=== PATIENT | male | born 1965 | race Caucasian/White ===

== ENCOUNTER → 2020-05-07 13:11 | Outpatient (BNVA) | payer MEDICAID, SELFPAY | PROVIDERS: PCP Internal Medicine; Referring Provider Internal Medicine; Visit Provider Nurse Practitioner Family | DX: I42.1 Obstructive hypertrophic cardiomyopathy (principal); I44.7 Left bundle-branch block, unspecified | CPT/HCPCS: 99214 ==

== ENCOUNTER → 2021-04-28 08:23 | Outpatient (REF) | payer OTHER, SELFPAY ==
--- NOTE | 2021-04-28 08:28 | CA_ITS ---
Transthoracic Echocardiogram Patient (Last, First, Middle): Bang Jarvis, Gender: Male Date of : 1965 Age: 56 Procedure Date: 04/28/2021 Procedure Type: Transthoracic Echocardiogram Location: OP Height: 187.96 cm Weight: 99.79 kg BSA: 2.26 m2 Heart Rate: bpm BP: 124 / 68 mmHg Diesel Engine Erector: RUDI Referring MD: Amelie Randle MUSIC EDUCATOR-Dawson Symptoms: I42.1 - Obstructive hypertrophic cardiomyopathy Study Quality: Fair ECG Rhythm: Sinus Conclusions: - The left ventricular systolic function is normal. The visually estimated ejection fraction is between 65-70%. - There is severe septal asymmetric hypertrophy. Septal thickness as much as 2.4cm. Peak LVOT gradient about 11mmHg at rest; with valsalva, 15mmHg. - The basal inferior, apical septum, and basal inferoseptal segments are akinetic. - No obvious valvular pathology seen on this study. Findings Left Ventricle Normal left ventricular cavity size. There is moderately increased left ventricular wall thickness. The left ventricular systolic function is normal. The visually estimated ejection fraction is between 65-70%. E/E prime ratio is >15, consistent with elevated filling pressures. Evidence suggests grade I (mild) diastolic dysfunction. There is severe septal asymmetric hypertrophy. Septal thickness as much as 2.4cm. Peak LVOT gradient about 11mmHg at rest; with valsalva, 15mmHg. Wall Motion Rest Echo Findings The basal inferior, apical septum, and basal inferoseptal segments are akinetic. Right Ventricle Normal right ventricular cavity size and systolic function. Atria Both atria are normal in size. Aortic Valve There is a normal trileaflet aortic valve. There is no aortic valve stenosis. There is no aortic valve regurgitation. Mitral Valve There is mild anterior and posterior mitral leaflet thickening. There is mild mitral annular calcification. There is trace mitral valve regurgitation. There is no mitral valve stenosis. Pulmonic Valve The pulmonic valve was not well visualized. Tricuspid Valve Normal tricuspid valve structure. There is trace tricuspid valve regurgitation. The pulmonary artery systolic pressure is normal. Great Vessels There is mild dilatation of the ascending aorta measuring 3.70 cm. Venous The inferior vena cava is normal in size and collapses greater than 50% with inspiration. Pericardium/Pleural There is a trivial pericardial effusion. Recommendations, Care & Conclusions No obvious valvular pathology seen on this study. Measurements 2D Linear Measurements IVSd: 1.99 0.6-0.9/0.6-1.0 cm LVIDd: 4.30 3.9-5.3/4.2-5.9 cm LVIDd Index: 1.90 2.4-3.2/2.2-3.1 cm/m2 LVIDs: 2.75 2.0-3.6 cm LVPWd: 1.42 0.7-1.1 cm Ao Root: 3.50 2.1-3.5 cm LA Diam: 4.00 2.7-3.8/3.0-4.0 cm LAIDs Index: 1.77 1.5-2.3 cm/m2 LV Mass: 393.96 67-162/88-224 g LV Mass Index: 174.32 43-95/49-115 g/m2 LVOT Diam: 2.00 3.0+(-)1.3 cm Mitral Valve MV Pk E: 0.99 MV PK A: 1.33 MV Decel Time: 299.00 E/A: 0.70 E'Lateral: 8.05 E'Medial: 3.37 E/E' Med: 29.20 E/E' Lat: 12.20 PHT: 88.00 MVA PHT: 2.50 Decel Collin: 3.29 Aortic Valve AoV Pk Vernon: 2.15 AoV Mn Vernon: 1.62 AoV VTI: 0.40 AoV Pk Grad: 18.00 Aov Mn Grad: 12.00 ROBERT Cont.VTI: 2.57 LVOT LVOT Pk Vernon: 1.61 LVOT Mn Vernon: 1.15 LVOT VTI: 0.32 LVOT Pk Grad: 10.00 LVOT Mn Grad: 6.00 LVOT Diam: 2.00 LVOT Area: 3.14 Diastolic Function MV Pk E: 0.99 MV Pk A: 1.33 E/A: 0.70 E'Medial: 3.37 E/E' Med: 29.20 E' Laterial: 8.05 E/E' Lat: 12.20 Right Ventricle TAPSE (mm): 21.00 TVS' Vernon: 14.00 Tricuspid Valve TR Pk Vernon: 1.90 TR Pk Grad: 14.00 Great Vessels Aorta Ao Root-2D: 3.50 2.0-3.7 cm Ao Asc: 3.70 2.1-3.4 cm Updated in Other Vendor System with Status of Final Albert Quiroga MD electronically signed on 04/29/2021 10:57:15 AM with status of Final
== END ==
LOC: HO.CARD 08:23
PROVIDERS: Visit Provider Nurse Practitioner Family
DX: I42.1 Obstructive hypertrophic cardiomyopathy (principal); I44.7 Left bundle-branch block, unspecified
CPT/HCPCS: 93306

== ENCOUNTER → 2021-05-26 12:49 | Outpatient (BNVA) | payer OTHER, SELFPAY | PROVIDERS: PCP Internal Medicine; Referring Provider Internal Medicine; Visit Provider Nurse Practitioner Family | DX: I42.1 Obstructive hypertrophic cardiomyopathy (principal); I44.7 Left bundle-branch block, unspecified | CPT/HCPCS: 93005; 99212 ==

== ENCOUNTER → 2021-08-06 13:08 | Outpatient (BNVA) | payer OTHER, SELFPAY | PROVIDERS: PCP Internal Medicine; Visit Provider Urology | DX: N52.9 Male erectile dysfunction, unspecified (principal) | CPT/HCPCS: 99202 ==

== ENCOUNTER → 2021-08-20 15:31 | Outpatient (BNVA) | payer OTHER, SELFPAY | PROVIDERS: PCP Internal Medicine; Visit Provider Surgery | DX: L72.0 Epidermal cyst (principal) | CPT/HCPCS: 99202 ==

== ENCOUNTER 2021-09-23 07:49 | Outpatient (REF) | payer OTHER, SELFPAY ==
[2021-09-23 07:55] VITALS: BMI 28.5
[2021-09-23 07:56] VITALS: BP 109/70; PULSE 83; RESP 16; TEMP 36.3; O2SAT 96
[2021-09-23 08:37] VITALS: BP 124/66; PULSE 85; RESP 16; O2SAT 96
--- NOTE | 2021-09-23 08:43 | P.OP_ITS ---
Operative Note Operative Note Date of Service: 09/23/21 Narrative: Preop diagnosis: epidermal inclusion cyst x2 on the back Postop diagnosis: The same Procedure: Excision of epidermal inclusion cyst x2 from the back surgeon: Ambrocio Garibay MD The patient is a 56-year-old male with to epidermal inclusion cysts on the back. There was a 2.5 cm in diameter cyst on the upper back and a 3. cm cyst on the lower back. In view of increasing size and significant discomfort, he wanted to proceed with excision. Understood the technique of excision under local anesthesia. He was aware of the risks, benefits, and alternatives He was brought to the minor procedure room. He was placed in prone position. The areas of both cysts were prepped and draped in the usual sterile fashion. A surgical time-out had been done. I infiltrated both areas with lidocaine 1% I then made an incision on the skin overlying the cyst on the lower back using blade 15. This was carried down through the full-thickness of the skin subcutaneous fat until I visualized the cyst capsule. I sharply dissected the cyst capsule off of the rest of the subcutaneous layer using blade 15 as well as with Metzenbaum scissors. I continued with this dissection anteriorly anterior the entire cyst was completely with the capsule. This was sent as a specimen. I irrigated the area of excision and closed the incision with full- thickness nylon 3-0 interrupted sutures . I then proceeded to make the incision on the skin on the cyst on the upper back using blade 15. And this was carried down through the full-thickness of skin and subcutaneous fat until I visualized the cyst capsule. I sharply dissected the cyst capsule off of the rest of the subcutaneous layer all the way posteriorly with Metzenbaum scissors as well as with a blade 15. This was delivered and sent as specimen. I irrigated the area of excision and closed the incision with full-thickness nylon 3-0 interrupted sutures. Dressings were applied. The procedure was then completed . The patient tolerated the procedure well. There were no complications noted. Estimated blood loss was about 5 cc . The patient was on wound care instructions and will be seen in the office for removal sutures.
== END 2021-09-23 07:50 | disposition home or self-care (01) ==
LOC: HO.MS 07:49
PROVIDERS: Visit Provider Surgery
PROC: (CPT 11403; principal; 2021-09-23 08:00)
DX: L72.0 Epidermal cyst (principal)
CPT/HCPCS: 11403 ×2; 88304

== ENCOUNTER → 2021-10-05 10:00 | Outpatient (BNVA) | payer OTHER, SELFPAY | PROVIDERS: PCP Internal Medicine; Referring Provider Internal Medicine; Visit Provider Surgery | DX: L72.0 Epidermal cyst (principal) | CPT/HCPCS: 99212 ==

== ENCOUNTER 2021-11-05 08:51 | Outpatient (AMB) | payer OTHER, SELFPAY ==
--- NOTE | 2021-11-05 09:13 | A.OFFVIS_ITS ---
Intake Intake Visit Reasons: 3 mth follow up weak stream Intake Note: Patient is present for weak stream follow up Network Associate Required: No Accompanied by: Self / Same As Patient Allergies prednisone [PREDNISONE] Allergy (Intermediate, Verified 06/01/23 11:22) BLEEDING HPI HPI Comments History of Present Illness Details Bang is a very pleasant male. He is a patient of Dr. Moulton. He is seen for the following urologic conditions. - erectile dysfunction - lower urinary tract symptoms Increased dose to 10 mg daily Erectile dysfunction Progressive Minimal erections in the mornings Has had prior cardiac procedure for HOCM Will try tadalafil 10 mg daily Follow-up in 3 months [facility] Medical History (Updated 08/23/23 @ 12:25 by Benjamín Malcolm MD) Aortic stenosis (~06/2022) Pacemaker (~04/2023) Hyperlipidemia Hypertrophic obstructive cardiomyopathy (HOCM) (~2018) LBBB (left bundle branch block) (~2018) Surgical History History of pacemaker (~04/2023) History of heart surgery (~12/2018) History of colonoscopy History of esophagogastroduodenoscopy (EGD) History of thumb surgery History of excision of epidermal inclusion cyst (~09/2021) Family History Father No problems noted. Mother No problems noted. Brother No problems noted. Sister No problems noted. Daughter Thyroid condition Son No problems noted. Social History Household Members: Spouse Housing: Apartment Do you presently have visiting nurse or other home services: No Alcohol intake: current Alcohol intake frequency: does not drink Comment: Indpendent Patient Tobacco Use Status: Current someday Tobacco user Tobacco use type: Cigarette Cigarettes Per Day: 5 service: No Review of Systems Const All systems reviewed & are unremarkable except as noted in HPI and below Reports no additional complaints Resp Reports no additional complaints GI Reports no additional complaints Reports as per HPI Musc Reports no additional complaints Physical Exam Telemedicine evaluation Appropriate responses Regular breathing rate and rhythm HEENT Head: Yes normal to inspection Ears: hearing grossly normal bilaterally Eyes General: appearance normal, both eyes and all related structures Neck Neck: Yes normal visual inspection Chest Chest palpation & inspection: normal inspection of the chest Resp Effort & Inspection: normal respiratory effort and able to speak in complete sentences Assessment & Plan Assessment & Plan Medications: Changed From tadalafil $17 [facility] [address] [id number] 5 mg PO DAILY 90 days 90 tabs 0RF sexual activity N52.9 - Male erectile dysfunction, unspecified To tadalafil [facility] [address] [id number] 10 mg PO DAILY 90 tabs 0RF sexual activity 90 days N52.9 - Male erectile dysfunction, unspecified Telehealth Telehealth Location of provider rendering services: practice address Location of patient: address on file Patient Identification confirmed using: Name, : Yes Telehealth method: voice only Patient verbally consented to treatment: Yes Patient verbally consented to billing insurance company: Yes Patient informed of any privacy concerns related to visit: Yes Coding Level of Care Code Tele Est Pt Level 3 (84808)
== END 2021-11-05 11:20 | disposition home or self-care (01) ==
LOC: HO.HUSH 08:51
PROVIDERS: PCP Internal Medicine; Visit Provider Urology
DX: N52.9 Male erectile dysfunction, unspecified (principal)
CPT/HCPCS: 99499

== ENCOUNTER → 2021-11-05 08:51 | Outpatient (BNVA) | payer OTHER, SELFPAY | PROVIDERS: PCP Internal Medicine; Visit Provider Urology | DX: Z13.89 Encounter for screening for other disorder (principal) ==

== ENCOUNTER → 2022-02-10 09:17 | Outpatient (BNVA) | payer OTHER, SELFPAY | PROVIDERS: PCP Internal Medicine; Visit Provider Urology | DX: N52.9 Male erectile dysfunction, unspecified (principal) | CPT/HCPCS: Q3014 ==

== ENCOUNTER 2022-02-28 23:51 | Emergency (ER) | payer OTHER, SELFPAY ==
--- NOTE | 2022-02-28 | ECG_ITS ---
Test Reason : CHEST PAIN Blood Pressure : / mmHG Vent. Rate : 070 BPM Atrial Rate : 070 BPM P-R Int : 150 ms QRS Dur : 158 ms QT Int : 444 ms P-R-T Axes : 055 062 220 degrees QTc Int : 479 ms Normal sinus rhythm Possible Left atrial enlargement Left bundle branch block Abnormal ECG When compared with ECG of 16-FEB-2019 20:21, No significant change was found Referred By: Generic ED Physician Electronically Signed By:ISAAC COLON MD
--- NOTE | ~2022-02-28 | XR_ITS ---
EXAMINATION: XR CHEST CLINICAL INFORMATION: Chest pain COMPARISON: 01/14/2019 TECHNIQUE: Frontal view of the chest was obtained. FINDINGS: Normal symmetric lung volumes. No parenchymal consolidation. No pleural effusion. No pneumothorax. Cardiomediastinal silhouette and pulmonary vascularity are within normal limits. No acute osseous abnormalities. Median sternotomy. XR/XR chest 1V IMPRESSION: Clear lungs.
[2022-02-28 23:58] VITALS: BP 137/80; PULSE 76; RESP 18; TEMP 36.5; O2SAT 97; BMI 28.1
[2022-03-01 00:26] LABS: Basophils Percent Auto 0.2 % (0-2); Eosinophils Absolute Auto 0.4 X10*3/uL (0.0-0.4); Eosinophils Percent Auto 3.3 % (0-4); Hematocrit 45.8 % (42.0-52.0); Hemoglobin 14.7 g/dl (14.0-18.0); Imm Gran Abs Auto 0.03 X10*3/uL (0.00-0.03); Imm Gran Pct Auto 0.3 % (0.0-0.4); Lymphocytes Absolute Auto 2.2 X10*3/uL (1.2-4.9); Lymphocytes Percent Auto 21.1 % (20-40); MANUAL DIFF FLAG NO; Mean Corpuscular HGB Conc 32.1 g/dl (31.0-36.0); Mean Corpuscular Hemoglobin 26.2 pg (27.0-33.0); Mean Corpuscular Volume 81.6 fL (80.0-98.0); Mean Platelet Volume 10.6 fL (9.4-12.4); Monocytes Absolute Auto 0.8 X10*3/uL (0.1-1.2); Monocytes Percent Auto 7.5 % (2-11); Neutrophils Absolute Auto 7.2 x10*3/uL (2.0-8.3); Neutrophils Percent Auto 67.6 % (45-73); Platelet Count 243 X10*3/uL (160-400); Red Blood Count 5.61 X10*6/uL (4.60-5.80); Red Cell Distribution Width 15.1 % (11.0-16.0); White Blood Count 10.6 X10*3/uL (4.8-10.8)
[2022-03-01 00:46] LABS: Troponin-I High Sensitivity 10.6 ng/L (<3.5-35.0)
--- NOTE | 2022-03-01 00:49 | ED.CHESTPAIN ---
HPI - Chest Pain General Chief Complaint: Chest Pain Stated Complaint: chest pain Time Seen by Provider: 03/01/22 00:22 Source: patient Mode of arrival: ambulatory Limitations: no limitations History of Present Illness HPI narrative: Patient is 57 years old with history of HOCM status post septal myectomy in 2019 with postsurgical LBBB comes here for chest pain for last 2 days patient denies any shortness of breath no dizziness no presyncope/syncope, falls no PND or orthopnea or edema patient describes chest pain as sharp pain off and on without any palpitation or diaphoresis Related Data Home Medications Medication Instructions Recorded Confirmed acetaminophen 500 mg tablet 500 mg PO Q6H PRN 05/07/20 08/20/21 (Tylenol Extra Strength) simvastatin 40 mg tablet 40 mg PO BEDTIME 11/05/21 famotidine 20 mg tablet 20 mg PO DAILY 02/10/22 metformin 500 mg tablet 1 tab PO BID 03/01/22 03/01/22 Previous Rx's Medication Instructions Recorded aspirin 81 mg tablet,delayed 81 mg PO DAILY 90 days #90 tabs 02/11/21 release sildenafil 100 mg tablet 100 mg PO ONCE PRN sexual activity 02/10/22 30 days #30 tabs tadalafil 10 mg tablet 10 mg PO DAILY sexual activity 90 02/10/22 days #90 tabs Allergies Allergy/AdvReac Type Severity Reaction Status Date / Time prednisone [PREDNISONE] Allergy Intermediate BLEEDING Verified 02/10/22 09:19 Review of Systems Review of Systems: Yes all other systems are reviewed and are negative PMFSH Past Medical History Medical History Epidermal inclusion cyst Hyperlipidemia Hypertrophic obstructive cardiomyopathy (HOCM) LBBB (left bundle branch block) Surgical History H/O heart surgery H/O thumb surgery History of excision of epidermal inclusion cyst (~09/23/21) HOCM (hypertrophic obstructive cardiomyopathy) Hx of colonoscopy Family History Family History Father No problems noted. Mother No problems noted. Brother No problems noted. Sister No problems noted. Daughter Thyroid condition Son No problems noted. Social History Social History Alcohol intake: current Patient Tobacco Use Status: Current someday Tobacco user Tobacco use type: Cigarette Physical Exam Vital Signs: Vital Signs: Last Vital Signs Temp 97.7 F 02/28/22 23:58 Pulse 66 03/01/22 01:01 Resp 18 03/01/22 01:01 BP 126/74 03/01/22 01:01 Pulse Ox 97 03/01/22 01:01 O2 Del Method 03/01/22 01:01 BMI result Body Mass Index 28.1 Appearance: Alert. Oriented X3. No acute distress. Eyes: PERRLA, No Nystagmus ENT: Pharynx normal. Oral Mucosa moist Neck: Normal inspection. Neck supple. CVS: Normal heart rate and rhythm. Pulses normal. Respiratory: No respiratory distress. Equal air entry bilateral, no wheezing/rales/rhonchi Abdomen: Soft and nontender. Bowel sounds are present, no mass palpable, no CVA tenderness Skin: Skin warm and dry. Normal skin color. Normal skin turgor. Extremities: No lower extremity edema. No calf tenderness Neuro: Oriented X 3. No motor deficit. No sensory deficit.No cerebellar signs , cranial nerves II-XII intact MDM - Chest Pain MDM Narrative Medical decision making narrative: 00:06 Patient atypical chest pain for last 2 days EKG without any ischemic changes patient does have a HOCM. Will repeat troponin patient does take aspirin a day which she has taken it yesterday at this time patient does not have any chest pain patient has previous cardiac catheterization in 2019 was negative Lab Data Attestation: I reviewed the patient's lab results. Result diagrams: 03/01/22 00:20 03/01/22 00:20 Labs: Lab Results 03/01/22 03/01/22 03/01/22 Range/Units 00:20 00:20 00:20 WBC 10.6 (4.8-10.8) X10*3/uL RBC 5.61 (4.60-5.80) X10*6/uL Hgb 14.7 (14.0-18.0) g/dl Hct 45.8 (42.0-52.0) % MCV 81.6 (80.0-98.0) fL MCH 26.2 L (27.0-33.0) pg MCHC 32.1 (31.0-36.0) g/dl RDW 15.1 (11.0-16.0) % Plt Count 243 (160-400) X10*3/uL MPV 10.6 (9.4-12.4) fL Immature Gran % (Auto) 0.3 (0.0-0.4) % Neut % (Auto) 67.6 (45-73) % Lymph % (Auto) 21.1 (20-40) % [place] % (Auto) 7.5 (2-11) % Eos % (Auto) 3.3 (0-4) % Baso % (Auto) 0.2 (0-2) % Lymph # (Auto) 2.2 (1.2-4.9) X10*3/uL [place] # (Auto) 0.8 (0.1-1.2) X10*3/uL Eos # (Auto) 0.4 (0.0-0.4) X10*3/uL Baso # (Auto) 0.0 (0.0-0.2) X10*3/uL Abs Immat Gran (auto) 0.03 (0.00-0.03) X10*3/uL Absolute Neuts (auto) 7.2 (2.0-8.3) x10*3/uL Absolute Nucleated RBC 0.000 (0.0-0.012) X10*3/uL Nucleated RBC % (auto) 0.0 (0.0-0.2) /100WBC Sodium 140 (135-145) mmol/L Potassium 4.3 (3.3-5.1) mmol/L Chloride 107 (96-108) mmol/L Carbon Dioxide 21 L (22-29) mmol/L Anion Gap 16 (12-20) BUN 20 H (9-16) mg/dL Creatinine 0.87 (0.5-1.4) mg/dL Estim Creat Clear Calc 120.8 Estimated GFR > 60 Random Glucose 130 H (60-115) mg/dL Calcium 8.7 (8.4-10.2) mg/dL Troponin I High Sens 10.6 (<3.5-35.0) ng/L ECG Data ECG #1: Attestation: I personally reviewed and interpreted this ECG as follows: Interpretation: No sinus rhythm heart rate 70 beats per minute left bundle-branch block left atrial enlargement no acute ischemic changes no change from the previous EKG Discharge Plan Discharge Clinical Impression: Chest pain Patient Disposition: Still a Patient Prescriptions: No Action aspirin 81 mg tablet,delayed release (DR/EC) 81 mg PO DAILY 90 Days Qty: 90 3RF metformin 500 mg tablet 1 tab PO BID acetaminophen [Tylenol Extra Strength] 500 mg tablet 500 mg PO Q6H PRN (Reason: Pain) simvastatin 40 mg tablet 40 mg PO BEDTIME famotidine 20 mg tablet 20 mg PO DAILY sildenafil 100 mg tablet 100 mg PO ONCE PRN (Reason: sexual activity) 30 Days Qty: 30 1RF Rx Instructions: administer 60 minutes before intended activity tadalafil 10 mg tablet 10 mg PO DAILY 90 Days Qty: 90 0RF Rx Instructions: [place] [facility] [id number]
[2022-03-01 01:01] VITALS: BP 126/74; PULSE 66; RESP 18; O2SAT 97
[2022-03-01 01:08] LABS: Anion Gap 16 (12-20); Blood Urea Nitrogen 20 mg/dL (9-16); Calcium 8.7 mg/dL (8.4-10.2); Carbon Dioxide 21 mmol/L (22-29); Chloride 107 mmol/L (96-108); Creatinine Clr Calc Pharmacy 120.8; Estimated Glomerular Filt Rate > 60; Glucose Random 130 mg/dL (60-115); Potassium 4.3 mmol/L (3.3-5.1); Sodium 140 mmol/L (135-145)
[2022-03-01 02:00] VITALS: BP 119/70; PULSE 65; RESP 13; O2SAT 97
[2022-03-01 03:01] LABS: Troponin-I High Sensitivity 11.8 ng/L (<3.5-35.0)
== END 2022-03-01 04:00 | disposition home or self-care (01) ==
PROVIDERS: Emergency Provider Internal Medicine; PCP Internal Medicine Cardiovascular Disease
DX: R07.89 Other chest pain (principal); F17.200 Nicotine dependence, unspecified, uncomplicated; Z71.6 Tobacco abuse counseling; Z79.899 Other long term (current) drug therapy
CPT/HCPCS: 36415; 71045; 80048; 84484; 85025; 93005; 99283; 99284

== ENCOUNTER → 2022-05-27 14:44 | Outpatient (BNVA) | payer OTHER, SELFPAY | PROVIDERS: Visit Provider Urology | DX: N52.9 Male erectile dysfunction, unspecified (principal); Z79.899 Other long term (current) drug therapy | CPT/HCPCS: Q3014 ==

== ENCOUNTER → 2022-06-11 07:10 | Outpatient (REF) | payer OTHER, SELFPAY ==
--- NOTE | 2022-06-11 07:12 | CA_ITS ---
Transthoracic Echocardiogram Patient (Last, First, Middle): Bang Jarvis, Gender: Male Date of : 1965 Age: 57 Procedure Date: 06/11/2022 Procedure Type: Transthoracic Echocardiogram Location: OP Height: 187.96 cm Weight: 68.04 kg BSA: 1.92 m2 Heart Rate: bpm BP: 130 / 75 mmHg Log Preparer: TO Referring MD: Amelie Randle DOPE HOUSE OPERATOR HELPER-Dawson Symptoms: I42.1 - Obstructive hypertrophic cardiomyopathy Study Quality: Fair/Contrast Conclusions: - Normal left ventricular cavity size. There is severely increased left ventricular wall thickness. The left ventricular systolic function is hyperdynamic. The visually estimated ejection fraction is >70%. - No MARSHALL. LVOT gradient at rest and with Valsalva 14 mm Hg. - Mildly increased right ventricular cavity size. There is borderline right ventricular systolic function. - There is mild aortic valve stenosis. The peak aortic velocity is 2.07 m/s. - Flow acceleration across the MV with mean gradient of 4 mm Hg @ HR 63/min. Findings Procedure Information Contrast agent, definity, is being given per protocol without apparent complications. Left Ventricle Normal left ventricular cavity size. There is severely increased left ventricular wall thickness. The left ventricular systolic function is hyperdynamic. The visually estimated ejection fraction is >70%. There is no evidence of regional wall motion abnormalities. Diastolic function is indeterminate on the basis of available data. Right Ventricle Mildly increased right ventricular cavity size. There is borderline right ventricular systolic function. Atria The left atrium is severely dilated. The right atrium is normal in size. Aortic Valve There is a normal trileaflet aortic valve. There is mild calcification of the aortic valve. There is mild aortic valve stenosis. The peak aortic velocity is 2.07 m/s. There is no aortic valve regurgitation. Mitral Valve There is severe mitral annular calcification. There is trace mitral valve regurgitation. Flow acceleration across the MV with mean gradient of 4 mm Hg @ HR 63/min. Pulmonic Valve The pulmonic valve is likely normal. Tricuspid Valve Normal tricuspid valve structure. There is no tricuspid valve regurgitation. Normal right atrial pressure. Mild pulmonary hypertension is present. Great Vessels There is mild dilatation of the ascending aorta. The visualized portions of the pulmonary artery and branches are normal. Venous The inferior vena cava is normal in size and collapses greater than 50% with inspiration. Pericardium/Pleural Prominent epicardial adipose tissue noted. There is no evidence of pericardial effusion. Prior Study Comparison Changes noted compared to prior study dated: 04/28/2021. Mild present. Measurements 2D Linear Measurements IVSd: 1.71 0.6-0.9/0.6-1.0 cm LVIDd: 5.37 3.9-5.3/4.2-5.9 cm LVIDd Index: 2.80 2.4-3.2/2.2-3.1 cm/m2 LVIDs: 3.47 2.0-3.6 cm LVPWd: 1.09 0.7-1.1 cm LA Diam: 4.10 2.7-3.8/3.0-4.0 cm LAIDs Index: 2.14 1.5-2.3 cm/m2 LV Mass: 406.10 67-162/88-224 g LV Mass Index: 211.51 43-95/49-115 g/m2 LVOT Diam: 2.00 3.0+(-)1.3 cm 2D Systolic Function EF 4C: 69.30 >55% EF 2C: 68.30 >55% EF BiP: 69.20 >55% Mitral Valve MV VTI: 0.39 MV Pk Vernon: 1.29 MV Mn Vernon: 0.94 MV Pk Grad: 7.00 MV Mn Grad: 4.00 MV Pk E: 1.18 MV PK A: 1.10 MV Decel Time: 296.00 E/A: 1.10 E'Lateral: 6.53 E'Medial: 4.24 E/E' Med: 27.80 E/E' Lat: 18.10 PHT: 87.00 MVA PHT: 2.53 MVA Continuity: 3.00 Decel Roane: 3.98 Aortic Valve AoV Pk Vernon: 2.07 AoV Mn Vernon: 1.40 AoV VTI: 0.41 AoV Pk Grad: 17.00 Aov Mn Grad: 9.00 ROBERT Cont.VTI: 2.85 LVOT LVOT Pk Vernon: 1.88 LVOT Mn Vernon: 1.22 LVOT VTI: 0.38 LVOT Pk Grad: 14.00 LVOT Mn Grad: 7.00 LVOT Diam: 2.00 LVOT Area: 3.14 Diastolic Function MV Pk E: 1.18 MV Pk A: 1.10 E/A: 1.10 E'Medial: 4.24 E/E' Med: 27.80 E' Laterial: 6.53 E/E' Lat: 18.10 Right Ventricle TAPSE (mm): 23.50 TVS' Vernon: 9.68 Tricuspid Valve TR Pk Vernon: 3.03 TR Pk Grad: 37.00 RA Press: 3.00 RVSP: 40.00 Great Vessels Aorta Sinus of Valsalva: 3.61 2.0-3.5 cm Ao Asc: 3.40 2.1-3.4 cm Updated in Other Vendor System with Status of Final Sumit Mak MD electronically signed on 06/13/2022 4:54:09 PM with status of Final
== END ==
LOC: HO.CARD 07:10
PROVIDERS: Visit Provider Nurse Practitioner Family
DX: I42.1 Obstructive hypertrophic cardiomyopathy (principal)
CPT/HCPCS: 93306; Q9957

== ENCOUNTER → 2022-08-03 12:31 | Outpatient (BNVA) | payer OTHER, SELFPAY | PROVIDERS: Visit Provider Internal Medicine Cardiovascular Disease | DX: I42.1 Obstructive hypertrophic cardiomyopathy (principal); I44.7 Left bundle-branch block, unspecified; I35.0 Nonrheumatic aortic (valve) stenosis | CPT/HCPCS: 99212 ==

== ENCOUNTER 2022-11-07 08:27 | Emergency (ER) | payer OTHER, SELFPAY ==
[2022-11-07 08:39] VITALS: BP 130/94; PULSE 70; RESP 18; TEMP 36.2; O2SAT 97; BMI 27.6
--- NOTE | 2022-11-07 08:51 | ED.DENTAL ---
HPI - Dental/Oral General Chief complaint: Dental/Oral Stated complaint: Dental pain Time Seen by Provider: 11/07/22 08:42 Source: patient Mode of arrival: ambulatory Limitations: no limitations History of Present Illness HPI Narrative: 57-year-old male came in for evaluation of dental pain. Patient broke a tooth 2 weeks ago and has an appointment with a dentist in 2 weeks came in for increased pain around the tooth and swelling on the right side of the face. Patient declined any fever chills, prior open heart surgery for hypertrophic obstructive cardiomyopathy. Related Data Home Medications Medication Instructions Recorded Confirmed acetaminophen 500 mg tablet 500 mg PO Q6H PRN Pain 05/07/20 08/03/22 (Tylenol Extra Strength) famotidine 20 mg tablet 20 mg PO DAILY 02/10/22 08/03/22 cholecalciferol (vitamin D3) 25 25 mcg PO DAILY 08/03/22 08/03/22 mcg (1,000 unit) tablet cyanocobalamin (vitamin B-12) 1,000 mcg PO DAILY 08/03/22 08/03/22 1,000 mcg tablet (Vitamin B-12) metformin 500 mg tablet 500 mg PO BID PRN 08/03/22 08/03/22 rosuvastatin 20 mg tablet 20 mg PO BEDTIME 08/03/22 08/03/22 Previous Rx's Medication Instructions Recorded aspirin 81 mg tablet,delayed 81 mg PO DAILY 90 days #90 tabs 02/11/21 release sildenafil 100 mg tablet 100 mg PO ONCE PRN sexual activity 02/10/22 30 days #30 tabs tadalafil 10 mg tablet 10 mg PO DAILY sexual activity 90 05/27/22 days #90 tabs amoxicillin 500 mg tablet 500 mg PO Q12H #14 tabs 11/07/22 oxycodone 5 mg tablet 5 mg PO Q8H PRN pain #10 tabs 11/07/22 Allergies Allergy/AdvReac Type Severity Reaction Status Date / Time prednisone [PREDNISONE] Allergy Intermediate BLEEDING Verified 02/10/22 09:19 Review of Systems Review of Systems: All other systems are reviewed and are negative Constitutional: Reports as per HPI and Reports no additional constitutional complaints Eyes: Reports as per HPI and Reports no additional eye complaints Reports system reviewed and no additional complaints, except as documented Cardiovascular: Reports as per HPI and Reports no additional cardiovascular complaints Respiratory: Reports as per HPI and Reports no additional respiratory complaints Gastrointestinal: Reports as per HPI and Reports no additional gastrointestinal complaints Genitourinary: Reports no additional female genitourinary complaints Musculoskeletal: Reports no additional musculoskeletal complaints Skin/Breast: Reports system reviewed and no additional complaints, except as docu Psychiatric: Reports no additional psychiatric complaints Endocrine: Reports no additional endocrine complaints Hematologic/Lymphatic: Reports no additional hematologic/lymphatic complaints Allergic/Immunologic: Reports no additional allergic/immunologic complaints Reports system reviewed and no additional complaints, except as documented and Reports Abnormal speech present [facility] Past Medical History Medical History Epidermal inclusion cyst Hyperlipidemia Hypertrophic obstructive cardiomyopathy (HOCM) LBBB (left bundle branch block) Surgical History H/O heart surgery H/O thumb surgery History of excision of epidermal inclusion cyst (~09/23/21) HOCM (hypertrophic obstructive cardiomyopathy) Hx of colonoscopy Family History Family History Father No problems noted. Mother No problems noted. Brother No problems noted. Sister No problems noted. Daughter Thyroid condition Son No problems noted. Social History Social History Alcohol intake: current Patient Tobacco Use Status: Current someday Tobacco user Tobacco use type: Cigarette Advance Directives: No Advance Directives Information Provided: Yes Physical Exam Vital Signs: Vital Signs: Last Vital Signs Temp 97.2 F 11/07/22 08:39 Pulse 70 11/07/22 08:39 Resp 18 11/07/22 08:39 BP 130/94 H 11/07/22 08:39 Pulse Ox 97 11/07/22 08:39 O2 Del Method Room Air 11/07/22 08:39 BMI result Body Mass Index 27.6 Vital signs have been reviewed as appeared to be correct. Blood pressure normal. Heart rate normal. Respiration rate normal. Temperature normal. Oxygen saturation normal. Appearance: Alert. Oriented X3. No acute distress. Head: Normal external exam. Normocephalic. Atraumatic. No Wright signs noted. No raccoon eyes noted Right facial swelling, broken right lower 2nd molar tooth with tenderness over the tooth and around the gum, no gum swelling or fluctuation. Eyes: PERRLA. EOMI. Conjunctiva and sclera normal. Eyelids normal. ENT: TM's Normal. Pharynx normal. Uvula midline. Moist mucous membranes. No trismus noted. No drooling noted. No muffled voice noted. Neck: Normal inspection. Neck supple. FROM. No adenopathy. Thyroid Normal. No meningeal signs. No neck mass noted. CVS: Normal heart rate and rhythm. Heart sound normal. No murmurs noted. Pulses normal throughout. Respiratory: No respiratory distress. Painless inspiration. Breath sounds normal. No wheezes/rales/rhonchi noted. Chest nontender. No accessory muscle usage noted or decreased air movement noted. Abdomen: Soft and nontender. Bowel sounds normal in all 4 quadrants. No distention noted. No organomegaly noted. No visible injury noted. Back: No CVA tenderness. Full range of motion noted. Skin: Skin warm and dry. Normal skin color. Normal skin turgor. No rashes/lesions/lacerations noted. Extremities: No lower extremity edema. Extremities exhibit normal range of motion. Extremities nontender. Neuro: Oriented X 3. Cranial nerve exam: II-XII are grossly intact No motor deficit. No sensory deficit. Reflexes normal. Course Course Course Narrative: Right lower 2nd molar tooth infection with gingivitis without abscess. Medical Decision Making Differential Diagnosis Differential Diagnoses: The differential diagnosis associated with the presentation includes (Infected tooth, gingival abscess, gingivitis, facial cellulitis.) Discharge Plan Discharge Clinical Impression: Toothache Patient Disposition: Home, Self-Care Instructions: Toothache (ED) Additional Instructions: See your dentist as scheduled next week and take the antibiotic. Prescriptions: New oxycodone 5 mg tablet 5 mg PO Q8H PRN (Reason: pain) Qty: 10 0RF Rx Instructions: Partial Fill upon patient request. amoxicillin 500 mg tablet 500 mg PO Q12H Qty: 14 0RF No Action aspirin 81 mg tablet,delayed release (DR/EC) 81 mg PO DAILY 90 Days Qty: 90 3RF metformin 500 mg tablet 500 mg PO BID PRN acetaminophen [Tylenol Extra Strength] 500 mg tablet 500 mg PO Q6H PRN (Reason: Pain) famotidine 20 mg tablet 20 mg PO DAILY sildenafil 100 mg tablet 100 mg PO ONCE PRN (Reason: sexual activity) 30 Days Qty: 30 1RF Rx Instructions: administer 60 minutes before intended activity tadalafil 10 mg tablet 10 mg PO DAILY 90 Days Qty: 90 1RF Rx Instructions: [place] [facility]33 [id number] cholecalciferol (vitamin D3) 25 mcg (1,000 unit) tablet 25 mcg PO DAILY rosuvastatin 20 mg tablet 20 mg PO BEDTIME cyanocobalamin (vitamin B-12) [Vitamin B-12] 1,000 mcg tablet 1,000 mcg PO DAILY Referrals: [facility] [Primary Care Provider] -
[2022-11-07] MEDS: Amoxicillin 500 MG CAPSULE PO (09:08)
[2022-11-07] MEDS: Acetaminophen 325 MG TABLET 650 MG PO (09:15)
== END 2022-11-07 09:23 | disposition home or self-care (01) ==
PROVIDERS: Emergency Provider Emergency Medicine
DX: K08.89 Other specified disorders of teeth and supporting structures (principal); F17.210 Nicotine dependence, cigarettes, uncomplicated; Z71.6 Tobacco abuse counseling; Z79.899 Other long term (current) drug therapy
CPT/HCPCS: 99283; 99284

== ENCOUNTER 2022-11-29 07:09 | Outpatient (REF) | payer OTHER, SELFPAY ==
[2022-11-29 08:08] LABS: Cholesterol 224 mg/dL; HDL Cholesterol 36 mg/dL; Triglycerides 528 mg/dL
[2022-11-29 08:22] LABS: Prostate Specific Antigen 0.27 ng/mL (<0.05-4.0)
== END 2022-11-29 07:10 | disposition home or self-care (01) ==
LOC: HO.LAB 07:09
PROVIDERS: Absent Provider Internal Medicine Cardiovascular Disease; Visit Provider Urology
DX: Z12.5 Encounter for screening for malignant neoplasm of prostate (principal); N52.9 Male erectile dysfunction, unspecified; I25.10 Atherosclerotic heart disease of native coronary artery without angina pectoris; I35.0 Nonrheumatic aortic (valve) stenosis
CPT/HCPCS: 36415; 80061; 84153

== ENCOUNTER → 2022-11-30 14:31 | Outpatient (BNVA) | payer OTHER, SELFPAY | PROVIDERS: Visit Provider Urology | DX: N52.9 Male erectile dysfunction, unspecified (principal) | CPT/HCPCS: 99212 ==

== ENCOUNTER 2023-03-20 00:37 | Emergency (ER) | payer OTHER, SELFPAY ==
[2023-03-20 00:40] VITALS: BP 128/77; PULSE 71; RESP 16; TEMP 36.6; O2SAT 97; BMI 28.7
[2023-03-20] MEDS: Ibuprofen 400 MG TABLET PO (00:47)
--- NOTE | 2023-03-20 02:52 | ED.DENTAL ---
HPI - Dental/Oral General Chief complaint: Skin/Abscess/Foreign Body Stated complaint: Abscess in mouth Time Seen by Provider: 03/20/23 02:02 Source: patient Mode of arrival: ambulatory Limitations: no limitations History of Present Illness HPI Narrative: Patient with multiple dental caries had multiple root canals and crowns last month been followed by dentist comes here for pain in the right lower premolar area for last 2 days with slight swelling no fever no chills Related Data Home Medications Medication Instructions Recorded Confirmed acetaminophen 500 mg tablet 500 mg PO Q6H PRN Pain 05/07/20 11/30/22 (Tylenol Extra Strength) famotidine 20 mg tablet 20 mg PO DAILY 02/10/22 11/30/22 cholecalciferol (vitamin D3) 25 25 mcg PO DAILY 08/03/22 11/30/22 mcg (1,000 unit) tablet cyanocobalamin (vitamin B-12) 1,000 mcg PO DAILY 08/03/22 11/30/22 1,000 mcg tablet (Vitamin B-12) metformin 500 mg tablet 500 mg PO BID PRN 08/03/22 11/30/22 rosuvastatin 20 mg tablet 20 mg PO BEDTIME 08/03/22 11/30/22 cetirizine 10 mg tablet 10 mg PO DAILY 11/30/22 11/30/22 fluticasone propionate 50 spray intranasal 11/30/22 11/30/22 mcg/actuation nasal spray,suspension Previous Rx's Medication Instructions Recorded aspirin 81 mg tablet,delayed 81 mg PO DAILY 90 days #90 tabs 02/11/21 release sildenafil 100 mg tablet 100 mg PO ONCE PRN sexual activity 02/10/22 30 days #30 tabs oxycodone 5 mg tablet 5 mg PO Q8H PRN pain #10 tabs 11/07/22 icosapent ethyl 1 gram capsule 2 g PO BID 30 days #120 caps 11/30/22 (Vascepa) tadalafil 10 mg tablet 10 mg PO DAILY sexual activity 90 11/30/22 days #90 tabs amoxicillin 875 mg-potassium 1 tab PO BID #20 tabs 03/20/23 clavulanate 125 mg tablet oxycodone 5 mg tablet 5 mg PO Q6H PRN pain #20 tabs 03/20/23 Allergies Allergy/AdvReac Type Severity Reaction Status Date / Time prednisone [PREDNISONE] Allergy Intermediate BLEEDING Verified 11/30/22 15:19 Review of Systems Review of Systems: Yes all other systems are reviewed and are negative [facility] Past Medical History Medical History Epidermal inclusion cyst Hyperlipidemia Hypertrophic obstructive cardiomyopathy (HOCM) LBBB (left bundle branch block) Surgical History H/O heart surgery H/O thumb surgery History of excision of epidermal inclusion cyst (~09/23/21) HOCM (hypertrophic obstructive cardiomyopathy) Hx of colonoscopy Family History Family History Father No problems noted. Mother No problems noted. Brother No problems noted. Sister No problems noted. Daughter Thyroid condition Son No problems noted. Social History Social History Alcohol intake: current Alcohol intake frequency: a few times a week Patient Tobacco Use Status: Current someday Tobacco user Tobacco use type: Cigarette Advance Directives: No Advance Directives Information Provided: Yes Physical Exam Vital Signs: Vital Signs: Last Vital Signs Temp 97.9 F 03/20/23 00:40 Pulse 71 03/20/23 00:40 Resp 16 03/20/23 00:40 BP 128/77 03/20/23 00:40 Pulse Ox 97 03/20/23 00:40 O2 Del Method Room Air 03/20/23 00:40 BMI result Body Mass Index 28.7 HEENT: Teeth image: 1. [place] on tooth 29 with slight gum swelling Medications Administered Discontinued Medications Generic Name Dose Route Start Last Admin Trade Name Freq PRN Reason Stop Dose Admin Ibuprofen 400 mg 03/20/23 00:43 03/20/23 00:47 Ibuprofen 400 Mg Tablet PO 03/20/23 00:44 400 mg ONCE ONE Administration Medical Decision Making Medical Decision Making [facility] Narrative: Likely patient has dental pulpitis tooth number 29 will discharge patient home on Augmentin and oxycodone advised to follow-up with dentist Discharge Plan Discharge Clinical Impression: Dental abscess Patient Disposition: Home, Self-Care Instructions: Dental Abscess (ED) Additional Instructions: Take antibiotics and pain medication as prescribed and follow with dentist Prescriptions: New amoxicillin-pot clavulanate 875-125 mg tablet 1 tab PO BID Qty: 20 0RF oxycodone 5 mg tablet 5 mg PO Q6H PRN (Reason: pain) Qty: 20 0RF Rx Instructions: Partial Fill upon patient request. No Action aspirin 81 mg tablet,delayed release (DR/EC) 81 mg PO DAILY 90 Days Qty: 90 3RF icosapent ethyl [Vascepa] 1 gram capsule 2 g PO BID 30 Days Qty: 120 5RF metformin 500 mg tablet 500 mg PO BID PRN oxycodone 5 mg tablet 5 mg PO Q8H PRN (Reason: pain) Qty: 10 0RF Rx Instructions: Partial Fill upon patient request. acetaminophen [Tylenol Extra Strength] 500 mg tablet 500 mg PO Q6H PRN (Reason: Pain) famotidine 20 mg tablet 20 mg PO DAILY sildenafil 100 mg tablet 100 mg PO ONCE PRN (Reason: sexual activity) 30 Days Qty: 30 1RF Rx Instructions: administer 60 minutes before intended activity cetirizine 10 mg tablet 10 mg PO DAILY fluticasone propionate 50 mcg/actuation spray,suspension intranasal tadalafil 10 mg tablet 10 mg PO DAILY 90 Days Qty: 90 1RF Rx Instructions: [place] [employer] [facility] DR33 [id number] cholecalciferol (vitamin D3) 25 mcg (1,000 unit) tablet 25 mcg PO DAILY rosuvastatin 20 mg tablet 20 mg PO BEDTIME cyanocobalamin (vitamin B-12) [Vitamin B-12] 1,000 mcg tablet 1,000 mcg PO DAILY
[2023-03-20] MEDS: Amoxicillin/Potassium Clav 875 MG TABLET PO (03:14)
[2023-03-20] MEDS: oxyCODONE HCl Immed Release 5 MG TABLET 10 MG PO (03:14)
--- NOTE | 2023-03-20 03:18 | PC.NURSE ---
Medicated for pain per MAR.
== END 2023-03-20 03:19 | disposition home or self-care (01) ==
PROVIDERS: Emergency Provider Internal Medicine
DX: K04.7 Periapical abscess without sinus (principal); F17.210 Nicotine dependence, cigarettes, uncomplicated; Z71.6 Tobacco abuse counseling; Z79.899 Other long term (current) drug therapy
CPT/HCPCS: 99283

== ENCOUNTER 2023-04-22 17:15 | Inpatient (IN) | payer OTHER, SELFPAY ==
--- NOTE | ~2023-04-22 | XR_ITS ---
EXAMINATION: XR CHEST CLINICAL INFORMATION: Pacemaker placement COMPARISON: Chest x-ray March 01, 2022 TECHNIQUE: Frontal view of the chest was obtained. FINDINGS: Cardiac silhouette is normal in size. Interval placement of dual lead pacemaker. Sternotomy wires again noted. The lungs are adequately aerated. There is no lobar consolidation. No pleural effusion or pneumothorax. XR/XR chest 1V IMPRESSION: Interval placement of dual lead pacemaker. No pneumothorax.
--- NOTE | ~2023-04-22 | FL_ITS ---
EXAMINATION: FL guidance in OR INDICATION: Reason for Exam pacemaker, dual COMPARISON: Radiographs of the chest 03/01/2022 TECHNIQUE: Multiple fluoroscopic OR images were provided. FLUOROSCOPY TIME: 2.5 minutes DOSE AREA PRODUCT: 15.6 Gy-cm2 FINDINGS: Intraoperative fluoroscopy was obtained. No radiologist was in attendance. Please refer to operative report for complete evaluation. Median sternotomy wires and mediastinal surgical clips. Partially imaged lead cardiac pacemaker. FL/FL guidance in OR IMPRESSION: Intraoperative fluoroscopy was obtained. No radiologist was in attendance. Please refer to operative report for complete evaluation.
--- NOTE | 2023-04-22 17:16 | ECG_ITS ---
Test Reason : chest pain Blood Pressure : / mmHG Vent. Rate : 045 BPM Atrial Rate : 087 BPM P-R Int : 000 ms QRS Dur : 154 ms QT Int : 502 ms P-R-T Axes : 054 048 168 degrees QTc Int : 434 ms Sinus rhythm with complete heart block and Wide QRS rhythm Left bundle branch block Abnormal ECG When compared with ECG of 01-MAR-2022 00:11, Wide QRS rhythm has replaced Sinus rhythm Vent. rate has decreased BY 25 BPM AV Block is now Present Referred By: Generic ED Physician Electronically Signed By:FRANCISCO GUNDERSON
[2023-04-22 17:50] VITALS: BP 159/75; PULSE 45; RESP 18; TEMP 36.7; O2SAT 99; BMI 30.8
--- NOTE | 2023-04-22 17:54 | ED_ITS ---
HPI - General Adult General Chief complaint: General Medical Stated complaint: Chest pain, dizzy Time Seen by Provider: 04/22/23 18:05 Source: patient Mode of arrival: ambulatory Limitations: no limitations History of Present Illness HPI narrative: History of chest pain and shortness of breath for hours today. No history of CAD, HOCM with septal surgery. No prior history of chest pain. Onset (ago): hour(s) Location: chest Severity: mild Related Data Home Medications Medication Instructions Recorded Confirmed acetaminophen 500 mg tablet 500 mg PO Q6H PRN Pain 05/07/20 11/30/22 (Tylenol Extra Strength) famotidine 20 mg tablet 20 mg PO DAILY 02/10/22 11/30/22 cholecalciferol (vitamin D3) 25 25 mcg PO DAILY 08/03/22 11/30/22 mcg (1,000 unit) tablet cyanocobalamin (vitamin B-12) 1,000 mcg PO DAILY 08/03/22 11/30/22 1,000 mcg tablet (Vitamin B-12) metformin 500 mg tablet 500 mg PO BID PRN 08/03/22 11/30/22 rosuvastatin 20 mg tablet 20 mg PO BEDTIME 08/03/22 11/30/22 cetirizine 10 mg tablet 10 mg PO DAILY 11/30/22 11/30/22 fluticasone propionate 50 spray intranasal 11/30/22 11/30/22 mcg/actuation nasal spray,suspension Previous Rx's Medication Instructions Recorded aspirin 81 mg tablet,delayed 81 mg PO DAILY 90 days #90 tabs 02/11/21 release sildenafil 100 mg tablet 100 mg PO ONCE PRN sexual activity 02/10/22 30 days #30 tabs oxycodone 5 mg tablet 5 mg PO Q8H PRN pain #10 tabs 11/07/22 icosapent ethyl 1 gram capsule 2 g (2 x 1 gram) PO BID 30 days 11/30/22 (Vascepa) #120 caps tadalafil 10 mg tablet 10 mg PO DAILY sexual activity 90 11/30/22 days #90 tabs amoxicillin 875 mg-potassium 1 tab PO BID #20 tabs 03/20/23 clavulanate 125 mg tablet oxycodone 5 mg tablet 5 mg PO Q6H PRN pain #20 tabs 03/20/23 Allergies Allergy/AdvReac Type Severity Reaction Status Date / Time prednisone [PREDNISONE] Allergy Intermediate BLEEDING Verified 11/30/22 15:19 Review of Systems 2 Review of Systems: Yes all other systems are reviewed and are negative Neurologic: Denies Sensory deficit (Neuro) [facility] Past Medical History Medical History Epidermal inclusion cyst Hyperlipidemia Hypertrophic obstructive cardiomyopathy (HOCM) LBBB (left bundle branch block) Surgical History History of excision of epidermal inclusion cyst (~09/23/21) HOCM (hypertrophic obstructive cardiomyopathy) H/O heart surgery Hx of colonoscopy H/O thumb surgery Family History Family History Father No problems noted. Mother No problems noted. Brother No problems noted. Sister No problems noted. Daughter Thyroid condition Son No problems noted. Social History Social History Alcohol intake: current Alcohol intake frequency: a few times a week Patient Tobacco Use Status: Current someday Tobacco user Tobacco use type: Cigarette Advance Directives: No Advance Directives Information Provided: No Physical Exam ED Vital Signs: Vital Signs - 24 hr 04/22/23 17:50 04/22/23 18:10 04/22/23 18:40 Temperature 98.1 F Pulse Rate 45 L 45 L 44 L Respiratory Rate 18 14 18 Blood Pressure 159/75 H 126/67 127/64 Pulse Oximetry 99 95 96 Oxygen Delivery Method Room Air Room Air Room Air BMI result Body Mass Index 30.8 Const General: healthy appearing Nutritional Appearance: average body habitus Orientation/consciousness: oriented to person and patient oriented x3 Limitations: no limitations HENMT Head: Yes normal to inspection Ears: external ears normal General nose exam: Normal external nose present Mouth: Normal oral and palatal mucosa present and oropharynx normal Throat: Yes posterior oropharynx normal Eyes General: appearance normal, both eyes and all related structures Neck Neck: Yes normal visual inspection Chest Chest palpation & inspection: normal inspection of the chest Resp Auscultation: clear to auscultation bilaterally Cardio Jugular venous distension: no JVD Rate: regular rate and bradycardic Rhythm: regular rhythm Heart sounds: S1 normal heart sound present and S2 normal heart sound present GI Inspection: Yes normal to inspection Palpation (GI): Soft to palpation, nontender and No hepatosplenomegaly present Auscultation: normal bowel sounds General: Yes no CVA tenderness Back/Spine/Pelvis Back: no CVA tenderness Skin General skin exam: no rashes or lesions noted Neuro General: oriented to person and patient oriented x3 Cranial nerves: Yes CN's II-XII intact bilaterally Motor exam (neuro): 5/5 motor strength present throughout Sensory Exam: No Sensory deficit (Neuro) Extrem General: Yes normal to inspection Psych Appearance: grossly normal Course Course Course Narrative: This is an RME: Additional HPI, ROS, PE not included below will be deferred to primary provider. 58 y o male PMH HOCM, hyperlipidemia, aortic stenosis presenting for evaluation of chest pain since 345pm. Was getting out of his car at work and started with central substernal chest pain and pressure, nonradiating and associated shortness of breath and dizziness. Plan EKG labs Reevaluation(s) Reevaluation #1: no evidence of MD, patient in complete HB will admit to telemetry Reevaluation #2: I spent 40 minutes of critical care, with interventions, assessments, speaking to patient, consultants, and family. Time: 19:32 Medical Decision Making Differential Diagnosis Differential Diagnoses: The differential diagnosis associated with the presentation includes (cardiac ischemia, MD, complete heart block were all considered) Admission/Observation Consideration of admission/observation: Escalation of care including admission/observation considered (upon arrival patient was considered for admission) Consult Healthcare Provider Management of the patient was discussed with: Hospitalist and Clinical Biostatistics Director (Cardiology Dr. Mak) Lab Data MDM Lab Attestation statement: I reviewed the patient's lab results. (slightly elevated WBC, troponin negative) 04/22/23 17:50 04/22/23 17:50 Labs: Lab Results 04/22/23 Range/Units 17:50 WBC 16.0 H (4.8-10.8) X10*3/uL RBC 5.57 (4.60-5.80) X10*6/uL Hgb 14.9 (14.0-18.0) g/dl Hct 46.1 (42.0-52.0) % MCV 82.8 (80.0-98.0) fL MCH 26.8 L (27.0-33.0) pg MCHC 32.3 (31.0-36.0) g/dl RDW 14.4 (11.0-16.0) % Plt Count 250 (160-400) X10*3/uL MPV 11.6 (9.4-12.4) fL Immature Gran % (Auto) 0.9 H (0.0-0.4) % Neut % (Auto) 75.8 H (45-73) % Lymph % (Auto) 14.1 L (20-40) % [place] % (Auto) 7.0 (2-11) % Eos % (Auto) 1.9 (0-4) % Baso % (Auto) 0.3 (0-2) % Lymph # (Auto) 2.3 (1.2-4.9) X10*3/uL [place] # (Auto) 1.1 (0.1-1.2) X10*3/uL Eos # (Auto) 0.3 (0.0-0.4) X10*3/uL Baso # (Auto) 0.1 (0.0-0.2) X10*3/uL Abs Immat Gran (auto) 0.15 H (0.00-0.03) X10*3/uL Absolute Neuts (auto) 12.1 H (2.0-8.3) x10*3/uL Absolute Nucleated RBC 0.000 (0.0-0.012) X10*3/uL Nucleated RBC % (auto) 0.0 (0.0-0.2) /100WBC Sodium 134 L (135-145) mmol/L Potassium 4.3 (3.3-5.1) mmol/L Chloride 105 (96-108) mmol/L Carbon Dioxide 17 L (22-29) mmol/L Anion Gap 16 (12-20) BUN 20 H (9-16) mg/dL Creatinine 0.85 (0.5-1.4) mg/dL Estim Creat Clear Calc 127.4 Estimated GFR > 60 Random Glucose 156 H (60-115) mg/dL Calcium 9.4 D (8.4-10.2) mg/dL Total Bilirubin 0.3 (0.0-1.0) mg/dL AST 25 (5-37) U/L ALT 29 (0-40) U/L Alkaline Phosphatase 89 (39-117) U/L Troponin I High Sens 17.3 (<3.5-35.0) ng/L Total Protein 7.0 (6.5-8.0) g/dL Albumin 3.9 (3.5-5.0) g/dL Independent Interpretation I performed an independent interpretation of an: EKG (Complete heart block, rate 45, LBBB, no st or twave changes) External Record Review External record reviewed: Outpatient record (cardiology reviewed) Chronic Conditions Patient?s care impacted by: Other (HOCM) Discharge Plan Discharge Clinical Impression: Complete heart block Patient Disposition: Admitted As Inpatient Prescriptions: No Action aspirin 81 mg tablet,delayed release (DR/EC) 81 mg PO DAILY 90 Days Qty: 90 3RF icosapent ethyl [Vascepa] 1 gram capsule 2 g PO BID 30 Days Qty: 120 5RF metformin 500 mg tablet 500 mg PO BID PRN oxycodone 5 mg tablet 5 mg PO Q8H PRN (Reason: pain) Qty: 10 0RF Rx Instructions: Partial Fill upon patient request. amoxicillin-pot clavulanate 875-125 mg tablet 1 tab PO BID Qty: 20 0RF oxycodone 5 mg tablet 5 mg PO Q6H PRN (Reason: pain) Qty: 20 0RF Rx Instructions: Partial Fill upon patient request. acetaminophen [Tylenol Extra Strength] 500 mg tablet 500 mg PO Q6H PRN (Reason: Pain) famotidine 20 mg tablet 20 mg PO DAILY sildenafil 100 mg tablet 100 mg PO ONCE PRN (Reason: sexual activity) 30 Days Qty: 30 1RF Rx Instructions: administer 60 minutes before intended activity cetirizine 10 mg tablet 10 mg PO DAILY fluticasone propionate 50 mcg/actuation spray,suspension intranasal tadalafil 10 mg tablet 10 mg PO DAILY 90 Days Qty: 90 1RF Rx Instructions: [place] [facility] [id number] cholecalciferol (vitamin D3) 25 mcg (1,000 unit) tablet 25 mcg PO DAILY rosuvastatin 20 mg tablet 20 mg PO BEDTIME cyanocobalamin (vitamin B-12) [Vitamin B-12] 1,000 mcg tablet 1,000 mcg PO DAILY
[2023-04-22 17:55] LABS: MANUAL DIFF FLAG NO
[2023-04-22 18:10] VITALS: BP 126/67; PULSE 45; RESP 14; O2SAT 95
[2023-04-22 18:20] LABS: Alanine Aminotransferase 29 U/L (0-40); Albumin Level 3.9 g/dL (3.5-5.0); Alkaline Phosphatase 89 U/L (39-117); Anion Gap 16 (12-20); Aspartate Amino Transferase 25 U/L (5-37); Bilirubin Total 0.3 mg/dL (0.0-1.0); Blood Urea Nitrogen 20 mg/dL (9-16); Calcium 9.4 mg/dL (8.4-10.2); Carbon Dioxide 17 mmol/L (22-29); Chloride 105 mmol/L (96-108); Creatinine Clr Calc Pharmacy 127.4; Estimated Glomerular Filt Rate > 60; Glucose Random 156 mg/dL (60-115); Potassium 4.3 mmol/L (3.3-5.1); Sodium 134 mmol/L (135-145)
[2023-04-22 18:27] LABS: Troponin-I High Sensitivity 17.3 ng/L (<3.5-35.0)
[2023-04-22 18:30] LABS: Basophils Absolute Auto 0.1 X10*3/uL (0.0-0.2); Basophils Percent Auto 0.3 % (0-2); Eosinophils Absolute Auto 0.3 X10*3/uL (0.0-0.4); Eosinophils Percent Auto 1.9 % (0-4); Hematocrit 46.1 % (42.0-52.0); Hemoglobin 14.9 g/dl (14.0-18.0); Imm Gran Abs Auto 0.15 X10*3/uL (0.00-0.03); Imm Gran Pct Auto 0.9 % (0.0-0.4); Lymphocytes Absolute Auto 2.3 X10*3/uL (1.2-4.9); Lymphocytes Percent Auto 14.1 % (20-40); Mean Corpuscular HGB Conc 32.3 g/dl (31.0-36.0); Mean Corpuscular Hemoglobin 26.8 pg (27.0-33.0); Mean Corpuscular Volume 82.8 fL (80.0-98.0); Mean Platelet Volume 11.6 fL (9.4-12.4); Monocytes Absolute Auto 1.1 X10*3/uL (0.1-1.2); Neutrophils Absolute Auto 12.1 x10*3/uL (2.0-8.3); Neutrophils Percent Auto 75.8 % (45-73); Platelet Count 250 X10*3/uL (160-400); Red Blood Count 5.57 X10*6/uL (4.60-5.80); Red Cell Distribution Width 14.4 % (11.0-16.0)
[2023-04-22 18:40] VITALS: BP 127/64; PULSE 44; RESP 18; O2SAT 96
--- NOTE | 2023-04-22 18:41 | PC.NURSE ---
PT AMBULATED TO RESTROOM WITH MINIMAL ASSSISTANCE THOUGH C/O DIZZINESS, SOB. PT PLACED ON PACER PADS FOR CARDIAC MONITORING, CODE CART AT BEDSIDE. BILAT PIVS PLACED.
--- NOTE | 2023-04-22 18:44 | PC.NURSE ---
axox3. heart block on monitor. skin pwd. states he's had dizziness and mild chest pain since aprox 3p. also states he's had cardio following him and discussing need for pacemaker in the past. aware of plan for ed to speak with cardio. is on pacer pads for monitoring.
--- NOTE | 2023-04-22 19:29 | PM.IMHP ---
History of Present Illness Date of Service: 04/22/23 Chief Complaint: Chest pain This is a 58-year-old male with pertinent history of HOCM status post septal myectomy in 2019, left bundle-branch block, mild aortic stenosis, mixed hyperlipidemia who presents to the emergency department for evaluation of dizziness and chest pressure. Patient states he had chest pressure on the day of presentation which did not worsen with ambulation, did not relieve with rest, constant, midsternal and nonradiating. Patient's dizziness was worse with ambulation. He denies fever, chills, palpitations, shortness of breath, abdominal pain, changes in urinary or bowel habits. In the emergency department, EKG with complete heart block and Cardiology was consulted. Review of Systems Constitutional: Constitutional: Reports no additional constitutional complaints ENT: Reports dizziness Cardiovascular: Cardiovascular: Reports chest pain Respiratory: Respiratory: Reports no additional respiratory complaints Gastrointestinal: Gastrointestinal: Reports no additional gastrointestinal complaints Genitourinary: Genitourinary: Reports no additional male genitourinary complaints Neurologic: Reports dizziness [facility] Medical History Epidermal inclusion cyst Hyperlipidemia Hypertrophic obstructive cardiomyopathy (HOCM) LBBB (left bundle branch block) Family History Father No problems noted. Mother No problems noted. Brother No problems noted. Sister No problems noted. Daughter Thyroid condition Son No problems noted. Surgical History History of excision of epidermal inclusion cyst (~09/23/21) HOCM (hypertrophic obstructive cardiomyopathy) H/O heart surgery Hx of colonoscopy H/O thumb surgery Social History Alcohol intake: current Alcohol intake frequency: a few times a week Patient Tobacco Use Status: Current someday Tobacco user Tobacco use type: Cigarette Advance Directives: No Advance Directives Information Provided: No Meds Allergies Allergy/AdvReac Type Severity Reaction Status Date / Time prednisone [PREDNISONE] Allergy Intermediate BLEEDING Verified 11/30/22 15:19 Home Medications Medication Instructions Recorded Confirmed Last Taken Type acetaminophen 500 mg tablet 500 mg PO Q6H PRN Pain 05/07/20 11/30/22 Unknown History (Tylenol Extra Strength) famotidine 20 mg tablet 20 mg PO DAILY 02/10/22 11/30/22 Unknown History cholecalciferol (vitamin D3) 25 25 mcg PO DAILY 08/03/22 11/30/22 Unknown History mcg (1,000 unit) tablet cyanocobalamin (vitamin B-12) 1,000 mcg PO DAILY 08/03/22 11/30/22 Unknown History 1,000 mcg tablet (Vitamin B-12) metformin 500 mg tablet 500 mg PO BID PRN 08/03/22 11/30/22 Unknown History rosuvastatin 20 mg tablet 20 mg PO BEDTIME 08/03/22 11/30/22 Unknown History cetirizine 10 mg tablet 10 mg PO DAILY 11/30/22 11/30/22 Unknown History fluticasone propionate 50 spray intranasal 11/30/22 11/30/22 Unknown History mcg/actuation nasal spray,suspension Physical Exam Vital Signs and Narrative: Vital Signs: Last Vital Signs Temp 98.1 F 04/22/23 17:50 Pulse 44 L 04/22/23 18:40 Resp 18 04/22/23 18:40 BP 127/64 04/22/23 18:40 Pulse Ox 96 04/22/23 18:40 O2 Del Method Room Air 04/22/23 18:40 BMI result Body Mass Index 30.8 Middle-aged male lying in bed in no distress Neck supple, no JVD Irregular, S1-S2 heard Regular breath sounds bilaterally, no wheezing or crackles appreciated Abdomen soft nontender, no guarding, no rigidity Patient is awake, alert and oriented to self, place, time and person ; no focal motor deficit Psych: Normal mood No pedal edema Results Labs 04/22/23 17:50 04/22/23 17:50 Labs: Laboratory Results - last 24 hr 04/22/23 17:50 MCV 82.8 MCH 26.8 L MCHC 32.3 RDW 14.4 Plt Count 250 MPV 11.6 Immature Gran % (Auto) 0.9 H Neut % (Auto) 75.8 H Lymph % (Auto) 14.1 L [place] % (Auto) 7.0 Eos % (Auto) 1.9 Baso % (Auto) 0.3 Lymph # (Auto) 2.3 [place] # (Auto) 1.1 Eos # (Auto) 0.3 Baso # (Auto) 0.1 Abs Immat Gran (auto) 0.15 H Absolute Neuts (auto) 12.1 H Absolute Nucleated RBC 0.000 Nucleated RBC % (auto) 0.0 Anion Gap 16 Estim Creat Clear Calc 127.4 Estimated GFR > 60 Random Glucose 156 H Calcium 9.4 D Total Bilirubin 0.3 AST 25 ALT 29 Alkaline Phosphatase 89 Total Protein 7.0 Albumin 3.9 Assessment and Plan (1) Complete heart block: Status: Acute Plan This is a 58-year-old male with pertinent history of HOCM status post septal myectomy in 2019, left bundle-branch block, mild aortic stenosis, mixed hyperlipidemia who presents to the emergency department for evaluation of dizziness and chest pressure. #. Complete heart block. Will admit patient with cardiac monitoring. Cardiology consulted from the ER, appreciate assistance. Will keep NPO after midnight for possible pacer. Obtaining echo. Currently hemodynamically stable. Will obtain TSH. Patient without hyperkalemia. Avoid beta-cheri, calcium channel cheri, digoxin and adenosine. No concern for infectious etiology #. Chest pain in the setting of above. Will trend troponin. No ACS at the time of admission #. Mixed hyperlipidemia on statin Med rec pending DVT prophylaxis: Mechanical. Hold Lovenox until cardiology evaluation Admit as inpatient and will require two night minimum hospital stay for close monitoring of heart rate and hemodynamics. Specialist consult pending Time Spent With Patient Time: Total time managing care of this patient today ____ minutes. Quality Stroke Does the patient have a stroke diagnosis?: No VTE Prior VTE?: No VTE Risk Level:: Medical - moderate - high VTE Device Contraindication: N/A - Device Ordered VTE Drug Contraindication: Treatment Not Tolerated
--- NOTE | 2023-04-22 20:13 | PC.NURSE ---
Pt ca&ox4, no signs of distress. Pt requested and given food and drink Pt advised he can no longer eat after 12am. Plan of care ongoing.
--- NOTE | 2023-04-22 20:16 | PHA.MEDREC ---
Pharmacy Consult ? Medication Reconciliation Pharmacy has completed the medication reconciliation. Patient confirmed medications. Patient not adherent to medications. Reports kind of taking metformin. Reported taking Isoapent ethyl which has not been filled since November and patient stated he had no idea what it is for. Patient reported not on famotidine because it got replaced. I call [facility] to see if he had any other medications that were not on claim history and there were no meds that replaced famotidine. Patient also stated that metformin and rosuvastatin well like the same medications. Kimberly Corado, DomoD
--- NOTE | 2023-04-22 20:50 | PC.NURSE ---
Pt requesting to use the bathroom. Pt assisted to bedside commode Pt has a stable gait. Pt given wipes. Pt requesting privacy to use the bathroom. Plan of care ongoing.
[2023-04-22] MEDS: Atorvastatin Calcium 80 MG TABLET PO (21:15)
[2023-04-22 21:16] LABS: Thyroid Stimulating Hormone 1.42 uIU/mL (0.32-4.0)
--- NOTE | 2023-04-22 21:17 | PC.NURSE ---
Pt ca&ox4, no signs of distress. Pt requested and given drink. Pt medicated per mar. Plan of care ongoing.
--- NOTE | 2023-04-22 21:40 | PC.NURSE ---
HOB lowered per pt request. Pt denies pain. Plan of care ongoing.
[2023-04-22] MEDS: Acetaminophen 325 MG TABLET 650 MG PO (22:03)
[2023-04-22] MEDS: Melatonin 3 MG TABLET 6 MG PO (22:03)
--- NOTE | 2023-04-22 22:09 | PC.NURSE ---
Pt medicated per mar. HOB elevated per pt request Pt requested and given pillow. Plan of care ongoing.
[2023-04-22 23:08] VITALS: BP 107/58; PULSE 45; RESP 13; TEMP 36.8; O2SAT 98
[2023-04-23] VITALS (12 sets, daily range): BP systolic 113–158; BP diastolic 47–81; PULSE 39–74; RESP 14–20; TEMP 36.2–37.6; O2SAT 95–98
--- NOTE | 2023-04-23 00:17 | PC.NURSE ---
Pt reports 6/10 headache and back pain. Provider made aware. Plan of care ongoing.
[2023-04-23] MEDS: 0.9 % Sodium Chloride Flush 3 ML SYRINGE IVFLUSH ×4 (01:00→20:07)
--- NOTE | 2023-04-23 01:40 | PC.NURSE ---
This RN attempted to call report to COREY Hu unable to reach. COREY browning sent.
--- NOTE | 2023-04-23 03:25 | PC.NURSE ---
Report given to Kamaljit hanson Pt transported to [id number] by medical massage therapist Jeanine and this RN Pt ca&ox4, no signs of distress upon hand off. plan of care ongoing.
[2023-04-23 07:10] LABS: MANUAL DIFF FLAG NO
[2023-04-23 07:13] LABS: Basophils Percent Auto 0.3 % (0-2); Eosinophils Absolute Auto 0.3 X10*3/uL (0.0-0.4); Eosinophils Percent Auto 3.1 % (0-4); Hematocrit 43.8 % (42.0-52.0); Imm Gran Abs Auto 0.03 X10*3/uL (0.00-0.03); Imm Gran Pct Auto 0.3 % (0.0-0.4); Lymphocytes Absolute Auto 2.2 X10*3/uL (1.2-4.9); Lymphocytes Percent Auto 24.9 % (20-40); Mean Corpuscular Hemoglobin 26.9 pg (27.0-33.0); Mean Corpuscular Volume 84.1 fL (80.0-98.0); Mean Platelet Volume 11.4 fL (9.4-12.4); Monocytes Absolute Auto 0.6 X10*3/uL (0.1-1.2); Monocytes Percent Auto 7.2 % (2-11); Neutrophils Absolute Auto 5.7 x10*3/uL (2.0-8.3); Neutrophils Percent Auto 64.2 % (45-73); Platelet Count 203 X10*3/uL (160-400); Red Blood Count 5.21 X10*6/uL (4.60-5.80); Red Cell Distribution Width 14.4 % (11.0-16.0); White Blood Count 8.9 X10*3/uL (4.8-10.8)
[2023-04-23 07:29] LABS: Anion Gap 14 (12-20); Blood Urea Nitrogen 21 mg/dL (9-16); Calcium 8.9 mg/dL (8.4-10.2); Carbon Dioxide 18 mmol/L (22-29); Chloride 111 mmol/L (96-108); Creatinine Clr Calc Pharmacy 135.4; Estimated Glomerular Filt Rate > 60; Glucose Random 171 mg/dL (60-115); Potassium 4.1 mmol/L (3.3-5.1); Sodium 139 mmol/L (135-145)
[2023-04-23 07:41] LABS: Troponin-I High Sensitivity 16.2 ng/L (<3.5-35.0)
[2023-04-23] MEDS: Aspirin Enteric Coated 81 MG TABLET.DR PO (09:38)
[2023-04-23] MEDS: Acetaminophen 325 MG TABLET 650 MG PO ×2 (09:38→20:04)
[2023-04-23] MEDS: Cholecalciferol (Vitamin D3) 25 MCG TABLET PO (09:38)
[2023-04-23] MEDS: Cyanocobalamin (Vitamin B-12) 1,000 MCG TABLET 1000 MCG PO (09:39)
[2023-04-23] MEDS: Loratadine 10 MG TABLET PO (09:39)
--- NOTE | 2023-04-23 10:13 | MHC.CM.PN ---
IMM 04/23/23, CM MET W/PT WHO REPORTS HE LIVES ALONE AND Joo WILL LIVES IN ANOTHER APT, PT IS FULLY INDEP W/CARE, HAS A CANE/WALKER HE USES WHEN HIS FOOT/KNEE ACT UP, NO HOME SERVICES, PT REPORTS GOAL FOR D/C WILL BE TO RETURN HOME NO SERVICES. PT VERIFIES PCP IS AT [facility] HOWEVER DOES NOT KNOW THE NAME, COVID VACC X3 AND HCP/PRIMARY CONTACT ON FILE IN OLD RECORDS IS [facility] WILL. DCP: HOME NO SERVICES W/FAMILY FOR TRANSPORT
--- NOTE | 2023-04-23 10:27 | P.CONAN_ITS ---
HPI - Anesthesia Eval Consult details Narrative: Complete heart block [facility] Active Problems Active Problems: All Active Problems (Updated 04/22/23 @ 19:36 by Clarence Holden MD) Complete heart block (Acute) Aortic stenosis (Acute) Epidermal inclusion cyst (Acute) Erectile dysfunction (Acute) Hyperlipidemia (Acute) Hypertrophic obstructive cardiomyopathy (HOCM) (Acute) LBBB (left bundle branch block) (Acute) Past Medical History Medical History Epidermal inclusion cyst Hyperlipidemia Hypertrophic obstructive cardiomyopathy (HOCM) LBBB (left bundle branch block) Family History Family History Father No problems noted. Mother No problems noted. Brother No problems noted. Sister No problems noted. Daughter Thyroid condition Son No problems noted. Family history of problems with anesthesia: No Surgical History Surgical History History of excision of epidermal inclusion cyst (~09/23/21) HOCM (hypertrophic obstructive cardiomyopathy) H/O heart surgery Hx of colonoscopy H/O thumb surgery History of Problems with Anesthesia: No Social History Social History Household Members: Spouse Housing: Apartment Do you presently have visiting nurse or other home services: No Alcohol intake: current Alcohol intake frequency: does not drink Patient Tobacco Use Status: Current someday Tobacco user Tobacco use type: Cigarette Cigarettes Per Day: 5 Smoked in Last 30 Days: No Patient Interested in Nicotine Replacement: No Use of substances other than those prescribed or required for medical reasons: No Currently Displaying Signs/Symptoms of Drug Intoxication Withdrawal: No Advance Directives: No Advance Directives Information Provided: No Do you have thoughts of harming others: None Do you have a plan to hurt others: No Plan Nutrition Risks: Difficulty swallowing service: No Meds Allergies Allergy/AdvReac Type Severity Reaction Status Date / Time prednisone [PREDNISONE] Allergy Intermediate BLEEDING Verified 11/30/22 15:19 Active Medications: Current Medications Acetaminophen (Acetaminophen 325 Mg Tablet) 650 mg PO Q6H PRN PRN Reason: Pain, Mild (Pain Scale 1-3) Last Admin: 04/23/23 09:38 Dose: 650 mg Aspirin (Aspirin Enteric Coated 81 Mg Tablet.) 81 mg PO DAILY [facility] Last Admin: 04/23/23 09:38 Dose: 81 mg Atorvastatin Calcium (Atorvastatin Calcium 80 Mg Tablet) 80 mg PO BEDTIME [facility] Last Admin: 04/22/23 21:15 Dose: 80 mg Atropine Sulfate (Atropine Sulfate 1 Mg/10 Ml Syringe) 1 mg IVPUSH ONCE PRN PRN Reason: Hr Cyanocobalamin (Cyanocobalamin (Vitamin B-12) 1,000 Mcg Tablet) 1,000 mcg PO DAILY [facility] Last Admin: 04/23/23 09:39 Dose: 1,000 mcg Fluticasone Propionate (Fluticasone Propionate Nasal 16 [address] [place]) 1 spray NOSTRIL-B DAILY PRN PRN Reason: Allergy Symptoms Loratadine (Loratadine 10 Mg Tablet) 10 mg PO DAILY [facility] Last Admin: 04/23/23 09:39 Dose: 10 mg Melatonin (Melatonin 3 Mg Tablet) 6 mg PO BEDTIME PRN PRN Reason: Insomnia Last Admin: 04/22/23 22:03 Dose: 6 mg Ondansetron HCl (Ondansetron Hcl 4 Mg/2 Ml Vial) 4 mg IVPUSH Q8H PRN PRN Reason: Nausea and Vomiting Sodium Chloride (0.9 % Sodium Chloride Flush 3 Ml Syringe) 3 ml IVFLUSH QSHIFT [facility] Last Admin: 04/23/23 09:40 Dose: 3 ml Vitamin D (Cholecalciferol (Vitamin D3) 25 Mcg Tablet) 25 mcg PO DAILY [facility] Last Admin: 04/23/23 09:38 Dose: 25 mcg Home Medications Medication Instructions Recorded Confirmed Last Taken Type cholecalciferol (vitamin D3) 25 25 mcg PO DAILY 08/03/22 04/22/23 Unknown History mcg (1,000 unit) tablet cyanocobalamin (vitamin B-12) 1,000 mcg PO DAILY 08/03/22 04/22/23 Unknown History 1,000 mcg tablet (Vitamin B-12) metformin 500 mg tablet 500 mg PO DAILY 08/03/22 04/22/23 Unknown History rosuvastatin 20 mg tablet 20 mg PO BEDTIME 08/03/22 04/22/23 Unknown History cetirizine 10 mg tablet 10 mg PO DAILY 11/30/22 04/22/23 Unknown History fluticasone propionate 50 1 spray intranasal DAILY PRN 11/30/22 04/22/23 Unknown History mcg/actuation nasal Allergy Symptoms spray,suspension Exam Exam Date and Time: April 23, 2023 1027 Height,Weight and Vital Signs: Height 6 ft 2 in Weight 108.862 kg Last Vital Signs Temp 99.7 F 04/23/23 07:20 Pulse 40 L 04/23/23 07:20 Resp 20 04/23/23 07:20 BP 115/56 L 04/23/23 07:20 Pulse Ox 97 04/23/23 07:20 O2 Del Method Room Air 04/23/23 07:20 Pertinent Lab Results Pertinent Lab Results: Laboratory Tests 04/22/23 04/22/23 04/23/23 17:50 20:36 07:01 WBC 16.0 H 8.9 RBC 5.57 5.21 Hgb 14.9 14.0 Hct 46.1 43.8 MCV 82.8 84.1 MCH 26.8 L 26.9 L MCHC 32.3 32.0 RDW 14.4 14.4 Plt Count 250 203 MPV 11.6 11.4 Immature Gran % (Auto) 0.9 H 0.3 Neut % (Auto) 75.8 H 64.2 Lymph % (Auto) 14.1 L 24.9 [place] % (Auto) 7.0 7.2 Eos % (Auto) 1.9 3.1 Baso % (Auto) 0.3 0.3 Lymph # (Auto) 2.3 2.2 [place] # (Auto) 1.1 0.6 Eos # (Auto) 0.3 0.3 Baso # (Auto) 0.1 0.0 Abs Immat Gran (auto) 0.15 H 0.03 Absolute Neuts (auto) 12.1 H 5.7 Absolute Nucleated RBC 0.000 0.000 Nucleated RBC % (auto) 0.0 0.0 Sodium 134 L 139 Potassium 4.3 4.1 Chloride 105 111 H Carbon Dioxide 17 L 18 L Anion Gap 16 14 BUN 20 H 21 H Creatinine 0.85 0.80 Estim Creat Clear Calc 127.4 135.4 Estimated GFR > 60 > 60 Random Glucose 156 H 171 H Calcium 9.4 D 8.9 Total Bilirubin 0.3 AST 25 ALT 29 Alkaline Phosphatase 89 Troponin I High Sens 17.3 16.0 16.2 Total Protein 7.0 Albumin 3.9 TSH 1.42 Airway Mallampati Class: II TM Dist: >3cm Neck ROM: Full Loose/Missing/Broken Teeth: No Heart: RRR Lungs: CTA Assessment and Plan Assessment Anesthesia Assessment: Anesthesia Plan Discussed and Chart Reviewed Final Anesthetic Review Family History of Problems with Anesthesia: No History of Problems with Anesthesia: No NPO: Yes ASA Class: III and Emergency Final Preanesthetic Review: No Changes in Pt Med Stat, Meds/Allgs Chart Reviewed, Consent Obtained/Reviewed and Anes Risks/Benef Reviewed Patient Risk: Intermediate Procedure Risk: Low Anesthetic Plan Anesthetic Plan: GA Disposition: Standard PACU
--- NOTE | 2023-04-23 11:58 | PM.CNCAR ---
History of Present Illness History of Present Illness Date of Service: 04/23/23 Requesting physician: Sparkle Bashir Chief complaint: chest pain complete heart block Narrative: [age] year gentleman who has known history of hypertrophic cardiomyopathy status post septal myomectomy and chronic left bundle-branch block since the surgery. He is presenting with dizziness and off and on chest pressure. He is noticed to be bradycardic with complete heart block. He has chronic left bundle-branch block. No recent tick bites or any other issues. Electrolytes have been okay. [facility] Past Medical History Medical History Epidermal inclusion cyst Hyperlipidemia Hypertrophic obstructive cardiomyopathy (HOCM) LBBB (left bundle branch block) Family History Family History Father No problems noted. Mother No problems noted. Brother No problems noted. Sister No problems noted. Daughter Thyroid condition Son No problems noted. Surgical History Surgical History History of excision of epidermal inclusion cyst (~09/23/21) HOCM (hypertrophic obstructive cardiomyopathy) H/O heart surgery Hx of colonoscopy H/O thumb surgery Social History Social History Household Members: Spouse Housing: Apartment Do you presently have visiting nurse or other home services: No Alcohol intake: current Alcohol intake frequency: does not drink Patient Tobacco Use Status: Current someday Tobacco user Tobacco use type: Cigarette Cigarettes Per Day: 5 Smoked in Last 30 Days: No Patient Interested in Nicotine Replacement: No Use of substances other than those prescribed or required for medical reasons: No Currently Displaying Signs/Symptoms of Drug Intoxication Withdrawal: No Advance Directives: No Advance Directives Information Provided: No Do you have thoughts of harming others: None Do you have a plan to hurt others: No Plan Nutrition Risks: Difficulty swallowing service: No Meds Allergies Allergy/AdvReac Type Severity Reaction Status Date / Time prednisone [PREDNISONE] Allergy Intermediate BLEEDING Verified 11/30/22 15:19 Active Medications: Current Medications Acetaminophen (Acetaminophen 325 Mg Tablet) 650 mg PO Q6H PRN PRN Reason: Pain, Mild (Pain Scale 1-3) Last Admin: 04/23/23 09:38 Dose: 650 mg Aspirin (Aspirin Enteric Coated 81 Mg Tablet.Dr) 81 mg PO DAILY [facility] Last Admin: 04/23/23 09:38 Dose: 81 mg Atorvastatin Calcium (Atorvastatin Calcium 80 Mg Tablet) 80 mg PO BEDTIME [facility] Last Admin: 04/22/23 21:15 Dose: 80 mg Atropine Sulfate (Atropine Sulfate 1 Mg/10 Ml Syringe) 1 mg IVPUSH ONCE PRN PRN Reason: Hr Cyanocobalamin (Cyanocobalamin (Vitamin B-12) 1,000 Mcg Tablet) 1,000 mcg PO DAILY [facility] Last Admin: 04/23/23 09:39 Dose: 1,000 mcg Fluticasone Propionate (Fluticasone Propionate Nasal 16 Gm [place]) 1 spray NOSTRIL-B DAILY PRN PRN Reason: Allergy Symptoms Loratadine (Loratadine 10 Mg Tablet) 10 mg PO DAILY [facility] Last Admin: 04/23/23 09:39 Dose: 10 mg Melatonin (Melatonin 3 Mg Tablet) 6 mg PO BEDTIME PRN PRN Reason: Insomnia Last Admin: 04/22/23 22:03 Dose: 6 mg Ondansetron HCl (Ondansetron Hcl 4 Mg/2 Ml Vial) 4 mg IVPUSH Q8H PRN PRN Reason: Nausea and Vomiting Sodium Chloride (0.9 % Sodium Chloride Flush 3 Ml Syringe) 3 ml IVFLUSH QSHIFT [facility] Last Admin: 04/23/23 09:40 Dose: 3 ml Vitamin D (Cholecalciferol (Vitamin D3) 25 Mcg Tablet) 25 mcg PO DAILY [facility] Last Admin: 04/23/23 09:38 Dose: 25 mcg Home Medications Medication Instructions Recorded Confirmed Last Taken Type cholecalciferol (vitamin D3) 25 25 mcg PO DAILY 08/03/22 04/22/23 Unknown History mcg (1,000 unit) tablet cyanocobalamin (vitamin B-12) 1,000 mcg PO DAILY 08/03/22 04/22/23 Unknown History 1,000 mcg tablet (Vitamin B-12) metformin 500 mg tablet 500 mg PO DAILY 08/03/22 04/22/23 Unknown History rosuvastatin 20 mg tablet 20 mg PO BEDTIME 08/03/22 04/22/23 Unknown History cetirizine 10 mg tablet 10 mg PO DAILY 11/30/22 04/22/23 Unknown History fluticasone propionate 50 1 spray intranasal DAILY PRN 11/30/22 04/22/23 Unknown History mcg/actuation nasal Allergy Symptoms spray,suspension Physical Exam Vital Signs: Vital Signs: Last Vital Signs Temp 97.3 F 04/23/23 11:13 Pulse 39 L 04/23/23 11:13 Resp 20 04/23/23 11:13 BP 113/61 04/23/23 11:13 Pulse Ox 97 04/23/23 11:13 O2 Del Method Room Air 04/23/23 11:13 BMI result Body Mass Index 30.8 GENERAL APPEARANCE: in no acute distress, pleasant. NECK: no carotid bruit, no jugular venous distention. SKIN: no suspicious lesions, warm and dry. HEART: no murmurs, regular rate and rhythm. Bradycardic. LUNGS: clear to auscultation bilaterally. ABDOMEN: soft, nontender. EXTREMITIES: no edema. PERIPHERAL PULSES: equal. NEUROLOGIC: No gross deficits, AAO X 3 Objective Labs and Meds 04/23/23 07:01 04/23/23 07:01 Lab results: Laboratory Results - last 24 hr 04/22/23 04/22/23 04/23/23 17:50 20:36 07:01 WBC 16.0 H 8.9 RBC 5.57 5.21 Hgb 14.9 14.0 Hct 46.1 43.8 MCV 82.8 84.1 MCH 26.8 L 26.9 L MCHC 32.3 32.0 RDW 14.4 14.4 Plt Count 250 203 MPV 11.6 11.4 Immature Gran % (Auto) 0.9 H 0.3 Neut % (Auto) 75.8 H 64.2 Lymph % (Auto) 14.1 L 24.9 [place] % (Auto) 7.0 7.2 Eos % (Auto) 1.9 3.1 Baso % (Auto) 0.3 0.3 Lymph # (Auto) 2.3 2.2 [place] # (Auto) 1.1 0.6 Eos # (Auto) 0.3 0.3 Baso # (Auto) 0.1 0.0 Abs Immat Gran (auto) 0.15 H 0.03 Absolute Neuts (auto) 12.1 H 5.7 Absolute Nucleated RBC 0.000 0.000 Nucleated RBC % (auto) 0.0 0.0 Sodium 134 L 139 Potassium 4.3 4.1 Chloride 105 111 H Carbon Dioxide 17 L 18 L Anion Gap 16 14 BUN 20 H 21 H Creatinine 0.85 0.80 Estim Creat Clear Calc 127.4 135.4 Estimated GFR > 60 > 60 Random Glucose 156 H 171 H Calcium 9.4 D 8.9 Total Bilirubin 0.3 AST 25 ALT 29 Alkaline Phosphatase 89 Troponin I High Sens 17.3 16.0 16.2 Total Protein 7.0 Albumin 3.9 TSH 1.42 Assessment and Plan (1) Complete heart block: Status: Acute Plan Complete heart block in a 58 year gentleman with known left bundle-branch block which developed after septal myomectomy for hypertrophic cardiomyopathy. LV function was hyperdynamic in June. Clinically not in heart failure. I think he needs permanent pacemaker placement. We will arrange for dual-chamber pacemaker placement today. Please keep him NPO. Thank you for allowing me to participate in the care of your patient. Please feel free to contact me if you have any questions. Time Spent With Patient Time: Total time managing care of this patient today ____ minutes. Procedures Date of Service Date of Service: 04/23/23
--- NOTE | 2023-04-23 12:26 | PM.CNGS ---
History of Present Illness Consult details Consult date: 04/23/23 Requesting physician: Sumit Mak Narrative: 58-year-old man with history of septal myomectomy in 2019 for hypertrophic obstructive cardiomyopathy. Since that time by report at least he has had a left bundle-branch block. Yesterday evening he presented to the emergency department with intermittent chest pain and dizziness especially with ambulation. EKG done in the emergency department shows a complete heart block heart rate is [place] 45 beats per minute. He was admitted overnight and kept NPO for possible pacemaker today. Other than above he denies fevers, chills, unintentional weight loss, any recent tick bites or illnesses. He denies cough or hemoptysis. Other than above, 12 point review of systems was done and documented separately in the office chart with detailed social and family history. [facility] Past Medical History Medical History Epidermal inclusion cyst Hyperlipidemia Hypertrophic obstructive cardiomyopathy (HOCM) LBBB (left bundle branch block) Family History Family History Father No problems noted. Mother No problems noted. Brother No problems noted. Sister No problems noted. Daughter Thyroid condition Son No problems noted. Surgical History Surgical History History of excision of epidermal inclusion cyst (~09/23/21) HOCM (hypertrophic obstructive cardiomyopathy) H/O heart surgery Hx of colonoscopy H/O thumb surgery Social History Social History Household Members: Spouse Housing: Apartment Do you presently have visiting nurse or other home services: No Alcohol intake: current Alcohol intake frequency: does not drink Patient Tobacco Use Status: Current someday Tobacco user Tobacco use type: Cigarette Cigarettes Per Day: 5 Smoked in Last 30 Days: No Patient Interested in Nicotine Replacement: No Use of substances other than those prescribed or required for medical reasons: No Currently Displaying Signs/Symptoms of Drug Intoxication Withdrawal: No Advance Directives: No Advance Directives Information Provided: No Do you have thoughts of harming others: None Do you have a plan to hurt others: No Plan Nutrition Risks: Difficulty swallowing service: No Meds Allergies Allergy/AdvReac Type Severity Reaction Status Date / Time prednisone [PREDNISONE] Allergy Intermediate BLEEDING Verified 11/30/22 15:19 Active Medications: Current Medications Acetaminophen (Acetaminophen 325 Mg Tablet) 650 mg PO Q6H PRN PRN Reason: Pain, Mild (Pain Scale 1-3) Last Admin: 04/23/23 09:38 Dose: 650 mg Aspirin (Aspirin Enteric Coated 81 Mg Tablet.Dr) 81 mg PO DAILY [facility] Last Admin: 04/23/23 09:38 Dose: 81 mg Atorvastatin Calcium (Atorvastatin Calcium 80 Mg Tablet) 80 mg PO BEDTIME [facility] Last Admin: 04/22/23 21:15 Dose: 80 mg Atropine Sulfate (Atropine Sulfate 1 Mg/10 Ml Syringe) 1 mg IVPUSH ONCE PRN PRN Reason: Hr Cyanocobalamin (Cyanocobalamin (Vitamin B-12) 1,000 Mcg Tablet) 1,000 mcg PO DAILY [facility] Last Admin: 04/23/23 09:39 Dose: 1,000 mcg Fluticasone Propionate (Fluticasone Propionate Nasal 16 Gm [place]) 1 spray NOSTRIL-B DAILY PRN PRN Reason: Allergy Symptoms Loratadine (Loratadine 10 Mg Tablet) 10 mg PO DAILY [facility] Last Admin: 04/23/23 09:39 Dose: 10 mg Melatonin (Melatonin 3 Mg Tablet) 6 mg PO BEDTIME PRN PRN Reason: Insomnia Last Admin: 04/22/23 22:03 Dose: 6 mg Ondansetron HCl (Ondansetron Hcl 4 Mg/2 Ml Vial) 4 mg IVPUSH Q8H PRN PRN Reason: Nausea and Vomiting Sodium Chloride (0.9 % Sodium Chloride Flush 3 Ml Syringe) 3 ml IVFLUSH QSHIFT [facility] Last Admin: 04/23/23 09:40 Dose: 3 ml Vitamin D (Cholecalciferol (Vitamin D3) 25 Mcg Tablet) 25 mcg PO DAILY [facility] Last Admin: 04/23/23 09:38 Dose: 25 mcg Home Medications Medication Instructions Recorded Confirmed Last Taken Type cholecalciferol (vitamin D3) 25 25 mcg PO DAILY 08/03/22 04/22/23 Unknown History mcg (1,000 unit) tablet cyanocobalamin (vitamin B-12) 1,000 mcg PO DAILY 08/03/22 04/22/23 Unknown History 1,000 mcg tablet (Vitamin B-12) metformin 500 mg tablet 500 mg PO DAILY 08/03/22 04/22/23 Unknown History rosuvastatin 20 mg tablet 20 mg PO BEDTIME 08/03/22 04/22/23 Unknown History cetirizine 10 mg tablet 10 mg PO DAILY 11/30/22 04/22/23 Unknown History fluticasone propionate 50 1 spray intranasal DAILY PRN 11/30/22 04/22/23 Unknown History mcg/actuation nasal Allergy Symptoms spray,suspension Physical Exam Vital Signs: Vital Signs: Last Vital Signs Temp 97.3 F 04/23/23 11:13 Pulse 39 L 04/23/23 11:13 Resp 20 04/23/23 11:13 BP 113/61 04/23/23 11:13 Pulse Ox 97 04/23/23 11:13 O2 Del Method Room Air 04/23/23 11:13 BMI result Body Mass Index 30.8 General: No acute distress HEENT: Moist mucous membranes, normocephalic, pupils equal round and reactive to light. Neck: No thyromegaly, supple, no JVD Lymph: No cervical, supraclavicular, or other lymphadenopathy Chest: No chest wall abnormalities or deformities Heart: Regular rate and rhythm bradycardic; no rubs, murmurs, or gallops Lungs: Clear to auscultation bilaterally Abdomen: Soft, nontender, normal bowel sounds Extremities: No edema, cyanosis, or clubbing. Full range of motion Neuro: Grossly intact, alert and oriented x3, and nonfocal Skin: Warm and dry no rashes Affect: Normal Results Labs 04/23/23 07:01 04/23/23 07:01 Labs: Abnormal lab results 04/22/23 04/23/23 Range/Units 17:50 07:01 WBC 16.0 H (4.8-10.8) X10*3/uL MCH 26.8 L 26.9 L (27.0-33.0) pg Immature Gran % (Auto) 0.9 H (0.0-0.4) % Neut % (Auto) 75.8 H (45-73) % Lymph % (Auto) 14.1 L (20-40) % Abs Immat Gran (auto) 0.15 H (0.00-0.03) X10*3/uL Absolute Neuts (auto) 12.1 H (2.0-8.3) x10*3/uL Sodium 134 L (135-145) mmol/L Chloride 111 H (96-108) mmol/L Carbon Dioxide 17 L 18 L (22-29) mmol/L BUN 20 H 21 H (9-16) mg/dL Random Glucose 156 H 171 H (60-115) mg/dL Short CBC 04/22/23 04/23/23 Range/Units 17:50 07:01 WBC 16.0 H 8.9 (4.8-10.8) X10*3/uL Hgb 14.9 14.0 (14.0-18.0) g/dl Hct 46.1 43.8 (42.0-52.0) % Plt Count 250 203 (160-400) X10*3/uL BMP 04/22/23 04/23/23 17:50 07:01 Sodium 134 L 139 Potassium 4.3 4.1 Chloride 105 111 H Carbon Dioxide 17 L 18 L BUN 20 H 21 H Creatinine 0.85 0.80 Calcium 9.4 D 8.9 Liver Function 04/22/23 Range/Units 17:50 Total Bilirubin 0.3 (0.0-1.0) mg/dL AST 25 (5-37) U/L ALT 29 (0-40) U/L Alkaline Phosphatase 89 (39-117) U/L Albumin 3.9 (3.5-5.0) g/dL All other labs normal. Imaging Chest x-ray: report reviewed and image reviewed (No acute cardiopulmonary process no cardiomegaly.) Additional studies: CT chest reviewed from 2019 which shows no anatomic abnormalities in the great vessels, heart, or lungs. Assessment and Plan (1) Complete heart block: Status: Acute 58-year-old man with left bundle branch block after septal myomectomy in 2019 now presenting with symptomatic, complete heart block. Agree with dual-chamber permanent pacemaker, patient has been NPO, plan is for pacemaker due to be done today at 13:00. I discussed the findings on his EKG and his symptoms with him in detail which he seemed understand. We also discussed the risks, benefits, and alternatives of surgery/dual-chamber permanent pacemaker which he understood and agreed to proceed. Will need a a sling after surgery for least 2 days with standard restrictions post pacemaker up to 8 weeks. All questions were answered. (2) LBBB (left bundle branch block): Status: Acute Time Spent With Patient Time: Total time managing care of this patient today __67__ minutes. Procedures Date of Service Date of Service: 04/23/23
[2023-04-23] MEDS: ceFAZolin Sodium/Dextrose,Iso 2 GM/50 ML PIGGYBACK IV (13:22)
--- NOTE | 2023-04-23 13:26 | HO.PM.IMPN ---
Subjective Subjective Date of Service: 04/23/23 Interval History: bradycardia Review of Systems currently denies any chest pain or sob says has intermitent lightheadness Physical Exam Vital Signs: Vital Signs: Last Vital Signs Temp 97.3 F 04/23/23 11:13 Pulse 39 L 04/23/23 11:13 Resp 20 04/23/23 11:13 BP 113/61 04/23/23 11:13 Pulse Ox 97 04/23/23 11:13 O2 Del Method Room Air 04/23/23 11:13 BMI result Body Mass Index 30.8 Appearance: Alert.? Oriented X3. cvs: bradycardia ,[id number]. res: clear to auscultation ,no rhonchii or wheezing abd: no rebound or guarding ,nt, bs present. ext pulses present , no cyanosis . neuro: axo3 , nonfocal. Objective Data Active Medications Acetaminophen (Acetaminophen 325 Mg Tablet) 650 mg PO Q6H PRN PRN Reason: Pain, Mild (Pain Scale 1-3) Last Admin: 04/23/23 09:38 Dose: 650 mg Documented By: RACHEL Aspirin (Aspirin Enteric Coated 81 Mg Tablet.) 81 mg PO DAILY [facility] Last Admin: 04/23/23 09:38 Dose: 81 mg Documented By: RACHEL Atorvastatin Calcium (Atorvastatin Calcium 80 Mg Tablet) 80 mg PO BEDTIME [facility] Last Admin: 04/22/23 21:15 Dose: 80 mg Documented By: ZHOU Atropine Sulfate (Atropine Sulfate 1 Mg/10 Ml Syringe) 1 mg IVPUSH ONCE PRN PRN Reason: Hr Cyanocobalamin (Cyanocobalamin (Vitamin B-12) 1,000 Mcg Tablet) 1,000 mcg PO DAILY [facility] Last Admin: 04/23/23 09:39 Dose: 1,000 mcg Documented By: RACHEL Fluticasone Propionate (Fluticasone Propionate Nasal 16 Gm [place]) 1 spray NOSTRIL-B DAILY PRN PRN Reason: Allergy Symptoms Loratadine (Loratadine 10 Mg Tablet) 10 mg PO DAILY [facility] Last Admin: 04/23/23 09:39 Dose: 10 mg Documented By: RACHEL Melatonin (Melatonin 3 Mg Tablet) 6 mg PO BEDTIME PRN PRN Reason: Insomnia Last Admin: 04/22/23 22:03 Dose: 6 mg Documented By: ZHOU Ondansetron HCl (Ondansetron Hcl 4 Mg/2 Ml Vial) 4 mg IVPUSH Q8H PRN PRN Reason: Nausea and Vomiting Sodium Chloride (0.9 % Sodium Chloride Flush 3 Ml Syringe) 3 ml IVFLUSH QSHIFT [facility] Last Admin: 04/23/23 09:40 Dose: 3 ml Documented By: RACHEL Vitamin D (Cholecalciferol (Vitamin D3) 25 Mcg Tablet) 25 mcg PO DAILY [facility] Last Admin: 04/23/23 09:38 Dose: 25 mcg Documented By: RACHEL Labs 04/23/23 07:01 04/23/23 07:01 Labs: Laboratory Results - last 24 hr 04/22/23 04/22/23 04/23/23 17:50 20:36 07:01 MCV 82.8 84.1 MCH 26.8 L 26.9 L MCHC 32.3 32.0 RDW 14.4 14.4 Plt Count 250 203 MPV 11.6 11.4 Immature Gran % (Auto) 0.9 H 0.3 Neut % (Auto) 75.8 H 64.2 Lymph % (Auto) 14.1 L 24.9 [place] % (Auto) 7.0 7.2 Eos % (Auto) 1.9 3.1 Baso % (Auto) 0.3 0.3 Lymph # (Auto) 2.3 2.2 [place] # (Auto) 1.1 0.6 Eos # (Auto) 0.3 0.3 Baso # (Auto) 0.1 0.0 Abs Immat Gran (auto) 0.15 H 0.03 Absolute Neuts (auto) 12.1 H 5.7 Absolute Nucleated RBC 0.000 0.000 Nucleated RBC % (auto) 0.0 0.0 Anion Gap 16 14 Estim Creat Clear Calc 127.4 135.4 Estimated GFR > 60 > 60 Random Glucose 156 H 171 H Calcium 9.4 D 8.9 Total Bilirubin 0.3 AST 25 ALT 29 Alkaline Phosphatase 89 Total Protein 7.0 Albumin 3.9 TSH 1.42 Assessment and Plan (1) Complete heart block: Status: Acute Plan 58-year-old male with pertinent history of HOCM status post septal myectomy in 2019, left bundle-branch block, mild aortic stenosis, mixed hyperlipidemia who presents to the emergency department for evaluation of dizziness and chest pressure. Complete heart block. continue cardiac monitoring. added echo. TSH normal . Patient without hyperkalemia. Avoid beta-cheri, calcium channel cheri, digoxin and adenosine. keep NPO after midnight for possible pacer. d/w cardio - thoracic surgery for pacemaker today Chest pain in the setting of above. Will trend troponin. No ACS at the time of admission Mixed hyperlipidemia on statin DVT prophylaxis: Mechanical. Hold Lovenox until cardiology evaluation ongoing hospitalisation need -CHB- close monitoring of heart rate and hemodynamics-possible pacemaker placement need. Time Spent With Patient Time: Total time managing care of this patient today ____ minutes. Quality Stroke Does the patient have a stroke diagnosis?: No VTE Prior VTE?: No VTE Risk Level:: Medical - moderate - high VTE Device Contraindication: N/A - Device Ordered VTE Drug Contraindication: Treatment Not Tolerated
--- NOTE | 2023-04-23 14:28 | P.OP_ITS ---
Operative Note Operative Note Date of Service: 04/23/23 Narrative: Preoperative diagnosis: Complete heart block Postoperative diagnosis: Same Operation: Placement of dual-chamber permanent pacemaker with fluoroscopic guidance Surgeon: Kvng Medina MD Specimens: None EBL: 5 cc Operative findings: The pacemaker placed was a Medtronic serial number [id number]. The atrial lead was a Medtronic serial number bbl [id number]. The ventricular lead was a Medtronic serial number bbl [id number]. Parameters in the right atrial lead threshold 0.75 volts at 0.4 milliseconds, impedance of 589 Ohms and P-wave 4.9 mV. In the ventricular lead threshold was 0.5 volts at 0.4 milliseconds, impedance 570 Ohms and R-wave 20 mV. Patient tolerated procedure well. Operation in detail: The patient was brought to the operating room, placed supine on the operating room table, anesthesia moderate of ices were placed, and the patient was gently sedated. A time-out was performed confirming the correct patient site and procedure. After injection of local anesthetic, a 3 cm incision was made in the left infraclavicular region and carried down to the pectoralis fascia with electrocautery. The patient was then placed in Trendelenburg and an 18 gauge needle was used to access subclavian vein on the 1st take. And a wire was placed into the right atrium under fluoroscopic guidance. A 2nd 18 gauge needle was then used to access the subclavian vein again on the ache and a wire was placed under fluoroscopic guidance and parked in the right atrium. The patient was then taken out of Trendelenburg and a pocket was formed using blunt and electrocautery dissection. The 1st 6 [place] sheath was then placed over wire and the wire and dilator were removed. The ventricular lead was then placed through the sheath and parked in the right atrium and the peel-away sheath was removed. After several attempts using a curved stylet we were eventually able to access the right ventricle and the tip of the lead was positioned at the right ventricular apex. The endocardial screw was deployed and the lead was tested with excellent parameters above. This lead was then secured with silk sutures to the pectoralis fascia. The 2nd 6 [place] sheath was then placed over the 2nd wire and a wire dilator removed. The atrial lead was then placed and parked in the right atrium. AJ stylet was used to position this in the right atrial appendage. The endocardial screws deployed and the lead was tested with excellent parameters above. This lead was also secured with silk sutures to the pectoralis fascia. The pocket was then copiously irrigated with antibiotic solution. The leads were then placed in their appropriate receptacles and the pacemaker was tested again with excellent parameters. The generator and excess lead was then placed into the pocket. The wound was then closed with a deep running 3-0 Vicryl suture followed by running 3-0 Vicryl suture and Dermabond glue in the skin. The patient was then brought to the recovery room in stable condition.
[2023-04-23] MEDS: fentaNYL citrate/PF 100 MCG/2 ML VIAL 25 MCG IVPUSH ×4 (14:37→14:52)
[2023-04-23] MEDS: Acetaminophen 1,000 MG/100 ML PIGGYBACK 400 MG IV (14:59)
[2023-04-23] MEDS: HYDROmorphone HCl 0.5 MG/0.5 ML SYRINGE IVPUSH (15:07)
[2023-04-23] MEDS: Atorvastatin Calcium 80 MG TABLET PO (20:04)
[2023-04-24] MEDS: oxyCODONE HCl Immed Release 5 MG TABLET PO (00:09)
[2023-04-24] MEDS: Morphine Sulfate 4 MG/ML CARTRIDGE IVPUSH (02:39)
[2023-04-24 03:42] VITALS: BP 128/68; PULSE 60; RESP 18; TEMP 36.2; O2SAT 96
[2023-04-24 07:24] VITALS: BP 124/60; PULSE 56; RESP 20; TEMP 36.6; O2SAT 97
[2023-04-24] MEDS: Cyanocobalamin (Vitamin B-12) 1,000 MCG TABLET 1000 MCG PO (09:06)
[2023-04-24] MEDS: Loratadine 10 MG TABLET PO (09:06)
[2023-04-24] MEDS: Cholecalciferol (Vitamin D3) 25 MCG TABLET PO (09:06)
[2023-04-24] MEDS: 0.9 % Sodium Chloride Flush 3 ML SYRINGE IVFLUSH (09:06)
[2023-04-24] MEDS: HYDROmorphone HCl 0.5 MG/0.5 ML SYRINGE IVPUSH (09:11)
[2023-04-24 11:20] VITALS: BP 121/67; PULSE 61; RESP 20; TEMP 36.1; O2SAT 97
--- NOTE | 2023-04-24 11:54 | HO.POSTANES ---
Post Anesthesia Evaluation Post Anesthesia Evaluation Date of Service: 04/24/23 Vital Signs: Vital Signs Temp Pulse Resp BP Pulse Ox O2 Del Method O2 Flow Rate 04/24/23 11:20 97.0 F 61 20 121/67 97 Nasal Cannula 2 04/24/23 07:24 97.9 F 56 20 124/60 97 Nasal Cannula 2 04/24/23 03:42 97.1 F 60 18 128/68 96 Nasal Cannula 1 Anesthesia: General LMA Mental Status: Awake Pain Control: Satisfactory Nausea/Vomiting: None Hydration: Adequate Anesthesia-Related Issues: No Anes. Related Issues
--- NOTE | 2023-04-24 12:31 | P.DS_ITS ---
DS: Providers Provider Date of Service: 04/24/23 Date of admission: 04/22/23 19:27 Date of discharge: 04/24/23 Primary care physician: None Physician Consults: 04/22/23 19:27 Consult to Cardiology Routine Consulting Provider: [facility] Reason for consultation: complete heart block Has provider been notified: Yes 04/23/23 13:36 Consult to Thoracic Surgery Routine Consulting Provider: [facility] Reason for consultation: symptomatic bradycaria Has provider been notified: No Attending physician on discharge: Sparkle Bashir Discharging clinician: Sparkle Bashir DS: Diagnosis Discharge Diagnosis (1) Complete heart block: Status: Acute DS: Summary Hospital Course Hospital Course: 58-year-old male with pertinent history of HOCM status post septal myectomy in 2019, left bundle-branch block, mild aortic stenosis, mixed hyperlipidemia who presents to the emergency department for evaluation of dizziness and chest pressure. Patient states he had chest pressure on the day of presentation which did not worsen with ambulation, did not relieve with rest, constant, midsternal and nonradiating. Patient's dizziness was worse with ambulation. He denies fever, chills, palpitations, shortness of breath, abdominal pain, changes in urinary or bowel habits.In the emergency department, EKG with complete heart block and Cardiology was consulted. hospital course: Patient was admitted due to complete heart block symptomatic -seen by thoracic and Cardiology : Recommended to please pacemaker for complete heart block symptomatic -was placed by thoracic Surgery. Today cardiology Followed up on the patient- pacemaker is functioning fine, patient is asymptomatic. Going home. Patient is to follow-up with thoracic surgery 2 weeks. Above management discussed with the patient in detail length he understand and in agreement with the above plan, time spent 50 min. Time Spent with Patient Time attestation: Total time managing care of this patient today ____ minutes. Discharge coordination time: Greater than 30 minutes Quality: Safe Use of Opioids Does Pt have an Active Cancer Diagnosis on the Problem List?: No Quality: Stroke Does the patient have a stroke diagnosis?: No Physical Exam Vital Signs: Vital Signs: Last Vital Signs Temp 97.0 F 04/24/23 11:20 Pulse 61 04/24/23 11:20 Resp 20 04/24/23 11:20 BP 121/67 04/24/23 11:20 Pulse Ox 97 04/24/23 11:20 O2 Del Method Nasal Cannula 04/24/23 11:20 O2 Flow Rate 2 04/24/23 11:20 BMI result Body Mass Index 30.8 Appearance: Alert.? Oriented X3. cvs: bradycardia ,[id number]. res: clear to auscultation ,no rhonchii or wheezing abd: no rebound or guarding ,nt, bs present. ext pulses present , no cyanosis . neuro: axo3 , nonfocal. DS: Data Imaging Chest x-ray: Radiologist's impression: ITS Impressions Chest X-Ray 04/23/23 14:58 IMPRESSION: Interval placement of dual lead pacemaker. No pneumothorax. Discharge Plan Discharge Anticipated Discharge Date/Time: 04/24/23 12:24 Patient Disposition: Home, Self-Care Discharge Diagnosis: chb s/p pacemaker Referrals: Physician,None [Primary Care Provider] - 1 Week Discharge Medications: Continued aspirin 81 mg tablet,delayed release (DR/EC) 81 mg PO DAILY 90 Days Qty: 90 3RF icosapent ethyl [Vascepa] 1 gram capsule 2 g PO BID 30 Days Qty: 120 5RF metformin 500 mg tablet 500 mg PO DAILY oxycodone 5 mg tablet 5 mg PO Q6H PRN (Reason: pain) Qty: 20 0RF Rx Instructions: Partial Fill upon patient request. cetirizine 10 mg tablet 10 mg PO DAILY fluticasone propionate 50 mcg/actuation spray,suspension 1 spray intranasal DAILY PRN (Reason: Allergy Symptoms) cholecalciferol (vitamin D3) 25 mcg (1,000 unit) tablet 25 mcg PO DAILY rosuvastatin 20 mg tablet 20 mg PO BEDTIME cyanocobalamin (vitamin B-12) [Vitamin B-12] 1,000 mcg tablet 1,000 mcg PO DAILY Discharge Orders: Discharge Order (Routine); Ordered 04/24/23 Ordered By: Sparkle Bashir Diet: Advance to usual diet Activity on Discharge: As tolerated Stand Alone Forms: Patient Portal Discharge page Activity Restrictions/Additional Instructions: ACTIVITY: * ARM MOVEMENT RESTRICTIONS: No lifting your LEFT arm over your head or behind your back, no pushing/pulling/lifting anything >10lb with your LEFT arm for 6-8 weeks. This ensures the pacemaker wires stay in place and do not get pulled out accidentally. Make sure you are doing gentle range of motion exercises with the left arm (such as pendulum exercise) to make sure your elbow and shoulder do not get frozen up. * ARM SLING: Keep the sling on until 04/26. You may then take the sling off and leave it off. HOWEVER, if you are noticing a difficulty limiting your left arm movement (as outline above) then wear your sling during the day to make sure you are adhering to the restrictions above. * Ask your doctor when you can expect to return to work. * You can still exercise. It is good for your body and your heart. Talk with your doctor about an exercise plan. INCISION CARE: * You may shower starting 04/26. Sponge bathe only until then. * Do not submerge yourself in water (baths, pools, etc.) for 2 weeks. * Monitor the incision for increased redness, swelling, bruising, pain, open area, or drainage. OTHER PRECAUTIONS: * Before you receive any treatment, tell all healthcare providers (including your dentist) that you have a pacemaker. * You will be given an ID card that contains information about your pacemaker. Always carry this card with you. You can show this card if your pacemaker sets off a metal detector. You should also show it to avoid screening with a hand-held security wand. * Keep your cell phone away from your pacemaker. Do not carry the phone in your shirt pocket, even it if is turned off. * Avoid strong magnets. Examples are those used in MRI's or in hand-held security wands. * Avoid strong electrical suazo. Examples are those made by radio transmitting towers, ham radios, and heavy-duty electrical equipment. * Avoid leaning over the open goss of a running car. A running engine creates an electrical field. Most household and yard appliances will not cause any problems. If you use any large power tools, such as an industrial program research specialist, talk with your doctor. WHEN TO CALL YOUR DOCTOR: Call your doctor immediately if you have any of the following: * Dizziness * Chest pain * Lack of energy * Fainting spells * Twitching chest muscles * Rapid pule or pounding heartbeat * Shortness of breath * Pain around your pacemaker * Fever above 100.4 F (38 C) or other signs of infection (redness, swelling, drainage, or warmth at the incision site). * Hiccups that will not stop FOLLOWUP APPOINTMENTS: * Call Dr. Medina's office (Thoracic Surgery) as soon as you get home to schedule a followup appointment for 2 weeks from now. The office number is . The office is located at [address] [place] [address]. * Call your maori liaison adviser to make an appointment for the next couple weeks. Make regular follow-up appointments with your doctor. He or she will check the pacemaker to make sure it is working properly. Care Plan Goals: Patient was admitted due to complete heart block symptomatic -seen by thoracic and Cardiology : Recommended to please pacemaker for complete heart block symptomatic -was placed by thoracic Surgery. Today cardiology Followed up on the patient- pacemaker is functioning fine, patient is asymptomatic. Going home. Patient is to follow-up with thoracic surgery 2 weeks. Above management discussed with the patient in detail length he understand and in agreement with the above plan, time spent 50 min. Health Concerns: as above. Plan of Treatment: as above. Assessment: as above.
--- NOTE | 2023-04-24 12:41 | PM.PNCARD ---
Subjective Subjective Date of Service: 04/24/23 Interval history: Seen examined at bedside. Feeling better. Chest x-ray and device interrogation have been unremarkable. Physical Exam Vital Signs: Last Vital Signs Temp 97.0 F 04/24/23 11:20 Pulse 61 04/24/23 11:20 Resp 20 04/24/23 11:20 BP 121/67 04/24/23 11:20 Pulse Ox 97 04/24/23 11:20 O2 Del Method Nasal Cannula 04/24/23 11:20 O2 Flow Rate 2 04/24/23 11:20 BMI result Body Mass Index 30.8 GENERAL APPEARANCE: in no acute distress, pleasant. NECK: no carotid bruit, no jugular venous distention. SKIN: no suspicious lesions, warm and dry. HEART: no murmurs, regular rate and rhythm. Bradycardic. LUNGS: clear to auscultation bilaterally. ABDOMEN: soft, nontender. EXTREMITIES: no edema. PERIPHERAL PULSES: equal. NEUROLOGIC: No gross deficits, AAO X 3 Objective Labs and Meds 04/23/23 07:01 04/23/23 07:01 Imaging Radiologist's impression: Impressions Chest X-Ray 04/23/23 14:58 IMPRESSION: Interval placement of dual lead pacemaker. No pneumothorax. Progress Note: A&P Assessment and plan (1) Complete heart block: Status: Acute Plan [age] year gentleman with background hypertrophic cardiomyopathy status post myomectomy and left bundle-branch block he presented with complete heart block. He is status post dual-chamber pacemaker placement at this point. Chest x-ray and device interrogation has been negative. On telemetry he had 1 beat noticed which was not captured. This was discussed with thoracic surgery and they felt that this is not too concerning and given the fact that the device interrogation is normal he can be discharged home. Overall stable. Ambulating hallways and if stable without any dizziness or lightheadedness and can be discharged home. Thank you for allowing me to participate in the care of your patient. Please feel free to contact me if you have any questions. Time Spent With Patient Time: Total time managing care of this patient today ____ minutes. Progress Note: Quality Stroke Does the patient have a stroke diagnosis?: No Procedures Date of Service Date of Service: 04/24/23
--- NOTE | 2023-04-24 13:09 | MHC.CM.PN ---
PT MEDICALLY CLEARED FOR DC HOME SELF CARE, PT WILL ARRANGE TRANSPROT
== END 2023-04-24 14:30 | disposition home or self-care (01) | DRG 244 ==
LOC: HO.ED 19:36 → HO.EDOVER 23:12 → HO.IMC 23:51
PROVIDERS: Physician Assistant; Surgery; Admitting Provider Student in an Organized Health Care Education/Training Program; Emergency Provider Emergency Medicine; PCP Registered Nurse; Visit Provider Internal Medicine
PROC: 0JH606Z Insertion of Pacemaker, Dual Chamber into Chest Subcutaneous Tissue and Fascia, Open Approach (ICD-10-PCS; principal; 2023-04-23 13:00)
DX: I44.2 Atrioventricular block, complete (principal); E78.2 Mixed hyperlipidemia; I35.0 Nonrheumatic aortic (valve) stenosis; F17.210 Nicotine dependence, cigarettes, uncomplicated; Z71.6 Tobacco abuse counseling; Z79.82 Long term (current) use of aspirin; Z79.84 Long term (current) use of oral hypoglycemic drugs; Z79.899 Other long term (current) drug therapy
CPT/HCPCS: 36415; 71045; 80048; 80053; 84443; 84484; 85025; 93005; 99285; C1785; C1892; C1898; J0131; J0690; J1100; J1170; J2270; J3010; J3370

== ENCOUNTER → 2023-04-22 18:14 | Outpatient (BNV) | payer OTHER, SELFPAY | PROVIDERS: Emergency Provider Emergency Medicine; Visit Provider Student in an Organized Health Care Education/Training Program | DX: I44.2 Atrioventricular block, complete (principal) | CPT/HCPCS: 99222; 99232; 99239 ==

== ENCOUNTER → 2023-04-22 19:27 | Outpatient (BNV) | payer OTHER, SELFPAY | PROVIDERS: Admitting Provider Student in an Organized Health Care Education/Training Program; Emergency Provider Emergency Medicine; Visit Provider Internal Medicine Cardiovascular Disease | DX: I44.2 Atrioventricular block, complete (principal); Z98.890 Other specified postprocedural states; Z95.0 Presence of cardiac pacemaker | CPT/HCPCS: 99223; 99231 ==

== ENCOUNTER → 2023-04-22 19:27 | Outpatient (BNV) | payer OTHER, SELFPAY | PROVIDERS: Admitting Provider Student in an Organized Health Care Education/Training Program; Emergency Provider Emergency Medicine; Visit Provider Surgery | DX: I44.2 Atrioventricular block, complete (principal); I44.7 Left bundle-branch block, unspecified | CPT/HCPCS: 99223 ==

== ENCOUNTER 2023-05-13 10:22 | Outpatient (REF) | payer OTHER, SELFPAY ==
[2023-05-13 12:36] LABS: Estimated Average Glucose 157 mg/dL; Hemoglobin A1c % 7.1 % (<6.0)
[2023-05-13 12:50] LABS: Anion Gap 13 (12-20); Blood Urea Nitrogen 10 mg/dL (9-16); Calcium 9.3 mg/dL (8.4-10.2); Carbon Dioxide 24 mmol/L (22-29); Chloride 105 mmol/L (96-108); Estimated Glomerular Filt Rate > 60; Glucose Random 151 mg/dL (60-115); Potassium 4.1 mmol/L (3.3-5.1); Sodium 138 mmol/L (135-145)
== END 2023-05-13 10:23 | disposition home or self-care (01) ==
LOC: HO.HHCL 10:22
PROVIDERS: Visit Provider Internal Medicine Geriatric Medicine
DX: R73.03 Prediabetes (principal)
CPT/HCPCS: 36415; 80048; 83036

== ENCOUNTER → 2023-05-23 23:59 | Outpatient (BNV) | payer OTHER, SELFPAY ==
--- NOTE | 2023-05-23 16:29 | A.OFFVIS_ITS ---
Intake Intake Visit Reasons: Remote Device Check- Medtronic Allergies prednisone [PREDNISONE] Allergy (Intermediate, Verified 11/30/22 15:19) BLEEDING [facility] Medical History (Updated 05/02/23 @ 00:02 by Errol Cheney) Pacemaker (~04/2023) Hyperlipidemia Hypertrophic obstructive cardiomyopathy (HOCM) (~2018) LBBB (left bundle branch block) (~2018) Surgical History (Updated 04/25/23 @ 08:02 by Simran Hernandez PA-C) History of pacemaker (~04/2023) History of heart surgery (~12/2018) History of colonoscopy History of esophagogastroduodenoscopy (EGD) History of thumb surgery History of excision of epidermal inclusion cyst (~09/2021) Family History Father No problems noted. Mother No problems noted. Brother No problems noted. Sister No problems noted. Daughter Thyroid condition Son No problems noted. Social History Household Members: Spouse Housing: Apartment Do you presently have visiting nurse or other home services: No Alcohol intake: current Alcohol intake frequency: does not drink Patient Tobacco Use Status: Current someday Tobacco user Tobacco use type: Cigarette Cigarettes Per Day: 5 service: No Office Procedures Cardiac Device Check Cardiac Device Check Details: Remote pacemaker report generated 05/23/2023. Pacemaker function is adequate. Patient ventricularly pacer dependent [id number] Cardiac Device Interrogation, pacemaker Procedure code (CPT) selection complete Coding Level of Care Code Procedure Only CPT Codes Cardiac Device Check - Cardiac Device 12: [id number] Cardiac Device Interrogation, pacemaker ([id number])
== END ==
PROVIDERS: PCP Registered Nurse; Visit Provider Internal Medicine Cardiovascular Disease
DX: I44.2 Atrioventricular block, complete (principal); Z95.0 Presence of cardiac pacemaker
CPT/HCPCS: 93294

== ENCOUNTER 2023-05-31 12:37 | Outpatient (REF) | payer OTHER, SELFPAY ==
[2023-05-31 14:51] LABS: Alanine Aminotransferase 26 U/L (0-40); Albumin Level 4.1 g/dL (3.5-5.0); Alkaline Phosphatase 81 U/L (39-117); Anion Gap 16 (12-20); Aspartate Amino Transferase 18 U/L (5-37); Bilirubin Total 0.5 mg/dL (0.0-1.0); Blood Urea Nitrogen 15 mg/dL (9-16); Calcium 9.5 mg/dL (8.4-10.2); Carbon Dioxide 25 mmol/L (22-29); Chloride 107 mmol/L (96-108); Estimated Glomerular Filt Rate > 60; Glucose Random 112 mg/dL (60-115); Magnesium 2.3 mg/dL (1.6-2.6); Potassium 4.3 mmol/L (3.3-5.1); Sodium 144 mmol/L (135-145); Total Protein 7.8 g/dL (6.5-8.0)
== END 2023-05-31 12:38 | disposition home or self-care (01) ==
LOC: HO.HHCL 12:37
PROVIDERS: Visit Provider Nurse Practitioner Family
DX: I47.29 Other ventricular tachycardia (principal)
CPT/HCPCS: 36415; 80053; 83735

== ENCOUNTER 2023-06-01 11:18 | Outpatient (AMB) | payer OTHER, SELFPAY ==
--- NOTE | 2023-06-01 11:21 | A.OFFVIS_ITS ---
Intake Intake Visit Reasons: 6m follow up Intake Note: Patient is Present for Telephone Follow Up Urology Med: None Antibiotic Allergy: None Blood Thinner: Aspirin Pharamcy: [facility] Allergies prednisone [PREDNISONE] Allergy (Intermediate, Verified 06/01/23 11:22) BLEEDING Medication List - Last Reconciled 06/01/23 by Scottie Angel MD aspirin 81 mg PO DAILY 90 days cetirizine 10 mg PO DAILY cholecalciferol (vitamin D3) 25 mcg PO DAILY cyanocobalamin (vitamin B-12) (Vitamin B-12) 1,000 mcg PO DAILY fluticasone propionate 50 mcg/actuation 1 spray intranasal DAILY PRN icosapent ethyl (Vascepa) 2 grams (2 x 1 gram) PO BID 30 days metformin 500 mg PO DAILY metoprolol succinate ER 50 mg PO DAILY oxycodone 5 mg PO Q6H PRN rosuvastatin 20 mg PO BEDTIME sildenafil 100 mg PO ONCE PRN 30 days tadalafil 10 mg PO DAILY 90 days HPI HPI Comments History of Present Illness Details Bang is a very pleasant male. He is a patient of Dr. Landry. He is seen for the following urologic conditions. - erectile dysfunction - diabetes Telemedicine Evaluation 15 min Consultation Healcerion Alida Video attempted Recent diagnosis of diabetes Responding to 10 mg daily tadalafil - with on demand sildenafil Sleep impact from prior 2 days noticeable Performance decreases with alcohol 6 month follow-up labs Erectile dysfunction Progressive - Minimal erections in the mornings Has had prior cardiac procedure for HOCM Partial response with tadalafil 10 mg daily Concurrent diagnoses include dyslipidemia PFSH Medical History Pacemaker (~04/2023) Hyperlipidemia Hypertrophic obstructive cardiomyopathy (HOCM) (~2018) LBBB (left bundle branch block) (~2018) Surgical History History of pacemaker (~04/2023) History of heart surgery (~12/2018) History of colonoscopy History of esophagogastroduodenoscopy (EGD) History of thumb surgery History of excision of epidermal inclusion cyst (~09/2021) Family History Father No problems noted. Mother No problems noted. Brother No problems noted. Sister No problems noted. Daughter Thyroid condition Son No problems noted. Social History Household Members: Spouse Housing: Apartment Do you presently have visiting nurse or other home services: No Alcohol intake: current Alcohol intake frequency: does not drink Patient Tobacco Use Status: Current someday Tobacco user Tobacco use type: Cigarette Cigarettes Per Day: 5 service: No Review of Systems Const All systems reviewed & are unremarkable except as noted in HPI and below Reports no additional complaints Resp Reports no additional complaints GI Reports no additional complaints Reports as per HPI Musc Reports no additional complaints Physical Exam Telemedicine evaluation Appropriate responses Regular breathing rate and rhythm HEENT Head: Yes normal to inspection Ears: hearing grossly normal bilaterally Eyes General: appearance normal, both eyes and all related structures Neck Neck: Yes normal visual inspection Chest Chest palpation & inspection: normal inspection of the chest Resp Effort & Inspection: normal respiratory effort and able to speak in complete sentences Assessment & Plan Assessment & Plan (1) Erectile dysfunction: Code(s): N52.9 - Male erectile dysfunction, unspecified Qualifiers: Erectile dysfunction type: vasculogenic Vasculogenic erectile dysfunction type: due to arterial insufficiency Qualified Code(s): N52.01 - Erectile dysfunction due to arterial insufficiency Plan Six month follow-up Orders: Orders Prostate Specific Antigen 6 Months N52.9 - Male erectile dysfunction, unspecified Testosterone, Total 6 Months N52.9 - Male erectile dysfunction, unspecified Medications: New tadalafil 10 mg PO DAILY 90 tabs 1RF sexual activity 90 days N52.01 - Erectile dysfunction due to arterial insufficiency sildenafil administer 60 minutes before intended activity 100 mg PO ONCE PRN 30 tabs 1RF sexual activity 30 days E11.69 - Type 2 diabetes mellitus with other specified complication, N52.1 - Erectile dysfunction due to diseases classified elsewhere Patient Instructions: Imaging studies, laboratory and physical exam results were discussed and reviewed in detail. No major barriers to patient understanding were identified. An opportunity to ask questions regarding the treatment plan was provided. All questions were answered. The patient expressed understanding and agreement with the above treatment plan. The patient is aware they should contact our office by phone for worsening of their current condition or the appearance of new urologic symptoms. Compliance is encouraged with any medications and followup testing that is ordered. It is a privilege to participate in the urologic care of your patient. If you have any questions or concerns regarding treatment for the above conditions, or other urologic issues, please do not hesitate to contact me. The office telephone contact is [phone]. This note is constructed using voice recognition software. While every effort has been made to ensure accuracy consultant electronics errors may have been included. Yours sincerely, Dr Scottie Angel MD, [facility] - Urology Providers of Expert, Compassionate Care for the Genitourinary System Telehealth Telehealth Location of provider rendering services: practice address Location of patient: address on file Patient Identification confirmed using: Name, : Yes Telehealth method: video Patient verbally consented to treatment: Yes Patient verbally consented to billing insurance company: Yes Patient informed of any privacy concerns related to visit: Yes Coding Level of Care Code Tele Est Pt Level 3 (62344) Diagnoses Erectile dysfunction due to arterial insufficiency N52.01 Erectile dysfunction type: vasculogenic Vasculogenic erectile dysfunction type: due to arterial insufficiency
== END 2023-06-01 12:01 | disposition home or self-care (01) ==
LOC: HO.HUSH 11:18
PROVIDERS: PCP Registered Nurse; Visit Provider Urology
DX: N52.01 Erectile dysfunction due to arterial insufficiency (principal)
CPT/HCPCS: 99213

== ENCOUNTER → 2023-06-01 11:18 | Outpatient (BNVA) | payer OTHER, SELFPAY | PROVIDERS: PCP Registered Nurse; Visit Provider Urology ==

== ENCOUNTER → 2023-08-16 07:46 | Outpatient (REF) | payer OTHER, SELFPAY ==
--- NOTE | 2023-08-16 07:49 | CA_ITS ---
Transthoracic Echocardiogram Patient (Last, First, Middle): Bang Jarvis, Gender: Male Date of : 1965 Age: 58 Procedure Date: 08/16/2023 Procedure Type: Transthoracic Echocardiogram Location: OP Height: 187.96 cm Weight: 98.43 kg BSA: 2.25 m2 Heart Rate: 70 bpm BP: 136 / 80 mmHg Diesel Technician: Referring MD: Benjamín Malcolm MD Symptoms: I35.0 - Nonrheumatic aortic (valve) stenosis Study Quality: Fair ECG Rhythm: Sinus Conclusions: - The left ventricular systolic function is normal. The calculated ejection fraction is 58% by biplane method. - There is severely increased left ventricular wall thickness. - There is moderate posterior mitral annular calcification. Findings Left Ventricle Normal left ventricular cavity size. There is severely increased left ventricular wall thickness. The left ventricular systolic function is normal. The calculated ejection fraction is 58% by biplane method. There is no evidence of regional wall motion abnormalities. There is no dynamic left ventricular obstruction. There is no dynamic left ventricular outflow tract obstruction. Evidence suggests grade I (mild) diastolic dysfunction. Right Ventricle Normal right ventricular cavity size and systolic function. Atria Both atria are normal in size. A pacemaker wire is identified in the right atrium. Aortic Valve There is a normal trileaflet aortic valve. There is no aortic valve stenosis. There is no aortic valve regurgitation. Mitral Valve There is mild anterior mitral leaflet thickening. There is moderate posterior mitral annular calcification. There is no mitral valve regurgitation. There is no mitral valve stenosis. Pulmonic Valve The pulmonic valve is likely normal. Tricuspid Valve There is trace tricuspid valve regurgitation. There is no evidence of pulmonary hypertension. Great Vessels The asc aorta is normal in size. Venous The inferior vena cava is normal in size and collapses greater than 50% with inspiration. Pericardium/Pleural There is no evidence of pericardial effusion. Prior Study Comparison No significant change compared to prior study dated: 06/11/2022. Measurements 2D Linear Measurements IVSd: 1.71 0.6-0.9/0.6-1.0 cm LVIDd: 4.47 3.9-5.3/4.2-5.9 cm LVIDd Index: 1.99 2.4-3.2/2.2-3.1 cm/m2 LVIDs: 3.02 2.0-3.6 cm LVPWd: 1.70 0.7-1.1 cm Ao Root: 3.40 2.1-3.5 cm LA Diam: 4.10 2.7-3.8/3.0-4.0 cm LAIDs Index: 1.82 1.5-2.3 cm/m2 LV Mass: 415.99 67-162/88-224 g LV Mass Index: 184.88 43-95/49-115 g/m2 LVOT Diam: 2.00 3.0+(-)1.3 cm 2D Systolic Function EF 4C: 58.90 >55% EF 2C: 55.30 >55% EF BiP: 58.00 >55% Mitral Valve MV Pk E: 0.66 MV PK A: 1.08 MV Decel Time: 176.00 E/A: 0.60 E'Lateral: 5.98 E'Medial: 3.26 E/E' Med: 20.30 E/E' Lat: 11.10 PHT: 51.00 MVA PHT: 4.31 Decel [place]: 3.76 Aortic Valve AoV Pk Vernon: 2.04 AoV Mn Vernon: 1.24 AoV VTI: 0.34 AoV Pk Grad: 17.00 Aov Mn Grad: 8.00 ROBERT Cont.VTI: 2.36 LVOT LVOT Pk Vernon: 1.34 LVOT Mn Vernon: 0.97 LVOT VTI: 0.25 LVOT Pk Grad: 7.00 LVOT Mn Grad: 4.00 LVOT Diam: 2.00 LVOT Area: 3.14 Diastolic Function MV Pk E: 0.66 MV Pk A: 1.08 E/A: 0.60 E'Medial: 3.26 E/E' Med: 20.30 E' Laterial: 5.98 E/E' Lat: 11.10 Right Ventricle TAPSE (mm): 24.00 TVS' Vernon: 11.00 Tricuspid Valve TR Pk Vernon: 2.09 TR Pk Grad: 17.00 RA Press: 3.00 RVSP: 20.00 Great Vessels Aorta Ao Root-2D: 3.40 2.0-3.7 cm Ao Asc: 3.50 2.1-3.4 cm Pulmonary Valve PV Pk Vernon: 0.95 Peak PV Grad: 4.00 Updated in Other Vendor System with Status of Final Albert Quiroga MD electronically signed on 08/17/2023 12:17:13 PM with status of Final
== END ==
LOC: HO.CARD 07:46
PROVIDERS: PCP Registered Nurse; Visit Provider Internal Medicine Cardiovascular Disease
DX: I35.0 Nonrheumatic aortic (valve) stenosis (principal)
CPT/HCPCS: 93306

== ENCOUNTER → 2023-08-16 07:49 | Outpatient (BNV) | payer OTHER, SELFPAY | PROVIDERS: PCP Registered Nurse; Visit Provider Internal Medicine | DX: I35.0 Nonrheumatic aortic (valve) stenosis (principal) | CPT/HCPCS: 93306 ==

== ENCOUNTER → 2023-08-16 07:50 | Outpatient (REF) | payer OTHER, SELFPAY | LOC: HO.CARD 07:50 | PROVIDERS: PCP Registered Nurse; Visit Provider Internal Medicine Cardiovascular Disease | DX: Z13.89 Encounter for screening for other disorder (principal) ==

== ENCOUNTER → 2023-08-21 23:59 | Outpatient (BNV) | payer OTHER, SELFPAY ==
--- NOTE | 2023-08-23 12:34 | MHC.OFFVIS ---
Intake Intake Visit Reasons: Remote Device Check- Medtronic Allergies prednisone [PREDNISONE] Allergy (Intermediate, Verified 06/01/23 11:22) BLEEDING [facility] Medical History (Updated 08/23/23 @ 12:25 by Benjamín Malcolm MD) Aortic stenosis (~06/2022) Pacemaker (~04/2023) Hyperlipidemia Hypertrophic obstructive cardiomyopathy (HOCM) (~2018) LBBB (left bundle branch block) (~2018) Surgical History History of pacemaker (~04/2023) History of heart surgery (~12/2018) History of colonoscopy History of esophagogastroduodenoscopy (EGD) History of thumb surgery History of excision of epidermal inclusion cyst (~09/2021) Family History Father No problems noted. Mother No problems noted. Brother No problems noted. Sister No problems noted. Daughter Thyroid condition Son No problems noted. Social History Household Members: Spouse Housing: Apartment Do you presently have visiting nurse or other home services: No Alcohol intake: current Alcohol intake frequency: does not drink Comment: Indpendent Patient Tobacco Use Status: Current someday Tobacco user Tobacco use type: Cigarette Cigarettes Per Day: 5 service: No Office Procedures Cardiac Device Check Cardiac Device Check Details: Remote pacemaker report generated 08/21/2023. Pacemaker function is adequate [id number] Cardiac Device Interrogation, pacemaker Procedure code (CPT) selection complete Assessment & Plan Assessment & Plan (1) Pacemaker: Onset Date: ~04/2023 Comment: (hx complete heart block - s/p Medtronic DCPP - placed 04/23/23) Code(s): Z95.0 - Presence of cardiac pacemaker Plan: See above Coding Level of Care Code Procedure Only Diagnoses Pacemaker Z95.0 CPT Codes Cardiac Device Check - Cardiac Device 12: [id number]-[id number] Cardiac Device Interrogation, pacemaker ([id number])
== END ==
PROVIDERS: PCP Registered Nurse; Visit Provider Internal Medicine Cardiovascular Disease
DX: I42.1 Obstructive hypertrophic cardiomyopathy (principal); Z95.0 Presence of cardiac pacemaker
CPT/HCPCS: 93294

== ENCOUNTER 2023-08-23 11:33 | Outpatient (AMB) | payer OTHER, SELFPAY ==
[2023-08-23 11:36] VITALS: BP 110/70; PULSE 68; BMI 27.5
--- NOTE | 2023-08-23 11:36 | A.OFFVIS_ITS ---
Intake Vital Signs 08/23/23 11:36 Height 6 ft 2 in Weight 213 lb 13.574 oz BMI 27.5 BP 110/70 Blood Pressure Location Lt brachial Position Sitting Pulse 68 Intake Visit Reasons: 1 yr f/up Intake Note: 1 year follow-up with Medtr[employer] feeling good out of metoprolol Summer Intern Required: No Allergies prednisone [PREDNISONE] Allergy (Intermediate, Verified 06/01/23 11:22) BLEEDING Medication List - Last Reconciled 08/23/23 by Benjamín Malcolm MD aspirin 81 mg PO DAILY 90 days cetirizine 10 mg PO DAILY cholecalciferol (vitamin D3) 25 mcg PO DAILY cyanocobalamin (vitamin B-12) (Vitamin B-12) 1,000 mcg PO DAILY fluticasone propionate 50 mcg/actuation 1 spray intranasal DAILY PRN icosapent ethyl (Vascepa) 2 grams (2 x 1 gram) PO BID 30 days metformin 500 mg PO DAILY oxycodone 5 mg PO Q6H PRN rosuvastatin 20 mg PO BEDTIME sildenafil 100 mg PO ONCE PRN 30 days tadalafil 10 mg PO DAILY 90 days HPI HPI Comments History of Present Illness Details Bang comes for follow-up after recent hospitalization with near- syncope and slow heart rate with complete heart block. Status post dual-chamber pacemaker placement, Medtronic. Since the pacemaker placement he says he feels really well. He denies any symptoms of palpitations, lightheadedness, syncope. No heart failure symptoms. Echocardiogram done during this hospitalization showed normal LV ejection fraction with severe LVH without any evidence of outflow gradient. [facility] Medical History (Updated 08/23/23 @ 12:25 by Benjamín Malcolm MD) Aortic stenosis (~06/2022) Pacemaker (~04/2023) Hyperlipidemia Hypertrophic obstructive cardiomyopathy (HOCM) (~2018) LBBB (left bundle branch block) (~2018) Surgical History History of pacemaker (~04/2023) History of heart surgery (~12/2018) History of colonoscopy History of esophagogastroduodenoscopy (EGD) History of thumb surgery History of excision of epidermal inclusion cyst (~09/2021) Family History Father No problems noted. Mother No problems noted. Brother No problems noted. Sister No problems noted. Daughter Thyroid condition Son No problems noted. Social History Household Members: Spouse Housing: Apartment Do you presently have visiting nurse or other home services: No Alcohol intake: current Alcohol intake frequency: does not drink Comment: Indpendent Patient Tobacco Use Status: Current someday Tobacco user Tobacco use type: Cigarette Cigarettes Per Day: 5 service: No Review of Systems Const Denies chills, Denies fatigue, Denies fever(s), Denies frequent falls, Denies weakness, Denies weight gain and Denies weight loss ENT Denies dizziness Card Denies chest pain, Denies leg edema, Denies lightheadedness, Denies palpitations, Denies dyspnea, Denies dyspnea on exertion, Denies orthopnea and Denies other (loss of consciousness) Resp Denies cough, Denies dyspnea and Denies dyspnea on exertion GI Denies hematochezia and Denies change in stool character Musc Denies abnormal gait, Denies muscle weakness, Denies numbness, Denies radiating pain into limb and Denies tingling Neuro Denies abnormal gait, Denies dizziness, Denies frequent falls, Denies numbness, Denies tingling and Denies weakness Endo Denies fatigue and Denies palpitations Physical Exam Vital Signs: Last Vital Signs Pulse 68 08/23/23 11:36 BP 110/70 08/23/23 11:36 BMI result Body Mass Index 27.5 Const General: cooperative, healthy appearing, comfortable and no acute distress Orientation/consciousness: patient oriented x3 Neck Neck: Yes normal visual inspection and Yes no JVD Carotids: normal carotid upstroke Resp Effort & Inspection: normal respiratory effort Auscultation: clear to auscultation bilaterally, no crackles, no rales, no rhonchi and no wheezes Cardio Rate: regular rate Rhythm: regular rhythm Heart sounds: S1 normal heart sound present, S2 normal heart sound present, no gallops, Murmur heart sound present systolic early, decrescendo and crescendo and no rubs Peripheral pulses: Peripheral pulses 2+ throughout GI Inspection: Yes normal to inspection Neuro General: patient oriented x3 Extrem General: Yes normal to inspection, No no pedal edema and No calf tenderness Office Procedures Cardiac Device Check Cardiac Device Check Details: BEAT [employer] dual-chamber pacemaker in place, programmed in DDD, reprogrammed to DDDR. Resting heart rate today was in the mid 80s. Multiple episodes of nonsustained VT were noted on August 15 and . No symptoms related to it. Atrial sensing was excellent. Ventricular sensing could not be performed due to patient being ventricularly pacer dependent. Atrial pacing 7.4% of time. Ventricularly pacer dependent. Atrial and ventricular pacing thresholds excellent and reprogrammed to enhance battery life. Pacing lead impedance is stable. Battery life is at 12.5 years [id number] Cardiac Device Check, pacemaker dual lead Procedure code (CPT) selection complete Assessment & Plan Assessment & Plan (1) Pacemaker: Onset Date: ~04/2023 Comment: (hx complete heart block - s/p Medtronic DCPP - placed 04/23/23) Code(s): Z95.0 - Presence of cardiac pacemaker Plan: Dual-chamber pacemaker placement for symptomatic complete heart block as the reason for possibly scarring in the conduction system. Patient with left bundle-branch block status post hypertrophic cardiomyopathy septal myectomy. Progressive conduction system disease with improved symptoms with pacing. Will follow-up pacemaker remotely every 3 months and follow up in the clinic in 6 months time. His most recent LV systolic function is preserved. (2) Hypertrophic obstructive cardiomyopathy (HOCM): Onset Date: ~2018 Comment: (Hx HOCM. s/p septal myectomy at [facility] in [place] on 01/03/2019) Code(s): I42.1 - Obstructive hypertrophic cardiomyopathy Plan: Prior history of hypertrophic obstructive cardiomyopathy with no outflow track obstruction noted but severe LVH noted. Will continue monitor clinically. (3) NSVT (nonsustained ventricular tachycardia): Code(s): I47.29 - Other ventricular tachycardia Plan: Noted multiple episodes of nonsustained VT. Will increase Toprol to 50 mg david y. Will follow-up by remote telemetry. If persistent nonsustained VT would consider upgrade to dual-chamber defibrillator. This was discussed with him. Will follow up in the clinic in 6 months time, sooner p.r.n.. Thank you for allowing me to partake in his care Medications: New metoprolol succinate ER (Toprol XL) 50 mg PO DAILY 30 tabs 5RF Coding Level of Care Code Est Pt Level 4 (23650) Diagnoses Pacemaker Z95.0 Hypertrophic obstructive cardiomyopathy (HOCM) I42.1 NSVT (nonsustained ventricular tachycardia) I47.29 CPT Codes Cardiac Device Check - Cardiac Device 2: 32036-[id number] Cardiac Device Check, pacemaker dual lead ([id number])
== END 2023-08-23 12:01 | disposition home or self-care (01) ==
PROVIDERS: Visit Provider Internal Medicine Cardiovascular Disease
DX: I42.1 Obstructive hypertrophic cardiomyopathy (principal); I47.29 Other ventricular tachycardia; Z95.0 Presence of cardiac pacemaker
CPT/HCPCS: 93280; 99214

== ENCOUNTER → 2023-08-23 11:33 | Outpatient (BNVA) | payer OTHER, SELFPAY | PROVIDERS: Visit Provider Internal Medicine Cardiovascular Disease | DX: I42.1 Obstructive hypertrophic cardiomyopathy (principal); I47.29 Other ventricular tachycardia; Z79.899 Other long term (current) drug therapy; Z45.018 Encounter for adjustment and management of other part of cardiac pacemaker | CPT/HCPCS: 93280; 99212 ==

== ENCOUNTER → 2023-11-20 23:59 | Outpatient (BNV) | payer OTHER, SELFPAY ==
--- NOTE | 2023-11-22 16:40 | MHC.OFFVIS ---
Intake Visit Reasons: Remote device check- Medtronic Allergies prednisone [PREDNISONE] Allergy (Intermediate, Verified 06/01/23 11:22) BLEEDING [facility] Medical History (Updated 08/23/23 @ 12:25 by Benjamín Malcolm MD) Aortic stenosis (~06/2022) Pacemaker (~04/2023) Hyperlipidemia Hypertrophic obstructive cardiomyopathy (HOCM) (~2018) LBBB (left bundle branch block) (~2018) Surgical History History of pacemaker (~04/2023) History of heart surgery (~12/2018) History of colonoscopy History of esophagogastroduodenoscopy (EGD) History of thumb surgery History of excision of epidermal inclusion cyst (~09/2021) Family History Father No problems noted. Mother No problems noted. Brother No problems noted. Sister No problems noted. Daughter Thyroid condition Son No problems noted. Social History Household Members: Spouse Housing: Apartment Do you presently have visiting nurse or other home services: No Alcohol intake: current Alcohol intake frequency: does not drink Comment: Indpendent Patient Tobacco Use Status: Current someday Tobacco user Tobacco use type: Cigarette Cigarettes Per Day: 5 service: No Office Procedures Cardiac Device Check Cardiac Device Check Details: Remote pacemaker report generated 11/20/2023. Pacemaker function is adequate. Ventricular pacing 98% of the time. [id number] Cardiac Device Interrogation, pacemaker Procedure code (CPT) selection complete Assessment & Plan Assessment & Plan (1) Pacemaker: Onset Date: ~04/2023 Comment: (hx complete heart block - s/p Medtronic DCPP - placed 04/23/23) Code(s): Z95.0 - Presence of cardiac pacemaker Category: Medical Plan: See above Coding Level of Care Code Procedure Only Diagnoses Pacemaker Z95.0 CPT Codes Cardiac Device Check - Cardiac Device 12: [id number] Cardiac Device Interrogation, pacemaker ([id number])
== END ==
PROVIDERS: PCP Registered Nurse; Visit Provider Internal Medicine Cardiovascular Disease
DX: I44.2 Atrioventricular block, complete (principal); Z95.0 Presence of cardiac pacemaker
CPT/HCPCS: 93294

== ENCOUNTER 2023-11-23 10:14 | Outpatient (REF) | payer OTHER, SELFPAY ==
[2023-11-23 11:46] LABS: Prostate Specific Antigen 0.29 ng/mL (<0.05-4.0)
[2023-11-28 12:39] LABS: Testosterone, Total 503 ng/dL (250-1100)
== END 2023-11-23 10:15 | disposition home or self-care (01) ==
LOC: HO.LAB 10:14
PROVIDERS: Absent Provider Internal Medicine Geriatric Medicine; PCP Internal Medicine Geriatric Medicine; Visit Provider Urology
DX: Z12.5 Encounter for screening for malignant neoplasm of prostate (principal); N52.9 Male erectile dysfunction, unspecified
CPT/HCPCS: 36415; 84153; 84403

== ENCOUNTER 2023-11-30 10:17 | Outpatient (AMB) | payer OTHER, SELFPAY ==
--- NOTE | 2023-11-30 11:00 | MHC.OFFVIS ---
Intake Visit Reasons: 6M PSA/TESTOSTERONE(pending)VM to confirm Intake Note: Patient is Present for Follow Up Urology Medication: Patient states that he is not taking and does not want to take both Sildenafil, Tadalafil Patient states not working at all Antibiotic Allergies:None Blood Thinners: Aspirin Allergies prednisone [PREDNISONE] Allergy (Intermediate, Verified 11/30/23 11:03) BLEEDING HPI Comments Details: Bang is a very pleasant male. He is a patient of Dr. Landry. He is seen for the following urologic conditions. - erectile dysfunction - diabetes Prior responsiveness to 10 mg daily tadalafil in on demand sildenafil Did not receive last prescription Prescriptions refilled Good testosterone level Discussed use of vacuum pump Information provided Six-month follow-up Erectile dysfunction Progressive - Minimal erections in the mornings Has had prior cardiac procedure for HOCM and left ventricular hypertrophy Partial response with tadalafil 10 mg daily Concurrent diagnoses include dyslipidemia and diabetes - medications include medium intensity rosuvastatin, metoprolol Labs - 11/22 T 500 P 0.3 PFSH Medical History Aortic stenosis (~06/2022) Pacemaker (~04/2023) Hyperlipidemia Hypertrophic obstructive cardiomyopathy (HOCM) (~2018) LBBB (left bundle branch block) (~2018) Surgical History History of pacemaker (~04/2023) History of heart surgery (~12/2018) History of colonoscopy History of esophagogastroduodenoscopy (EGD) History of thumb surgery History of excision of epidermal inclusion cyst (~09/2021) Family History Father No problems noted. Mother No problems noted. Brother No problems noted. Sister No problems noted. Daughter Thyroid condition Son No problems noted. Social History Household Members: Spouse Housing: Apartment Do you presently have visiting nurse or other home services: No Alcohol intake: current Alcohol intake frequency: does not drink Comment: Indpendent Patient Tobacco Use Status: Current someday Tobacco user Tobacco use type: Cigarette Cigarettes Per Day: 5 service: No Review of Systems Const Denies chills and Denies fever(s) Card Reports no additional complaints and Denies syncope Resp Denies cough GI Denies abdominal pain and Denies heartburn Reports as per HPI and Denies change in libido Neuro Denies syncope Psych Denies change in libido Endo Denies change in libido Physical Exam Const General: cooperative, healthy appearing, comfortable and no acute distress Orientation/consciousness: patient oriented x3 HEENT Face and sinus: Yes normal facial exam Mouth: moist mucous membranes Neck Neck: Yes normal visual inspection, Yes full ROM and Yes trachea midline Chest Chest palpation & inspection: normal inspection of the chest Resp Effort & Inspection: normal respiratory effort, able to speak in complete sentences and no respiratory distress GI Inspection: Yes normal to inspection Back/Spine/Pelvis Cervical Spine: normal cervical lordosis Thoracic/Lumbar Spine: thoracic and lumbar spine normal to inspection Skin General skin exam: no rashes or lesions noted Neuro General: patient oriented x3, gait normal, tone normal and moves all extremities Extrem General: Yes normal to inspection and Yes capillary refill normal Assessment & Plan Assessment & Plan (1) Erectile dysfunction: Code(s): N52.9 - Male erectile dysfunction, unspecified Category: Medical Qualifiers: Erectile dysfunction type: vasculogenic Vasculogenic erectile dysfunction type: due to arterial insufficiency Qualified Code(s): N52.01 - Erectile dysfunction due to arterial insufficiency Plan Six-month follow-up Medications: Refilled tadalafil 10 mg PO DAILY 90 days 90 tabs 1RF sexual activity N52.01 - Erectile dysfunction due to arterial insufficiency sildenafil administer 60 minutes before intended activity 100 mg PO ONCE 30 days PRN 30 tabs 1RF sexual activity E11.69 - Type 2 diabetes mellitus with other specified complication, N52.1 - Erectile dysfunction due to diseases classified elsewhere Patient Instructions: Imaging studies, laboratory and physical exam results were discussed and reviewed in detail. No major barriers to patient understanding were identified. An opportunity to ask questions regarding the treatment plan was provided. All questions were answered. The patient expressed understanding and agreement with the above treatment plan. The patient is aware they should contact our office by phone for worsening of their current condition or the appearance of new urologic symptoms. Compliance is encouraged with any medications and followup testing that is ordered. It is a privilege to participate in the urologic care of your patient. If you have any questions or concerns regarding treatment for the above conditions, or other urologic issues, please do not hesitate to contact me. The office telephone contact is [phone]. This note is constructed using voice recognition software. While every effort has been made to ensure accuracy grinder tender errors may have been included. Yours sincerely, Dr Scottie Angel MD, [facility] - Urology Providers of Expert, Compassionate Care for the Genitourinary System Coding Level of Care Code Est Pt Level 4 (83707) Diagnoses Erectile dysfunction due to arterial insufficiency N52.01 Erectile dysfunction type: vasculogenic Vasculogenic erectile dysfunction type: due to arterial insufficiency
== END 2023-11-30 11:44 | disposition home or self-care (01) ==
PROVIDERS: PCP Registered Nurse; Visit Provider Urology
DX: N52.01 Erectile dysfunction due to arterial insufficiency (principal)
CPT/HCPCS: 99213

== ENCOUNTER → 2023-11-30 10:17 | Outpatient (BNVA) | payer OTHER, SELFPAY | PROVIDERS: PCP Registered Nurse; Visit Provider Urology | DX: E11.69 Type 2 diabetes mellitus with other specified complication (principal); N52.01 Erectile dysfunction due to arterial insufficiency; N52.1 Erectile dysfunction due to diseases classified elsewhere | CPT/HCPCS: 99212 ==

== ENCOUNTER → 2024-02-19 23:59 | Outpatient (BNV) | payer OTHER, SELFPAY ==
--- NOTE | 2024-02-22 13:42 | MHC.OFFVIS ---
Intake Visit Reasons: Remote device check- Medtronic Allergies prednisone [PREDNISONE] Allergy (Intermediate, Verified 11/30/23 11:03) BLEEDING PFSH Medical History Aortic stenosis (~06/2022) Pacemaker (~04/2023) Hyperlipidemia Hypertrophic obstructive cardiomyopathy (HOCM) (~2018) LBBB (left bundle branch block) (~2018) Surgical History History of pacemaker (~04/2023) History of heart surgery (~12/2018) History of colonoscopy History of esophagogastroduodenoscopy (EGD) History of thumb surgery History of excision of epidermal inclusion cyst (~09/2021) Family History Father No problems noted. Mother No problems noted. Brother No problems noted. Sister No problems noted. Daughter Thyroid condition Son No problems noted. Social History Household Members: Spouse Housing: Apartment Do you presently have visiting nurse or other home services: No Alcohol intake: current Alcohol intake frequency: does not drink Comment: Indpendent Patient Tobacco Use Status: Current someday Tobacco user Tobacco use type: Cigarette Cigarettes Per Day: 5 service: No Office Procedures Cardiac Device Check Cardiac Device Check Details: Remote pacemaker report generated 02/19/2024. Pacemaker function is adequate. Patient ventricularly pacer dependent. Few episodes of nonsustained ventricular tachycardia noted [id number] Cardiac Device Interrogation, pacemaker Procedure code (CPT) selection complete Assessment & Plan Assessment & Plan (1) Pacemaker: Onset Date: ~04/2023 Comment: (hx complete heart block - s/p Medtronic DCPP - placed 04/23/23) Code(s): Z95.0 - Presence of cardiac pacemaker Category: Medical Plan: See above Coding Level of Care Code Procedure Only Diagnoses Pacemaker Z95.0 CPT Codes Cardiac Device Check - Cardiac Device 12: [id number] Cardiac Device Interrogation, pacemaker ([id number])
== END ==
PROVIDERS: PCP Registered Nurse; Visit Provider Internal Medicine Cardiovascular Disease
DX: I44.2 Atrioventricular block, complete (principal); Z95.0 Presence of cardiac pacemaker
CPT/HCPCS: 93294

== ENCOUNTER 2024-02-28 10:02 | Outpatient (AMB) | payer OTHER, SELFPAY ==
[2024-02-28 10:15] VITALS: BP 116/64; PULSE 71; BMI 27.5
--- NOTE | 2024-02-28 10:15 | A.OFFVIS_ITS ---
Vital Signs 02/28/24 10:15 Height 6 ft 2 in Weight 213 lb 13.574 oz BMI 27.5 BP 116/64 Blood Pressure Location Lt brachial Position Sitting Pulse 71 Intake Visit Reasons: 6 mth w/ device ck Intake Note: 6 month follow-up with Medtronic check with ekg feeling good Medical Claims Representative Required: No Allergies prednisone [PREDNISONE] Allergy (Intermediate, Verified 11/30/23 11:03) BLEEDING Medication List - Last Reconciled 02/28/24 by Benjamín Malcolm MD aspirin 81 mg PO DAILY 90 days cetirizine 10 mg PO DAILY cholecalciferol (vitamin D3) 25 mcg PO DAILY cyanocobalamin (vitamin B-12) (Vitamin B-12) 1,000 mcg PO DAILY fluticasone propionate 50 mcg/actuation 1 spray intranasal DAILY PRN icosapent ethyl (Vascepa) 2 grams (2 x 1 gram) PO BID 30 days metformin 500 mg PO DAILY metoprolol succinate ER (Toprol XL) 50 mg PO DAILY rosuvastatin 20 mg PO BEDTIME sildenafil 100 mg PO ONCE PRN 30 days tadalafil 10 mg PO DAILY 90 days HPI Comments Details: Bang comes for follow-up. He says he feels extremely well and is doing everything he needs to do. Working currently and very active. Denies any exertional chest pain shortness of breath. Denies any lightheadedness, syncope, palpitations. Comes for pacemaker evaluation. Takes all his medications. No heart failure symptoms. Echocardiogram in August showed normal LV ejection fraction 58% with severely increased LV wall thickness without any obstructive physiology [facility] Medical History Aortic stenosis (~06/2022) Pacemaker (~04/2023) Hyperlipidemia Hypertrophic obstructive cardiomyopathy (HOCM) (~2018) LBBB (left bundle branch block) (~2018) Surgical History History of pacemaker (~04/2023) History of heart surgery (~12/2018) History of colonoscopy History of esophagogastroduodenoscopy (EGD) History of thumb surgery History of excision of epidermal inclusion cyst (~09/2021) Family History Father No problems noted. Mother No problems noted. Brother No problems noted. Sister No problems noted. Daughter Thyroid condition Son No problems noted. Social History Household Members: Spouse Housing: Apartment Do you presently have visiting nurse or other home services: No Alcohol intake: current Alcohol intake frequency: does not drink Comment: Indpendent Patient Tobacco Use Status: Current someday Tobacco user Tobacco use type: Cigarette Cigarettes Per Day: 5 service: No Review of Systems Const Denies chills, Denies fatigue, Denies fever(s), Denies frequent falls, Denies weakness, Denies weight gain and Denies weight loss ENT Denies dizziness Card Denies chest pain, Denies leg edema, Denies lightheadedness, Denies palpitations, Denies dyspnea, Denies dyspnea on exertion, Denies orthopnea and Denies other (loss of consciousness) Resp Denies cough, Denies dyspnea and Denies dyspnea on exertion GI Denies hematochezia and Denies change in stool character Musc Denies abnormal gait, Denies muscle weakness, Denies numbness, Denies radiating pain into limb and Denies tingling Neuro Denies abnormal gait, Denies dizziness, Denies frequent falls, Denies numbness, Denies tingling and Denies weakness Endo Denies fatigue and Denies palpitations Physical Exam Vital Signs: Last Vital Signs Pulse 71 02/28/24 10:15 BP 116/64 02/28/24 10:15 BMI result Body Mass Index 27.5 Const General: cooperative, healthy appearing, comfortable and no acute distress Orientation/consciousness: patient oriented x3 Neck Neck: Yes normal visual inspection and Yes no JVD Carotids: normal carotid upstroke Resp Effort & Inspection: normal respiratory effort Auscultation: clear to auscultation bilaterally, no crackles, no rales, no rhonchi and no wheezes Cardio Rate: regular rate Rhythm: regular rhythm Heart sounds: S1 normal heart sound present, S2 normal heart sound present, no gallops, Murmur heart sound present systolic early, decrescendo and crescendo and no rubs Peripheral pulses: Peripheral pulses 2+ throughout GI Inspection: Yes normal to inspection Neuro General: patient oriented x3 Extrem General: Yes normal to inspection, No no pedal edema and No calf tenderness Office Procedures Cardiac Device Check Cardiac Device Check Details: Dual-chamber Medtronic pacemaker. Programmed in DDDR at 60 beats per minute. Twenty-eight episodes of nonsustained VT noted. No episodes of atrial fibrillation. Ventricular pacing 100% of time. Atrial pacing 18% of the time. Atrial sensing is excellent. Atrial ventricular lead impedance is stable. Atrial pacing thresholds excellent and reprogrammed to enhance battery life. Ventricular pacing thresholds adequate and reprogrammed to enhance battery life. Battery life is at 11 years [id number] Cardiac Device Check, pacemaker dual lead Procedure code (CPT) selection complete EKG Details: EKG shows normal sinus rhythm with ventricularly paced rhythm [id number], Complete Assessment & Plan Assessment & Plan (1) NSVT (nonsustained ventricular tachycardia): Code(s): I47.29 - Other ventricular tachycardia Category: Medical Plan: Nonsustained ventricular tachycardia with increased frequency despite metoprolol therapy. He has no symptoms related to it. This is concerning. Will suggest a cardiac MRI to evaluate of scar burden. If he has significant scar would require upgrade to a defibrillator therapy. This was discussed with him. Meanwhile increase Toprol-XL to 100 mg daily. Will refer him to cardiac electrophysiology for further consultation. (2) Pacemaker: Onset Date: ~04/2023 Comment: (hx complete heart block - s/p Medtronic DCPP - placed 04/23/23) Code(s): Z95.0 - Presence of cardiac pacemaker Category: Medical Plan: Cardiac pacemaker in-situ for complete heart block. Pacemaker is working well. Reprogrammed for adequate function. Will follow remotely. Follow up in the clinic in 6 months time. (3) Hypertrophic obstructive cardiomyopathy (HOCM): Onset Date: ~2018 Comment: (Hx HOCM. s/p septal myectomy at [facility] in [place] on 01/03/2019) Code(s): I42.1 - Obstructive hypertrophic cardiomyopathy Category: Medical Plan: Hypertrophic obstructive cardiomyopathy status post septal myectomy. Status post developed left bundle-branch block and then complete heart block. Status post pacemaker therapy. Still has persistent severely increased left ventricular wall thickness from longstanding obstructive physiology. LV ejection fraction is within normal limits. No obstructive physiology. Need to consider arrhythmic potential with a cardiac MRI. Continue aggressive blood pressure control. Encouraged to continue to participate in physical activity as tolerated. Follow up in the clinic in 6 months time, sooner p.r.n.. Thank you for allowing me to partake in his care Orders: Orders Basic Metabolic Panel Today I47.29 - Other ventricular tachycardia MR cardiac morph fnct w con 1 Week I42.1 - Obstructive hypertrophic cardiomyopathy, I47.29 - Other ventricular tachycardia Referrals Cardiac Electrophysiology Referral I42.1 - Obstructive hypertrophic cardiomyopathy, I47.29 - Other ventricular tachycardia, Z95.0 - Presence of cardiac pacemaker Medications: New metoprolol succinate ER (Toprol XL) 100 mg PO DAILY 30 tabs 5RF I47.29 - Other ventricular tachycardia Discontinued metoprolol succinate ER (Toprol XL) Discontinued Reason: Doctor's Order 50 mg PO DAILY 30 tabs 1RF Coding Level of Care Code Est Pt Level 4 (47198) Diagnoses NSVT (nonsustained ventricular tachycardia) I47.29 Pacemaker Z95.0 Hypertrophic obstructive cardiomyopathy (HOCM) I42.1 CPT Codes Cardiac Device Check - Cardiac Device 2: 51830-[id number] Cardiac Device Check, pacemaker dual lead ([id number]) EKG - CPT: 22554-Qyzyvdnyykjlceumt, Complete ([id number])
== END 2024-02-28 10:47 | disposition home or self-care (01) ==
PROVIDERS: PCP Registered Nurse; Visit Provider Internal Medicine Cardiovascular Disease
DX: I42.1 Obstructive hypertrophic cardiomyopathy (principal); I47.29 Other ventricular tachycardia; Z95.0 Presence of cardiac pacemaker
CPT/HCPCS: 93280; 99214

== ENCOUNTER → 2024-02-28 10:02 | Outpatient (BNVA) | payer OTHER, SELFPAY | PROVIDERS: PCP Registered Nurse; Visit Provider Internal Medicine Cardiovascular Disease | DX: Z45.018 Encounter for adjustment and management of other part of cardiac pacemaker (principal); I47.29 Other ventricular tachycardia; I42.1 Obstructive hypertrophic cardiomyopathy | CPT/HCPCS: 93280; 99212 ==

== ENCOUNTER → 2024-05-23 23:59 | Outpatient (BNV) | payer OTHER, SELFPAY ==
--- NOTE | 2024-06-04 17:15 | MHC.OFFVIS ---
Intake Visit Reasons: Remote Device Check- Medtronic Allergies prednisone [PREDNISONE] Allergy (Intermediate, Verified 06/01/24 09:50) BLEEDING PFSH Medical History Aortic stenosis (~06/2022) Pacemaker (~04/2023) Hyperlipidemia Hypertrophic obstructive cardiomyopathy (HOCM) (~2018) LBBB (left bundle branch block) (~2018) Surgical History History of pacemaker (~04/2023) History of heart surgery (~12/2018) History of colonoscopy History of esophagogastroduodenoscopy (EGD) History of thumb surgery History of excision of epidermal inclusion cyst (~09/2021) Family History Father No problems noted. Mother No problems noted. Brother No problems noted. Sister No problems noted. Daughter Thyroid condition Son No problems noted. Social History Household Members: Spouse Housing: Apartment Do you presently have visiting nurse or other home services: No Alcohol intake: current Alcohol intake frequency: does not drink Comment: Indpendent Patient Tobacco Use Status: Current someday Tobacco user Tobacco use type: Cigarette Cigarettes Per Day: 5 service: No Office Procedures Cardiac Device Check Cardiac Device Check Details: Remote pacemaker report generated 05/22/2024. Pacemaker function is adequate. Patient ventricularly pacer dependent [id number] Cardiac Device Interrogation, pacemaker Procedure code (CPT) selection complete Assessment & Plan Assessment & Plan (1) Pacemaker: Onset Date: ~04/2023 Comment: (hx complete heart block - s/p Medtronic DCPP - placed 04/23/23) Code(s): Z95.0 - Presence of cardiac pacemaker Category: Medical Plan: See above Coding Level of Care Code Procedure Only Diagnoses Pacemaker Z95.0 CPT Codes Cardiac Device Check - Cardiac Device 12: [id number] Cardiac Device Interrogation, pacemaker ([id number])
== END ==
PROVIDERS: PCP Registered Nurse; Visit Provider Internal Medicine Cardiovascular Disease
DX: Z45.018 Encounter for adjustment and management of other part of cardiac pacemaker (principal)
CPT/HCPCS: 93294

== ENCOUNTER 2024-06-01 09:37 | Outpatient (AMB) | payer OTHER, SELFPAY ==
--- NOTE | 2024-06-01 09:47 | MHC.OFFVIS ---
Intake Visit Reasons: 6m follow up(Erectile Dys) Intake Note: Patient is present for Erectile Dys follow up Urology Med: Sildenafil, Tadalafil Antibiotic Allergy:None Blood Thinner: Aspirin Recent LABS: 10/2023 PSA: 0.29 TESTOSTERONE: 503 Patient states that he had never received the Tadalafil Head Orthopedic Team Physician Required: No Accompanied by: Self / Same As Patient Allergies prednisone [PREDNISONE] Allergy (Intermediate, Verified 06/01/24 09:50) BLEEDING HPI Comments Details: Bang is a very pleasant male. He is a patient of Dr. Landry. He is seen for the following urologic conditions. - erectile dysfunction - diabetes Here for follow-up of 10 mg daily tadalafil with on demand sildenafil Tadalafil prescription recent to [facility] Penile constriction band demonstrated Erectile dysfunction Progressive - Minimal erections in the mornings Has had prior cardiac procedure for HOCM and left ventricular hypertrophy Partial response with tadalafil 10 mg daily Concurrent diagnoses include dyslipidemia and diabetes - medications include medium intensity rosuvastatin, metoprolol Labs - 11/22 T 500 P 0.3 PFSH Medical History Aortic stenosis (~06/2022) Pacemaker (~04/2023) Hyperlipidemia Hypertrophic obstructive cardiomyopathy (HOCM) (~2018) LBBB (left bundle branch block) (~2018) Surgical History History of pacemaker (~04/2023) History of heart surgery (~12/2018) History of colonoscopy History of esophagogastroduodenoscopy (EGD) History of thumb surgery History of excision of epidermal inclusion cyst (~09/2021) Family History Father No problems noted. Mother No problems noted. Brother No problems noted. Sister No problems noted. Daughter Thyroid condition Son No problems noted. Social History Household Members: Spouse Housing: Apartment Do you presently have visiting nurse or other home services: No Alcohol intake: current Alcohol intake frequency: does not drink Comment: Indpendent Patient Tobacco Use Status: Current someday Tobacco user Tobacco use type: Cigarette Cigarettes Per Day: 5 service: No Review of Systems Const Denies chills and Denies fever(s) Card Reports no additional complaints and Denies syncope Resp Denies cough GI Denies abdominal pain and Denies heartburn Reports as per HPI and Denies change in libido Neuro Denies syncope Psych Denies change in libido Endo Denies change in libido Physical Exam Const General: cooperative, healthy appearing, comfortable and no acute distress Orientation/consciousness: patient oriented x3 HEENT Face and sinus: Yes normal facial exam Mouth: moist mucous membranes Neck Neck: Yes normal visual inspection, Yes full ROM and Yes trachea midline Chest Chest palpation & inspection: normal inspection of the chest Resp Effort & Inspection: normal respiratory effort, able to speak in complete sentences and no respiratory distress GI Inspection: Yes normal to inspection Back/Spine/Pelvis Cervical Spine: normal cervical lordosis Thoracic/Lumbar Spine: thoracic and lumbar spine normal to inspection Skin General skin exam: no rashes or lesions noted Neuro General: patient oriented x3, gait normal, tone normal and moves all extremities Extrem General: Yes normal to inspection and Yes capillary refill normal Assessment & Plan Assessment & Plan (1) Erectile dysfunction: Code(s): N52.9 - Male erectile dysfunction, unspecified Category: Medical Qualifiers: Erectile dysfunction type: vasculogenic Vasculogenic erectile dysfunction type: due to arterial insufficiency Qualified Code(s): N52.01 - Erectile dysfunction due to arterial insufficiency Plan Six-month follow-up Patient Instructions: Imaging studies, laboratory and physical exam results were discussed and reviewed in detail. No major barriers to patient understanding were identified. An opportunity to ask questions regarding the treatment plan was provided. All questions were answered. The patient expressed understanding and agreement with the above treatment plan. The patient is aware they should contact our office by phone for worsening of their current condition or the appearance of new urologic symptoms. Compliance is encouraged with any medications and followup testing that is ordered. It is a privilege to participate in the urologic care of your patient. If you have any questions or concerns regarding treatment for the above conditions, or other urologic issues, please do not hesitate to contact me. The office telephone contact is [phone]. This note is constructed using voice recognition software. While every effort has been made to ensure accuracy reduction plant supervisor errors may have been included. Yours sincerely, Dr Scottie Angel MD, [facility] - Urology Providers of Expert, Compassionate Care for the Genitourinary System Coding Level of Care Code Est Pt Level 4 (82434) Diagnoses Erectile dysfunction due to arterial insufficiency N52.01 Erectile dysfunction type: vasculogenic Vasculogenic erectile dysfunction type: due to arterial insufficiency
== END 2024-06-01 10:26 | disposition home or self-care (01) ==
LOC: HO.HUSH 09:37
PROVIDERS: PCP Registered Nurse; Visit Provider Urology
DX: N52.01 Erectile dysfunction due to arterial insufficiency (principal)
CPT/HCPCS: 99214

== ENCOUNTER → 2024-06-01 09:37 | Outpatient (BNVA) | payer OTHER, SELFPAY | PROVIDERS: PCP Registered Nurse; Visit Provider Urology | DX: N52.01 Erectile dysfunction due to arterial insufficiency (principal) | CPT/HCPCS: 99212 ==

== ENCOUNTER 2024-07-04 14:36 | Outpatient (REF) | payer OTHER, SELFPAY ==
[2024-07-04 17:15] LABS: Anion Gap 12 (12-20); Blood Urea Nitrogen 21 mg/dL (9-16); Calcium 9.4 mg/dL (8.4-10.2); Carbon Dioxide 23 mmol/L (22-29); Chloride 109 mmol/L (96-108); Estimated Glomerular Filt Rate > 60; Glucose Random 190 mg/dL (60-115); Sodium 140 mmol/L (135-145)
[2024-07-04 17:24] LABS: Creatinine Urine 124.58 mg/dL; Microalbum/Creatinine Ratio Ur 12.8 ug/mg cr (<30)
== END 2024-07-04 14:37 | disposition home or self-care (01) ==
LOC: HO.HHCL 14:36
PROVIDERS: Visit Provider Internal Medicine Geriatric Medicine
DX: E11.9 Type 2 diabetes mellitus without complications (principal)
CPT/HCPCS: 36415; 80048; 82043; 82570

== ENCOUNTER → 2024-08-03 23:59 | Outpatient (BNV) | payer OTHER, SELFPAY ==
--- NOTE | 2024-08-13 16:31 | MHC.OFFVIS ---
Intake Visit Reasons: Remote Device Check- Medtronic Allergies prednisone [PREDNISONE] Allergy (Intermediate, Verified 06/01/24 09:50) BLEEDING PFSH Medical History Aortic stenosis (~06/2022) Pacemaker (~04/2023) Hyperlipidemia Hypertrophic obstructive cardiomyopathy (HOCM) (~2018) LBBB (left bundle branch block) (~2018) Surgical History History of pacemaker (~04/2023) History of heart surgery (~12/2018) History of colonoscopy History of esophagogastroduodenoscopy (EGD) History of thumb surgery History of excision of epidermal inclusion cyst (~09/2021) Family History Father No problems noted. Mother No problems noted. Brother No problems noted. Sister No problems noted. Daughter Thyroid condition Son No problems noted. Social History Household Members: Spouse Housing: Apartment Do you presently have visiting nurse or other home services: No Alcohol intake: current Alcohol intake frequency: does not drink Comment: Indpendent Patient Tobacco Use Status: Current someday Tobacco user Tobacco use type: Cigarette Cigarettes Per Day: 5 service: No Office Procedures Cardiac Device Check Cardiac Device Check Details: Remote pacemaker report generated 08/03/2024. Pacemaker function is adequate. [place] [id number] Cardiac Device Interrogation, pacemaker Procedure code (CPT) selection complete Assessment & Plan Assessment & Plan (1) Pacemaker: Onset Date: ~04/2023 Comment: (hx complete heart block - s/p Medtronic DCPP - placed 04/23/23) Code(s): Z95.0 - Presence of cardiac pacemaker Category: Medical Plan: See above Coding Level of Care Code Procedure Only Diagnoses Pacemaker Z95.0 CPT Codes Cardiac Device Check - Cardiac Device 12: [id number] Cardiac Device Interrogation, pacemaker ([id number])
== END ==
PROVIDERS: PCP Registered Nurse; Visit Provider Internal Medicine Cardiovascular Disease
DX: I47.10 Supraventricular tachycardia, unspecified (principal); Z95.0 Presence of cardiac pacemaker
CPT/HCPCS: 93294

== ENCOUNTER 2024-08-30 09:48 | Outpatient (AMB) | payer OTHER, SELFPAY ==
[2024-08-30 09:50] VITALS: BP 120/62; PULSE 78; BMI 28.2
--- NOTE | 2024-08-30 09:50 | A.OFFVIS_ITS ---
Vital Signs 08/30/24 09:50 Height 6 ft 2 in Weight 220 lb 0.341 oz BMI 28.2 BP 120/62 Blood Pressure Location Lt brachial Position Sitting Pulse 78 Pulse Source Pulse Oximeter Intake Visit Reasons: 6 mth f/up Intake Note: 6 mth f/up Sports Reporter Required: No Accompanied by: Self / Same As Patient Allergies prednisone [PREDNISONE] Allergy (Intermediate, Verified 06/01/24 09:50) BLEEDING HPI Comments Details: Bang comes for follow-up. Been doing well from cardiac perspective. No symptoms. No lightheadedness, palpitation, syncope. Underwent a recent cardiac MRI which shows severe thickening of the septum in the apex with subendocardial scarring but greater than 15% subendocardial scar noted on the cardiac MRI. He comes for a follow-up. Denies any shortness of breath, orthopnea, PND. Taking all his medications. No exertional chest pain. Overall feels well [facility] Medical History Aortic stenosis (~06/2022) Pacemaker (~04/2023) Hyperlipidemia Hypertrophic obstructive cardiomyopathy (HOCM) (~2018) LBBB (left bundle branch block) (~2018) Surgical History History of pacemaker (~04/2023) History of heart surgery (~12/2018) History of colonoscopy History of esophagogastroduodenoscopy (EGD) History of thumb surgery History of excision of epidermal inclusion cyst (~09/2021) Family History Father No problems noted. Mother No problems noted. Brother No problems noted. Sister No problems noted. Daughter Thyroid condition Son No problems noted. Social History Household Members: Spouse Housing: Apartment Do you presently have visiting nurse or other home services: No Alcohol intake: current Alcohol intake frequency: does not drink Comment: Indpendent Patient Tobacco Use Status: Current someday Tobacco user Tobacco use type: Cigarette Cigarettes Per Day: 5 service: No Review of Systems Const Denies chills, Denies fatigue, Denies fever(s), Denies frequent falls, Denies weakness, Denies weight gain and Denies weight loss ENT Denies dizziness Card Denies chest pain, Denies leg edema, Denies lightheadedness, Denies palpitations, Denies dyspnea and Denies dyspnea on exertion Resp Denies cough, Denies dyspnea and Denies dyspnea on exertion GI Denies hematochezia Musc Denies abnormal gait, Denies muscle weakness, Denies numbness, Denies radiating pain into limb and Denies tingling Neuro Denies abnormal gait, Denies dizziness, Denies frequent falls, Denies numbness, Denies tingling and Denies weakness Endo Denies fatigue and Denies palpitations Physical Exam Vital Signs: Last Vital Signs Pulse 78 08/30/24 09:50 BP 120/62 08/30/24 09:50 BMI result Body Mass Index 28.2 Const General: cooperative, healthy appearing, comfortable and no acute distress Orientation/consciousness: patient oriented x3 Neck Neck: Yes normal visual inspection and Yes no JVD Carotids: normal carotid upstroke Resp Effort & Inspection: normal respiratory effort Auscultation: clear to auscultation bilaterally, no crackles, no rales, no rhonchi and no wheezes Cardio Rate: regular rate Rhythm: regular rhythm Heart sounds: S1 normal heart sound present, S2 normal heart sound present, no gallops, Murmur heart sound present systolic early, decrescendo and crescendo and no rubs Peripheral pulses: Peripheral pulses 2+ throughout GI Inspection: Yes normal to inspection Neuro General: patient oriented x3 Extrem General: Yes normal to inspection, No no pedal edema and No calf tenderness Office Procedures Cardiac Device Check Cardiac Device Check Details: Dual-chamber Medtronic pacemaker in place. Programmed in DDDR at 60 beats per minute. Ventricular pacing 100% of the time. Multiple episodes of nonsustained ventricular tachycardia noted on the monitor with no prolonged episodes. Atrial capture thresholds are elevated but with adequate safety margin. Atrial sensing is excellent. Ventricular sensing could not be checked. Ventricular pacing thresholds adequate and reprogrammed to enhance battery life. Pacing lead impedance is stable. Battery life is at 10.2 years [id number]-UP Cardiac Device Check, pacemaker dual lead Procedure code (CPT) selection complete Assessment & Plan Assessment & Plan (1) NSVT (nonsustained ventricular tachycardia): Code(s): I47.29 - Other ventricular tachycardia Category: Medical Plan: Nonsustained ventricular tachycardia with increased scar burden noted on recent cardiac MRI with prior history of hypertrophic cardiomyopathy. Patient is at high risk for ventricular tachyarrhythmias sudden cardiac that. Have discussed with him about upgrade to ICD therapy. Discussed with electrophysiology service and Dr. Varela will set him up for ICD placement upgrade. Continue metoprolol therapy. (2) Pacemaker: Onset Date: ~04/2023 Comment: (hx complete heart block - s/p Medtronic DCPP - placed 04/23/23) Code(s): Z95.0 - Presence of cardiac pacemaker Category: Medical Plan: Dual-chamber Medtronic pacemaker in place for complete heart block. Patient was pacer dependent. Continue monitor pacer telemetry and remotely follow him. (3) Hypertrophic obstructive cardiomyopathy (HOCM): Onset Date: ~2018 Comment: (Hx HOCM. s/p septal myectomy at [facility] in [place] on 01/03/2019) Code(s): I42.1 - Obstructive hypertrophic cardiomyopathy Category: Medical Plan: Hypertrophic cardiomyopathy status post septal myectomy doing very well from that perspective. Increased burden of arrhythmia noted and would need an upgrade to ICD. Discussed with him. Continue aggressive blood pressure control which is currently well optimized. Encouraged to maintain activity level as tolerated. Continue aggressive diabetes management as above as well as lipid management as planned. Will follow up in the clinic in 3 months time, sooner p.r.n.. Thank you for allowing me to partake in his care Coding Level of Care Code Est Pt Level 4 (40411) Complex EM visit Add On G2211 Diagnoses NSVT (nonsustained ventricular tachycardia) I47.29 Pacemaker Z95.0 Hypertrophic obstructive cardiomyopathy (HOCM) I42.1 CPT Codes Cardiac Device Check - Cardiac Device 2: 32537-ON Cardiac Device Check, pacemaker dual lead ([id number])
--- OUTSIDE RECORDS SUMMARY | 2024-08-30 12:52 | XMS_ITS | Clinical Summary ---
Author Organization [employer] Address [address] [place] [address] 7 [place] [address] Care Team Providers Care Hydrology Professor Name Role Phone Name, Vladimir CRISOSTOMO Primary Care Provider Allergies Active Allergy Reactions Criticality Noted Date Comments Metformin 07/04/2024 Constipation, GI distress Prednisone 07/10/2019 Medications aspirin 81 MG EC tablet Take 1 tablet by mouth 1 (one) time each day. 2 Active famotidine (Pepcid) 20 MG tabletIndication s:Gastroesophage al reflux disease without esophagitis Take 1 tablet (20 mg) by mouth in the morning. 30 tablet 3 2 Active cyanocobalamin (Vitamin B-12) 1000 MCG tablet Take 1 tablet (1,000 mcg) by mouth in the morning. 90 tablet 1 3 Active Lancets (OneTouch Delica Plus [id number]) [facility] TEST BLOOD SUGAR ONCE DAILY 100 each 11 3 Active Blood Glucose Monitoring Suppl (ONE TOUCH ULTRA 2) w/Device kit 1 each in the morning. TEST BLOOD SUGAR ONCE DAILY 1 kit 3 Active varenicline (Chantix) 1 MG tablet Take 1 tablet (1 mg) by mouth 2 times daily. 56 tablet 1 3 Active cholecalciferol (Vitamin D3) 25 MCG (1000 UT) tabletIndication s:Vitamin D deficiency TAKE 1 TABLET (25 MCG) BY MOUTH IN THE MORNING 90 tablet 1 4 Active cetirizine (ZyrTEC) 10 MG tabletIndication s:Seasonal allergic rhinitis, unspecified trigger TAKE 1 TABLET BY MOUTH EVERY DAY IN THE MORNING 90 tablet 1 4 Active metFORMIN (Glucophage) 500 MG tablet TAKE 1 TABLET BY MOUTH WITH BREAKFAST AND EVENING MEAL 180 tablet 1 4 Active rosuvastatin (Crestor) 20 MG tablet TAKE 1 TABLET BY MOUTH EVERY DAY 90 tablet 1 4 Active Vascepa 1 g capsule TAKE 2 CAPSULES BY MOUTH 2 TIMES DAILY 360 capsule 1 4 Active empagliflozin (Jardiance) 10 MG Take 1 tablet (10 mg) by mouth Once per day. 30 tablet 11 4 07/04/20 25 Active fluticasone (Flonase) 50 MCG/ACT nasal spray Administer 2 sprays into each nostril Once per day. Shake gently. Before first use, prime pump. After use, clean tip and replace cap. 16 g 2 4 07/04/20 25 Active Active Problems Problem Noted Date Diagnosed Date Pacemaker 05/13/2023 Overview (05/13/2023): Complete heart block New onset type 2 diabetes mellitus 05/13/2023 Obstructive sleep apnea syndrome 07/08/2022 Left bundle branch block 07/10/2019 Hypertrophic cardiomyopathy 09/19/2018 Overview (05/13/2023): Myomectomy 2019 at [facility] Nicotine dependence 06/19/2018 Tobacco dependence syndrome 05/18/2018 Overweight 05/18/2018 Resolved Problems Problem Noted Date Diagnosed Date Resolved Date Rectal hemorrhage 09/19/2018 05/13/2023 Alcohol abuse 05/18/2018 05/13/2023 Encounters Date Type Department Care Team Description 07/12/2024 Telephone [facility] [address] [place] [address] Maryan Baxter MA colonoscopy results 07/04/2024 2:00 PM EST Office Visit [facility] [address] [place] [address] Name, MD Vladimir New onset type 2 diabetes mellitus (CMS/HCC) (Primary Dx); Seasonal allergies; History of colonoscopy; Encounter for immunization 06/27/2024 Telephone [facility] [address] [place] [address] Romelia Cross MA Chart Prep 06/15/2024 Refill [facility] [address] [place] [address] Name, MD Vladimir from Last 3 Months Immunizations Name Administration Dates Next Due Hep B, adult 06/13/2023,05/13/2023 Influenza, seasonal, injecta ble, preservative free 07/04/2024 Pfizer Covid-19 Vaccine 12+ 07/04/2024,1 ,07/24/2021,2020,12/22/2020 Pneumococcal Conjugate PCV 20 05/13/2023 Tdap 05/13/2022 Zoster, Recombinant 05/13/2023 Social History Tobacco Use Types Packs/Day Years Used Date Smoking Tobacco: Some Days Cigarettes 0.3 40 Tobacco Cessation:Ready to Q uit: Not Asked; Counseling Given: Not Answered Alcohol Use Standard Drinks/Week Comments Yes 0 (1 standard drink = 0.6 oz pur e alcohol) socially Depression Answer Date Recorded Patient Health Questionnaire-9 Score 19 07/04/2024 Patient Health Questionnaire-9 Score 19 07/04/2024 Last PHQ-9: Questionnaire Data Not on file 1 09/04/2023 Housing Stability Answer Date Recorded What is your housing situation today? I have delio [place] 05/23/[address] you li ve. Do you have problems with any of the following? None of the above 05/23/2023 Food Insecurity Answer Date Recorded Within the past 12 months, y ou worried that your food would run out before you got money to buy more: Never True 05/23/2023 Within the past 12 months,th e food you bought just didn't last and you didn't have enough money to get more: Never True Transportation Answer Date Recorded In the past 12 months, has l ack of transportation kept you from medical appts, meetings, work or from getting things needed for daily living? No 05/23/2023 Utilities Answer Date Recorded In the past 12 months, has t he electric, gas, oil or water company threatened to shut off services in your home? No 05/23/2023 Depression Answer Date Recorded Patient Health Questionnaire-2 Score 4 07/04/2024 Sex and Gender Information Value Date Recorded Sex Assigned at Male 05/31/2022 10:29 AM EDT Legal Sex Male 10:29 AM EDT Gender Identity Male 05/31/2022 10:29 AM EDT Sexual Orientation Straight 05/31/2022 10 :29 AM EDT Last Filed Vital Signs Vital Sign Reading Time Taken Comments Blood Pressure 114/74 07/04/2024 1:58 PM EST Pulse 85 07/04/2024 1:58 PM EST Temperature 35.6 ??C (96.1 ??F) 07/04/2024 1:58 PM ES T Respiratory Rate 20 07/04/2024 1:58 PM EST Oxygen Saturation 97% 07/04/2024 1:58 PM EST Inhaled Oxygen Concentration - - Weight 101 kg (221 lb 12.8 oz) 07/04/2024 1:58 P M EST Height 188 cm (6' 2 ) 07/04/2024 1:58 PM EST Body Mass Index 28.48 07/04/2024 1:58 PM EST Plan of Treatment Upcoming Encounters Date Type Department Care Team (Late st Contact Info) Description 09/04/2024 1:00 PM EST Office Visit [facility] [address] [place] [phone] Name, MD Vladimir [address] [place] [address] Health Maintenance Due Date Last Done Comments CT Colonography 1967 Colonoscopy 1967 Colorectal Cancer Screening 1967 FIT DNA/Cologuard 1967 FIT 1967 FOBT 1967 HIV Screening 1967 Sigmoidoscopy 1967 Alcohol/Substance Use Screening 1979 Hepatitis C Screening 1985 Hepatitis A Vaccines (1 of 2 - Risk 2-dose series) 1986 Hepatitis B Vaccines (3 of 3 - 19+ 3-dose series) 11/12/2023 06/13/2023, 05/13/2023 Lipid Panel 11/30/2023 11/29/2022, 1012/2021, 05/09/2020 SDOH Screening 05/13/2024 05/13/2023 Diabetes: Hemoglobin A1C 10/02/2024 024, 09/26/2023, 05/13/2023, Additional history exists Depression Monitoring (PHQ-9) 01/02/2025 07/04/2024, 07/04/2024 Depression Screening 07/04/2025 07/04/2024, 07/04/20 Diabetes: Foot Exam 07/04/2025 07/04/2024, 07/04/2024, 07/04/2024, Additional history exists Diabetes: Urine Protein Screening 07/04/2025 07/04/2024 Tobacco Screening 07/04/2025 07/04/2024 Eye Exam 09/08/2025 09/08/2023, 03/2024, 09/08/2023, Additional history exists DTaP/Tdap/Td Vaccines (2 - Td or Tdap) 05/13/2032 05/13/2022 RSV Patients and Patients Aged 60 years or older (1 - 1-dose 75+ series) 2042 Pneumococcal Vaccine: 50+ Years Completed 05/13/2023 COVID-19 Vaccine Completed 07/04/2024, , 07/24/2021, Additional history exists Influenza Vaccine Completed 07/04/2024 Zoster Vaccines Completed 07/04/2024, 05/13/2023 HIB Vaccines Aged Out No longer eligi ble based on patient's age to complete this topic HPV Vaccines Aged Out No longer eligi ble based on patient's age to complete this topic IPV Vaccines Aged Out No longer eligi ble based on patient's age to complete this topic Meningococcal Vaccine Aged Out No paola cherelle eligible based on patient's age to complete this topic RSV under 20 months Aged Out No longe r eligible based on patient's age to complete this topic Rotavirus Vaccines Aged Out No longer eligible based on patient's age to complete this topic Procedures Procedure Name Priority Date/Time Associated Diagnosis Comments ALBUMIN, RANDOM URINE W/CREATININE Routine 07/04/2024 2:38 PM EST New onset type 2 diabetes mellitus (CMS/HCC) BASIC METABOLIC PANEL Routine 07/04/2024 2:30 PM EST New onset type 2 diabetes mellitus (CMS/HCC) POCT GLUCOSE Routine 07/04/2024 2:08 PM EST New onset type 2 diabetes mellitus (CMS/HCC) POCT GLYCATED HEMOGLOBIN, TOTAL Routine 07/04/2024 2:07 PM EST New onset type 2 diabetes mellitus (CMS/HCC) LIPID PANEL, STANDARD Routine 11/29/2022 7:20 AM EDT from Last 3 Months or Most Recently Relevant to Health Maintenance Results * Albumin, Random Urine W/Creatinine (07/04/2024 2:38 PM EST) Creatinine, Urine 124.58 mg/dL [facility] Microalbumin Urine 16.0 mg/L [facility] Microalbum Creatinine Ratio Ur 12.8 <30 ug/mg cr [facility] Comment:Albumin/Creatinine R atio Reference Ranges: Normal: < 30 ug/mg creatinine Microalbuminuria: 30 - 300 ug/mg creatinineClinical Albuminuria: > 300 ug/mg creatinine Urine (Urine, Random) 07/04/2024 2:38 PM EST 07/04/2024 4:14 PM EST us Vladimir Name LAB URINE ORDERABLES Final Resul t [facility] [address] [place] [phone] * (ABNORMAL) Basic Metabolic Panel (07/04/2024 2:30 PM EST) Sodium 140 135 - 145 mmol/L [facility] Potassium 4.0 3.3 - 5.1 mmol/L [facility] Chloride 109(H) 96 - 108 mmol/L [facility] Carbon Dioxide 23 22 - 29 mmol/L [facility] Anion Gap 12 12 - 20 [facility] Urea Nitrogen (BUN) 21(H) 9 - 16 mg/dL [facility] Creatinine, Serum 0.87 0.5 - 1.4 mg/dL [facility] Estimated Glomerular Filt Rate >60 [facility] Comment:Chronic Kidney Disea se: Estimated GFR < 60 mL/min/1.25r7Chtrng Kidney Disease: Estimated GFR < 15 mL/min/1.73m2 Glucose 190(H) 60 - 115 mg/dL [facility] Calcium 9.4 8.4 - 10.2 mg/dL [facility] Blood Venous blood specimen / Unknown 07/04/2024 2:30 PM EST 07/04/2024 4:05 PM EST Vladimir Gasca MD LAB BLOOD ORDERABLES Final Resul t [facility] [address] [place] [phone] * (ABNORMAL) POCT Glucose (07/04/2024 2:08 PM EST) Glucose Blood, POC 202(A) 60 - 200 mg/dL QC Media Lot # [id number] Lot# Expiration Date Blood Capillary blood specimen / Unknown 07/04/2024 2:08 PM EST us Vladimir Gasca MD POINT OF CARE TEST ENTER/EDIT OR DERABLES Final Result * (ABNORMAL) POCT HGB A1C (07/04/2024 2:07 PM EST) Hemoglobin A1C 7.2(A) 4.0 - 6.0 % QC Media Lot # [id number] Lot# Expiration Date Blood 07/04/2024 2:07 PM EST us Vladimir Gasca MD POINT OF CARE TEST ENTER/EDIT OR DERABLES Final Result * Lipid Panel, Standard (11/29/2022 7:20 AM EDT) Triglycerides 528 mg/dL [facility] Comment:Desirable Triglyceri de: less than 150 mg/dLBorderline High Triglyceride 150-199 mg/dLHigh Triglyceride: 200-499 mg/dLVery High Triglyceride: greater than or equal to 5OO mg/dL Cholesterol 224 mg/dL [facility] Comment:Desirable Cholestero l: less than 200 mg/dLBorderline High Cholesterol: 200-239 mg/dLHigh Cholesterol: greater than 239 mg/dL LDL Cholesterol Calculated TNP mg/dl [facility] Comment:Unable to calculate the LDL. The formula of Friedwald,Justin, and Elio is only valid if the triglycerides areless than 400 mg/dl. HDL Cholesterol 36 mg/dL [facility] Comment:Desirable HDL: great er than 40 mg/dL Note: This HDL assay may give artificially low results in patients with liver disease. 11/29/2022 7:20 AM EDT 11/29/2022 7:20 AM EDT [facility] External Provider LAB BLO OD ORDERABLES Final Result Performing Organization Address City/State/[facility] Co de Phone Number [facility] [address] [place] [phone] from Last 3 Months or Most Recently Relevant to Health Maintenance Insurance - [employer] Care Teams Hydrology Professor Relationship Specialty Start Date End Date Name, MD Vladimir [address] [place] [phone] PCP - General Internal Medicine 07/12/23
--- OUTSIDE RECORDS SUMMARY | 2024-08-30 12:52 | XMS_ITS | Encounter Summary ---
Author Organization [employer] Address [address] [place] [address] 7 [place] [address] Care Team Providers Care Airfield Operations Specialist Name Role Phone Yvonne Landry Primary Care Provider [phone] Caroline Huerta NP Primary Care Provider [phone] Name, Vladimir CRISOSTOMO Primary Care Provider [phone] Name, Vladimir CRISOSTOMO Primary Care Provider [phone] Reason for Visit * Reason Comments Med Refill Encounter Details Date Type Department Care Team (Late st Contact Info) Description 05/09/2023 Refill [facility] [address] [place] [address] Yvonne Landry FNP [address] [place] [address] Dept [place] [address] Social History Tobacco Use Types Packs/Day Years Used Date Smoking Tobacco: Some Days Cigarettes 0.3 40 Depression Answer Date Recorded Patient Health Questionnaire-9 Score 0 05/13/2023 Housing Stability Answer Date Recorded What is your housing situation today? I have delio [place] 05/13/[address] you li ve. Do you have problems with any of the following? None of the above 05/13/2023 Food Insecurity Answer Date Recorded Within the past 12 months, y ou worried that your food would run out before you got money to buy more: Never True 05/13/2023 Within the past 12 months,th e food you bought just didn't last and you didn't have enough money to get more: Never True Transportation Answer Date Recorded In the past 12 months, has l ack of transportation kept you from medical appts, meetings, work or from getting things needed for daily living? No 05/13/2023 Utilities Answer Date Recorded In the past 12 months, has t he electric, gas, oil or water company threatened to shut off services in your home? No 05/13/2023 Depression Answer Date Recorded Patient Health Questionnaire-2 Score 0 05/13/2023 Sex and Gender Information Value Date Recorded Sex Assigned at Male 05/31/2022 10:29 AM EDT Legal Sex Male 10:29 AM EDT Gender Identity Male 05/31/2022 10:29 AM EDT Sexual Orientation Straight 05/31/2022 10 :29 AM EDT documented as of this encounter Plan of Treatment Upcoming Encounters Date Type Department Care Team (Late st Contact Info) Description 09/04/2024 1:00 PM EST Office Visit [facility] [address] [place] [phone] Vladimir Gasca MD [address] [place] [phone] documented as of this encounter Visit Diagnoses Not on filedocumented in this encounter Care Teams Airfield Operations Specialist Relationship Specialty Start Date End Date Yvonne Landry FNP PCP - General Family Medicine 02/09/23 05/09/23 Caroline Huerta NP [address] [place] [phone] PCP - General Family Medicine 05/10/23 07/03/23 Vladimir Gasca MD [address] [place] [phone] PCP - General Internal Medicine 07/04/23 07/11/23 Vladimir Gasca MD [address] [place] [id number] PCP - General Internal Medicine 07/12/23 documented as of this encounter
--- OUTSIDE RECORDS SUMMARY | 2024-08-30 12:52 | XMS_ITS | Encounter Summary ---
Author Organization [employer] [facility] Address [address] [place] [address] Care Team Providers Care Loss Control Engineer Name Role Phone Yvonne Landry Primary Care Provider [phone] Caroline Huerta NP Primary Care Provider [phone] Name, Vladimir CRISOSTOMO Primary Care Provider Name, Vladimir CRISOSTOMO Primary Care Provider [phone] Encounter Details Date Type Department Care Team (Late st Contact Info) Description 04/29/2023 Abstract [facility] [address] [place] [phone] Yvonne Landry FNP [address] [place] [address] Dept [place] [address] Social History Tobacco Use Types Packs/Day Years Used Date Smoking Tobacco: Some Days Cigarettes 0.3 40 Sex and Gender Information Value Date Recorded Sex Assigned at Male 05/31/2022 10:29 AM EDT Legal Sex Male 10:29 AM EDT Gender Identity Male 05/31/2022 10:29 AM EDT Sexual Orientation Straight 05/31/2022 10 :29 AM EDT documented as of this encounter Plan of Treatment Upcoming Encounters Date Type Department Care Team (Late st Contact Info) Description 09/04/2024 1:00 PM EST Office Visit [facility] [address] [place] [address] [phone] Name, MD Vladimir [address] [place] [address] documented as of this encounter Visit Diagnoses Not on filedocumented in this encounter Care Teams Loss Control Engineer Relationship Specialty Start Date End Date Yvonne Landry FNP PCP - General Family Medicine 02/09/23 05/09/23 Caroline Huerta NP [address] [place] [address] PCP - General Family Medicine 05/10/23 07/03/23 Vladimir Gasca MD [address] [place] [address] PCP - General Internal Medicine 07/04/23 07/11/23 Vladimir Gasca MD [address] [place] [address] PCP - General Internal Medicine 07/12/23 documented as of this encounter
--- OUTSIDE RECORDS SUMMARY | 2024-08-30 12:52 | XMS_ITS | Encounter Summary ---
Author Organization [employer] Address [address] [facility] 7 [place] [address] Care Team Providers Care Instrument Lens Grinder Apprentice Name Role Phone Name, Vladimir CRISOSTOMO Primary Care Provider [phone] Reason for Visit * Reason Comments Med Refill Encounter Details Date Type Department Care Team ([facility] Contact Info) Description 08/07/2023 Refill [facility] [address] [place], [place] [phone] Name, MD Vladimir [address] [place] [address] Social History Tobacco Use Types Packs/Day Years Used Date Smoking Tobacco: Some Days Cigarettes 0.3 40 Alcohol Use Standard Drinks/Week Comments Yes 0 [...] Description 09/04/2024 1:00 PM EST Office Visit [facility] [address] [place] [phone] Name, MD Vladimir [address] [place] [address] documented as of this encounter Visit Diagnoses Not on filedocumented in this encounter Additional Health Concerns Assessment Noted Time PHQ-9 Depression Total Score: 0 05/13/20 9:43 AM EDT documented as of this encounter Care Teams Instrument Lens Grinder Apprentice Relationship Specialty Start Date End Date Name, MD Vladimir [address] [place] [address] PCP - General Internal Medicine 07/12/23 documented as of this encounter
== END 2024-08-30 10:08 | disposition home or self-care (01) ==
PROVIDERS: PCP Registered Nurse; Visit Provider Internal Medicine Cardiovascular Disease
DX: I47.29 Other ventricular tachycardia (principal); Z95.0 Presence of cardiac pacemaker; I42.1 Obstructive hypertrophic cardiomyopathy
CPT/HCPCS: 93280; 99214; G2211

== ENCOUNTER → 2024-08-30 09:48 | Outpatient (BNVA) | payer OTHER, SELFPAY | PROVIDERS: PCP Registered Nurse; Visit Provider Internal Medicine Cardiovascular Disease | DX: Z45.018 Encounter for adjustment and management of other part of cardiac pacemaker (principal); I47.29 Other ventricular tachycardia; I42.1 Obstructive hypertrophic cardiomyopathy | CPT/HCPCS: 93280; 99212 ==

== ENCOUNTER 2024-10-31 13:37 | Outpatient (AMB) | payer OTHER, SELFPAY ==
[2024-10-31 13:42] VITALS: BP 120/76; PULSE 80; BMI 26.0
--- NOTE | 2024-10-31 13:42 | A.OFFVIS_ITS ---
Vital Signs 10/31/24 13:42 Height 6 ft 2 in Weight 202 lb 13.204 oz BMI 26.0 BP 120/76 Blood Pressure Location Lt brachial Position Sitting Pulse 80 Intake Visit Reasons: 3m follow up Intake Note: 3 month follow-up feeling good Pick Up Man Required: No Allergies prednisone [PREDNISONE] Allergy (Intermediate, Verified 06/01/24 09:50) BLEEDING Medication List - Last Reconciled 10/31/24 by Benjamín Malcolm MD aspirin 81 mg PO DAILY 90 days cetirizine 10 mg PO DAILY cholecalciferol (vitamin D3) 25 mcg PO DAILY cyanocobalamin (vitamin B-12) (Vitamin B-12) 1,000 mcg PO DAILY empagliflozin (Jardiance) 10 mg PO DAILY fluticasone propionate 50 mcg/actuation 1 spray intranasal DAILY PRN icosapent ethyl (Vascepa) 2 grams (2 x 1 gram) PO BID 30 days metformin 500 mg PO DAILY metoprolol succinate ER (Toprol XL) 100 mg PO DAILY rosuvastatin 20 mg PO BEDTIME sildenafil 100 mg PO ONCE PRN 30 days tadalafil 10 mg PO DAILY 90 days HPI Comments Details: Bang comes for follow-up. Underwent a dual-chamber ICD upgrade 1 month ago. Well. The wound has healed well. No fever or chills. No prolonged palpitation, irregular heartbeat, syncope, ICD discharge. No shortness of breath. Back to functionality. Taking all his medications. [facility] Medical History Pacemaker (~04/2023) ICD (implantable cardioverter-defibrillator) in place Aortic stenosis (~06/2022) Hyperlipidemia Hypertrophic obstructive cardiomyopathy (HOCM) (~2018) LBBB (left bundle branch block) (~2018) Surgical History History of pacemaker (~04/2023) History of heart surgery (~12/2018) History of colonoscopy History of esophagogastroduodenoscopy (EGD) History of thumb surgery History of excision of epidermal inclusion cyst (~09/2021) Family History Father No problems noted. Mother No problems noted. Brother No problems noted. Sister No problems noted. Daughter Thyroid condition Son No problems noted. Social History Household Members: Spouse Housing: Apartment Do you presently have visiting nurse or other home services: No Alcohol intake: current Alcohol intake frequency: does not drink Comment: Indpendent Patient Tobacco Use Status: Current someday Tobacco user Tobacco use type: Cigarette Cigarettes Per Day: 5 service: No Review of Systems Const Denies chills, Denies fatigue, Denies fever(s), Denies frequent falls, Denies weakness, Denies weight gain and Denies weight loss ENT Denies dizziness Card Denies chest pain, Denies leg edema, Denies lightheadedness, Denies palpitations, Denies dyspnea, Denies dyspnea on exertion, Denies orthopnea and Denies other (loss of consciousness) Resp Denies cough, Denies dyspnea and Denies dyspnea on exertion GI Denies hematochezia and Denies change in stool character Musc Denies abnormal gait, Denies muscle weakness, Denies numbness, Denies radiating pain into limb and Denies tingling Neuro Denies abnormal gait, Denies dizziness, Denies frequent falls, Denies numbness, Denies tingling and Denies weakness Endo Denies fatigue and Denies palpitations Physical Exam Vital Signs: Last Vital Signs Pulse 80 10/31/24 13:42 BP 120/76 10/31/24 13:42 BMI result Body Mass Index 26.0 Const General: cooperative, healthy appearing, comfortable and no acute distress Orientation/consciousness: patient oriented x3 Neck Neck: Yes normal visual inspection and Yes no JVD Carotids: normal carotid upstroke Resp Effort & Inspection: normal respiratory effort Auscultation: clear to auscultation bilaterally, no crackles, no rales, no rhonchi and no wheezes Cardio Rate: regular rate Rhythm: regular rhythm Heart sounds: S1 normal heart sound present, S2 normal heart sound present, no gallops, Murmur heart sound present systolic early, decrescendo and crescendo and no rubs Peripheral pulses: Peripheral pulses 2+ throughout GI Inspection: Yes normal to inspection Neuro General: patient oriented x3 Extrem General: Yes normal to inspection, No no pedal edema and No calf tenderness Office Procedures Cardiac Device Check Cardiac Device Check Details: Dual-chamber Medtronic ICD in place. Programmed in DDDR. Atrial pacing 22% time. Ventricularly pacer dependent. No arrhythmias noted. Pacing lead impedance is stable. [id number] Cardiac Device Check, dual lead implantable defibrillator Procedure code (CPT) selection complete Assessment & Plan Assessment & Plan (1) ICD (implantable cardioverter-defibrillator) in place: Comment: Dual-chamber Medtronic ICD in place in September 2024 for ventricular arrhythmias with prior history of hypertrophic cardiomyopathy with increased scar burden Code(s): Z95.810 - Presence of automatic (implantable) cardiac defibrillator Category: Medical Plan: Dual-chamber ICD in place for nonsustained ventricular tachycardia with increase car burden inpatient with hypertrophic cardiomyopathy. Working well. Will follow remotely for arrhythmias as well as device check. Follow up in the clinic in 3 months time with [employer] rep (2) Complete heart block: Onset Date: ~04/2023 Comment: ([facility] 04/2023 - s/p Medtronic DCPP) Code(s): I44.2 - Atrioventricular block, complete Category: Medical Plan: Complete heart block status post septal myectomy at [facility]. Doing well at this point time. Status post dual-chamber pacemaker which has been upgraded to dual- chamber ICD. Patient pacer dependent. No symptoms related to it with no LV systolic dysfunction. (3) Hypertrophic obstructive cardiomyopathy (HOCM): Onset Date: ~2018 Comment: (Hx HOCM. s/p septal myectomy at [facility] in [place] on 01/03/2019) Code(s): I42.1 - Obstructive hypertrophic cardiomyopathy Category: Medical Plan: Prior history of hypertrophic cardiomyopathy status post septal myectomy with improved symptoms. He is doing very well from that perspective. Developed complete heart block which has required pacing and now has ICD placement for increase ventricular arrhythmias noted on pacer telemetry with increased car burden. Will follow up in the clinic in 3 months time, sooner p.r.n.. Thank you for allowing me to partake in his care Medications: Refilled aspirin 81 mg PO DAILY 90 tabs 3RF 90 days Coding Level of Care Code Est Pt Level 4 (33174) Complex EM visit Add On G2211 Diagnoses ICD (implantable cardioverter-defibrillator) in place Z95.810 Complete heart block I44.2 Hypertrophic obstructive cardiomyopathy (HOCM) I42.1 CPT Codes Cardiac Device Check - Cardiac Device 5: [id number] Cardiac Device Check, dual lead implantable defibrillator ([id number])
--- OUTSIDE RECORDS SUMMARY | 2024-10-31 16:20 | XMS_ITS | Encounter Summary ---
Author Organization [employer] Address [address] [facility] 7 [place] [address] Care Team Providers Care Coding Specialist Home Health Name Role Phone Name, Vladimir CRISOSTOMO Primary Care Provider [phone] Reason for Visit * Reason Onset Date Comments january recalls 10/29/2024 Encounter Details Date Type Department Care Team ([facility] st Contact Info) Description 10/29/2024 Telephone [facility] [address] [place] [address] [place], [place] january recalls Social History Tobacco Use Types Packs/Day Years [...] AM EDT documented as of this encounter Miscellaneous Notes * Telephone Encounter - Marisol Rod MA - 10/29/2024 1:37 PM EDT Telephone call to patient to schedule the following recall: Visit type: Follow up Appointment notes: DM Patient agree to appointment on 02/19/25 at 9 AM with Name. documented in this encounter Plan of Treatment Upcoming Encounters Date Type Department Care Team (Late st Contact Info) Description 02/19/2025 9:00 AM EDT Office Visit [facility] [address] [place] [address] NameVladimir MD [address] [place] [address] documented as of this encounter Visit Diagnoses Not on filedocumented in this encounter Additional Health Concerns Assessment Noted Time PHQ-9 Depression Total Score: 19 024 2:48 PM EST documented as of this encounter Care Teams Coding Specialist Home Health Relationship Specialty Start Date End Date NameVladimir MD [address] [place] [id number] PCP - General Internal Medicine 07/12/23 documented as of this encounter
--- OUTSIDE RECORDS SUMMARY | 2024-10-31 16:20 | XMS_ITS | Encounter Summary ---
Author Organization [employer] Address [address] [facility] 7 [place] [address] Care Team Providers Care Loader Operator Name Role Phone Name, Vladimir CRISOSTOMO Primary Care Provider Reason for Visit * Reason Comments Med Refill Encounter Details Date Type Department Care Team ([facility] Contact Info) Description 08/07/2023 Refill [facility] [address] [place], [place] [phone] Name, MD Vladimir [address] [place] [address] Social History Tobacco Use Types Packs/Day Years [...] Description 02/19/2025 9:00 AM EDT Office Visit [facility] [address] [place] [address] Name, MD Vladimir [address] [place] [address] documented as of this encounter Visit Diagnoses Not on filedocumented in this encounter Additional Health Concerns Assessment Noted Time PHQ-9 Depression Total Score: 0 05/13/20 9:43 AM EDT documented as of this encounter Care Teams Loader Operator Relationship Specialty Start Date End Date Name, MD Vladimir [address] [place] [address] PCP - General Internal Medicine 07/12/23 documented as of this encounter
--- OUTSIDE RECORDS SUMMARY | 2024-10-31 16:20 | XMS_ITS | Encounter Summary ---
Author Organization [employer] Address [address] [place] [address] 7 [place] [address] Care Team Providers Care Branch Service Leader Name Role Phone Name, Vladimir CRISOSTOMO Primary Care Provider [phone] Reason for Visit * Reason Onset Date Comments Med Refill 10/09/2024 Encounter Details Date Type Department Care Team ([facility] st Contact Info) Description 10/09/2024 Telephone [facility] [address] [place], [place] [phone] Name, MD Vladimir [address] [place] [address] Med Refill Social History Tobacco Use Types Packs/Day Years [...] encounter Miscellaneous Notes * Telephone Encounter - Savannah Dixon LPN - 10/09/2024 3:51 PM EDT Medication was sent to [facility] #[id number] on 09/04/24 with 11 refills. * Telephone Encounter - Wayne Raya - 10/09/2024 3:44 PM EDT TC from pt requesting medication refill. Medications needing refill : empagliflozin (Jardiance) 10 MG To be sent to: [facility]/pharmacy #[id number] - [place], [place] - [address] [place] [address] ] documented in this encounter Plan of Treatment Upcoming Encounters Date Type Department Care Team (Late st Contact Info) Description 02/19/2025 9:00 AM EDT Office Visit [facility] [address] [place] [address] Name, MD Vladimir [address] [place] [address] documented as of this encounter Visit Diagnoses Not on filedocumented in this encounter Additional Health Concerns Assessment Noted Time PHQ-9 Depression Total Score: 19 024 2:48 PM EST documented as of this encounter Care Teams Branch Service Leader Relationship Specialty Start Date End Date Name, MD Vladimir [address] [place] [address] PCP - General Internal Medicine 07/12/23 documented as of this encounter
--- OUTSIDE RECORDS SUMMARY | 2024-10-31 16:20 | XMS_ITS | Encounter Summary ---
Author Organization [employer] Address [address] [place] [address] 7 [place] [address] Care Team Providers Care Home And School Visitor Name Role Phone Yvonne Landry Primary Care Provider [phone] Caroline Huerta NP Primary Care Provider [phone] Name, Vladimir CRISOSTOMO Primary Care Provider [phone] Name, Vladimir CRISOSTOMO Primary Care Provider [phone] Reason for Visit * Reason Comments Med Refill Encounter Details Date Type Department Care Team (Late st Contact Info) Description 05/09/2023 Refill [facility] [address] [place] [address] Yvonne Landry FNP [address] [place] [address] Dept [place] [address] Social History Tobacco Use Types Packs/Day Years [...] Description 02/19/2025 9:00 AM EDT Office Visit [facility] [address] [place] [address] Vladimir Gasca MD [address] [place] [address] documented as of this encounter Visit Diagnoses Not on filedocumented in this encounter Care Teams Home And School Visitor Relationship Specialty Start Date End Date Yvonne Landry FNP PCP - General Family Medicine 02/09/23 05/09/23 Caroline Huerta NP [address] [place] [address] PCP - General Family Medicine 05/10/23 07/03/23 Vladimir Gasca MD [address] [place] [address] PCP - General Internal Medicine 07/04/23 07/11/23 Vladimir Gasca MD [address] [place] [address] PCP - General Internal Medicine 07/12/23 documented as of this encounter
--- OUTSIDE RECORDS SUMMARY | 2024-10-31 16:20 | XMS_ITS | Encounter Summary ---
Author Organization [employer] [facility] Address [address] [place] [address] Care Team Providers Care Assessment Clinician Name Role Phone Yvonne Landry Primary Care Provider [phone] Caroline Huerta NP Primary Care Provider [phone] Name, Vladimir CRISOSTOMO Primary Care Provider Name, Vladimir CRISOSTOMO Primary Care Provider Encounter Details Date Type Department Care Team (Late st Contact Info) Description 04/29/2023 Abstract [facility] [address] [place] [address] Yvonne Landry FNP [address] [place] [address] Dept [place] [address] Social History Tobacco Use Types Packs/Day Years [...] Description 02/19/2025 9:00 AM EDT Office Visit [facility] [address] [place] [address] [phone] Name, MD Vladimir [address] [place] [address] documented as of this encounter Visit Diagnoses Not on filedocumented in this encounter Care Teams Assessment Clinician Relationship Specialty Start Date End Date Yvonne Landry FNP PCP - General Family Medicine 02/09/23 05/09/23 Caroline Huerta NP [address] [place] [address] PCP - General Family Medicine 05/10/23 07/03/23 Vladimir Gasca MD [address] [place] [address] PCP - General Internal Medicine 07/04/23 07/11/23 Vladimir Gasca MD [address] [place] [address] PCP - General Internal Medicine 07/12/23 documented as of this encounter
--- OUTSIDE RECORDS SUMMARY | 2024-10-31 16:20 | XMS_ITS | Clinical Summary ---
Author Organization [employer] Address [address] [place] [address] 7 [place] [address] Care Team Providers Care Communications Manager Name Role Phone Name, Vladimir CRISOSTOMO Primary Care Provider [phone] Allergies Active Allergy Reactions Criticality Noted Date [...] 1 3 Active Lancets (OneTouch Delica Plus Erctco02N) [facility] [place] BLOOD SUGAR ONCE DAILY 100 each [...] THE MORNING 90 tablet 1 4 Active rosuvastatin (Crestor) 20 MG tablet TAKE 1 TABLET BY MOUTH EVERY DAY 90 tablet 1 4 Active Vascepa 1 g capsule TAKE 2 CAPSULES BY MOUTH 2 TIMES DAILY 360 capsule 1 4 Active empagliflozin (Jardiance) 10 MG Take 1 tablet (10 mg) by mouth Once per day. 30 tablet 11 5 09/04/19 26 Active metoprolol succinate XL (Toprol-XL) 100 MG 24 hr tablet 5 Active fluticasone (Flonase) 50 MCG/ACT nasal spray ADMINISTER 2 SPRAYS INTO EACH NOSTRIL ONCE PER DAY. SHAKE GENTLY. BEFORE FIRST USE, PRIME PUMP. 48 mL 5 Active Active Problems Problem Noted Date Diagnosed Date NSVT (nonsustained ventricular tachycardia) 10/2024 Pacemaker 05/13/2023 Overview (05/13/2023): Complete heart block New onset type 2 diabetes mellitus 05/13/2023 Obstructive sleep apnea syndrome 07/08/2022 Left bundle branch block 07/10/2019 Hypertrophic cardiomyopathy 09/19/2018 Overview (05/13/2023): Myomectomy 2019 at [facility] Nicotine dependence 06/19/2018 Tobacco dependence syndrome 05/18/2018 Overweight 05/18/2018 Resolved Problems Problem Noted Date Diagnosed Date Resolved Date Rectal hemorrhage 09/19/2018 05/13/2023 Alcohol abuse 05/18/2018 05/13/2023 Encounters Date Type Department Care Team Description 10/29/2024 Telephone [facility] [address] [place] [address] Marisol Rod MA january recalls 10/09/2024 Telephone [facility] [address] [place] [address] Vladimir Gasca MD Med Refill 09/30/2024 Refill [facility] [address] [place] [address] Vladimir Gasca MD 09/07/2024 Orders Only GENERIC EXTERNAL DATA DEPARTMENT Provider, Generic External Data 09/04/2024 1:00 PM EST Office Visit [facility] [address] [place] [address] Name, MD Vladimir Type 2 diabetes mellitus treated without insulin ([facility]) (Primary Dx) 09/04/2024 Travel from Last 3 Months Immunizations Name Administration [...] Sign Reading Time Taken Comments Blood Pressure 113/68 09/04/2024 1:01 PM EST Pulse 60 09/04/2024 1:01 PM EST Temperature 35.9 ??C (96.6 ??F) 09/04/2024 1:01 PM ES T Respiratory Rate 18 09/04/2024 1:01 PM EST Oxygen Saturation 98% 09/04/2024 1:01 PM EST Inhaled Oxygen Concentration - - Weight 99.6 kg (219 lb 9.6 oz) 09/04/2024 1:01 P M EST Height 188 cm (6' 2 ) 07/04/2024 1:58 PM EST Body Mass Index 28.19 07/04/2024 1:58 PM EST Plan of Treatment Upcoming Encounters Date Type Department Care Team (Late st Contact Info) Description 02/19/2025 9:00 AM EDT Office Visit [facility] [address] [place] [address] Name, MD Vladimir [address] [place] [address] Health Maintenance Due Date Last Done Comments CT Colonography 1967 Colonoscopy 1967 Colorectal Cancer Screening 1967 FIT DNA/Cologuard 1967 FIT 1967 FOBT 1967 HIV Screening 1967 Sigmoidoscopy 1967 Alcohol/Substance Use Screening 1979 Hepatitis C Screening 1985 Hepatitis B Vaccines (3 of 3 - 19+ 3-dose series) 11/12/2023 06/13/2023, 05/13/2023 Lipid Panel 11/30/2023 11/29/2022, 05/02, 05/09/2020 SDOH Screening 05/13/2024 05/13/2023 Diabetes: Hemoglobin A1C 12/02/2024 025, 07/04/2024, 09/26/2023, Additional history exists Depression Monitoring (PHQ-9) 01/02/2025 [...] on patient's age to complete this topic Hepatitis A Vaccines Aged Out No long er eligible based on patient's age to complete [...] Procedure Name Priority Date/Time Associated Diagnosis Comments TYPE AND SCREEN Routine 09/07/2024 1:09 PM EST BASIC METABOLIC PANEL Routine 09/07/2024 1:09 PM EST CBC WITH AUTO DIFFERENTIAL Routine 09/07/2024 1:09 PM EST POCT GLYCATED HEMOGLOBIN, TOTAL Routine 09/04/2024 1:13 PM EST Type 2 diabetes mellitus treated without insulin ([facility]) POCT GLUCOSE Routine 09/04/2024 1:09 PM EST Type 2 diabetes mellitus treated without insulin (CMS/HCC) ALBUMIN, RANDOM URINE W/CREATININE Routine 07/04/2024 2:38 PM EST New onset type 2 diabetes mellitus ([facility]) LIPID PANEL, STANDARD Routine 11/29/2022 7:20 AM EDT from Last 3 Months or Most Recently Relevant to Health Maintenance Results * (ABNORMAL) CBC auto differential (09/07/2024 1:09 PM EST) White Blood Count 11.2(H) 4.8 - 10.8 X10*3/uL [facility] Red Blood Count 5.69 4.60 - 5.80 X10*6/uL [facility] Hemoglobin 15.3 14.0 - 18.0 g/dl [facility] Hematocrit 47.7 42.0 - 52.0 % [facility] Mean Corpuscular Volume 83.8 80.0 - 98.0 fL [facility] Mean Corpuscular Hemoglobin 26.9(L) 27.0 - 33.0 pg [facility] Mean Corpuscular HGB Conc 32.1 31.0 - 36.0 g/dl [facility] Red Cell Distribution Width 14.6 11.0 - 16.0 % [facility] Platelet Count 231 160 - 400 X10*3/uL [facility] Mean Platelet Volume 10.5 9.4 - 12.4 fL [facility] Neutrophils Percent Auto 67.4 45 - 73 % [facility] Imm Gran Pct Auto 0.3 0.0 - 0.4 % [facility] Lymphocytes Percent Auto 22.7 20 - 40 % [facility] Monocytes Percent Auto 6.4 2 - 11 % [facility] Eosinophils Percent Auto 2.9 0 - 4 % [facility] Basophils Percent Auto 0.3 0 - 2 % [facility] NRBC Pct Auto 0.0 0.0 - 0.2 /100WBC [facility] Neutrophils Absolute Auto 7.5 2.0 - 8.3 x10*3/uL [facility] Imm Gran Abs Auto 0.03 0.00 - 0.03 X10*3/uL [facility] Lymphocytes Absolute Auto 2.5 1.2 - 4.9 X10*3/uL [facility] Monocytes Absolute Auto 0.7 0.1 - 1.2 X10*3/uL [facility] Eosinophils Absolute Auto 0.3 0.0 - 0.4 X10*3/uL [facility] Basophils Absolute Auto 0.0 0.0 - 0.2 X10*3/uL [facility] NRBC Abs Auto 0.000 0.0 - 0.012 X10*3/uL [facility] 09/07/2024 1:09 PM EST 09/07/2024 1:11 PM EST us Generic External Data Provider LAB BLOOD ORDERAB LES Final Result Performing Organization Address [facility]/ZIP Co de Phone Number [facility] [address] [place] [phone] * Type and screen (09/07/2024 1:09 PM EST) Blood Type AP [facility] Antibody Screen NEGATIVE [facility] 09/07/2024 1:09 PM EST 09/07/2024 1:14 PM EST us Generic External Data Provider LAB BLOOD BANK TE ST ORDERABLES Final Result Performing Organization Address [facility] Co de Phone Number [facility] [address] [place] [phone] * (ABNORMAL) Basic Metabolic Panel (09/07/2024 1:09 PM EST) Sodium 140 135 - 145 mmol/L [facility] Potassium 4.3 3.3 - 5.1 mmol/L [facility] Chloride 108 96 - 108 mmol/L [facility] Carbon Dioxide 23 22 - 29 mmol/L [facility] Anion Gap 13 12 - 20 [facility] Urea Nitrogen (BUN) 15 9 - 16 mg/dL [facility] Creatinine, Serum 0.75 0.5 - 1.4 mg/dL [facility] Creatinine Clr Calc Pharmacy 126.3 [facility] Comment:eGFR (calculated fro m the MDRD study equation) and eCrCl(calculated from the Cockcroft-Gault equation) are based ondifferent parameters and may not yield comparable results.If eCrCl result is absurd, please check patient'sheight/weight. Estimated Glomerular Filt Rate >60 [facility] Comment:Chronic Kidney Disea se: Estimated GFR < 60 mL/min/1.53e2Dujqno Kidney Disease: Estimated GFR < 15 mL/min/1.73m2 Glucose 143(H) 60 - 115 mg/dL [facility] Calcium 9.2 8.4 - 10.2 mg/dL [facility] 09/07/2024 1:09 PM EST 09/07/2024 1:11 PM EST us Generic External Data Provider LAB BLOOD ORDERAB LES Final Result [facility] [address] [place] [address] [phone] * (ABNORMAL) POCT HGB A1C (09/04/2024 1:13 PM EST) Hemoglobin A1C 7.2(A) 4.0 - 6.0 % QC Media Lot # [id number] Lot# Expiration Date 526 Blood 09/04/2024 1:13 PM EST us Vladimirmarvin Gasca MD POINT OF CARE TEST ENTER/EDIT OR DERABLES Final Result * POCT Glucose (09/04/2024 1:09 PM EST) Glucose Blood, POC 107 60 - 200 mg/dL QC Media Lot # [id number] Lot# Expiration Date 473 Blood Capillary blood specimen / Unknown 09/04/2024 1:09 PM EST us Vladimir Gasca MD POINT OF CARE TEST ENTER/EDIT OR DERABLES Final Result * Albumin, Random Urine W/Creatinine (07/04/2024 2:38 PM EST) Creatinine, Urine 124.58 mg/dL [facility] Microalbumin Urine 16.0 mg/L [facility] Microalbum Creatinine Ratio Ur 12.8 <30 ug/mg cr [facility] Comment:Albumin/Creatinine R atio Reference Ranges: Normal: < 30 ug/mg creatinine Microalbuminuria: 30 - 300 ug/mg creatinineClinical Albuminuria: > 300 ug/mg creatinine Urine (Urine, Random) 07/04/2024 2:38 PM EST 07/04/2024 4:14 PM EST Result Marivel Gasca MD LAB URINE ORDERABLES Final Resul t [facility] [address] [place] [phone] * Lipid Panel, Standard (11/29/2022 7:20 AM EDT) Triglycerides 528 mg/dL [facility] Comment:Desirable Triglyceri de: less than 150 mg/dLBorderline High Triglyceride 150-199 mg/dLHigh Triglyceride: 200-499 mg/dLVery High Triglyceride: greater than or equal to 5OO mg/dL Cholesterol 224 mg/dL [facility] Comment:Desirable Cholestero l: less than 200 mg/dLBorderline High Cholesterol: 200-239 mg/dLHigh Cholesterol: greater than 239 mg/dL LDL Cholesterol Calculated TNP mg/dl [facility] Comment:Unable to calculate the LDL. The formula of Friedwald,Justin, and Elio is only valid if the triglycerides areless than 400 mg/dl. HDL Cholesterol 36 mg/dL [facility] Comment:Desirable HDL: great er than 40 mg/dL Note: This HDL assay may give artificially low results in patients with liver disease. 11/29/2022 7:20 AM EDT 11/29/2022 7:20 AM EDT us [facility] External Provider LAB BLO OD ORDERABLES Final Result [facility] [address] [place] [phone] from Last 3 Months or Most Recently Relevant to Health Maintenance Insurance - [employer] Care Teams Communications Manager Relationship Specialty Start Date End Date Name, MD Vladimir [address] [place] [address] PCP - General Internal Medicine 07/12/23
== END 2024-10-31 14:11 | disposition home or self-care (01) ==
LOC: HO.HCS 13:38
PROVIDERS: PCP Registered Nurse; Visit Provider Internal Medicine Cardiovascular Disease
DX: Z95.810 Presence of automatic (implantable) cardiac defibrillator (principal); I44.2 Atrioventricular block, complete; I42.1 Obstructive hypertrophic cardiomyopathy
CPT/HCPCS: 93283; 99214; G2211

== ENCOUNTER → 2024-10-31 13:37 | Outpatient (BNVA) | payer OTHER, SELFPAY | PROVIDERS: PCP Registered Nurse; Visit Provider Internal Medicine Cardiovascular Disease | DX: Z45.02 Encounter for adjustment and management of automatic implantable cardiac defibrillator (principal); I44.2 Atrioventricular block, complete; I42.1 Obstructive hypertrophic cardiomyopathy | CPT/HCPCS: 99212 ==

== ENCOUNTER → 2024-11-15 23:59 | Outpatient (BNV) | payer OTHER, SELFPAY ==
--- NOTE | 2024-11-21 13:51 | MHC.OFFVIS ---
Intake Visit Reasons: Remote Device Check- Medtronic Allergies prednisone [PREDNISONE] Allergy (Intermediate, Verified 06/01/24 09:50) BLEEDING PFSH Medical History Pacemaker (~04/2023) ICD (implantable cardioverter-defibrillator) in place Aortic stenosis (~06/2022) Hyperlipidemia Hypertrophic obstructive cardiomyopathy (HOCM) (~2018) LBBB (left bundle branch block) (~2018) Surgical History History of pacemaker (~04/2023) History of heart surgery (~12/2018) History of colonoscopy History of esophagogastroduodenoscopy (EGD) History of thumb surgery History of excision of epidermal inclusion cyst (~09/2021) Family History Father No problems noted. Mother No problems noted. Brother No problems noted. Sister No problems noted. Daughter Thyroid condition Son No problems noted. Social History Household Members: Spouse Housing: Apartment Do you presently have visiting nurse or other home services: No Alcohol intake: current Alcohol intake frequency: does not drink Comment: Indpendent Patient Tobacco Use Status: Current someday Tobacco user Tobacco use type: Cigarette Cigarettes Per Day: 5 service: No Office Procedures Cardiac Device Check Cardiac Device Check Details: Remote ICD report generated 11/15/2024. ICD function is adequate [id number] Cardiac Interrogation, implant defibrillator w/interim Procedure code (CPT) selection complete Assessment & Plan Assessment & Plan (1) ICD (implantable cardioverter-defibrillator) in place: Comment: Dual-chamber Medtronic ICD in place in September 2024 for ventricular arrhythmias with prior history of hypertrophic cardiomyopathy with increased scar burden Code(s): Z95.810 - Presence of automatic (implantable) cardiac defibrillator Category: Medical Plan: See above Coding Level of Care Code Procedure Only Diagnoses ICD (implantable cardioverter-defibrillator) in place Z95.810 CPT Codes Cardiac Device Check - Cardiac Device 13: [id number] Cardiac Interrogation, implant defibrillator w/interim ([id number])
== END ==
PROVIDERS: PCP Registered Nurse; Visit Provider Internal Medicine Cardiovascular Disease
DX: I42.2 Other hypertrophic cardiomyopathy (principal); Z95.810 Presence of automatic (implantable) cardiac defibrillator
CPT/HCPCS: 93295

== ENCOUNTER → 2025-02-20 23:59 | Outpatient (BNV) | payer OTHER, SELFPAY ==
--- NOTE | 2025-02-22 14:18 | MHC.OFFVIS ---
Intake Visit Reasons: Remote device check- Medtronic Allergies prednisone (PREDNISONE) Allergy (Intermediate, Verified 06/01/24 09:50) BLEEDING PFSH Medical History Pacemaker (~04/2023) ICD (implantable cardioverter-defibrillator) in place Aortic stenosis (~06/2022) Hyperlipidemia Hypertrophic obstructive cardiomyopathy (HOCM) (~2018) LBBB (left bundle branch block) (~2018) Surgical History History of pacemaker (~04/2023) History of heart surgery (~12/2018) History of colonoscopy History of esophagogastroduodenoscopy (EGD) History of thumb surgery History of excision of epidermal inclusion cyst (~09/2021) Family History Father No problems noted. Mother No problems noted. Brother No problems noted. Sister No problems noted. Daughter Thyroid condition Son No problems noted. Social History Household Members: Spouse Housing: Apartment Do you presently have visiting nurse or other home services: No Alcohol intake: current Alcohol intake frequency: does not drink Comment: Indpendent Patient Tobacco Use Status: Current someday Tobacco user Tobacco use type: Cigarette Cigarettes Per Day: 5 service: No Office Procedures Cardiac Device Check Cardiac Device Check Details: Remote ICD report generated 02/20/2025. ICD function is adequate [id number] Cardiac Interrogation, implant defibrillator w/interim Procedure code (CPT) selection complete Assessment & Plan Assessment & Plan (1) ICD (implantable cardioverter-defibrillator) in place: Comment: Dual-chamber Medtronic ICD in place in September 2024 for ventricular arrhythmias with prior history of hypertrophic cardiomyopathy with increased scar burden Code(s): Z95.810 - Presence of automatic (implantable) cardiac defibrillator Category: Medical Plan: See above Coding Level of Care Code Procedure Only Diagnoses ICD (implantable cardioverter-defibrillator) in place Z95.810 CPT Codes Cardiac Device Check - Cardiac Device 13: [id number] Cardiac Interrogation, implant defibrillator w/interim ([id number])
== END ==
PROVIDERS: PCP Internal Medicine Geriatric Medicine; Visit Provider Internal Medicine Cardiovascular Disease
DX: I42.2 Other hypertrophic cardiomyopathy (principal); Z95.810 Presence of automatic (implantable) cardiac defibrillator
CPT/HCPCS: 93295

== ENCOUNTER → 2025-02-20 23:59 | Outpatient (BNV) | payer OTHER, SELFPAY ==
--- NOTE | 2025-02-22 14:16 | A.OFFVIS_ITS ---
Intake Visit Reasons: Remote HF monitoring- Medtronic Allergies prednisone (PREDNISONE) Allergy (Intermediate, Verified 06/01/24 09:50) BLEEDING PFSH Medical History Pacemaker (~04/2023) ICD (implantable cardioverter-defibrillator) in place Aortic stenosis (~06/2022) Hyperlipidemia Hypertrophic obstructive cardiomyopathy (HOCM) (~2018) LBBB (left bundle branch block) (~2018) Surgical History History of pacemaker (~04/2023) History of heart surgery (~12/2018) History of colonoscopy History of esophagogastroduodenoscopy (EGD) History of thumb surgery History of excision of epidermal inclusion cyst (~09/2021) Family History Father No problems noted. Mother No problems noted. Brother No problems noted. Sister No problems noted. Daughter Thyroid condition Son No problems noted. Social History Household Members: Spouse Housing: Apartment Do you presently have visiting nurse or other home services: No Alcohol intake: current Alcohol intake frequency: does not drink Comment: Indpendent Patient Tobacco Use Status: Current someday Tobacco user Tobacco use type: Cigarette Cigarettes Per Day: 5 service: No Office Procedures Cardiac Device Check Cardiac Device Check Details: Remote heart failure report generated rising heart failure parameters. Will follow up with the patient [id number] Cardiac Device Interrogation, cardio physiologic monitor Procedure code (CPT) selection complete Assessment & Plan Assessment & Plan (1) ICD (implantable cardioverter-defibrillator) in place: Comment: Dual-chamber Medtronic ICD in place in September 2024 for ventricular arrhythmias with prior history of hypertrophic cardiomyopathy with increased scar burden Code(s): Z95.810 - Presence of automatic (implantable) cardiac defibrillator Category: Medical Plan: See above Coding Level of Care Code Procedure Only Diagnoses ICD (implantable cardioverter-defibrillator) in place Z95.810 CPT Codes Cardiac Device Check - Cardiac Device 15: [id number] Cardiac Device I nterrogation, cardio physiologic monitor ([id number])
== END ==
PROVIDERS: PCP Internal Medicine Geriatric Medicine; Visit Provider Internal Medicine Cardiovascular Disease
DX: I42.2 Other hypertrophic cardiomyopathy (principal); Z95.810 Presence of automatic (implantable) cardiac defibrillator
CPT/HCPCS: 93297

== ENCOUNTER 2025-02-25 12:54 | Outpatient (AMB) | payer OTHER, SELFPAY ==
--- NOTE | 2025-02-25 13:21 | MHC.OFFVIS ---
Vital Signs 02/25/25 13:22 Height 6 ft 2 in Weight 207 lb 3.752 oz BMI 26.6 BP 120/80 Blood Pressure Location Lt brachial Position Sitting Pulse 77 Intake Visit Reasons: 3m follow up w device ck Intake Note: 3 month follow-up with [facility] [employer] Pneumatic Required: No Allergies prednisone (PREDNISONE) Allergy (Intermediate, Verified 06/01/24 09:50) BLEEDING Medication List - Last Reconciled 02/25/25 by Benjamín Malcolm MD aspirin 81 mg PO DAILY 90 days cetirizine 10 mg PO DAILY cholecalciferol (vitamin D3) 25 mcg PO DAILY cyanocobalamin (vitamin B-12) (Vitamin B-12) 1,000 mcg PO DAILY empagliflozin (Jardiance) 10 mg PO DAILY fluticasone propionate 50 mcg/actuation 1 spray intranasal DAILY PRN icosapent ethyl (Vascepa) 2 grams (2 x 1 gram) PO BID 30 days metformin 500 mg PO DAILY metoprolol succinate ER (Toprol XL) 100 mg PO DAILY rosuvastatin 20 mg PO BEDTIME sildenafil 100 mg PO ONCE PRN 30 days tadalafil 10 mg PO DAILY 90 days HPI Comments Details: Bang comes for follow-up. He has been doing very well. Remains extremely active and functional. Denies any exertional chest pain or shortness of breath. Denies any palpitations, lightheadedness, syncope, ICD discharge. Says his shortness of breath significantly improved. [facility] Medical History Pacemaker (~04/2023) ICD (implantable cardioverter-defibrillator) in place Aortic stenosis (~06/2022) Hyperlipidemia Hypertrophic obstructive cardiomyopathy (HOCM) (~2018) LBBB (left bundle branch block) (~2018) Surgical History History of pacemaker (~04/2023) History of heart surgery (~12/2018) History of colonoscopy History of esophagogastroduodenoscopy (EGD) History of thumb surgery History of excision of epidermal inclusion cyst (~09/2021) Family History Father No problems noted. Mother No problems noted. Brother No problems noted. Sister No problems noted. Daughter Thyroid condition Son No problems noted. Social History Household Members: Spouse Housing: Apartment Do you presently have visiting nurse or other home services: No Alcohol intake: current Alcohol intake frequency: does not drink Comment: Indpendent Patient Tobacco Use Status: Current someday Tobacco user Tobacco use type: Cigarette Cigarettes Per Day: 5 service: No Review of Systems Const Denies chills, Denies fatigue, Denies fever(s), Denies frequent falls, Denies weakness, Denies weight gain and Denies weight loss ENT Denies dizziness Card Denies chest pain, Denies leg edema, Denies lightheadedness, Denies palpitations, Denies dyspnea, Denies dyspnea on exertion, Denies orthopnea and Denies other (loss of consciousness) Resp Denies cough, Denies dyspnea and Denies dyspnea on exertion GI Denies hematochezia and Denies change in stool character Musc Denies abnormal gait, Denies muscle weakness, Denies numbness, Denies radiating pain into limb and Denies tingling Neuro Denies abnormal gait, Denies dizziness, Denies frequent falls, Denies numbness, Denies tingling and Denies weakness Endo Denies fatigue and Denies palpitations Physical Exam Vital Signs: Last Vital Signs Pulse 77 02/25/25 13:22 BP 120/80 02/25/25 13:22 BMI result Body Mass Index 26.6 Const General: cooperative, healthy appearing, comfortable and no acute distress Orientation/consciousness: patient oriented x3 Neck Neck: Yes normal visual inspection and Yes no JVD Carotids: normal carotid upstroke Resp Effort & Inspection: normal respiratory effort Auscultation: clear to auscultation bilaterally, no crackles, no rales, no rhonchi and no wheezes Cardio Rate: regular rate Rhythm: regular rhythm Heart sounds: S1 normal heart sound present, S2 normal heart sound present, no gallops, Murmur heart sound present systolic early, decrescendo and crescendo and no rubs Peripheral pulses: Peripheral pulses 2+ throughout GI Inspection: Yes normal to inspection Neuro General: patient oriented x3 Extrem General: Yes normal to inspection, No no pedal edema and No calf tenderness Office Procedures Cardiac Device Check Cardiac Device Check Details: Dual-chamber Medtronic ICD in place programmed in DDDR at 60 beats per minute. Ventricular pacing 100% time. Atrial pacing 27% of time. No arrhythmias detected. Atrial ventricular sensing is adequate. Pacing and shock lead impedance is stable. Pacing thresholds adequate. Battery life is at 9.6 years [id number] Cardiac Device Check, dual lead implantable defibrillator Procedure code (CPT) selection complete Assessment & Plan Assessment & Plan (1) Hypertrophic obstructive cardiomyopathy (HOCM): Onset Date: ~2018 Comment: (Hx HOCM. s/p septal myectomy at [facility] in [place] on 01/03/2019) Code(s): I42.1 - Obstructive hypertrophic cardiomyopathy Category: Medical Plan: Hypertrophic obstructive cardiomyopathy status post septal myectomy in [place] with subsequently developed complete heart block with persistent severe left ventricular hypertrophy. Patient has no symptoms and currently feeling well in his very high functional status. Taking all his medications. He is recommend to continue his medication including metoprolol 100 mg daily. Continue to exercise as tolerated. Report to me any new symptoms. (2) ICD (implantable cardioverter-defibrillator) in place: Comment: Dual-chamber Medtronic ICD in place in September 2024 for ventricular arrhythmias with prior history of hypertrophic cardiomyopathy with increased scar burden Code(s): Z95.810 - Presence of automatic (implantable) cardiac defibrillator Category: Medical Plan: Dual-chamber ICD in place placed in September of 2024 due to ventricular arrhythmias noted on pacer with increase car burden and wishes upgraded. He is currently ventricularly pacer dependent. Will follow-up echocardiogram in 6 months to assess for LV function. Follow the ICD remotely. Will follow up in the clinic in 6 months time, sooner p.r.n.. Thank you for allowing me to partake in his care Orders: Orders CA echo transthoracic complete 02/25/25 I42.1 - Obstructive hypertrophic cardiomyopathy CA echo transthoracic complete 5 Months I42.1 - Obstructive hypertrophic cardiomyopathy Coding Level of Care Code Est Pt Level 4 (66275) Complex EM visit Add On G2211 Diagnoses Hypertrophic obstructive cardiomyopathy (HOCM) I42.1 ICD (implantable cardioverter-defibrillator) in place Z95.810 CPT Codes Cardiac Device Check - Cardiac Device 5: [id number] Cardiac Device Check, dual lead implantable defibrillator ([id number])
[2025-02-25 13:22] VITALS: BP 120/80; PULSE 77; BMI 26.6
--- OUTSIDE RECORDS SUMMARY | 2025-02-25 13:34 | XMS_ITS | Clinical Summary ---
Author Organization [employer] Address [address] [place] [address] [address] [place] [address] Care Team Providers Care Medical Assistant Name Role Phone Name, Vladimir CRISOSTOMO Primary Care Provider [phone] Allergies Active Allergy Reactions Criticality Noted Date Comments Metformin 07/04/2024 Constipation, GI distress Prednisone 07/10/2019 Medications Lancets (OneTouch Delica Plus [id number]) [facility] [place] BLOOD SUGAR ONCE DAILY 100 each 11 05/13/20 23 Active Blood Glucose Monitoring Suppl (ONE TOUCH ULTRA 2) w/Device kit 1 each in the morning. TEST BLOOD SUGAR ONCE DAILY 1 kit 05/13/20 23 Active varenicline (Chantix) 1 MG tablet Take 1 tablet (1 mg) by mouth 2 times daily. 56 tablet 1 07/12/20 23 Active cetirizine (ZyrTEC) 10 MG tabletIndications :Seasonal allergic rhinitis, unspecified trigger TAKE 1 TABLET BY MOUTH EVERY DAY IN THE MORNING 90 tablet 1 12/27/19 24 Active metoprolol succinate XL (Toprol-XL) 100 MG 24 hr tablet 08/26/19 25 Active aspirin 81 MG EC tabletIndications :Hypertrophic cardiomyopathy (CMS/HCC) Take 1 tablet (81 mg) by mouth Once per day. Take 1 tablet by mouth 1 (one) time each day. 30 tablet 3 11/28/19 25 Active cholecalciferol (Vitamin D3) 25 MCG (1000 UT) tabletIndications :Vitamin D deficiency TAKE 1 TABLET (25 MCG) BY MOUTH IN THE MORNING 90 tablet 1 11/28/19 25 Active cyanocobalamin (Vitamin B-12) 1000 MCG tablet Take 1 tablet (1,000 mcg) by mouth Once per day. 90 tablet 1 11/28/19 25 Active Vascepa 1 g capsuleIndication s:Hypertrophic cardiomyopathy (CMS/HCC) Take 2 capsules (2 g) by mouth 2 times daily. 360 capsule 1 11/28/19 25 Active fluticasone (Flonase) 50 MCG/ACT nasal sprayIndications: Seasonal allergies Shake gently. Before first use, prime pump. After use, clean tip and replace cap.ADMINIS TER 2 SPRAYS INTO EACH NOSTRIL ONCE PER DAY. SHAKE GENTLY. BEFORE FIRST USE, PRIME PUMP. 48 mL 11/28/19 25 Active rosuvastatin (Crestor) 20 MG tablet TAKE 1 TABLET BY MOUTH EVERY DAY 90 tablet 1 12/04/19 25 Active famotidine (Pepcid) 20 MG tabletIndications :Gastroesophageal reflux disease without esophagitis Take 1 tablet (20 mg) by mouth Once per day. 30 tablet 3 01/16/20 25 Active empagliflozin (Jardiance) 10 MG Take 1 tablet (10 mg) by mouth Once per day. 30 tablet 11 02/20/20 25 026 Active empagliflozin (Jardiance) 10 MG Take 1 tablet (10 mg) by mouth Once per day. 30 tablet 11 09/04/19 25 025 Discontinued(R eorder (will not trigger notification to Pharmacy)) Active Problems Problem Noted Date Diagnosed Date NSVT (nonsustained ventricular tachycardia) 10/2024 Pacemaker 05/13/2023 Overview (05/13/2023): Complete heart block New onset type 2 diabetes mellitus 05/13/2023 Obstructive sleep apnea syndrome 07/08/2022 Left bundle branch block 07/10/2019 Hypertrophic cardiomyopathy 09/19/2018 Overview (02/19/2025): Prior history of hypertrophic cardiomyopathy status post septal myectomy 2018 at [facility] with improved symptoms. 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 [place] [facility] [place] Nicotine dependence 06/19/2018 Tobacco dependence syndrome 05/18/2018 Overweight 05/18/2018 Resolved Problems Problem Noted Date Diagnosed Date Resolved Date Rectal hemorrhage 09/19/2018 05/13/2023 Alcohol abuse 05/18/2018 05/13/2023 Encounters Date Type Department Care Team Description 02/23/2025 Refill [facility] [address] [place] [address] Vladimir Gasca MD Hypertrophic cardiomyopathy ([facility]) 02/19/2025 9:00 AM EDT Office Visit [facility] [address] [place] [address] Vladimir Gasca MD Type 2 diabetes mellitus treated without insulin ([facility]) (Primary Dx); History of colonoscopy; Skin cyst 02/19/2025 Telephone [facility] [address] [place] [address] [place] [facility] [place] 02/19/2025 Travel 02/12/2025 Travel 02/08/2025 11:00 AM EDT Clinical Support [address] [address] Tiffanie Pulliam RN Encounter for immunization 02/08/2025 Travel 02/07/2025 Travel 02/06/2025 Telephone [facility] [address] [place] [address] Vladimir Gasca MD Immunizations 02/05/2025 9:00 AM EDT Office Visit [facility] [address] [place] [address] Dai Gallegos, [place] Type 2 diabetes mellitus without ophthalmic manifestations ([facility]) (Primary Dx); Macular scar of right eye; Presbyopia 02/05/2025 Travel 01/15/2025 Telephone [facility] [address] [place] [address] Vladimir Gasca MD Durable Medical Equipment (PT came in requesting a left ankle brace due to needing extra support from breaking ankle. As well as a Right knee brace due to acl.) 01/15/2025 Refill [facility] [address] [place] [address] Vladimir Gasca MD Gastroesophageal reflux disease without esophagitis 01/15/2025 Telephone [facility] [address] [place] [address] Vladimir Gasca MD Durable Medical Equipment (PT came in requesting a left ankle brace due to needing extra support from breaking ankle. As well as a Right knee brace due to acl. ) 12/21/2024 Telephone [facility] [address] [place] [address] Name, MD Vladimir 12/02/2024 Refill [facility] [address] [place] [address] Name, MD Vladimir 11/26/2024 Refill [facility] [address], [place] [id number] Name, MD Vladimir Seasonal allergies (Primary Dx); Vitamin D deficiency; Hypertrophic cardiomyopathy (CMS/HCC) from Last 3 Months Immunizations Immunization Administration Dates Next Due Hep B, adult 02/08/2025,06/13/2023,05/13/2023 Influenza, seasonal, injecta ble, preservative free 07/04/2024 [...] housing situation today? I have [place] 02/19/[address] you li ve. Do you have problems with any of the following? None of the above 02/19/2025 Food Insecurity Answer Date Recorded Within the past 12 months, y ou worried that your food would run out before you got money to buy more: Never True 02/19/2025 Within the past 12 months,th e food you bought just didn't last and you didn't have enough money to get more: Never True Transportation Answer Date Recorded In the past 12 months, has l ack of transportation kept you from medical appts, meetings, work or from getting things needed for daily living? No 02/19/2025 Utilities Answer Date Recorded In the past 12 months, has t he electric, gas, oil or water company threatened to shut off services in your home? No 02/19/2025 Depression Answer Date Recorded Patient Health Questionnaire-2 Score 4 07/04/2024 Internet Access Answer Date Recorded Internet Access Q1 Yes 02/19/2025 Internet Access Q2 Not on file 02/19/2025 Sex and Gender Information Value Date Recorded Sex Assigned at Male 05/31/2022 10:29 AM EDT Legal Sex Male 10:29 AM EDT Gender Identity Male 05/31/2022 10:29 AM EDT Sexual Orientation Straight 05/31/2022 10 :29 AM EDT Last Filed Vital Signs Vital Sign Reading Time Taken Comments Blood Pressure 102/54 02/19/2025 9:02 AM EDT Pulse 80 02/19/2025 9:02 AM EDT Temperature 36.4 C (97.6 F) 02/19/2025 9:02 AM EDT Respiratory Rate 18 02/19/2025 9:02 AM EDT Oxygen Saturation 97% 02/19/2025 9:02 AM EDT Inhaled Oxygen Concentration - - Weight 98.8 kg (217 lb 12.8 oz) 02/19/2025 9:02 AM EDT Height 188 cm (6' 2 ) 02/19/2025 9:02 AM EDT Body Mass Index 27.96 02/19/2025 9:02 AM EDT Plan of Treatment Health Maintenance Due Date Last Done Comments CT Colonography 1967 Colonoscopy 1967 Colorectal Cancer Screening 1967 FIT DNA/Cologuard 1967 FIT 1967 FOBT 1967 HIV Screening 1967 Sigmoidoscopy 1967 Alcohol/Substance Use Screening 1979 Hepatitis C Screening 1985 Lipid Panel 11/30/2023 11/29/2022, 05/02, 05/09/2020 Depression Monitoring 01/02/2025 07/04/2024, 024 Influenza Vaccine (#1) 2025 07/04/2024 Diabetes: Foot Exam 07/04/2025 07/04/2024, 07/04/2024, 07/04/2024, Additional history exists Diabetes: Urine Protein Screening 07/04/2025 07/04/2024 Diabetes: Hemoglobin A1C 08/22/2025 025, 09/04/2024, 07/04/2024, Additional history exists Disability Screening 02/12/2026 02/12/2025 SDOH Screening 02/19/2026 02/19/2025 Tobacco Screening 02/19/2026 02/19/2025 Eye Exam 02/05/2027 02/05/2025, 03/2025, 02/05/2025, Additional history exists DTaP/Tdap/Td Vaccines (2 - Td or Tdap) 05/13/2032 05/13/2022 RSV Patients and Patients Aged 60 years or older (1 - 1-dose 75+ series) 2042 Pneumococcal Vaccine: 50+ Years Completed 05/13/2023 COVID-19 Vaccine Completed 07/04/2024, , 07/24/2021, Additional history exists Zoster Vaccines Completed 07/04/2024, 05/13/2023 Hepatitis B Vaccines Completed 02/08/2025, 06/13/2023, 05/13/2023 HIB Vaccines Aged Out No longer [...] patient's age to complete this topic Meningococcal B Vaccine Aged Out No l onger eligible based on patient's age to complete [...] Procedure Name Priority Date/Time Associated Diagnosis Comments POCT GLYCATED HEMOGLOBIN, TOTAL Routine 02/19/2025 9:04 AM EDT Type 2 diabetes mellitus treated without insulin ([facility]) POCT GLUCOSE Routine 02/19/2025 9:03 AM EDT Type 2 diabetes mellitus treated without insulin ([facility]) OCT, RETINA - OD - RIGHT EYE Routine 02/05/2025 10:45 AM EDT Macular scar of right eye ALBUMIN, RANDOM URINE W/CREATININE Routine 07/04/2024 2:38 PM EST New onset type 2 diabetes mellitus ([facility]) LIPID PANEL, STANDARD Routine 11/29/2022 7:20 AM EDT from Last 3 Months or Most Recently Relevant to Health Maintenance Results * (ABNORMAL) POCT HGB A1C (02/19/2025 9:04 AM EDT) Hemoglobin A1C 6.7(A) 4.0 - 5.7 % QC Media Lot # [id number] Lot# Expiration Date Blood 02/19/2025 9:04 AM EDT us Vladimir Gasca MD POINT OF CARE TEST ENTER/EDIT OR DERABLES Final Result * POCT Glucose (02/19/2025 9:03 AM EDT) Glucose Blood, POC 103 60 - 200 mg/dL QC Media Lot # [id number] Lot# Expiration Date 103,025 Blood Capillary blood specimen / Unknown 02/19/2025 9:03 AM EDT us Vladimir Gasca MD POINT OF CARE TEST ENTER/EDIT OR DERABLES Final Result * OCT, Retina - OD - Right Eye (02/05/2025 10:45 AM EDT) Narrative Dai Gallegos, OD - 02/05/2025 10:45 AM EDT OCT RETINA INTERPRETATION Optical Coherence Tomography Interpretation Report Reliability: OD: SS 47 - adequate quality Measurements: Central subfoveal thickness OD: Unreliable due to inaccurate mapping of fovea due to extensive scar Test findings: OD: 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 No IRF/SRF. No CNVM. Baseline. 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 Monitor annually. us Dai Gallegos OD OPHTH TOMOGRAPHY Final Result * Albumin, Random Urine W/Creatinine (07/04/2024 2:38 PM EST) Creatinine, Urine 124.58 mg/dL [facility] Microalbumin Urine 16.0 mg/L [facility] Microalbum Creatinine Ratio Ur 12.8 <30 ug/mg cr [facility] Comment:Albumin/Creatinine R atio Reference Ranges: Normal: < 30 ug/mg creatinine Microalbuminuria: 30 - 300 ug/mg creatinineClinical Albuminuria: > 300 ug/mg creatinine Urine (Urine, Random) 07/04/2024 2:38 PM EST 07/04/2024 4:14 PM EST us Vladimir Gasca MD LAB URINE ORDERABLES Final Resul t [facility] [address] [place] [phone] * Lipid Panel, Standard (11/29/2022 7:20 AM EDT) Triglycerides 528 mg/dL [facility] Comment:Desirable Triglyceri de: less than 150 [...] than 400 mg/dl. HDL Cholesterol 36 mg/dL [facility] Comment:Desirable HDL: great er than 40 mg/dL Note: This HDL assay may give artificially low results in patients with liver disease. 11/29/2022 7:20 AM EDT 11/29/2022 7:20 AM EDT [facility] External Provider LAB BLO OD ORDERABLES Final Result [facility] [address] [place] [address] [phone] from Last 3 Months or Most Recently Relevant to Health Maintenance Insurance [facility] < 65 Care Teams Medical Assistant Relationship Specialty Start Date End Date Name, MD Vladimir [address] [place] [id number] PCP - General Internal Medicine 07/12/23
--- OUTSIDE RECORDS SUMMARY | 2025-02-25 13:34 | XMS_ITS | Clinical Summary ---
Author Organization [facility] Address [address] [place] [phone] Phone Care Team Providers Care Structural Engineering Technician Name Role Phone Name, Vladimir CRISOSTOMO Primary Care Provider [phone] Allergies No known active allergies Medications empagliflozin (JARDIANCE) 10 mg tablet Take 10 mg by mouth daily. Active cholecalciferol (VITAMIN D3) 2,000 unit capsule Take by mouth daily. Unsure on dose Active aspirin 81 mg chewable tablet Take 81 mg by mouth daily. Active metoprolol succinate (TOPROL-XL) 25 MG 24 hr tablet Take 25 mg by mouth daily. Patient unsure of dose Active cetirizine (ZYRTEC) 10 MG tablet Take 10 mg by mouth daily. Active Social History Tobacco Use Types Packs/Day Years Used Date Smoking Tobacco: Never Assessed Education Answer Date Recorded Are you interested in more education? Not on shonna e 09/20/2024 Are you concerned about learning? Not on file 09/20/2024 No 09/20/2024 No 09/20/2024 Digital Access Answer Date Recorded No 09/20/2024 No 09/20/2024 Reliable internet access at home? Not on file 09/20/2024 Device with a working camera? Not on file Intimate Partner Violence Answer Date R ecorded Are you denied basic needs s uch as food, clothing, or medical care? No 10/03/2024 In the past 12 months have y ou been in a relationship with a person who hurts, threatens, or tries to control you? No 10/03/2024 Are you denied basic needs s uch as food, clothing, or medical care? No 10/03/2024 In the past 12 months have y ou been in a relationship with a person who hurts, threatens, or tries to control you? No 10/03/2024 Sex and Gender Information Value Date Recorded Sex Assigned at Not on file Legal Sex Male 10:50 AM EST Gender Identity Not on file Sexual Orientation Not on file Last Filed Vital Signs Vital Sign Reading Time Taken Comments Blood Pressure 128/117 10/03/2024 12:47 PM EST Pulse 67 10/03/2024 8:00 AM EST Temperature - - Respiratory Rate 12 10/03/2024 8:00 AM EST Oxygen Saturation 97% 10/03/2024 1:45 PM EST Inhaled Oxygen Concentration - - Weight - - Height - - Body Mass Index - - Plan of Treatment Health Maintenance Due Date Last Done Comments DEPRESSION SCREENING 1979 SMOKING Hx and SMOKELESS TOB ACCO SCREENING 02/19/1980 HEPATITIS C SCREENING 1985 HIV ONE-TIME SCREENING (18-6 5 YEARS) 1985 COLOGUARD 02/19/2012 COLONOSCOPY 02/19/2012 COLORECTAL CANCER SCREENING 02/19/2012 FIT TEST 02/19/2012 FOBT 02/19/2012 SIGMOIDOSCOPY 02/19/2012 VIRTUAL COLONOSCOPY 02/19/2012 PNEUMOCOCCAL VACCINES (50+ y ears) (1 of 1 - PCV) 2017 ZOSTER VACCINES (1 of 2) 2017 COVID-19 VACCINE (1 - 2023-2 5 season) 2024 LIPID PANEL 11/30/2027 11/29/2022 Adult Td,Tdap Booster 05/13/2032 05/13/2022 HEPATITIS A VACCINES Aged Out No long er eligible based on patient's age to complete this topic HIB VACCINES Aged Out No longer eligi ble based on patient's age to complete this topic MENINGOCOCCAL VACCINES (ACWY) Aged Out No longer eligible based on patient's age to complete this topic MENINGOCOCCAL VACCINES (B) Aged Out N o longer eligible based on patient's age to complete this topic Medical Devices Implanted Type Area Family Protection Specialist Device Identifier Shelf Expiration Date Model / Serial / Lot Envelope Tyrx Cardiac Med Absorbable Antibacterial Sterile - [id number] Implanted:Qty: 1 on 10/03/2024 by Rohit Varela MD at [facility] Collagen Left: Chest [employer] [place] [id number] 06/29/2025 [id number] 2 / / [id number] Defibrillator Cardioverter Is1 Df4 [id number] Oketo Xt Dr Tyrese Mcclure Latex Free Titanium Polyurethane - [id number] Implanted:Qty: 1 on 10/03/2024 by Rohit Varela MD at [facility] ICD Left: Chest [employer] [place] [id number] 11/26/2025 [id number] / [id number] / Lead Cardioverter Defibrillator Sprint Quattro Securesilicone Endo Rv Active Screw [id number] - [id number] Implanted:Qty: 1 on 10/03/2024 by Rohit Varela MD at [facility] Lead Right: Right Ventricle [employer] [facility] [id number] 03/27/2026 [id number] / [id number] / Insurance [place] [id number] [facility] ONE CARE MEDICARE REPLACEMENT Advance Directives For more information, please contact: [phone] (9AM - 5PM [facility], Tuesday-Tuesday) * Full Code (Latest Code Status on File) Date Activated Date Inactivated Comments 10/03/2024 12:56 PM Question Answer Comments Code Status Confirmed With: Patient Care Teams Structural Engineering Technician Relationship Specialty Start Date End Date Name, MD Vladimir [address] [place] [address] PCP - General Internal Medicine 09/20/24 Additional Source Comments The information contained in this document represents components of the legal health record. It is not the complete legal health record.[facility]
--- OUTSIDE RECORDS SUMMARY | 2025-02-25 13:34 | XMS_ITS | Clinical Summary ---
Author Organization [facility] Address [address] [address] Care Team Providers Care Tripper Name Role Phone Manohar Moulton MD Primary Care Provider [phone] Social History Tobacco Use Types Packs/Day Years Used Date Smoking Tobacco: Never Assessed Sex and Gender Information Value Date Recorded Sex Assigned at Not on file Legal Sex Male 5:20 AM EST Gender Identity Not on file Sexual Orientation Not on file Last Filed Vital Signs Vital Sign Reading Time Taken Comments Blood Pressure 102/74 08/15/2019 11:00 AM EST Pulse 80 08/15/2019 11:00 AM EST Temperature - - Respiratory Rate 16 08/15/2019 11:00 AM EST Oxygen Saturation 98% 08/15/2019 11:00 AM EST Inhaled Oxygen Concentration - - Weight 108 kg (238 lb) 08/15/2019 11:00 AM EST Height 188 cm (6' 2 ) 08/15/2019 11:00 AM EST Body Mass Index 30.56 08/15/2019 11:00 AM EST Plan of Treatment Not on file Care Teams Tripper Relationship Specialty Start Date End Date Manohar Moulton MD [address] [address] PCP - General 09/04/21
== END 2025-02-25 13:34 | disposition home or self-care (01) ==
PROVIDERS: PCP Internal Medicine Geriatric Medicine; Visit Provider Internal Medicine Cardiovascular Disease
DX: I42.1 Obstructive hypertrophic cardiomyopathy (principal); Z95.810 Presence of automatic (implantable) cardiac defibrillator
CPT/HCPCS: 93283; 99214; G2211

== ENCOUNTER → 2025-02-25 12:54 | Outpatient (BNVA) | payer OTHER, SELFPAY | PROVIDERS: PCP Internal Medicine Geriatric Medicine; Visit Provider Internal Medicine Cardiovascular Disease | DX: Z95.810 Presence of automatic (implantable) cardiac defibrillator (principal); I42.1 Obstructive hypertrophic cardiomyopathy | CPT/HCPCS: 99212 ==

== ENCOUNTER → 2025-03-04 23:59 | Outpatient (BNV) | payer OTHER, SELFPAY ==
--- NOTE | 2025-03-05 11:38 | MHC.OFFVIS ---
Intake Visit Reasons: Remote device check- Medtronic Allergies prednisone (PREDNISONE) Allergy (Intermediate, Verified 06/01/24 09:50) BLEEDING PFSH Medical History Pacemaker (~04/2023) ICD (implantable cardioverter-defibrillator) in place Aortic stenosis (~06/2022) Hyperlipidemia Hypertrophic obstructive cardiomyopathy (HOCM) (~2018) LBBB (left bundle branch block) (~2018) Surgical History History of pacemaker (~04/2023) History of heart surgery (~12/2018) History of colonoscopy History of esophagogastroduodenoscopy (EGD) History of thumb surgery History of excision of epidermal inclusion cyst (~09/2021) Family History Father No problems noted. Mother No problems noted. Brother No problems noted. Sister No problems noted. Daughter Thyroid condition Son No problems noted. Social History Household Members: Spouse Housing: Apartment Do you presently have visiting nurse or other home services: No Alcohol intake: current Alcohol intake frequency: does not drink Comment: Indpendent Patient Tobacco Use Status: Current someday Tobacco user Tobacco use type: Cigarette Cigarettes Per Day: 5 service: No Office Procedures Cardiac Device Check Cardiac Device Check Details: Remote ICD report generated 03/04/2025. ICD function is okay [id number] Cardiac Interrogation, implant defibrillator w/interim Procedure code (CPT) selection complete Assessment & Plan Assessment & Plan (1) ICD (implantable cardioverter-defibrillator) in place: Comment: Dual-chamber Medtronic ICD in place in September 2024 for ventricular arrhythmias with prior history of hypertrophic cardiomyopathy with increased scar burden Code(s): Z95.810 - Presence of automatic (implantable) cardiac defibrillator Category: Medical Plan: See above Coding Level of Care Code Procedure Only Diagnoses ICD (implantable cardioverter-defibrillator) in place Z95.810 CPT Codes Cardiac Device Check - Cardiac Device 13: [id number] Cardiac Interrogation, implant defibrillator w/interim ([id number])
== END ==
PROVIDERS: PCP Internal Medicine Geriatric Medicine; Visit Provider Internal Medicine Cardiovascular Disease
DX: I42.2 Other hypertrophic cardiomyopathy (principal); Z95.810 Presence of automatic (implantable) cardiac defibrillator
CPT/HCPCS: 93295

== ENCOUNTER → 2025-03-04 23:59 | Outpatient (BNV) | payer OTHER, SELFPAY ==
--- NOTE | 2025-03-05 11:41 | MHC.OFFVIS ---
Intake Visit Reasons: Remote HF monitoring- Medtronic Allergies prednisone (PREDNISONE) Allergy (Intermediate, Verified 06/01/24 09:50) BLEEDING PFSH Medical History Pacemaker (~04/2023) ICD (implantable cardioverter-defibrillator) in place Aortic stenosis (~06/2022) Hyperlipidemia Hypertrophic obstructive cardiomyopathy (HOCM) (~2018) LBBB (left bundle branch block) (~2018) Surgical History History of pacemaker (~04/2023) History of heart surgery (~12/2018) History of colonoscopy History of esophagogastroduodenoscopy (EGD) History of thumb surgery History of excision of epidermal inclusion cyst (~09/2021) Family History Father No problems noted. Mother No problems noted. Brother No problems noted. Sister No problems noted. Daughter Thyroid condition Son No problems noted. Social History Household Members: Spouse Housing: Apartment Do you presently have visiting nurse or other home services: No Alcohol intake: current Alcohol intake frequency: does not drink Comment: Indpendent Patient Tobacco Use Status: Current someday Tobacco user Tobacco use type: Cigarette Cigarettes Per Day: 5 service: No Office Procedures Cardiac Device Check Cardiac Device Check Details: Remote heart failure report generated 03/04/2025. Heart failure parameters suggest elevated filling pressures. Will follow up with the patient [id number] Cardiac Device Interrogation, cardio physiologic monitor Procedure code (CPT) selection complete Assessment & Plan Assessment & Plan (1) ICD (implantable cardioverter-defibrillator) in place: Comment: Dual-chamber Medtronic ICD in place in September 2024 for ventricular arrhythmias with prior history of hypertrophic cardiomyopathy with increased scar burden Code(s): Z95.810 - Presence of automatic (implantable) cardiac defibrillator Category: Medical Plan: See above Coding Level of Care Code Complex EM visit Add On G2211 Diagnoses ICD (implantable cardioverter-defibrillator) in place Z95.810 CPT Codes Cardiac Device Check - Cardiac Device 15: [id number] Cardiac Device Interrogation, cardio physiologic monitor ([id number])
== END ==
PROVIDERS: PCP Internal Medicine Geriatric Medicine; Visit Provider Internal Medicine Cardiovascular Disease
DX: I42.2 Other hypertrophic cardiomyopathy (principal); Z95.810 Presence of automatic (implantable) cardiac defibrillator
CPT/HCPCS: 93297

== ENCOUNTER 2025-03-26 13:24 | Outpatient (AMB) | payer OTHER, SELFPAY ==
--- NOTE | 2025-03-26 13:30 | MHC.OFFVIS ---
Vital Signs 03/26/25 13:39 Height 6 ft 2 in Weight 215 lb BMI 27.6 BP 148/81 H Blood Pressure Location Lt brachial Position Sitting Pulse 71 Intake Visit Reasons: skin cyst middle back Intake Note: Patient is seen in office for evaluation of a cyst of the middle back. Pt c/o: onset for yrs, has this removed 4 yrs ago and came back a year after, larger than before, denies discharge, redness Brimming Machine Operator Required: No Accompanied by: Self / Same As Patient Allergies prednisone (PREDNISONE) Allergy (Intermediate, Verified 03/26/25 13:38) BLEEDING Medication List - Last Reconciled 03/26/25 by Rell Boykin MD aspirin 81 mg PO DAILY 90 days cetirizine 10 mg PO DAILY cholecalciferol (vitamin D3) 25 mcg PO DAILY cyanocobalamin (vitamin B-12) (Vitamin B-12) 1,000 mcg PO DAILY empagliflozin (Jardiance) 10 mg PO DAILY fluticasone propionate 50 mcg/actuation 1 spray intranasal DAILY PRN icosapent ethyl (Vascepa) 2 grams (2 x 1 gram) PO BID 30 days metformin 500 mg PO DAILY metoprolol succinate ER (Toprol XL) 100 mg PO DAILY rosuvastatin 20 mg PO BEDTIME sildenafil 100 mg PO ONCE PRN 30 days tadalafil 10 mg PO DAILY 90 days HPI Comments Details: 60-year-old male patient presenting with a recurrent sebaceous cyst of the midback. This was previously excised in 2021 but has now returned increased in size. He denies any bleeding or discharge from the site but does complain of some mild discomfort. He is requesting excision of this lesion. [facility] Medical History Pacemaker (~04/2023) ICD (implantable cardioverter-defibrillator) in place Aortic stenosis (~06/2022) Hyperlipidemia Hypertrophic obstructive cardiomyopathy (HOCM) (~2018) LBBB (left bundle branch block) (~2018) Surgical History History of pacemaker (~04/2023) History of heart surgery (~12/2018) History of colonoscopy History of esophagogastroduodenoscopy (EGD) History of thumb surgery History of excision of epidermal inclusion cyst (~09/2021) Family History Father No problems noted. Mother No problems noted. Brother No problems noted. Sister No problems noted. Daughter Thyroid condition Son No problems noted. Social History Household Members: Spouse Housing: Apartment Do you presently have visiting nurse or other home services: No Alcohol intake: current Alcohol intake frequency: does not drink Comment: Indpendent Patient Tobacco Use Status: Current someday Tobacco user Tobacco use type: Cigarette Cigarettes Per Day: 5 service: No Review of Systems Const All systems reviewed & are unremarkable except as noted in HPI and below Physical Exam Vital Signs: Last Vital Signs Pulse 71 03/26/25 13:39 BP 148/81 H 03/26/25 13:39 BMI result Body Mass Index 27.6 Const General: cooperative and no acute distress Nutritional Appearance: well nourished Orientation/consciousness: patient oriented x3 Limitations: no limitations HEENT Head: Yes normocephalic and Yes atraumatic Ears: hearing grossly normal bilaterally Resp Effort & Inspection: normal respiratory effort, no audible wheezes, no cough and no respiratory distress Cardio Jugular venous distension: no JVD GI Inspection: Yes normal to inspection Back/Spine/Pelvis Back/spine/pelvis image:  1. 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 Skin Other: Warm, dry, no rash Neuro General: patient oriented x3 Extrem General: Yes no clubbing, cyanosis or edema Assessment & Plan Assessment & Plan (1) Epidermal inclusion cyst: Code(s): L72.0 - Epidermal cyst Category: Medical Plan 60-year-old male patient with an epidermal inclusion cyst recurrence in the midback. Patient was requesting excision of this lesion. After discussion of the procedure, risks, and alternatives, he consents to excision of the midback epidermal inclusion cyst. He will be scheduled for follow-up appointment for this procedure. Coding Level of Care Code New Pt Level 4 (89837) Diagnoses Epidermal inclusion cyst L72.0
[2025-03-26 13:39] VITALS: BP 148/81; PULSE 71; BMI 27.6
--- OUTSIDE RECORDS SUMMARY | 2025-03-26 14:17 | XMS_ITS | Encounter Summary ---
Author Organization [facility] Address [address] [place] [address] Phone Care Team Providers Care Termite Exterminator Name Role Phone Name, Vladimir CRISOSTOMO Primary Care Provider [phone] Encounter Details Date Type Department Care Team ([facility] st Contact Info) Description 10/03/2024 Procedure Pass [facility] [address] [place] [address] Social History Tobacco Use Types Packs/Day Years [...] on file Sexual Orientation Not on file documented as of this encounter Plan of Treatment Not on file documented as of this encounter Visit Diagnoses Not on filedocumented in this encounter Care Teams Termite Exterminator Relationship Specialty Start Date End Date Name, MD Vladimir [address] [place] [address] PCP - General Internal Medicine 09/20/24 documented as of this encounter Additional Source Comments The information contained in this document represents components of the legal health record. It is not the complete legal health record.[facility]
--- OUTSIDE RECORDS SUMMARY | 2025-03-26 14:17 | XMS_ITS | Encounter Summary ---
Author Organization [employer] Address [address] [facility] 7 [place] [address] Care Team Providers Care Commercial Title Examiner Name Role Phone Name, Vladimir CRISOSTOMO Primary Care Provider [phone] Reason for Visit * Reason Onset Date Comments Med Refill 10/09/2024 Encounter Details Date Type Department Care Team ([facility] Contact Info) Description 10/09/2024 Telephone [facility] [address] [place], [place] [phone] Name, MD Vladimir [address] [place] [address] Med Refill Social History Tobacco Use Types [...] 3:51 PM EDT Medication was sent to [facility][id number] on 09/04/24 with 11 refills. * Telephone Encounter - Wayne Raya - 10/09/2024 3:44 PM EDT TC from pt requesting medication refill. Medications needing refill : empagliflozin (Jardiance) 10 MG To be sent to: [facility]/pharmacy #[id number] - [address] ] documented in this encounter Plan of Treatment Upcoming Encounters Date Type Department Care Team (Late st Contact Info) Description 06/06/2025 9:45 AM EST Office Visit [facility] [address] [place] [address] Name, MD Vladimir [address] [place] [address] documented as of this encounter Visit Diagnoses Not on filedocumented in this encounter Additional Health Concerns Assessment Noted Time PHQ-9 Depression Total Score: 19 024 2:48 PM EST documented as of this encounter Care Teams Commercial Title Examiner Relationship Specialty Start Date End Date Name, MD Vladimir [address] [place] [address] PCP - General Internal Medicine 07/12/23 documented as of this encounter
--- OUTSIDE RECORDS SUMMARY | 2025-03-26 14:17 | XMS_ITS | Clinical Summary ---
Author Organization [facility] Address [address] [place] [address] Phone Care Team Providers Care Nursing Home Physician Name Role Phone Name, Vladimir CRISOSTOMO Primary Care Provider [phone] Allergies No known active allergies Medications empagliflozin [...] this topic Medical Devices Implanted Type Area Mechanical Maintenance Supervisor Device Identifier Shelf Expiration Date Model / Serial / Lot Envelope Tyrx Cardiac Med Absorbable Antibacterial Sterile - [id number] Implanted:Qty: 1 on 10/03/2024 by Rohit Varela MD at [facility] Collagen Left: Chest [employer] [id number] 06/29/2025 [id number] 2 / / [id number] Defibrillator Cardioverter Is1 Df4 [id number] [place] Xt Dr Tyrese Mcclure Latex Free Titanium Polyurethane - [id number] Implanted:Qty: 1 on 10/03/2024 by Rohit Varela MD at [facility] ICD Left: Chest [employer] [id number] 11/26/2025 [id number] / [id number] / Lead Cardioverter Defibrillator Sprint Quattro Securesilicone Endo Rv Active Screw [id number] - [id number] Implanted:Qty: 1 on 10/03/2024 by Rohit Varela MD at [facility] Lead Right: Right Ventricle [employer] [facility] [id number] 03/27/2026 [id number] / [id number] / Insurance [place] [id number] [facility] ONE CARE MEDICARE REPLACEMENT Advance Directives For more information, please contact: [phone] (9AM - 5PM Leana/[facility], Tuesday-Tuesday) * Full Code (Latest Code Status on File) Date Activated Date Inactivated Comments 10/03/2024 12:56 PM Question Answer Comments Code Status Confirmed With: Patient Care Teams Nursing Home Physician Relationship Specialty Start Date End Date Name, MD Vladimir [address] [place] [address] PCP - General Internal Medicine 09/20/24 Additional Source Comments The information contained in this document represents components of the legal health record. It is not the complete legal health record.[facility]
--- OUTSIDE RECORDS SUMMARY | 2025-03-26 14:17 | XMS_ITS | Encounter Summary ---
Author Organization [employer] [facility] Address [address] [place] [address] 7 [place] [address] Care Team Providers Care Alternative Dispute Resolution Mediator Name Role Phone Yvonne Landry Primary Care Provider Liyah Caroline Quesada GYM ATTENDANT Primary Care Provider [phone] NameVladimir MD Primary Care Provider [phone] Name, Vladimir CRISOSTOMO Primary Care Provider [phone] Encounter Details Date Type Department Care Team (Late st Contact Info) Description 04/29/2023 Abstract [facility] [address] [place] [address] Yvonne Landry FNP Social History Tobacco Use Types Packs/Day Years [...] Description 06/06/2025 9:45 AM EST Office Visit [facility] [address] [place] [address] [phone] Name, MD Vladimir [address] [place] [address] documented as of this encounter Visit Diagnoses Not on filedocumented in this encounter Care Teams Alternative Dispute Resolution Mediator Relationship Specialty Start Date End Date Yvonne Landry FNP PCP - General Family Medicine 02/09/23 05/09/23 Caroline Huerta NP [address] [place] [address] PCP - General Family Medicine 05/10/23 07/03/23 Vladimir Gasca MD [address] [place] [address] PCP - General Internal Medicine 07/04/23 07/11/23 Vladimir Gasca MD [address] [place] [address] PCP - General Internal Medicine 07/12/23 documented as of this encounter
--- OUTSIDE RECORDS SUMMARY | 2025-03-26 14:17 | XMS_ITS | Encounter Summary ---
Author Organization [employer] Address [address] [facility] 7t [place] [address] Care Team Providers Care Naphthalene Operator Name Role Phone Name, Vladimir CRISOSTOMO Primary Care Provider [phone] Reason for Visit * Reason Comments Med Refill Encounter Details Date Type Department Care Team ([facility] Contact Info) Description 08/07/2023 Refill [facility] [address] [place], [place] [phone] Name, MD Vladimir [address] [place] [address] Social History Tobacco Use Types Packs/Day Years Used Date Smoking Tobacco: Some Days Cigarettes 0.3 40 Alcohol Use Standard Drinks/Week Comments Yes 0 (1 standard drink = 0.6 oz pur e alcohol) socially Depression Answer Date Recorded Patient Health Questionnaire-9 Score 0 05/13/2023 Housing Stability Answer Date Recorded What is your housing situation today? I have delio slainas 05/23/[address] you li [...] Description 06/06/2025 9:45 AM EST Office Visit [facility] [address] [place] [address] Name, MD Vladimir [address] [place] [address] documented as of this encounter Visit Diagnoses Not on filedocumented in this encounter Additional Health Concerns Assessment Noted Time PHQ-9 Depression Total Score: 0 05/13/20 9:43 AM EDT documented as of this encounter Care Teams Naphthalene Operator Relationship Specialty Start Date End Date Name, MD Vladimir [address] [place] [address] PCP - General Internal Medicine 07/12/23 documented as of this encounter
--- OUTSIDE RECORDS SUMMARY | 2025-03-26 14:17 | XMS_ITS | Encounter Summary ---
Author Organization [employer] Address 75 [facility] 7t [place] [address] Care Team Providers Care Developmental Mathematics Instructor Name Role Phone Yvonne Landry Primary Care Provider Liyah Caroline Quesada NP Primary Care Provider [phone] Name, Vladimir CRISOSTOMO Primary Care Provider [phone] Name, Vladimir CRISOSTOMO Primary Care Provider [phone] Reason for Visit * Reason Comments Med Refill Encounter Details Date Type Department Care Team (Late st Contact Info) Description 05/09/2023 Refill [facility] [address] [place] [address] Yvonne Landry FNP Social History Tobacco Use [...] Description 06/06/2025 9:45 AM EST Office Visit [facility] [address] [place] [phone] Vladimir Gasca MD [address] [place] [address] documented as of this encounter Visit Diagnoses Not on filedocumented in this encounter Care Teams Developmental Mathematics Instructor Relationship Specialty Start Date End Date Yvonne Landry FNP PCP - General Family Medicine 02/09/23 05/09/23 Caroline Huerta NP [address] [place] [address] PCP - General Family Medicine 05/10/23 07/03/23 Vladimir Gasca MD [address] [place] [address] PCP - General Internal Medicine 07/04/23 07/11/23 Vladimir Gasca MD [address] [place] [address] PCP - General Internal Medicine 07/12/23 documented as of this encounter
--- OUTSIDE RECORDS SUMMARY | 2025-03-26 14:17 | XMS_ITS | Clinical Summary ---
Author Organization [email or web address] Address [address] [place] [address] 7t [place] [address] Care Team Providers Care Clinical Trainer Name Role Phone Name, Vladimir CRISOSTOMO Primary Care Provider [phone] Allergies Active Allergy Reactions Criticality Noted Date Comments Metformin 07/04/2024 Constipation, GI distress Prednisone 07/10/2019 Medications Lancets (OneTouch Delica Plus [id number]) [facility] TEST BLOOD SUGAR ONCE DAILY 100 each 11 3 Active Blood Glucose Monitoring Suppl (ONE TOUCH ULTRA 2) w/Device kit 1 each in the morning. TEST BLOOD SUGAR ONCE DAILY 1 kit 3 Active varenicline (Chantix) 1 MG tablet Take 1 tablet (1 mg) by mouth 2 times daily. 56 tablet 1 3 Active cetirizine (ZyrTEC) 10 MG tabletIndications:S easonal allergic rhinitis, unspecified trigger TAKE 1 TABLET BY MOUTH EVERY DAY IN THE MORNING 90 tablet 1 4 Active metoprolol succinate XL (Toprol-XL) 100 MG 24 hr tablet 5 Active aspirin 81 MG EC tabletIndications:H ypertrophic cardiomyopathy (CMS/HCC) Take 1 tablet (81 mg) by mouth Once per day. Take 1 tablet by mouth 1 (one) time each day. 30 tablet 3 5 Active cholecalciferol (Vitamin D3) 25 MCG (1000 UT) tabletIndications:V itamin D deficiency TAKE 1 TABLET (25 MCG) BY MOUTH IN THE MORNING 90 tablet 1 5 Active cyanocobalamin (Vitamin B-12) 1000 MCG tablet Take 1 tablet (1,000 mcg) by mouth Once per day. 90 tablet 1 5 Active Vascepa 1 g capsuleIndications: Hypertrophic cardiomyopathy (CMS/HCC) Take 2 capsules (2 g) by mouth 2 times daily. 360 capsule 1 5 Active fluticasone (Flonase) 50 MCG/ACT nasal sprayIndications:Se asonal allergies Shake gently. Before first use, prime pump. After use, clean tip and replace cap.ADMINIST ER 2 SPRAYS INTO EACH NOSTRIL ONCE PER DAY. SHAKE GENTLY. BEFORE FIRST USE, PRIME PUMP. 48 mL 5 Active rosuvastatin (Crestor) 20 MG tablet TAKE 1 TABLET BY MOUTH EVERY DAY 90 tablet 1 5 Active famotidine (Pepcid) 20 MG tabletIndications:G astroesophageal reflux disease without esophagitis Take 1 tablet (20 mg) by mouth Once per day. 30 tablet 3 5 Active empagliflozin (Jardiance) 10 MG Take 1 tablet (10 mg) by mouth Once per day. 30 tablet 11 5 02/20/20 26 Active Active Problems Problem Noted Date Diagnosed Date NSVT (nonsustained ventricular tachycardia) 10/2024 Pacemaker 05/13/2023 Overview (05/13/2023): Complete heart block New onset type 2 diabetes mellitus 05/13/2023 Obstructive sleep apnea syndrome 07/08/2022 Left bundle branch block 07/10/2019 Hypertrophic cardiomyopathy 09/19/2018 Overview (02/19/2025): Prior history of hypertrophic cardiomyopathy status post septal myectomy 2018 at [facility] with improved symptoms. 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 Follows at [facility] cardi Nicotine dependence 06/19/2018 Tobacco dependence syndrome 05/18/2018 Overweight 05/18/2018 Resolved Problems Problem Noted Date Diagnosed Date Resolved Date Rectal hemorrhage 09/19/2018 05/13/2023 Alcohol abuse 05/18/2018 05/13/2023 Encounters Date Type Department Care Team Description 03/19/2025 Telephone [facility] [address] [place] [address] Marisol Rod MA oct recalls 02/23/2025 Refill [facility] [address] [place] [address] Vladimir Gasca MD Hypertrophic cardiomyopathy ([facility]/HCC) 02/19/2025 9:00 AM EDT Office Visit [facility] [address] [place] [address] Vladimir Gasca MD Type 2 diabetes mellitus treated without insulin ([facility]) (Primary Dx); History of colonoscopy; Skin cyst 02/19/2025 Telephone [facility] [address] [place] [address] Marisol Rod MA [facility] called to GI 02/19/2025 Travel 02/12/2025 Travel 02/08/2025 11:00 AM EDT Clinical Support [address] [address] Tiffanie Pulliam RN Encounter for immunization 02/08/2025 Travel 02/07/2025 Travel 02/06/2025 Telephone [facility] [address] [place] [address] Vladimir Gasca MD Immunizations 02/05/2025 9:00 AM EDT Office Visit [facility] [address] [place] [address] Dai Gallegos, [place] Type 2 diabetes mellitus without ophthalmic manifestations ([facility]) (Primary Dx); Macular scar of right eye; Presbyopia 02/05/2025 Travel 01/15/2025 Telephone [facility] [address] [place] [address] Vladimir Gasca MD Durable Medical Equipment (PT came in requesting a left ankle brace due to needing extra support from breaking ankle. As well as a Right knee brace due to acl.) 01/15/2025 Refill [facility] [address] [place] [address] Vladimir Gasca MD Gastroesophageal reflux disease without esophagitis 01/15/2025 Telephone [facility] [address] [place] [address] Vladimir Gasca MD Durable Medical Equipment (PT came in requesting a left ankle brace due to needing extra support from breaking ankle. As well as a Right knee brace due to acl. ) from Last 3 Months Immunizations Immunization Administration [...] 02/19/2025 9:02 AM EDT Plan of Treatment Upcoming Encounters Date Type Department Care Team (Late st Contact Info) Description 06/06/2025 9:45 AM EST Office Visit [facility] [address] [place] [address] Name, MD Vladimir [address] [place] [address] Health Maintenance Due Date Last Done Comments [...] Screening 02/19/2026 02/19/2025 Eye Exam 02/05/2027 02/05/2025, 07/0 03/2025, 02/05/2025, Additional history exists DTaP/Tdap/Td Vaccines [...] Type 2 diabetes mellitus treated without insulin ([facility]) POCT GLUCOSE Routine 02/19/2025 9:03 AM EDT Type 2 diabetes mellitus treated without insulin (CMS/HCC) OCT, RETINA - OD - RIGHT EYE [...] specimen / Unknown 02/19/2025 9:03 AM EDT Vladimir Gasca MD POINT OF CARE TEST [...] chorioretinal scar right eye (OD). Monitor annually. Dai Gallegos OD OPHTH TOMOGRAPHY Final Result * Albumin, Random Urine W/Creatinine (07/04/2024 2:38 PM EST) Creatinine, Urine 124.58 mg/dL [facility] Microalbumin Urine 16.0 mg/L [facility] Microalbum Creatinine Ratio Ur 12.8 <30 ug/mg cr [facility] Comment:Albumin/Creatinine R atio Reference Ranges: Normal: < 30 ug/mg creatinine Microalbuminuria: 30 - 300 ug/mg creatinineClinical Albuminuria: > 300 ug/mg creatinine Urine (Urine, Random) 07/04/2024 2:38 PM EST 07/04/2024 4:14 PM EST Vladimir Gasca MD LAB URINE ORDERABLES Final Resul t [facility] [address] [place] [phone] * Lipid Panel, Standard (11/29/2022 7:20 AM EDT) Triglycerides 528 mg/dL [facility] Comment:Desirable Triglyceri de: less than 150 mg/dLBorderline High Triglyceride 150-199 mg/dLHigh Triglyceride: 200-499 mg/dLVery High Triglyceride: greater than or equal to 5OO mg/dL Cholesterol 224 mg/dL [facility] Comment:Desirable Cholestero l: less than 200 mg/dLBorderline High Cholesterol: 200-239 mg/dLHigh Cholesterol: greater than 239 mg/dL LDL Cholesterol Calculated TNP mg/dl [facility] Comment:Unable to calculate the LDL. The formula of Friedwald,Justin, and Elio is only valid if the triglycerides areless than 400 mg/dl. HDL Cholesterol 36 mg/dL [facility] Comment:Desirable HDL: great er than 40 mg/dL Note: This HDL assay may give artificially low results in patients with liver disease. 11/29/2022 7:20 AM EDT 11/29/2022 7:20 AM EDT [facility] External Provider LAB BLO OD ORDERABLES Final Result [facility] [address] [place] [address] [phone] from Last 3 Months or Most Recently Relevant to Health Maintenance Insurance [facility] ONE CARE < 65 [place] [id number] Care Teams Clinical Trainer Relationship Specialty Start Date End Date Name, MD Vladimir [address] [place] [address] PCP - General Internal Medicine 07/12/23
--- OUTSIDE RECORDS SUMMARY | 2025-03-26 14:17 | XMS_ITS | Encounter Summary ---
Author Organization [employer] Address [address] [facility] 7t [place] [address] Care Team Providers Care Manager Social Work Name Role Phone Name, Vladimir CRISOSTOMO Primary Care Provider [phone] Reason for Visit * Reason Comments Med Refill Encounter Details Date Type Department Care Team ([facility] Contact Info) Description 02/23/2025 Refill [facility] [address] [place], [place] [phone] Name, MD Vladimir [address] [place] [address] Hypertrophic cardiomyopathy (CMS/HCC) Social History Tobacco Use Types Packs/Day Years [...] Description 06/06/2025 9:45 AM EST Office Visit [facility] [address] [place] [address] Name, MD Vladimir [address] [place] [address] documented as of this encounter Visit Diagnoses Diagnosis Hypertrophic cardiomyopathy (CMS/HCC) Other primary cardiomyopathies documented in this encounter Additional Health Concerns Assessment Noted Time PHQ-9 Depression Total Score: 19 024 2:48 PM EST documented as of this encounter Care Teams Manager Social Work Relationship Specialty Start Date End Date Name, MD Vladimir [address] [place] [address] PCP - General Internal Medicine 07/12/23 documented as of this encounter
== END 2025-03-26 13:52 | disposition home or self-care (01) ==
LOC: HO.HGS 13:24
PROVIDERS: PCP Internal Medicine Geriatric Medicine; Visit Provider Surgery
DX: L72.0 Epidermal cyst (principal)
CPT/HCPCS: 99204

== ENCOUNTER → 2025-03-26 13:24 | Outpatient (BNVA) | payer OTHER, SELFPAY | PROVIDERS: PCP Internal Medicine Geriatric Medicine; Visit Provider Surgery | DX: L72.0 Epidermal cyst (principal) | CPT/HCPCS: 99202 ==

== ENCOUNTER → 2025-04-10 10:50 | Outpatient (REF) | payer OTHER, SELFPAY ==
--- NOTE | 2025-04-10 10:54 | CA_ITS ---
Transthoracic Echocardiogram Patient (Last, First, Middle): Bang Jarvis, Gender: Male Date of : 1965 Age: 60 Procedure Date: 04/10/2025 Procedure Type: Transthoracic Echocardiogram Location: OP Height: 187.96 cm Weight: 97.52 kg BSA: 2.24 m2 Heart Rate: bpm BP: 110 / 66 mmHg Rn Placement: TO/RC Referring MD: Benjamín Malcolm MD Oil Mixer: Benjamín Malcolm MD Symptoms: I42.1 - Obstructive hypertrophic cardiomyopathy Study Quality: Fair/Contrast ECG Rhythm: Sinus Conclusions: - 1. Normal LV ejection fraction of 65-70% with severe asymmetric septal hypertrophy with ache in his of basal septum consistent with prior surgery with mildly increased gradient across LVOT suggestive of obstructive physiology of mild degree with impaired relaxation filling pattern 2. Mildly dilated left atrium 3. Severe mitral annular calcification 4. Normal RV systolic pressure 5. No gross pericardial effusion Findings Procedure Information Contrast agent, definity, is being given per protocol without apparent complications. Left Ventricle Normal left ventricular size and systolic function. There is mildly increased left ventricular wall thickness. The visually estimated ejection fraction is between 65-70%. There is paradoxical septal motion consistent with post operative status and paradoxical septal motion consistent with a right ventricular pacemaker. Spectral Doppler is indicative of an impaired relaxation filling pattern. There is severe septal asymmetric hypertrophy. mildly increased gradient across LVOT suggestive of obstructive physiology with some dynamic component with increased gradient with Valsalva Wall Motion Rest Echo Findings The basal anteroseptal segment is akinetic. All other scored wall segments showed normal motion. Right Ventricle Mildly increased right ventricular cavity size. There is normal right ventricular systolic function. There is an ICD wire seen in the right ventricle. Atria The left atrium is mildly dilated. There is no evidence of interatrial shunt. The right atrium is likely dilated. Aortic Valve Normal aortic valve structure and function. There is no aortic valve stenosis. There is no aortic valve regurgitation. Mitral Valve There is mild anterior and severe posterior mitral leaflet thickening. There is severe mitral annular calcification. There is trace mitral valve regurgitation. There is no mitral valve stenosis. Pulmonic Valve The pulmonic valve was not well visualized. Tricuspid Valve Normal tricuspid valve structure. There is trace tricuspid valve regurgitation. The right ventricular systolic pressure is normal. The right ventricular systolic pressure is 28 mmHg. Normal right atrial pressure. There is no evidence of pulmonary hypertension. Great Vessels All visible segments of the aorta are normal in size. The pulmonary artery was not well visualized. There is no dilatation of the ascending aorta measuring 3.10 cm. Venous The inferior vena cava is normal in size and collapses greater than 50% with inspiration. Pericardium/Pleural There is no evidence of pericardial effusion. Prior Study Comparison No significant change compared to prior study dated: 08/16/2023. Measurements 2D Linear Measurements IVSd: 1.69 0.6-0.9/0.6-1.0 cm LVIDd: 5.39 3.9-5.3/4.2-5.9 cm LVIDd Index: 2.41 2.4-3.2/2.2-3.1 cm/m2 LVIDs: 3.74 2.0-3.6 cm LVPWd: 1.08 0.7-1.1 cm LV Mass: 402.22 67-162/88-224 g LV Mass Index: 179.56 43-95/49-115 g/m2 LVOT Diam: 2.00 3.0+(-)1.3 cm 2D Systolic Function EF 4C: 72.90 >55% EF 2C: 59.00 >55% EF BiP: 67.50 >55% Mitral Valve MV VTI: 0.44 MV Pk Vernon: 1.69 MV Mn Vernon: 1.11 MV Pk Grad: 11.00 MV Mn Grad: 6.00 MV Pk E: 1.16 MV PK A: 1.49 MV Decel Time: 127.00 E/A: 0.80 E'Lateral: 5.11 E'Medial: 4.24 E/E' Med: 27.40 E/E' Lat: 22.70 PHT: 37.00 MVA PHT: 5.95 MVA Continuity: 3.08 Decel [place]: 9.14 Aortic Valve AoV Pk Vernon: 2.08 AoV Mn Vernon: 1.56 AoV VTI: 0.39 AoV Pk Grad: 17.00 Aov Mn Grad: 11.00 ROBERT Cont.VTI: 3.46 LVOT LVOT Pk Vernon: 2.06 LVOT Mn Vernon: 1.39 LVOT VTI: 0.43 LVOT Pk Grad: 17.00 LVOT Mn Grad: 9.00 LVOT Diam: 2.00 LVOT Area: 3.14 Diastolic Function MV Pk E: 1.16 MV Pk A: 1.49 E/A: 0.80 E'Medial: 4.24 E/E' Med: 27.40 E' Laterial: 5.11 E/E' Lat: 22.70 Right Ventricle TAPSE (mm): 24.90 TVS' Vernon: 11.40 Tricuspid Valve TR Pk Vernon: 2.50 TR Pk Grad: 25.00 RA Press: 3.00 RVSP: 28.00 Great Vessels Aorta Sinus of Valsalva: 3.50 2.0-3.5 cm Ao Asc: 3.10 2.1-3.4 cm Pulmonary Veins Pulm Vein S/D 1.30 Pulmonary Valve PV Pk Vernon: 1.30 Peak PV Grad: 7.00 Updated in Other Vendor System with Status of Final Benjamín Malcolm MD electronically signed on 04/11/2025 11:42:48 AM with status of Final
--- OUTSIDE RECORDS SUMMARY | 2025-04-10 13:42 | XMS_ITS | Encounter Summary ---
Author Organization [employer] Address [address] [facility] 7t [place] [address] Care Team Providers Care Figurine Maker Name Role Phone Name, Vladimir CRISOSTOMO Primary Care Provider [phone] Reason for Visit * Reason Comments Med Refill Encounter Details Date Type Department Care Team ([facility] Contact Info) Description 02/23/2025 Refill [facility] [address] [place], [place] [phone] Name, MD Vladimir [address] [place] [address] Hypertrophic cardiomyopathy (CMS/HCC) Social History Tobacco Use [...] Description 06/06/2025 9:45 AM EST Office Visit [facility] [address] [place] [address] Name, MD Vladimir [address] [place] [address] documented as of this encounter Visit Diagnoses Diagnosis Hypertrophic cardiomyopathy (CMS/HCC) Other primary cardiomyopathies documented in this encounter Additional Health Concerns Assessment Noted Time PHQ-9 Depression Total Score: 19 024 2:48 PM EST documented as of this encounter Care Teams Figurine Maker Relationship Specialty Start Date End Date Name, MD Vladimir [address] [place] [address] PCP - General Internal Medicine 07/12/23 documented as of this encounter
--- OUTSIDE RECORDS SUMMARY | 2025-04-10 13:42 | XMS_ITS | Clinical Summary ---
Author Organization [facility] Address [address] [address] Care Team Providers Care Air Boatswain Name Role Phone Manohar Moulton MD Primary Care Provider [phone] Social History Tobacco Use Types Packs/Day Years [...] of Treatment Not on file Care Teams Air Boatswain Relationship Specialty Start Date End Date Manohar Moulton MD [address] [address] PCP - General 09/04/21
--- OUTSIDE RECORDS SUMMARY | 2025-04-10 13:42 | XMS_ITS | Encounter Summary ---
Author Organization [employer] Address [address] [place] [address] 7 [place] [address] Care Team Providers Care Tea And Spice Supervisor Name Role Phone Yvonne Landry Primary Care Provider Liyah Caroline Quesada IT SOFTWARE ENGINEER Primary Care Provider [phone] NameVladimir MD Primary Care Provider [phone] Name, Vladimir CRISOSTOMO Primary Care Provider [phone] Encounter Details Date Type Department Care Team (Late st Contact Info) Description 04/29/2023 Abstract [facility] [address] [place] [address] Yvonne Landry FNP Social History Tobacco Use [...] 06/06/2025 9:45 AM EST Office Visit [facility] [address] [place] [address] [phone] Name, MD Vladimir [address] [place] [address] documented as of this encounter Visit Diagnoses Not on filedocumented in this encounter Care Teams Tea And Spice Supervisor Relationship Specialty Start Date End Date Yvonne Landry FNP PCP - General Family Medicine 02/09/23 05/09/23 Caroline Huerta NP [address] [place] [address] PCP - General Family Medicine 05/10/23 07/03/23 Vladimir Gasca MD [address] [place] [address] PCP - General Internal Medicine 07/04/23 07/11/23 Vladimir Gasca MD [address] [place] [address] PCP - General Internal Medicine 07/12/23 documented as of this encounter
--- OUTSIDE RECORDS SUMMARY | 2025-04-10 13:42 | XMS_ITS | Encounter Summary ---
Author Organization [employer] Address [address] [facility] 7 [place] [address] Care Team Providers Care Box Loader Name Role Phone Name, Vladimir CRISOSTOMO Primary Care Provider [phone] Reason for Visit * Reason Onset Date Comments Med Refill 10/09/2024 Encounter Details Date Type Department Care Team ([facility] Contact Info) Description 10/09/2024 Telephone [facility] [address] [place], [place] [phone] Name, MD Vladimir [address] [place] [address] Med Refill Social History Tobacco Use Types [...] 3:51 PM EDT Medication was sent to [facility][id number] on 09/04/24 with 11 refills. * Telephone Encounter - Wayne Raya - 10/09/2024 3:44 PM EDT TC from pt requesting medication refill. Medications needing refill : empagliflozin (Jardiance) 10 MG To be sent to: [facility]/pharmacy #[id number] - [address] ] documented in this encounter Plan of Treatment Upcoming Encounters Date Type Department Care Team (Late st Contact Info) Description 06/06/2025 9:45 AM EST Office Visit [facility] [address] [place] [address] Name, MD Vladimir [address] [place] [address] documented as of this encounter Visit Diagnoses Not on filedocumented in this encounter Additional Health Concerns Assessment Noted Time PHQ-9 Depression Total Score: 19 024 2:48 PM EST documented as of this encounter Care Teams Box Loader Relationship Specialty Start Date End Date Name, MD Vladimir [address] [place] [address] PCP - General Internal Medicine 07/12/23 documented as of this encounter
--- OUTSIDE RECORDS SUMMARY | 2025-04-10 13:42 | XMS_ITS | Clinical Summary ---
Author Organization [employer] Address [address] [place] [address] 7t [place] [address] Care Team Providers Care Rug Inspector Name Role Phone Name, Vladimir CRISOSTOMO Primary Care Provider [phone] Allergies Active Allergy Reactions Criticality Noted Date Comments Metformin 07/04/2024 Constipation, GI distress Prednisone 07/10/2019 Medications Lancets (OneTouch Delica Plus [id number]) [facility] TEST BLOOD SUGAR ONCE DAILY 100 each [...] daily. 360 capsule 1 11/28/19 25 Active rosuvastatin (Crestor) 20 MG [...] per day. 30 tablet 11 02/20/20 25 2025 Active fluticasone (Flonase) 50 MCG/ACT nasal sprayIndications: Seasonal allergies ADMINISTER 2 SPRAYS INTO EACH NOSTRIL ONCE PER DAY. SHAKE GENTLY. BEFORE FIRST USE, PRIME PUMP. 48 mL 03/29/20 25 Active fluticasone (Flonase) 50 MCG/ACT nasal sprayIndications: Seasonal allergies Shake gently. Before first use, prime pump. After use, clean tip and replace cap.ADMINISTE R 2 SPRAYS INTO EACH NOSTRIL ONCE PER DAY. SHAKE GENTLY. BEFORE FIRST USE, PRIME PUMP. 48 mL 11/28/19 25 2024 Discontinued Active Problems Problem Noted Date Diagnosed Date NSVT (nonsustained ventricular tachycardia) 10/2024 Pacemaker 05/13/2023 Overview (05/13/2023): Complete heart block New onset type 2 diabetes mellitus 05/13/2023 Obstructive sleep apnea syndrome 07/08/2022 Left bundle branch block 07/10/2019 Hypertrophic cardiomyopathy 09/19/2018 Overview (02/19/2025): Prior history of hypertrophic cardiomyopathy status post septal myectomy 2018 at [facility] with improved symptoms. 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 Follow[facility] at [facility] cardi Nicotine dependence 06/19/2018 Tobacco dependence syndrome 05/18/2018 Overweight 05/18/2018 Resolved Problems Problem Noted Date Diagnosed Date Resolved Date Rectal hemorrhage 09/19/2018 05/13/2023 Alcohol abuse 05/18/2018 05/13/2023 Encounters Date Type Department Care Team Description 03/29/2025 Refill [facility] [address] [place] [address] Vladimir Gasca MD Seasonal allergies 03/19/2025 Telephone [facility] [address] [place] [address] Marisol Rod MA oct recalls 02/23/2025 Refill [facility] [address] [place] [address] Vladimir Gasca MD Hypertrophic cardiomyopathy ([facility]/HCC) 02/19/2025 9:00 AM EDT Office Visit [facility] [address] [place] [address] Vladimir Gasca MD Type 2 diabetes mellitus treated without insulin ([facility]) (Primary Dx); History of colonoscopy; Skin cyst 02/19/2025 Telephone [facility] [address] [place] [address] [facility] called to GI 02/19/2025 Travel 02/12/2025 Travel 02/08/2025 11:00 AM EDT Clinical Support [facility] [address] [place] [address] Tiffanie Pulliam, RN Encounter for immunization 02/08/2025 Travel 02/07/2025 Travel 02/06/2025 Telephone [facility] [address] [place] [address] Vladimir Gasca MD Immunizations 02/05/2025 9:00 AM EDT Office Visit [facility] OPTOMETRY [address] [place] [address] Dai Gallegos, [place] Type 2 diabetes mellitus without ophthalmic manifestations ([facility]) (Primary Dx); Macular scar of right eye; Presbyopia 02/05/2025 Travel 01/15/2025 Telephone [facility] [address] [place] [address] Vladimir Gasca MD Durable Medical Equipment (PT came in requesting a left ankle brace due to needing extra support from breaking ankle. As well as a Right knee brace due to acl.) 01/15/2025 Refill [facility] [address] [place] [address] Name, MD Vladimir Gastroesophageal reflux disease without esophagitis 01/15/2025 Telephone [facility] [address] [place] [address] Name, MD Vladimir Durable Medical Equipment (PT came in requesting [...] Description 06/06/2025 9:45 AM EST Office Visit [facility] [address] [place] [address] Name, MD Vladimir [address] [place] [address] Health Maintenance Due Date Last Done Comments [...] Type 2 diabetes mellitus treated without insulin ([facility]/HCC) POCT GLUCOSE Routine 02/19/2025 9:03 AM EDT Type 2 diabetes mellitus treated without insulin ([facility]) OCT, RETINA - OD - RIGHT EYE Routine 02/05/2025 10:45 AM EDT Macular scar of right eye ALBUMIN, RANDOM URINE W/CREATININE Routine 07/04/2024 2:38 PM EST New onset type 2 diabetes mellitus ([facility]) LIPID PANEL, STANDARD Routine 11/29/2022 7:20 AM [...] Media Lot # [id number] Lot# Expiration Date Blood Capillary blood specimen / Unknown 02/19/2025 [...] 2:38 PM EST) Creatinine, Urine 124.58 mg/dL [facility] Microalbumin Urine 16.0 mg/L [facility] Microalbum Creatinine Ratio Ur 12.8 <30 ug/mg cr [facility] Comment:Albumin/Creatinine R atio Reference Ranges: Normal: < 30 ug/mg creatinine Microalbuminuria: 30 - 300 ug/mg creatinineClinical Albuminuria: > 300 ug/mg creatinine Urine (Urine, Random) 07/04/2024 2:38 PM EST 07/04/2024 4:14 PM EST Vladimir Gasca MD LAB URINE ORDERABLES Final Resul t [facility] [address] [place] [phone] * Lipid Panel, Standard (11/29/2022 7:20 AM EDT) Triglycerides 528 mg/dL [facility] Comment:Desirable Triglyceri de: less than 150 mg/dLBorderline High Triglyceride 150-199 mg/dLHigh Triglyceride: 200-499 mg/dLVery High Triglyceride: greater than or equal to 5OO mg/dL Cholesterol 224 mg/dL [facility] Comment:Desirable Cholestero l: less than 200 mg/dLBorderline High Cholesterol: 200-239 mg/dLHigh Cholesterol: greater than 239 mg/dL LDL Cholesterol Calculated TNP mg/dl [facility] Comment:Unable to calculate the LDL. The formula of Friedwald,Justin, and Elio is only valid if the triglycerides areless than 400 mg/dl. HDL Cholesterol 36 mg/dL [facility] Comment:Desirable HDL: great er than 40 mg/dL Note: This HDL assay may give artificially low results in patients with liver disease. 11/29/2022 7:20 AM EDT 11/29/2022 7:20 AM EDT us [facility] External Provider LAB BLO OD ORDERABLES Final Result [facility] [address] [place] [address] [phone] from Last 3 Months or Most Recently Relevant to Health Maintenance Insurance [employer] < 65 [place] [id number] Care Teams Rug Inspector Relationship Specialty Start Date End Date Name, MD Vladimir [address] [place] [address] PCP - General Internal Medicine 07/12/23
--- OUTSIDE RECORDS SUMMARY | 2025-04-10 13:42 | XMS_ITS | Encounter Summary ---
Author Organization [email or web address] Address [address] [facility] 7t [place] [address] Care Team Providers Care Systems Program Manager Name Role Phone Name, Vladimir CRISOSTOMO Primary Care Provider [phone] Reason for Visit * Reason Comments Med Refill Encounter Details Date Type Department Care Team ([facility] Contact Info) Description 08/07/2023 Refill [facility] [address] [place], [place] [phone] Name, MD Vladimir [address] [place] [address] Social History Tobacco Use Types Packs/Day Years [...] Description 06/06/2025 9:45 AM EST Office Visit [facility] [address] [place] [address] Name, MD Vladimir [address] [place] [address] documented as of this encounter Visit Diagnoses Not on filedocumented in this encounter Additional Health Concerns Assessment Noted Time PHQ-9 Depression Total Score: 0 05/13/20 9:43 AM EDT documented as of this encounter Care Teams Systems Program Manager Relationship Specialty Start Date End Date Name, MD Vladimir [address] [place] [address] PCP - General Internal Medicine 07/12/23 documented as of this encounter
--- OUTSIDE RECORDS SUMMARY | 2025-04-10 13:42 | XMS_ITS | Encounter Summary ---
Author Organization [employer] Address [address] [facility] 7t [place] [address] Care Team Providers Care Tipple Supervisor Name Role Phone Yvonne Landry Primary Care Provider Liyah Caroline Quesada NP Primary Care Provider [phone] Name, Vladimir CRISOSTOMO Primary Care Provider [phone] Name, Vladimir CRISOSTOMO Primary Care Provider [phone] Reason for Visit * Reason Comments Med Refill Encounter Details Date Type Department Care Team (Late st Contact Info) Description 05/09/2023 Refill [facility] [address] [place] [address] Yvonne Landry FNP Social History Tobacco Use [...] Description 06/06/2025 9:45 AM EST Office Visit [facility] [address] [place] [phone] Vladimir Gasca MD [address] [place] [address] documented as of this encounter Visit Diagnoses Not on filedocumented in this encounter Care Teams Tipple Supervisor Relationship Specialty Start Date End Date Yvonne Lnadry FNP PCP - General Family Medicine 02/09/23 05/09/23 Caroline Huerta NP [address] [place] [address] PCP - General Family Medicine 05/10/23 07/03/23 Vladimir Gasca MD [address] [place] [address] PCP - General Internal Medicine 07/04/23 07/11/23 Vladimir Gasca MD [address] [place] [address] PCP - General Internal Medicine 07/12/23 documented as of this encounter
--- OUTSIDE RECORDS SUMMARY | 2025-04-10 13:43 | XMS_ITS | Encounter Summary ---
Author Organization [facility] Address [address] [place] [phone] Phone Care Team Providers Care Marine Insurance Claim Examiner Name Role Phone Name, Vladimir CRISOSTOMO Primary Care Provider [phone] Encounter Details Date Type Department Care Team ([facility] st Contact Info) Description 10/03/2024 Procedure Pass [facility] [address] [place] [address] Social History Tobacco Use Types Packs/Day Years [...] on filedocumented in this encounter Care Teams Marine Insurance Claim Examiner Relationship Specialty Start Date End Date Name, MD Vladimir [address] [place] [address] PCP - General Internal Medicine 09/20/24 documented as of this encounter Additional Source Comments The information contained in this document represents components of the legal health record. It is not the complete legal health record.[facility]
--- OUTSIDE RECORDS SUMMARY | 2025-04-10 13:43 | XMS_ITS | Clinical Summary ---
Author Organization [facility] Address [address] [place] [address] Phone Care Team Providers Care Communications Representative Name Role Phone Name, Vladimir CRISOSTOMO Primary Care Provider [phone] Allergies No known active allergies Medications empagliflozin [...] 2017 ZOSTER VACCINES (1 of 2) 2017 INFLUENZA VACCINE (#1) 2025 COVID-19 VACCINE (1 - 2023-2 5 season) 2025 LIPID PANEL 11/30/2027 11/29/2022 Adult Td,Tdap Booster [...] this topic Medical Devices Implanted Type Area Quality Control Coordinator Device Identifier Shelf Expiration Date Model / Serial / Lot Envelope Tyrx Cardiac Med Absorbable Antibacterial Sterile - [id number] Implanted:Qty: 1 on 10/03/2024 by Rohit Varela MD at [facility] Collagen Left: Chest [employer] [place] [id number] 06/29/2025 [id number] 2 / / [id number] Defibrillator Cardioverter Is1 [id number] Delta Xt Dr Tyrese Mcclure Latex Free Titanium Polyurethane - [id number] Implanted:Qty: 1 on 10/03/2024 by Rohit Varela MD at [facility] ICD Left: Chest [employer] [id number] 11/26/2025 [id number] 4 / [id number] / Lead Cardioverter Defibrillator Sprint Quattro Securesilicone Endo Rv Active Screw [id number] - [id number] Implanted:Qty: 1 on 10/03/2024 by Rohit Varela MD at [facility] Lead Right: Right Ventricle [employer] [facility] [id number] 03/27/2026 [id number] / [id number] / Insurance MEDICARE REPLACEMENT Member Subscriber Plan / Payer (Ef fective 2020-Present) Name:Bang Jarvis Relation to Subscriber:Self Name:Bang Jarvis Payer ID:[id number] (IC) Group ID:[id number] Type:Medicare [address] [facility] CARE MEDICARE REPLACEMENT [facility] ONE CARE MEDICARE REPLACEMENT Advance Directives For more information, please contact: [phone] (9AM - 5PM [facility], Tuesday-Tuesday) * Full Code (Latest Code Status on File) Date Activated Date Inactivated Comments 10/03/2024 12:56 PM Question Answer Comments Code Status Confirmed With: Patient Care Teams Communications Representative Relationship Specialty Start Date End Date Name, MD Vladimir [address] [place] [address] PCP - General Internal Medicine 09/20/24 Additional Source Comments The information contained in this document represents components of the legal health record. It is not the complete legal health record.[facility]
== END ==
LOC: HO.CARD 10:50
PROVIDERS: Visit Provider Internal Medicine Cardiovascular Disease
DX: I42.1 Obstructive hypertrophic cardiomyopathy (principal)
CPT/HCPCS: 93306; Q9957

== ENCOUNTER → 2025-04-10 10:54 | Outpatient (BNV) | payer OTHER, SELFPAY | PROVIDERS: Visit Provider Internal Medicine Cardiovascular Disease | DX: I42.1 Obstructive hypertrophic cardiomyopathy (principal); I34.81 Nonrheumatic mitral (valve) annulus calcification; Z98.890 Other specified postprocedural states | CPT/HCPCS: 93306 ==

== ENCOUNTER → 2025-04-14 23:59 | Outpatient (BNV) | payer OTHER, SELFPAY ==
--- NOTE | 2025-04-17 13:12 | A.OFFVIS_ITS ---
Intake Visit Reasons: Remote HF monitoring- Medtronic Allergies prednisone (PREDNISONE) Allergy (Intermediate, Verified 04/16/25 11:35) BLEEDING PFSH Medical History Pacemaker (~04/2023) ICD (implantable cardioverter-defibrillator) in place Aortic stenosis (~06/2022) Hyperlipidemia Hypertrophic obstructive cardiomyopathy (HOCM) (~2018) LBBB (left bundle branch block) (~2018) Surgical History History of pacemaker (~04/2023) History of heart surgery (~12/2018) History of colonoscopy History of esophagogastroduodenoscopy (EGD) History of thumb surgery History of excision of epidermal inclusion cyst (~09/2021) Family History Father No problems noted. Mother No problems noted. Brother No problems noted. Sister No problems noted. Daughter Thyroid condition Son No problems noted. Social History Household Members: Spouse Housing: Apartment Do you presently have visiting nurse or other home services: No Alcohol intake: current Alcohol intake frequency: does not drink Comment: Indpendent Patient Tobacco Use Status: Current someday Tobacco user Tobacco use type: Cigarette Cigarettes Per Day: 5 service: No Office Procedures Cardiac Device Check Cardiac Device Check Details: Remote heart failure report her 04/14/2025. Heart failure parameters are stable [id number] Cardiac Device Interrogation, cardio physiologic monitor Procedure code (CPT) selection complete Assessment & Plan Assessment & Plan (1) ICD (implantable cardioverter-defibrillator) in place: Comment: Dual-chamber Medtronic ICD in place in September 2024 for ventricular arrhythmias with prior history of hypertrophic cardiomyopathy with increased scar burden Code(s): Z95.810 - Presence of automatic (implantable) cardiac defibrillator Category: Medical Plan: See above Coding Level of Care Code Procedure Only Diagnoses ICD (implantable cardioverter-defibrillator) in place Z95.810 CPT Codes Cardiac Device Check - Cardiac Device 15: [id number] Cardiac Device Interroga tion, cardio physiologic monitor ([id number])
== END ==
PROVIDERS: Visit Provider Internal Medicine Cardiovascular Disease
DX: I42.2 Other hypertrophic cardiomyopathy (principal); Z95.810 Presence of automatic (implantable) cardiac defibrillator
CPT/HCPCS: 93297

== ENCOUNTER 2025-04-16 11:33 | Outpatient (AMB) | payer OTHER, SELFPAY ==
--- NOTE | 2025-04-16 11:32 | A.OFFVIS_ITS ---
Intake Visit Reasons: follow up Intake Note: patient presents today for: follow up urology medications: vit b12, sildenafil, tadalafil blood thinners: aspirin Senior Information Security Analyst Required: No Accompanied by: Self / Same As Patient Allergies prednisone (PREDNISONE) Allergy (Intermediate, Verified 04/16/25 11:35) BLEEDING HPI Comments Details: Bang is a very pleasant male. He is a patient of Dr. Landry. He is seen for the following urologic conditions. - erectile dysfunction - diabetes Telemedicine Evaluation 15 min Consultation [employer] Alida Video Follow-up from daily tadalafil with on demand sildenafil Continues to be effective Prescription refilled Follow-up next year Erectile dysfunction Progressive - Minimal erections in the mornings Has had prior cardiac procedure for HOCM and left ventricular hypertrophy Partial response with tadalafil 10 mg daily Concurrent diagnoses include dyslipidemia and diabetes - medications include medium intensity rosuvastatin, metoprolol Labs - 11/22 T 500 P 0.3 PFSH Medical History Pacemaker (~04/2023) ICD (implantable cardioverter-defibrillator) in place Aortic stenosis (~06/2022) Hyperlipidemia Hypertrophic obstructive cardiomyopathy (HOCM) (~2018) LBBB (left bundle branch block) (~2018) Surgical History History of pacemaker (~04/2023) History of heart surgery (~12/2018) History of colonoscopy History of esophagogastroduodenoscopy (EGD) History of thumb surgery History of excision of epidermal inclusion cyst (~09/2021) Family History Father No problems noted. Mother No problems noted. Brother No problems noted. Sister No problems noted. Daughter Thyroid condition Son No problems noted. Social History Household Members: Spouse Housing: Apartment Do you presently have visiting nurse or other home services: No Alcohol intake: current Alcohol intake frequency: does not drink Comment: Indpendent Patient Tobacco Use Status: Current someday Tobacco user Tobacco use type: Cigarette Cigarettes Per Day: 5 service: No Review of Systems Const All systems reviewed & are unremarkable except as noted in HPI and below Reports no additional complaints Resp Reports no additional complaints GI Reports no additional complaints Reports as per HPI Musc Reports no additional complaints Physical Exam Telemedicine evaluation Appropriate responses Regular breathing rate and rhythm HEENT Head: Yes normal to inspection Ears: hearing grossly normal bilaterally Eyes General: appearance normal, both eyes and all related structures Neck Neck: Yes normal visual inspection Chest Chest palpation & inspection: normal inspection of the chest Resp Effort & Inspection: normal respiratory effort and able to speak in complete sentences Telehealth Telehealth Telehealth Platform: [employer] Location of provider rendering services: practice address Location of patient: address on file Patient Identification confirmed using: Name, : Yes Telehealth method: video Patient verbally consented to treatment: Yes Patient verbally consented to billing insurance company: Yes Patient informed of any privacy concerns related to visit: Yes Minutes spent on Phone/Video with Pt.: 15 Assessment & Plan Assessment & Plan (1) Erectile dysfunction: Code(s): N52.9 - Male erectile dysfunction, unspecified Category: Medical Qualifiers: Erectile dysfunction type: vasculogenic Vasculogenic erectile dysfunction type: due to arterial insufficiency Qualified Code(s): N52.01 - Erectile dysfunction due to arterial insufficiency Plan Twelve month follow-up office Medications: Refilled sildenafil administer 60 minutes before intended activity 100 mg PO ONCE PRN 30 tabs 1RF sexual activity 30 days E11.69 - Type 2 diabetes mellitus with other specified complication, N52.1 - Erectile dysfunction due to diseases classified elsewhere tadalafil Take daily Reeder patient $34 BIN [facility] Group [facility] DR33 [id number] 10 mg PO DAILY 90 tabs 1RF sexual activity 90 days N52.01 - Erectile dysfunction due to arterial insufficiency Patient Instructions: This note is constructed using voice recognition software. While every effort has been made to ensure accuracy financial brokers errors may have been included. Imaging studies, laboratory and physical exam results were discussed and reviewed in detail. No major barriers to patient understanding were identified. An opportunity to ask questions regarding the treatment plan was provided. All questions were answered. The patient expressed understanding and agreement with the above treatment plan. The patient is aware they should contact our office by phone for worsening of their current condition or the appearance of new urologic symptoms. Compliance is encouraged with any medications and followup testing that is ordered. It is a privilege to participate in the urologic care of your patient. If you have any questions or concerns regarding treatment for the above conditions, or other urologic issues, please do not hesitate to contact me. The office telephone contact is [phone]. Sincerely, Dr Scottie Angel MD, ALIDA [facility] - Urology Compassionate Specialist Care for the Genitourinary System Coding Level of Care Code Tele Est Pt Level 3 (32718) Complex EM visit Add On G2211 Diagnoses Erectile dysfunction due to arterial insufficiency N52.01 Erectile dysfunction type: vasculogenic Vasculogenic erectile dysfunction type: due to arterial insufficiency
--- OUTSIDE RECORDS SUMMARY | 2025-04-16 15:43 | XMS_ITS | Encounter Summary ---
Author Organization [employer] Address [address] [place] [address] 7 [place] [address] Care Team Providers Care Floorworker Lasting Name Role Phone Yvonne Landry Primary Care Provider Liyah Caroline Quesada SEWER PIPE OFFBEARER Primary Care Provider [phone] NameVladimir MD Primary Care Provider [phone] Name, Vladimir CRISOSTOMO Primary Care Provider [phone] Encounter Details Date Type Department Care Team (Late st Contact Info) Description 04/29/2023 Abstract [facility] [address] [place] [address] Yvonne Landry FNP Social History Tobacco Use [...] Description 06/06/2025 9:45 AM EST Office Visit [facility] [address] [place] [address] [phone] Name, MD Vladimir [address] [place] [address] documented as of this encounter Visit Diagnoses Not on filedocumented in this encounter Care Teams Floorworker Lasting Relationship Specialty Start Date End Date Yvonne Landry FNP PCP - General Family Medicine 02/09/23 05/09/23 Caroline Huerta NP [address] [place] [address] PCP - General Family Medicine 05/10/23 07/03/23 Vladimir Gasca MD [address] [place] [address] PCP - General Internal Medicine 07/04/23 07/11/23 Vladimir Gasca MD [address] [place] [address] PCP - General Internal Medicine 07/12/23 documented as of this encounter
--- OUTSIDE RECORDS SUMMARY | 2025-04-16 15:43 | XMS_ITS | Encounter Summary ---
Author Organization [employer] Address [address] [facility] 7 [place] [address] Care Team Providers Care Clinical Support Nurse Name Role Phone Name, Vladimir CRISOSTOMO Primary Care Provider [phone] Reason for Visit * Reason Onset Date Comments Med Refill 10/09/2024 Encounter Details Date Type Department Care Team ([facility] Contact Info) Description 10/09/2024 Telephone [facility] [address] [place], [place] [phone] Name, MD Vladimir [address] [place] [address] Med Refill Social History Tobacco Use Types [...] 3:51 PM EDT Medication was sent to [id number] on 09/04/24 with 11 refills. * Telephone Encounter - Wayne Raya - 10/09/2024 3:44 PM EDT TC from pt requesting medication refill. Medications needing refill : empagliflozin (Jardiance) 10 MG To be sent to: [facility]/pharmacy #[id number] - [address] ] documented in this encounter Plan of Treatment Upcoming Encounters Date Type Department Care Team (Late st Contact Info) Description 06/06/2025 9:45 AM EST Office Visit [facility] [address] [place] [address] Name, MD Vladimir [address] [place] [address] documented as of this encounter Visit Diagnoses Not on filedocumented in this encounter Additional Health Concerns Assessment Noted Time PHQ-9 Depression Total Score: 19 024 2:48 PM EST documented as of this encounter Care Teams Clinical Support Nurse Relationship Specialty Start Date End Date Name, MD Vladimir [address] [place] [address] PCP - General Internal Medicine 07/12/23 documented as of this encounter
--- OUTSIDE RECORDS SUMMARY | 2025-04-16 15:43 | XMS_ITS | Clinical Summary ---
Author Organization [facility] Address [address] [place] [address] Phone Care Team Providers Care Turbine Operator Name Role Phone Name, Vladimir CRISOSTOMO Primary Care Provider [phone] Allergies No known active allergies Medications empagliflozin [...] this topic Medical Devices Implanted Type Area Hydraulic Boom Operator Device Identifier Shelf Expiration Date Model / Serial / Lot Envelope Tyrx Cardiac Med Absorbable Antibacterial Sterile - [id number] Implanted:Qty: 1 on 10/03/2024 by Rohit Varela MD at [facility] Collagen Left: Chest [employer] [id number] 06/29/2025 [id number] 2 / / [id number] Defibrillator Cardioverter Is1 Df4 [id number] Wheeler Xt Dr Tyrese Mcclure Latex Free Titanium Polyurethane - [id number] Implanted:Qty: 1 on 10/03/2024 by Rohit Varela MD at [facility] ICD Left: Chest [employer] [id number] 11/26/2025 [id number] / [id number] / Lead Cardioverter Defibrillator Sprint Quattro Securesilicone Endo Rv Active Screw [id number] - [id number] Implanted:Qty: 1 on 10/03/2024 by Rohit Varela MD at [facility] Lead Right: Right Ventricle [employer] [facility] [id number] 03/27/2026 [id number] / [id number] / Insurance MEDICARE REPLACEMENT Member Subscriber Plan / Payer (Ef fective 2020-Present) Name:Bang Jarvis Relation to Subscriber:Self Name:Bang Jarvis Payer ID:[id number] (IC) Group ID:[id number] Type:Medicare [address] [facility] CARE MEDICARE REPLACEMENT [facility] CARE MEDICARE REPLACEMENT Advance Directives For more information, please contact: [phone] (9AM - 5PM [facility], Tuesday-Tuesday) * Full Code (Latest Code Status on File) Date Activated Date Inactivated Comments 10/03/2024 12:56 PM Question Answer Comments Code Status Confirmed With: Patient Care Teams Turbine Operator Relationship Specialty Start Date End Date Name, MD Vladimir [address] [place] [address] PCP - General Internal Medicine 09/20/24 Additional Source Comments The information contained in this document represents components of the legal health record. It is not the complete legal health record.[facility]
--- OUTSIDE RECORDS SUMMARY | 2025-04-16 15:43 | XMS_ITS | Encounter Summary ---
Author Organization [employer] Address [address] [facility] 7t [place] [address] Care Team Providers Care Laboratory Equipment Installer Name Role Phone Yvonne Landry Primary Care Provider Liyah Caroline Quesada NP Primary Care Provider [phone] Name, Vladimir CRISOSTOMO Primary Care Provider [phone] Name, Vladimir CRISOSTOMO Primary Care Provider [phone] Reason for Visit * Reason Comments Med Refill Encounter Details Date Type Department Care Team (Late st Contact Info) Description 05/09/2023 Refill [facility] [address] [place] [address] Yvonne Landry FNP Social History Tobacco Use [...] Description 06/06/2025 9:45 AM EST Office Visit [facility] [address] [place] [address] Vladimir Gasca MD [address] [place] [address] documented as of this encounter Visit Diagnoses Not on filedocumented in this encounter Care Teams Laboratory Equipment Installer Relationship Specialty Start Date End Date Yvonne Landry FNP PCP - General Family Medicine 02/09/23 05/09/23 Caroline Huerta NP [address] [place] [address] PCP - General Family Medicine 05/10/23 07/03/23 Vladimir Gasca MD [address] [place] [address] PCP - General Internal Medicine 07/04/23 07/11/23 Vladimir Gasca MD [address] [place] [address] PCP - General Internal Medicine 07/12/23 documented as of this encounter
--- OUTSIDE RECORDS SUMMARY | 2025-04-16 15:43 | XMS_ITS | Encounter Summary ---
Author Organization [employer] Address [address] [facility] 7t [place] [address] Care Team Providers Care Shredded Filler Machine Wrapper Layer Name Role Phone Name, Vladimir CRISOSTOMO Primary Care Provider [phone] Reason for Visit * Reason Comments Med Refill Encounter Details Date Type Department Care Team ([facility] Contact Info) Description 08/07/2023 Refill [facility] [address] [place], [place] [phone] Name, MD Vladimir [address] [place] [address] Social History Tobacco Use Types Packs/Day Years [...] Description 06/06/2025 9:45 AM EST Office Visit [facility] [address] [place] [address] Name, MD Vladimir [address] [place] [address] documented as of this encounter Visit Diagnoses Not on filedocumented in this encounter Additional Health Concerns Assessment Noted Time PHQ-9 Depression Total Score: 0 05/13/20 9:43 AM EDT documented as of this encounter Care Teams Shredded Filler Machine Wrapper Layer Relationship Specialty Start Date End Date Name, MD Vladimir [address] [place] [address] PCP - General Internal Medicine 07/12/23 documented as of this encounter
--- OUTSIDE RECORDS SUMMARY | 2025-04-16 15:43 | XMS_ITS | Encounter Summary ---
Author Organization [employer] Address [address] [facility] 7t [place] [address] Care Team Providers Care Sap Bw Developer Name Role Phone Name, Vladimir CRISOSTOMO Primary Care Provider [phone] Reason for Visit * Reason Comments Med Refill Encounter Details Date Type Department Care Team ([facility] Contact Info) Description 02/23/2025 Refill [facility] [address] [place], [place] [phone] Name, MD Vladimir [address] [place] [address] Hypertrophic cardiomyopathy (CMS/HCC) Social History Tobacco Use [...] Description 06/06/2025 9:45 AM EST Office Visit [facility] [address] [place] [address] Name, MD Vladimir [address] [place] [address] documented as of this encounter Visit Diagnoses Diagnosis Hypertrophic cardiomyopathy (CMS/HCC) Other primary cardiomyopathies documented in this encounter Additional Health Concerns Assessment Noted Time PHQ-9 Depression Total Score: 19 024 2:48 PM EST documented as of this encounter Care Teams Sap Bw Developer Relationship Specialty Start Date End Date Name, MD Vladimir [address] [place] [address] PCP - General Internal Medicine 07/12/23 documented as of this encounter
--- OUTSIDE RECORDS SUMMARY | 2025-04-16 15:43 | XMS_ITS | Encounter Summary ---
Author Organization [employer] Address [address] [facility] 7t [place] [address] Care Team Providers Care Hot Mill Tin Roller Name Role Phone Name, Vladimir CRISOSTOMO Primary Care Provider [phone] Reason for Visit * Reason Comments Med Refill Encounter Details Date Type Department Care Team ([facility] Contact Info) Description 04/13/2025 Refill [facility] [address] [place], [place] [phone] Name, MD Vladimir [address] [place] [address] Gastroesophageal reflux disease without esophagitis Social History Tobacco Use Types Packs/Day Years [...] 06/06/2025 9:45 AM EST Office Visit [facility] [address] [place] [address] Name, MD Vladimir [address] [place] [address] documented as of this encounter Visit Diagnoses Diagnosis Gastroesophageal reflux disease without esophagitis Esophageal reflux documented in this encounter Additional Health Concerns Assessment Noted Time PHQ-9 Depression Total Score: 19 024 2:48 PM EST documented as of this encounter Care Teams Hot Mill Tin Roller Relationship Specialty Start Date End Date NameVladimir MD [address] [place] [address] PCP - General Internal Medicine 07/12/23 documented as of this encounter
--- OUTSIDE RECORDS SUMMARY | 2025-04-16 15:43 | XMS_ITS | Encounter Summary ---
Author Organization [facility] Address [address] [place] [address] Phone Care Team Providers Care Auto Painter Helper Name Role Phone Name, Vladimir CRISOSTOMO Primary Care Provider [phone] Encounter Details Date Type Department Care Team ([facility] st Contact Info) Description 10/03/2024 Procedure [facility] [address] [place] [address] Social History Tobacco Use Types Packs/Day Years [...] on filedocumented in this encounter Care Teams Auto Painter Helper Relationship Specialty Start Date End Date Name, MD Vladimir [address] [place] [address] PCP - General Internal Medicine 09/20/24 documented as of this encounter Additional Source Comments The information contained in this document represents components of the legal health record. It is not the complete legal health record.[facility]
--- OUTSIDE RECORDS SUMMARY | 2025-04-16 15:43 | XMS_ITS | Clinical Summary ---
Author Organization [facility] Address [address] [address] Care Team Providers Care Adult Ministries Director Name Role Phone Manohar Moulton MD Primary Care Provider [phone] Social History Tobacco Use Types Packs/Day Years [...] of Treatment Not on file Care Teams Adult Ministries Director Relationship Specialty Start Date End Date Manohar Moulton MD [address] [address] PCP - General 09/04/21
--- OUTSIDE RECORDS SUMMARY | 2025-04-16 15:43 | XMS_ITS | Clinical Summary ---
Author Organization [employer] Address [address] [place] [address] 7[address] [place] [address] Care Team Providers Care Radio Television Technical Director Name Role Phone Name, Vladimir CRISOSTOMO Primary Care Provider [phone] Allergies Active Allergy Reactions Criticality Noted Date Comments Metformin 07/04/2024 Constipation, GI distress Prednisone 07/10/2019 Medications Lancets (OneTouch Delica Plus [id number]) [facility] TEST BLOOD SUGAR ONCE DAILY 100 each [...] DAY 90 tablet 1 12/04/19 25 Active empagliflozin (Jardiance) 10 MG Take 1 tablet (10 mg) by mouth Once per day. 30 tablet 11 02/20/20 25 2025 Active fluticasone (Flonase) 50 MCG/ACT nasal sprayIndications: Seasonal allergies ADMINISTER 2 SPRAYS INTO EACH NOSTRIL ONCE PER DAY. SHAKE GENTLY. BEFORE FIRST USE, PRIME PUMP. 48 mL 03/29/20 25 Active famotidine (Pepcid) 20 MG tabletIndications :Gastroesophageal reflux disease without esophagitis TAKE 1 TABLET BY MOUTH EVERY DAY 90 tablet 04/15/20 25 Active fluticasone (Flonase) 50 MCG/ACT nasal sprayIndications: Seasonal allergies Shake gently. Before first use, prime pump. After use, clean tip and replace cap.ADMINISTE R 2 SPRAYS INTO EACH NOSTRIL ONCE PER DAY. SHAKE GENTLY. BEFORE FIRST USE, PRIME PUMP. 48 mL 11/28/19 25 2024 Discontinued famotidine (Pepcid) 20 MG tabletIndications :Gastroesophageal reflux disease without esophagitis Take 1 tablet (20 mg) by mouth Once per day. 30 tablet 3 01/16/20 25 2024 Discontinued Active Problems Problem Noted Date Diagnosed Date NSVT (nonsustained ventricular tachycardia) 10/2024 Pacemaker 05/13/2023 Overview (05/13/2023): Complete heart block New onset type 2 diabetes mellitus 05/13/2023 Obstructive sleep apnea syndrome 07/08/2022 Left bundle branch block 07/10/2019 Hypertrophic cardiomyopathy 09/19/2018 Overview (02/19/2025): Prior history of hypertrophic cardiomyopathy status post septal myectomy 2018 at [facility] with improved symptoms. 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 Follows at [facility] cardi Nicotine dependence 06/19/2018 Tobacco dependence syndrome 05/18/2018 Overweight 05/18/2018 Resolved Problems Problem Noted Date Diagnosed Date Resolved Date Rectal hemorrhage 09/19/2018 05/13/2023 Alcohol abuse 05/18/2018 05/13/2023 Encounters Date Type Department Care Team Description 04/13/2025 Refill [facility] MEDICINE [address] [place] [address] Vladimir Gasca MD Gastroesophageal reflux disease without esophagitis 03/29/2025 Refill [facility] MEDICINE [address] [place] [address] Vladimir Gasca MD Seasonal allergies 03/19/2025 Telephone [facility] MEDICINE [address] [place] [address] Marisol Rod MA oct recalls 02/23/2025 Refill [facility] MEDICINE [address] [place] [address] Vladimir Gasca MD Hypertrophic cardiomyopathy ([facility]) 02/19/2025 9:00 AM EDT Office Visit [facility] MED[facility]INE [address] [place] [address] Vladimir Gasca MD Type 2 diabetes mellitus treated without insulin ([facility]) (Primary Dx); History of colonoscopy; Skin cyst 02/19/2025 Telephone [facility] MEDICINE [address] [place] [address] Marisol Rod MA [facility] called to GI 02/19/2025 Travel 02/12/2025 Travel 02/08/2025 11:00 AM EDT Clinical Support [facility] MEDICINE [address] [place] [address] Tiffanie Pulliam, RN Encounter for immunization 02/08/2025 Travel 02/07/2025 Travel 02/06/2025 Telephone [facility] MEDICINE [address] [place] [address] Vladimir Gasca MD Immunizations 02/05/2025 9:00 AM EDT Office Visit [facility] OPTOMETRY [address] [place] [address] Dai Gallegos OD Type 2 diabetes mellitus without ophthalmic manifestations ([facility]) (Primary Dx); Macular scar of right eye; Presbyopia 02/05/2025 Travel 01/15/2025 Telephone [facility] MEDICINE [address] [place] [address] NameVladimir MD Durable Medical Equipment (PT came in requesting a left ankle brace due to needing extra support from breaking ankle. As well as a Right knee brace due to acl.) 01/15/2025 Refill [facility] MEDICINE [address] [place] [address] Vladimir Gasca MD Gastroesophageal reflux disease without esophagitis 01/15/2025 Telephone [facility] MEDICINE [address] [place], [place] [phone] NameVladimir MD Durable Medical Equipment (PT came in [...] Description 06/06/2025 9:45 AM EST Office Visit [facility] MEDICINE [address] [place] [address] Name, MD Vladimir [address] [place] [address] Health Maintenance Due Date Last Done Comments [...] Screening 02/19/2026 02/19/2025 Eye Exam 02/05/2027 02/05/2025, 0703/2025, 02/05/2025, Additional history exists DTaP/Tdap/Td Vaccines (2 [...] Type 2 diabetes mellitus treated without insulin ([facility]) POCT GLUCOSE Routine 02/19/2025 9:03 AM EDT Type 2 diabetes mellitus treated without insulin ([facility]) OCT, RETINA - OD - RIGHT EYE Routine 02/05/2025 10:45 AM EDT Macular scar of right eye ALBUMIN, RANDOM URINE W/CREATININE Routine 07/04/2024 2:38 PM EST New onset type 2 diabetes mellitus ([facility]) LIPID PANEL, STANDARD Routine 11/29/2022 7:20 [...] specimen / Unknown 02/19/2025 9:03 AM EDT Result [facility] us Vladimir Gasca MD POINT OF CARE [...] 2:38 PM EST) Creatinine, Urine 124.58 mg/dL [facility] Microalbumin Urine 16.0 mg/L [facility] Microalbum Creatinine Ratio Ur 12.8 <30 ug/mg cr [facility] Comment:Albumin/Creatinine R atio Reference Ranges: Normal: < 30 ug/mg creatinine Microalbuminuria: 30 - 300 ug/mg creatinineClinical Albuminuria: > 300 ug/mg creatinine Urine (Urine, Random) 07/04/2024 2:38 PM EST 07/04/2024 4:14 PM EST us Vladimir Gasca MD LAB URINE ORDERABLES Final Resul t [facility] [address] [place] [phone] * Lipid Panel, Standard (11/29/2022 7:20 AM EDT) Triglycerides 528 mg/dL [facility] Comment:Desirable Triglyceri de: less than 150 mg/dLBorderline High Triglyceride 150-199 mg/dLHigh Triglyceride: 200-499 mg/dLVery High Triglyceride: greater than or equal to 5OO mg/dL Cholesterol 224 mg/dL [facility] Comment:Desirable Cholestero l: less than 200 mg/dLBorderline High Cholesterol: 200-239 mg/dLHigh Cholesterol: greater than 239 mg/dL LDL Cholesterol Calculated TNP mg/dl [facility] Comment:Unable to calculate the LDL. The formula of Friedwald,Justin, and Elio is only valid if the triglycerides areless than 400 mg/dl. HDL Cholesterol 36 mg/dL [facility] Comment:Desirable HDL: great er than 40 mg/dL Note: This HDL assay may give artificially low results in patients with liver disease. 11/29/2022 7:20 AM EDT 11/29/2022 7:20 AM EDT [facility] External Provider LAB BLO OD ORDERABLES Final Result [facility] [address] [place] [address] [phone] from Last 3 Months or Most Recently Relevant to Health Maintenance Insurance [facility] ONE CARE < [address] [place] [id number] Care Teams Radio Television Technical Director Relationship Specialty Start Date End Date Name, MD Vladimir [address] [place] [id number] PCP - General Internal Medicine 07/12/23
== END 2025-04-16 16:45 | disposition home or self-care (01) ==
LOC: HO.HUSH 11:33
PROVIDERS: Visit Provider Urology
DX: N52.01 Erectile dysfunction due to arterial insufficiency (principal)
CPT/HCPCS: 99213; G2211

== ENCOUNTER 2025-04-30 15:17 | Outpatient (REF) | payer OTHER, SELFPAY | END 2025-04-30 15:18 | disposition home or self-care (01) | LOC: HO.LNP 15:17 | PROVIDERS: PCP Internal Medicine Geriatric Medicine; Visit Provider Surgery | DX: L72.0 Epidermal cyst (principal) | CPT/HCPCS: 11402; 88304 ==

== ENCOUNTER 2025-04-30 15:17 | Outpatient (AMB) | payer OTHER, SELFPAY ==
--- NOTE | 2025-04-30 15:19 | MHC.OFFVIS ---
Vital Signs 04/30/25 15:23 Height 6 ft 2 in Weight 210 lb BMI 27.0 BP 124/76 Blood Pressure Location Rt brachial Position Sitting Pulse 80 Intake Visit Reasons: middle back lump Intake Note: Patient is seen for office procedure: Excision of mid back cyst. Pt c/o: states lesion grew back after previous excision. F/up: 05/07/25 @ 1pm with Anmol Solar Installation Technician Required: No Accompanied by: Self / Same As Patient Allergies prednisone (PREDNISONE) Allergy (Intermediate, Verified 04/30/25 15:24) BLEEDING Medication List - Last Reconciled 05/03/25 by Rell Boykin MD aspirin 81 mg PO DAILY 90 days cetirizine 10 mg PO DAILY cholecalciferol (vitamin D3) 25 mcg PO DAILY cyanocobalamin (vitamin B-12) (Vitamin B-12) 1,000 mcg PO DAILY empagliflozin (Jardiance) 10 mg PO DAILY fluticasone propionate 50 mcg/actuation 1 spray intranasal DAILY PRN icosapent ethyl (Vascepa) 2 grams (2 x 1 gram) PO BID 30 days metformin 500 mg PO DAILY metoprolol succinate ER (Toprol XL) 100 mg PO DAILY rosuvastatin 20 mg PO BEDTIME sildenafil 100 mg PO ONCE PRN 30 days tadalafil 10 mg PO DAILY 90 days HPI Comments Details: Patient returns for excision of a recurrent epidermal inclusion cyst of the midback. He feels the lesion has increased in size to some degree. [facility] Medical History Pacemaker (~04/2023) ICD (implantable cardioverter-defibrillator) in place Aortic stenosis (~06/2022) Hyperlipidemia Hypertrophic obstructive cardiomyopathy (HOCM) (~2018) LBBB (left bundle branch block) (~2018) Surgical History History of pacemaker (~04/2023) History of heart surgery (~12/2018) History of colonoscopy History of esophagogastroduodenoscopy (EGD) History of thumb surgery History of excision of epidermal inclusion cyst (~09/2021) Family History Father No problems noted. Mother No problems noted. Brother No problems noted. Sister No problems noted. Daughter Thyroid condition Son No problems noted. Social History Household Members: Spouse Housing: Apartment Do you presently have visiting nurse or other home services: No Alcohol intake: current Alcohol intake frequency: does not drink Comment: Indpendent Patient Tobacco Use Status: Current someday Tobacco user Tobacco use type: Cigarette Cigarettes Per Day: 5 service: No Physical Exam Vital Signs: Last Vital Signs Pulse 80 04/30/25 15:23 BP 124/76 04/30/25 15:23 BMI result Body Mass Index 27.0 Back/Spine/Pelvis Back/spine/pelvis image:  1. 2 cm epidermal inclusion cyst midback Office Procedures Excision Details: Preoperative diagnosis: Epidermal inclusion cyst midback Postoperative diagnosis: Same Procedure: Excision of epidermal inclusion cyst midback Surgeon: Rell Boykin MD Restaurant Associate: None Anesthesia: Local lidocaine 1% plain Indications for procedure: 60-year-old male patient previously underwent incision and drainage of a large abscess of the back returning today for wide excision of this large sebaceous cyst measuring approximately 2 cm in diameter. Operative findings: Sebaceous cyst mid back Specimen: Sebaceous cyst mid back Estimated blood loss: 5 mL Complications: None Procedure details: Patient was brought to the procedure room and placed in a prone position. The site of surgery was confirmed by the patient in the midback. After assuring informed consent the skin was prepped with Betadine and draped in a sterile fashion. Local anesthesia was then infiltrated circumferentially around the lesion. An elliptical incision oriented longitudinally was then created with a scalpel. This was carried out through subcutaneous tissue and around the cyst wall. Sharp dissection was used to dissect the lesion circumferentially. The lesion was passed off the table and sent to pathology for further examination. Dermis was then reapproximated using interrupted 3-0 Polysorb sutures. Skin was closed using interrupted 3-0 nylon sutures. Sterile dressings consisting of 4 x 4 gauze and paper tape were then applied. The patient tolerated the procedure well. He will return in 1 week for suture removal. [id number]/arms/legs 1.1-2cm Procedure code (CPT) selection complete Assessment & Plan Assessment & Plan (1) Epidermal inclusion cyst: Code(s): L72.0 - Epidermal cyst Category: Medical Plan Patient underwent excision of this large epidermal inclusion cyst of the midback. He tolerated the procedure well and will return in 1 week for suture removal. He should remove the dressing in 1 day. He may shower as usual. Orders: Orders Surgical 04/30/25 L72.0 - Epidermal cyst Coding Level of Care Code Procedure Only Diagnoses Epidermal inclusion cyst L72.0 CPT Codes Trunk/Arms/Legs - CPT: 04110-ozkwg/arms/legs 1.1-2cm ([id number])
[2025-04-30 15:23] VITALS: BP 124/76; PULSE 80; BMI 27.0
--- OUTSIDE RECORDS SUMMARY | 2025-04-30 16:35 | XMS_ITS | Encounter Summary ---
Author Organization [employer] Address [address] 7 [place] [address] Care Team Providers Care Short Piece Handler Name Role Phone Name, Vladimir CRISOSTOMO Primary Care Provider Reason for Visit * Reason Onset Date Comments Med Refill 10/09/2024 Encounter Details Date Type Department Care Team ([facility] Contact Info) Description 10/09/2024 Telephone [facility] MEDICINE [address] [place], [place] [phone] Name, MD Vladimir [address] [place] [address] Med Refill Social History Tobacco Use Types [...] 3:51 PM EDT Medication was sent to [facility][id number] on 09/04/24 with 11 refills. * Telephone Encounter - Wayne Raya - 10/09/2024 3:44 PM EDT TC from pt requesting medication refill. Medications needing refill : empagliflozin (Jardiance) 10 MG To be sent to: [facility]/pharmacy #[id number] - [address] ] documented in this encounter Plan of Treatment Upcoming Encounters Date Type Department Care Team (Late st Contact Info) Description 06/06/2025 9:45 AM EST Office Visit [facility] MEDICINE [address] [place] [address] Name, MD Vladimir [address] [place] [address] documented as of this encounter Visit Diagnoses Not on filedocumented in this encounter Additional Health Concerns Assessment Noted Time PHQ-9 Depression Total Score: 19 024 2:48 PM EST documented as of this encounter Care Teams Short Piece Handler Relationship Specialty Start Date End Date Name, MD Vladimir [address] [place] [address] PCP - General Internal Medicine 07/12/23 documented as of this encounter
--- OUTSIDE RECORDS SUMMARY | 2025-04-30 16:35 | XMS_ITS | Encounter Summary ---
Author Organization [employer] Address [address] [facility] [address]t [place] [address] Care Team Providers Care Maintenance Painter Name Role Phone Name, Vladimir CRISOSTOMO Primary Care Provider [phone] Reason for Visit * Reason Comments Med Refill Encounter Details Date Type Department Care Team ([facility] Contact Info) Description 08/07/2023 Refill [facility] MEDICINE [address] [place], [place] [phone] Name, MD Vladimir [address] [place] [address] Social History Tobacco Use Types Packs/Day Years [...] Description 06/06/2025 9:45 AM EST Office Visit [facility] MEDICINE [address] [place] [address] Name, MD Vladimir [address] [place] [address] documented as of this encounter Visit Diagnoses Not on filedocumented in this encounter Additional Health Concerns Assessment Noted Time PHQ-9 Depression Total Score: 0 05/13/20 9:43 AM EDT documented as of this encounter Care Teams Maintenance Painter Relationship Specialty Start Date End Date Name, MD Vladimir [address] [place] [phone] PCP - General Internal Medicine 07/12/23 documented as of this encounter
--- OUTSIDE RECORDS SUMMARY | 2025-04-30 16:35 | XMS_ITS | Clinical Summary ---
Author Organization [facility] Address [address] [address] Care Team Providers Care Electric Motor Mechanic Name Role Phone Manohar Moulton MD Primary Care Provider [phone] Social History Tobacco Use Types Packs/Day Years [...] of Treatment Not on file Care Teams Electric Motor Mechanic Relationship Specialty Start Date End Date Manohar Moulton MD [address] [address] PCP - General 09/04/21
--- OUTSIDE RECORDS SUMMARY | 2025-04-30 16:35 | XMS_ITS | Encounter Summary ---
Author Organization [employer] Address [address] [facility] [address]t [place] [address] Care Team Providers Care Bible Teacher Name Role Phone Yvonne Landry Primary Care Provider Liyah Caroline Quesada NP Primary Care Provider [phone] Name, Vladimir CRISOSTOMO Primary Care Provider [phone] Name, Vladimir CRISOSTOMO Primary Care Provider [phone] Reason for Visit * Reason Comments Med Refill Encounter Details Date Type Department Care Team (Late st Contact Info) Description 05/09/2023 Refill [facility] MEDICINE [address] [place] [address] Yvonne Landry FNP Social History Tobacco Use [...] 06/06/2025 9:45 AM EST Office Visit [facility] MEDICINE [address] [place] [address] Vladimir Gasca MD [address] [place] [address] documented as of this encounter Visit Diagnoses Not on filedocumented in this encounter Care Teams Bible Teacher Relationship Specialty Start Date End Date Yvonne Landry FNP PCP - General Family Medicine 02/09/23 05/09/23 Caroline Huerta NP [address] [place] [address] PCP - General Family Medicine 05/10/23 07/03/23 Vladimir Gasca MD [address] [place] [address] PCP - General Internal Medicine 07/04/23 07/11/23 Vladimir Gasca MD [address] [place] [address] PCP - General Internal Medicine 07/12/23 documented as of this encounter
--- OUTSIDE RECORDS SUMMARY | 2025-04-30 16:35 | XMS_ITS | Clinical Summary ---
Author Organization [employer] Address [address] [place] [address] 7t [place] [address] Care Team Providers Care Network Development Coordinator Name Role Phone Name, Vladimir CRISOSTOMO Primary Care Provider [phone] Allergies Active Allergy Reactions Criticality Noted Date Comments Metformin 07/04/2024 Constipation, GI distress Prednisone 07/10/2019 Medications Lancets (OneTouch Delica Plus [id number]) [facility] TEST BLOOD SUGAR ONCE DAILY 100 [...] 81 MG EC tabletIndications :Hypertrophic cardiomyopathy (CMS/HCC) (HCC) Take 1 tablet (81 mg) by mouth [...] Vascepa 1 g capsuleIndication s:Hypertrophic cardiomyopathy (CMS/HCC) (HCC) Take 2 capsules (2 g) by mouth [...] EVERY DAY 90 tablet 04/15/20 25 Active famotidine (Pepcid) 20 MG tabletIndications :Gastroesophageal reflux disease without esophagitis Take 1 tablet (20 mg) by mouth Once per day. 30 tablet 3 01/16/20 25 2024 Discontinued Active Problems Problem Noted Date Diagnosed Date NSVT (nonsustained ventricular tachycardia) (CMS /HCC) 09/04/2024 Pacemaker 05/13/2023 Overview (05/13/2023): Complete heart block New onset type 2 diabetes mellitus 05/13/2023 Obstructive sleep apnea syndrome 07/08/2022 Left bundle branch block 07/10/2019 Hypertrophic cardiomyopathy (CMS/HCC) 09/19/2018 Overview (02/19/2025): Prior history of hypertrophic cardiomyopathy status post septal myectomy 2018 at [facility] with improved symptoms. 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 [place] [facility] Nicotine dependence 06/19/2018 Tobacco dependence syndrome 05/18/2018 Overweight 05/18/2018 Resolved Problems Problem Noted Date Diagnosed Date Resolved Date Rectal hemorrhage 09/19/2018 05/13/2023 Alcohol abuse 05/18/2018 05/13/2023 Encounters Date Type Department Care Team Description 04/13/2025 Refill [facility] [address] [place] [address] Vladimir Gasca MD Gastroesophageal reflux disease without esophagitis 03/29/2025 Refill [facility] [address] [place] [address] Vladimir Gasca MD Seasonal allergies 03/19/2025 Telephone [facility] [address] [place] [address] Marisol Rod MA oct recalls 02/23/2025 Refill [facility] [address] [place] [address] Vladimir Gasca MD Hypertrophic cardiomyopathy ([facility]/HCC) 02/19/2025 9:00 AM EDT Office Visit [facility] [address] [place] [address] Vladimir Gasca MD Type 2 diabetes mellitus treated without insulin ([facility]) (Primary Dx); History of colonoscopy; Skin cyst 02/19/2025 Telephone [facility] [address] [place] [address] Marisol Rod [place] [facility] [place] to GI 02/19/2025 Travel 02/12/2025 Travel 02/08/2025 11:00 AM EDT Clinical Support [facility] [address] [place] [address] Tiffanie Pulliam, COREY Encounter for immunization 02/08/2025 Travel 02/07/2025 Travel 02/06/2025 Telephone [facility] [address] [place] [address] Vladimir Gasca MD Immunizations 02/05/2025 9:00 AM EDT Office Visit [facility] OPTOMETRY [address] [place] [address] Dai Gallegos OD Type 2 diabetes mellitus without ophthalmic manifestations ([facility]) (Primary Dx); Macular scar of right eye; Presbyopia 02/05/2025 Travel from Last 3 Months Immunizations Immunization Administration [...] Description 06/06/2025 9:45 AM EST Office Visit [facility] [address] [place] [address] Name, MD Vladimir [address] [place] [address] Health Maintenance Due Date Last Done Comments [...] Type 2 diabetes mellitus treated without insulin ([facility]/HCC) POCT GLUCOSE Routine 02/19/2025 9:03 AM EDT Type 2 diabetes mellitus treated without insulin ([facility]) OCT, RETINA - OD - RIGHT [...] Expiration Date Blood 02/19/2025 9:04 AM EDT Result [facility] Vladimir Gasca MD POINT OF CARE TEST ENTER/EDIT OR DERABLES Final Result * POCT Glucose (02/19/2025 9:03 AM EDT) Glucose Blood, POC 103 60 - 200 mg/dL QC Media Lot # [id number] Lot# Expiration Date ,025 Blood Capillary blood specimen / Unknown 02/19/2025 9:03 AM EDT Result [facility] Vladimir Gasca MD POINT OF CARE TEST [...] chorioretinal scar right eye (OD). Monitor annually. Result Marivel Gallegos OD OPHTH TOMOGRAPHY Final Result * Albumin, Random Urine W/Creatinine (07/04/2024 2:38 PM EST) Creatinine, Urine 124.58 mg/dL [facility] Microalbumin Urine 16.0 mg/L [facility] Microalbum Creatinine Ratio Ur 12.8 <30 ug/mg cr [facility] Comment:Albumin/Creatinine R atio Reference Ranges: Normal: < 30 ug/mg creatinine Microalbuminuria: 30 - 300 ug/mg creatinineClinical Albuminuria: > 300 ug/mg creatinine Urine (Urine, Random) 07/04/2024 2:38 PM EST 07/04/2024 4:14 PM EST Vladimir Gasca MD LAB URINE ORDERABLES Final Resul t [facility] [address] [place] [phone] * Lipid Panel, Standard (11/29/2022 7:20 AM EDT) Triglycerides 528 mg/dL [facility] Comment:Desirable Triglyceri de: less than 150 mg/dLBorderline High Triglyceride 150-199 mg/dLHigh Triglyceride: 200-499 mg/dLVery High Triglyceride: greater than or equal to 5OO mg/dL Cholesterol 224 mg/dL [facility] Comment:Desirable Cholestero l: less than 200 mg/dLBorderline High Cholesterol: 200-239 mg/dLHigh Cholesterol: greater than 239 mg/dL LDL Cholesterol Calculated TNP mg/dl [facility] Comment:Unable to calculate the LDL. The formula of Friedwald,Justin, and Elio is only valid if the triglycerides areless than 400 mg/dl. HDL Cholesterol 36 mg/dL [facility] Comment:Desirable HDL: great er than 40 mg/dL Note: This HDL assay may give artificially low results in patients with liver disease. 11/29/2022 7:20 AM EDT 11/29/2022 7:20 AM EDT us [facility] External Provider LAB BLO OD ORDERABLES Final Result [facility] [address] [place] [address] [phone] from Last 3 Months or Most Recently Relevant to Health Maintenance Insurance [employer] [place] [id number] Care Teams Network Development Coordinator Relationship Specialty Start Date End Date Name, MD Vladimir [address] [place] [address] PCP - General Internal Medicine 07/12/23
--- OUTSIDE RECORDS SUMMARY | 2025-04-30 16:35 | XMS_ITS | Encounter Summary ---
Author Organization [employer] Address [address] [facility] 7t [place] [address] Care Team Providers Care Rnfa Name Role Phone Name, Vladimir CRISOSTOMO Primary Care Provider [phone] Reason for Visit * Reason Comments Med Refill Encounter Details Date Type Department Care Team ([facility] Contact Info) Description 02/23/2025 Refill [facility] MED[facility]INE [address] [place], [place] [phone] Name, MD Vladimir [address] [place] [address] Hypertrophic cardiomyopathy (CMS/HCC) Social History Tobacco Use [...] Description 06/06/2025 9:45 AM EST Office Visit [facility] MEDICINE [address] [place] [phone] NameVladimir MD [address] [place] [address] documented as of this encounter Visit Diagnoses Diagnosis Hypertrophic cardiomyopathy (CMS/HCC) (HCC) Other primary cardiomyopathies documented in this encounter Additional Health Concerns Assessment Noted Time PHQ-9 Depression Total Score: 19 024 2:48 PM EST documented as of this encounter Care Teams Rnfa Relationship Specialty Start Date End Date NameVladimir MD [address] [place] [address] PCP - General Internal Medicine 07/12/23 documented as of this encounter
--- OUTSIDE RECORDS SUMMARY | 2025-04-30 16:35 | XMS_ITS | Encounter Summary ---
Author Organization [employer] Address [address] [place] [address] 7 [place] [address] Care Team Providers Care Court Interpreter Name Role Phone Yvonne Landry Primary Care Provider Liyah Caroline Quesada GRID CASTING MACHINE OPERATOR HELPER Primary Care Provider [phone] NameVladimir MD Primary Care Provider [phone] Name, Vladimir CRISOSTOMO Primary Care Provider [phone] Encounter Details Date Type Department Care Team (Late st Contact Info) Description 04/29/2023 Abstract [facility] MED[facility] [address] [place] [address] Yvonne Landry FNP Social History Tobacco Use [...] Visit [facility] [address] [place] [address] [phone] Name, MD Vladimir [address] [place] [address] documented as of this encounter Visit Diagnoses Not on filedocumented in this encounter Care Teams Court Interpreter Relationship Specialty Start Date End Date Yvonne Landry FNP PCP - General Family Medicine 02/09/23 05/09/23 Caroline Huerta NP [address] [place] [address] PCP - General Family Medicine 05/10/23 07/03/23 Vladimir Gasca MD [address] [place] [address] PCP - General Internal Medicine 07/04/23 07/11/23 Vladimir Gasca MD [address] [place] [address] PCP - General Internal Medicine 07/12/23 documented as of this encounter
--- OUTSIDE RECORDS SUMMARY | 2025-04-30 16:36 | XMS_ITS | Encounter Summary ---
Author Organization [facility] Address [address] [place] [address] Phone Care Team Providers Care Admitting Counselor Name Role Phone Name, Vladimir CRISOSTOMO Primary Care Provider [phone] Encounter Details Date Type Department Care Team ([facility] st Contact Info) Description 10/03/2024 Procedure [facility] [address] [place] [address] Social History Tobacco Use Types Packs/Day Years [...] on filedocumented in this encounter Care Teams Admitting Counselor Relationship Specialty Start Date End Date Name, MD Vladimir [address] [place] [address] PCP - General Internal Medicine 09/20/24 documented as of this encounter Additional Source Comments The information contained in this document represents components of the legal health record. It is not the complete legal health record.[facility]
--- OUTSIDE RECORDS SUMMARY | 2025-04-30 16:36 | XMS_ITS | Clinical Summary ---
Author Organization [facility] Address [address] [place] [address] Phone Care Team Providers Care Crossing Guard Name Role Phone Name, Vladimir CRISOSTOMO Primary Care Provider [phone] Allergies No known active allergies Medications empagliflozin [...] this topic Medical Devices Implanted Type Area Certified Maintenance Welder Device Identifier Shelf Expiration Date Model / Serial / Lot Envelope Tyrx Cardiac Med Absorbable Antibacterial Sterile - [id number] Implanted:Qty: 1 on 10/03/2024 by Rohit Varela MD at [facility] Collagen Left: Chest [employer] [id number] 06/29/2025 [id number] 2 / / [id number] Defibrillator Cardioverter Is1 Df4 [id number] [place] Xt Dr Tyrese Mcclure Latex Free Titanium Polyurethane - [id number] Implanted:Qty: 1 on 10/03/2024 by Rohit Varela MD at [facility] ICD Left: Chest [employer] [id number] 11/26/2025 [id number] 4 / [id number] / Lead Cardioverter Defibrillator Sprint Quattro Securesilicone Endo Rv Active Screw [id number] - [id number] Implanted:Qty: 1 on 10/03/2024 by Rohit Varela MD at [facility] Lead Right: Right Ventricle [employer] [facility] [id number] 03/27/2026 [id number] / [id number] / Insurance MEDICARE REPLACEMENT Member Subscriber Plan / Payer (Ef fective 2020-Present) Name:Bang Jarvis Relation to Subscriber:Self Name:Bang Jarvis Payer ID:[id number] (IC) Group ID:[id number] Type:Medicare [address] [facility] CARE MEDICARE REPLACEMENT [facility] ONE CARE MEDICARE REPLACEMENT Advance Directives For more information, please contact: [phone] (9AM - 5PM [facility], Tuesday-Tuesday) * Full Code (Latest Code Status on File) Date Activated Date Inactivated Comments 10/03/2024 12:56 PM Question Answer Comments Code Status Confirmed With: Patient Care Teams Crossing Guard Relationship Specialty Start Date End Date Name, MD Vladimir [address] [place] [address] PCP - General Internal Medicine 09/20/24 Additional Source Comments The information contained in this document represents components of the legal health record. It is not the complete legal health record.[facility]
== END 2025-04-30 16:11 | disposition home or self-care (01) ==
LOC: HO.HGS 15:18
PROVIDERS: PCP Internal Medicine Geriatric Medicine; Visit Provider Surgery
DX: L72.0 Epidermal cyst (principal)
CPT/HCPCS: 11402

== ENCOUNTER 2025-05-07 12:47 | Outpatient (AMB) | payer OTHER, SELFPAY ==
--- NOTE | 2025-05-07 12:52 | MHC.OFFVIS ---
Vital Signs 05/07/25 12:56 Height 6 ft 2 in Weight 210 lb BMI 27.0 BP 122/76 Blood Pressure Location Rt brachial Position Sitting Pulse 88 Intake Visit Reasons: s/p middle back lump Intake Note: Patient here s/p cyst excision on mid back. Patient c/o: oozing yellowish discharge, tenderness, bothersome, rubbing on clothing. Denies bleeding. WLE (): 04-30-2025 Survey Field Technician Required: No Accompanied by: Self / Same As Patient Allergies prednisone (PREDNISONE) Allergy (Intermediate, Verified 05/07/25 12:58) BLEEDING HPI HPI s/p middle back lump: Details: Patient reports he is not doing so great. Over the last 2 days has had increased pain, some drainage from the incision site at the sutures, comments on some small pimple like areas that have drained some purulent fluid. Has been more tender and red. He denies fevers or chills. [facility] Medical History (Updated 05/07/25 @ 13:19 by Anmol Todd PA-C) Pacemaker (~04/2023) ICD (implantable cardioverter-defibrillator) in place Aortic stenosis (~06/2022) Hyperlipidemia Hypertrophic obstructive cardiomyopathy (HOCM) (~2018) LBBB (left bundle branch block) (~2018) Surgical History (Updated 05/07/25 @ 13:19 by Anmol Todd PA-C) History of pacemaker (~04/2023) History of heart surgery (~12/2018) History of colonoscopy History of esophagogastroduodenoscopy (EGD) History of thumb surgery History of excision of epidermal inclusion cyst (~09/2021) Family History Father No problems noted. Mother No problems noted. Brother No problems noted. Sister No problems noted. Daughter Thyroid condition Son No problems noted. Social History Household Members: Spouse Housing: Apartment Do you presently have visiting nurse or other home services: No Alcohol intake: current Alcohol intake frequency: does not drink Comment: Indpendent Patient Tobacco Use Status: Current someday Tobacco user Tobacco use type: Cigarette Cigarettes Per Day: 5 service: No Review of Systems Const All systems reviewed & are unremarkable except as noted in HPI and below Physical Exam Vital Signs: Last Vital Signs Pulse 88 05/07/25 12:56 BP 122/76 05/07/25 12:56 BMI result Body Mass Index 27.0 Const General: comfortable and no acute distress Orientation/consciousness: patient oriented x3 Resp Effort & Inspection: normal respiratory effort and able to speak in complete sentences Skin Other: Excision site on right mid back: Cellulitis surrounding incision site with small pustules at the suture sites that contain purulent fluid. Very tender to touch. There is a few cm of surrounding induration surrounding the incision site Neuro General: patient oriented x3 Assessment & Plan Assessment & Plan (1) Cellulitis: Code(s): L03.90 - Cellulitis, unspecified Category: Medical Qualifiers: Site of cellulitis: other site Qualified Code(s): L03.818 - Cellulitis of other sites (2) History of excision of epidermal inclusion cyst: Onset Date: ~09/2021 Comment: (Excision of epidermal inclusion cyst x2 from the back- [place] [facility] [place] (Dr. Boykin April 2025) Code(s): Z98.890 - Other specified postprocedural states; Z87.2 - Personal history of diseases of the skin and subcutaneous tissue Category: Medical Plan 52-year-old male returning to the office following excision of a cyst on the right mid back. Patient has been experiencing increased pain over the past few days with some associated purulent drainage. Notes that it is more tender and red. Denying fevers at home. He has been keeping it covered with Band-Aids at home. On exam there was an area of surrounding cellulitis around the incision site with some small pustules on the sutures. It was exquisitely tender on the superior aspect and there was some moderate induration surrounding the incision site. At this point would like to treat with a week of antibiotics. We will send for 100 mg of doxycycline twice daily. I did not remove any sutures at this time as the sutures did not look like they were ready to be removed at this point. We reviewed the pathology reports and patient was given a copy, benign epidermal cyst with focal features of rupture. Instructed him to take the full course of antibiotics, he will return in one-week for wound check and suture removal. Medications: New doxycycline hyclate 100 mg PO BID 14 caps 0RF 7 days Coding Level of Care Code Est Pt Level 4 (13404) Diagnoses Cellulitis of other specified site L03.818 Site of cellulitis: other site History of excision of epidermal inclusion cyst Z98.890; Z87.2
[2025-05-07 12:56] VITALS: BP 122/76; PULSE 88; BMI 27.0
--- OUTSIDE RECORDS SUMMARY | 2025-05-07 15:38 | XMS_ITS | Encounter Summary ---
Author Organization [employer] Address [address] [facility] 7t [place] [address] Care Team Providers Care Spotter Name Role Phone Name, Vladimir CRISOSTOMO Primary Care Provider [phone] Reason for Visit * Reason Comments Med Refill Encounter Details Date Type Department Care Team ([facility] Contact Info) Description 08/07/2023 Refill [facility] MED[facility]INE [address] [place], [place] [phone] Name, MD Vladimir [address] [place] [address] Social History Tobacco Use Types Packs/Day Years [...] Description 06/06/2025 9:45 AM EST Office Visit [facility] MEDICINE [address] [place] [phone] Name, MD Vladimir [address] [place] [address] documented as of this encounter Visit Diagnoses Not on filedocumented in this encounter Additional Health Concerns Assessment Noted Time PHQ-9 Depression Total Score: 0 05/13/20 9:43 AM EDT documented as of this encounter Care Teams Spotter Relationship Specialty Start Date End Date Name, MD Vladimir [address] [place] [address] PCP - General Internal Medicine 07/12/23 documented as of this encounter
--- OUTSIDE RECORDS SUMMARY | 2025-05-07 15:38 | XMS_ITS | Clinical Summary ---
Author Organization [facility] Address [address] [address] Care Team Providers Care Merchandise Worker Name Role Phone Manohar Moulton MD Primary Care Provider [phone] Social History Tobacco Use Types Packs/Day Years [...] of Treatment Not on file Care Teams Merchandise Worker Relationship Specialty Start Date End Date Manohar Moulton MD [address] [address] PCP - General 09/04/21
--- OUTSIDE RECORDS SUMMARY | 2025-05-07 15:38 | XMS_ITS | Encounter Summary ---
Author Organization [employer] Address [address] [place] [address] 7 [place] [address] Care Team Providers Care Program Admin Name Role Phone Yvonne Landry Primary Care Provider Liyah Caroline Quesada SAUSAGE STUFFER Primary Care Provider [phone] NameVladimir MD Primary Care Provider [phone] Name, Vladimir CRISOSTOMO Primary Care Provider [phone] Encounter Details Date Type Department Care Team (Late st Contact Info) Description 04/29/2023 Abstract [facility] MEDICINE [address] [place] [address] Yvonne Landry FNP Social History Tobacco Use [...] Description 06/06/2025 9:45 AM EST Office Visit [facility] MEDICINE [address] [place] [address] [phone] Name, MD Vladimri [address] [place] [address] documented as of this encounter Visit Diagnoses Not on filedocumented in this encounter Care Teams Program Admin Relationship Specialty Start Date End Date Yvonne Landry FNP PCP - General Family Medicine 02/09/23 05/09/23 Caroline Huerta NP [address] [place] [address] PCP - General Family Medicine 05/10/23 07/03/23 Vladimir Gasca MD [address] [place] [address] PCP - General Internal Medicine 07/04/23 07/11/23 Vladimir Gasca MD [address] [place] [address] PCP - General Internal Medicine 07/12/23 documented as of this encounter
--- OUTSIDE RECORDS SUMMARY | 2025-05-07 15:38 | XMS_ITS | Encounter Summary ---
Author Organization [employer] Address [address] [facility] 7t [place] [address] Care Team Providers Care Client Operations Manager Name Role Phone Name, Vladimir CRISOSTOMO Primary Care Provider [phone] Reason for Visit * Reason Comments Med Refill Encounter Details Date Type Department Care Team ([facility] Contact Info) Description 02/23/2025 Refill [facility] MEDICINE [address] [place], [place] [phone] Name, MD Vladimir [address] [place] [address] Hypertrophic cardiomyopathy (CMS/HCC) Social History Tobacco Use [...] 06/06/2025 9:45 AM EST Office Visit [facility] MEDICINE [address] [place] [address] NameVladimir MD [address] [place] [address] documented as of this encounter Visit Diagnoses Diagnosis Hypertrophic cardiomyopathy (CMS/HCC) (HCC) Other primary cardiomyopathies documented in this encounter Additional Health Concerns Assessment Noted Time PHQ-9 Depression Total Score: 19 024 2:48 PM EST documented as of this encounter Care Teams Client Operations Manager Relationship Specialty Start Date End Date NameVladimir MD [address] [place] [address] PCP - General Internal Medicine 07/12/23 documented as of this encounter
--- OUTSIDE RECORDS SUMMARY | 2025-05-07 15:38 | XMS_ITS | Clinical Summary ---
Author Organization [employer] Address [address] [place] [address] 7t [place] [address] Care Team Providers Care Hide Washer Name Role Phone Name, Vladimir CRISOSTOMO Primary Care Provider [phone] Allergies Active Allergy Reactions Criticality Noted Date Comments Metformin 07/04/2024 Constipation, GI distress Prednisone 07/10/2019 Medications Lancets (OneTouch Delica Plus [id number]) [facility] TEST BLOOD SUGAR ONCE DAILY 100 each [...] cardiomyopathy status post septal myectomy 2018 at [facility] with improved symptoms. 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 Follows at [facility] cardi Nicotine dependence 06/19/2018 Tobacco dependence syndrome 05/18/2018 Overweight 05/18/2018 Resolved Problems Problem Noted Date Diagnosed Date Resolved Date Rectal hemorrhage 09/19/2018 05/13/2023 Alcohol abuse 05/18/2018 05/13/2023 Encounters Date Type Department Care Team Description 04/13/2025 Refill [facility] [address] [place] [address] Vladimir Gasca MD Gastroesophageal reflux disease without esophagitis 03/29/2025 Refill [facility] [address] [place] [address] Vladimir Gasca MD Seasonal allergies 03/19/2025 Telephone [facility] [address] [place] [address] Marisol Rod MA oct recalls 02/23/2025 Refill [facility] [address] [place] [address] Vladimir Gasca MD Hypertrophic cardiomyopathy ([facility]/HCC) 02/19/2025 9:00 AM EDT Office Visit [facility] [address] [place] [address] Vladimir Gasca MD Type 2 diabetes mellitus treated without insulin [place] (Primary Dx); History of colonoscopy; Skin cyst 02/19/2025 Telephone [facility] [address] [place] [address] Marisol Rod MA [facility] called to GI 02/19/2025 Travel 02/12/2025 Travel 02/08/2025 11:00 AM EDT Clinical Support [facility] [address] [place] [address] Tiffanie Pulliam, COREY Encounter for immunization 02/08/2025 Travel 02/07/2025 Travel 02/06/2025 Telephone [facility] [address] [place] [address] Vladimir Gasca MD Immunizations 02/05/2025 9:00 AM EDT Office Visit [facility] OPTOMETRY [address] [place] [address] Dai Gallegos OD Type 2 diabetes mellitus without ophthalmic manifestations ([facility]) (Primary Dx); Macular scar of right [...] EST Office Visit [facility] MEDICINE [address] [place] [phone] Name, MD Vladimir [address] [place] [address] Health Maintenance Due Date Last Done Comments [...] Procedure Name Priority Date/Time Associated Diagnosis Comments GROSS AND MICROSCOPIC LEVEL 3 Routine 04/30/2025 3:28 PM EDT POCT GLYCATED HEMOGLOBIN, TOTAL Routine 02/19/2025 9:04 AM EDT Type 2 diabetes mellitus treated without insulin ([facility]) POCT GLUCOSE Routine 02/19/2025 9:03 AM EDT Type 2 diabetes mellitus treated without insulin ([facility]) OCT, RETINA - OD - RIGHT EYE Routine 02/05/2025 10:45 AM EDT Macular scar of right eye ALBUMIN, RANDOM URINE W/CREATININE Routine 07/04/2024 2:38 PM EST New onset type 2 diabetes mellitus (CMS/HCC) LIPID PANEL, STANDARD Routine 11/29/2022 7:20 AM EDT from Last 3 Months or Most Recently Relevant to Health Maintenance Results * Gross and Microscopic Level 3 (04/30/2025 3:28 PM EDT) 04/30/2025 3:28 PM EDT 05/01/2025 8:33 AM EDT [facility] - 05/02/2025 12:31 PM EDT ----- ------- Name: Bang Jarvis Age/Sex: 60/M : 1965 Unit#: [id number] Attend Dr: Rell Boykin MD Re04/30/25 Status: DEP REF Location: HO.LNP Disch: ----- ------- SPEC : [id number] RECD: 05/01/25 STATUS: KATHY ANDUJAR NUM: [id number] NANCY: 04/30/251528 [facility] DR: Rell Boykin MD ENTERED: 05/01/25 SP TYPE: Surgical OTHR DR: Vladimir Gasca MD ORDERED: Gross Micro L3 Diagnosis Skin, mid back cyst, excision: Benign epidermal cyst, with focal features of rupture. Clinical History Epidermal inclusion cyst mid back Microscopic Description Microscopic sections reviewed. Material Received Epidermal inclusion cyst mid back Gross Description Received in formalin labeled epidermal inclusion cyst mid back is an oval cystic structure measuring 4.2 x 2.9 x 2.2 cm. The outer surface is white with adherent yellow adipose tissue. The specimen is partially covered by an ellipse of skin measuring 4.1 x 2.0 cm. The skin surface is connell-white and smooth. Sectioning reveals a cavity measuring 2.4 cm in diameter that is filled with soft, valdez white material. The cyst wall measures 0.1-0.2 cm in average thickness. The inner lining is smooth and unremarkable. A packaging sales representative cross- section is submitted for microscopic examination, 1 piece in cassette A1. ([facility]) IHC S/NG Disclaimer NOTE: Unless otherwise stated, all tissue is formalin-fixed and paraffin-embedded. Some or all of the immunohistochemical tests reported herein may have been developed and their performance characteristics determined by [facility]. They have not been cleared or approved by the U.S. Food and Drug Administration (FDA). However, the FDA has determined that such clearance or approval is not necessary. This laboratory is certified under the Clinical Laboratory Improvement Amendments of 1988 (CLIA) as qualified to perform high complexity clinical laboratory testing. Copies To: Rell Boykin MD [facility] [address] [place] [phone] CONTINUED ON NEXT PAGE ----- ------- Name: Bang Jarvis Age/Sex: 60/M : 1965 Unit#: [id number] Attend Dr: Rell Boykin MD Re04/30/25 Status: DEP REF Location: HO.LNP Disch: ----- ------- SPEC : [id number] RECD: 05/01/25 STATUS: KATHY ANDUJAR NUM: [id number] NANCY: 04/30/[address] [facility] [address]: Rell Boykin MD ENTERED: 05/01/25 SP TYPE: Surgical OTHR DR: Vladimir Gasca MD ORDERED: Gross Micro L3 Copies To: (Continued) Vladimir Gasca MD [address] [address] ----- ------- Signed (signature on file) Shelly Laurent 05/02/25 1231 ----- ------- END OF REPORT Generic External Data Provider LAB CYTOLOGY JOSHUA MALIK Final Result [facility] [address] [place], [place] [phone] * (ABNORMAL) POCT HGB A1C (02/19/2025 9:04 AM EDT) Hemoglobin A1C 6.7(A) 4.0 - 5.7 % QC Media Lot # [id number] Lot# Expiration Date Blood 02/19/2025 9:04 AM EDT Result [facility] Vladimir Gasca MD POINT OF CARE TEST ENTER/EDIT OR DERABLES Final Result * POCT Glucose (02/19/2025 9:03 AM EDT) Glucose Blood, POC 103 60 - 200 mg/dL QC Media Lot # [id number] Lot# Expiration Date Blood Capillary blood specimen / Unknown 02/19/2025 9:03 AM EDT Result [facility] Vladimir Gasca MD POINT OF [...] 2:38 PM EST) Creatinine, Urine 124.58 mg/dL [facility] Microalbumin Urine 16.0 mg/L [facility] Microalbum Creatinine Ratio Ur 12.8 <30 ug/mg cr [facility] Comment:Albumin/Creatinine R atio Reference Ranges: Normal: < 30 ug/mg creatinine Microalbuminuria: 30 - 300 ug/mg creatinineClinical Albuminuria: > 300 ug/mg creatinine Urine (Urine, Random) 07/04/2024 2:38 PM EST 07/04/2024 4:14 PM EST Vladimir Gasca MD LAB URINE ORDERABLES Final Resul t Performing Organization Address [facility] Co de Phone Number [facility] [address] [place] [phone] * Lipid Panel, Standard (11/29/2022 7:20 AM EDT) Triglycerides 528 mg/dL [facility] Comment:Desirable Triglyceri de: less than 150 mg/dLBorderline High Triglyceride 150-199 mg/dLHigh Triglyceride: 200-499 mg/dLVery High Triglyceride: greater than or equal to 5OO mg/dL Cholesterol 224 mg/dL [facility] Comment:Desirable Cholestero l: less than 200 mg/dLBorderline High Cholesterol: 200-239 mg/dLHigh Cholesterol: greater than 239 mg/dL LDL Cholesterol Calculated TNP mg/dl [facility] Comment:Unable to calculate the LDL. The formula of Friedwald,Justin, and Elio is only valid if the triglycerides areless than 400 mg/dl. HDL Cholesterol 36 mg/dL [facility] Comment:Desirable HDL: great er than 40 mg/dL Note: This HDL assay may give artificially low results in patients with liver disease. 11/29/2022 7:20 AM EDT 11/29/2022 7:20 AM EDT [facility] External Provider LAB BLO OD ORDERABLES Final Result Performing Organization Address [facility] Co de Phone Number [facility] [address] [place] [phone] from Last 3 Months or Most Recently Relevant to Health Maintenance Insurance [facility] ONE CARE < 65 Care Teams Hide Washer Relationship Specialty Start Date End Date Name, MD Vladimir [address] [place] [phone] PCP - General Internal Medicine 07/12/23
--- OUTSIDE RECORDS SUMMARY | 2025-05-07 15:38 | XMS_ITS | Encounter Summary ---
Author Organization [employer] Address [address] [facility] 7 [place] [address] Care Team Providers Care Mattress And Boxsprings Supervisor Name Role Phone Name, Vladimir CRISOSTOMO Primary Care Provider [phone] Reason for Visit * Reason Onset Date Comments Med Refill 10/09/2024 Encounter Details Date Type Department Care Team ([facility] Contact Info) Description 10/09/2024 Telephone [facility] [address] [place], [place] [phone] Name, MD Vladimir [address] [place] [address] Med Refill Social History Tobacco Use Types [...] 3:51 PM EDT Medication was sent to [facility] #[id number] on 09/04/24 with 11 refills. * Telephone Encounter - Wayne Raya - 10/09/2024 3:44 PM EDT TC from pt requesting medication refill. Medications needing refill : empagliflozin (Jardiance) 10 MG To be sent to: [facility]/pharmacy #[id number] - [address] ] documented in this encounter Plan of Treatment Upcoming Encounters Date Type Department Care Team (Late st Contact Info) Description 06/06/2025 9:45 AM EST Office Visit [facility] [address] [place] [address] Name, MD Vladimir [address] [place] [address] documented as of this encounter Visit Diagnoses Not on filedocumented in this encounter Additional Health Concerns Assessment Noted Time PHQ-9 Depression Total Score: 19 024 2:48 PM EST documented as of this encounter Care Teams Mattress And Boxsprings Supervisor Relationship Specialty Start Date End Date Name, MD Vladimir [address] [place] [address] PCP - General Internal Medicine 07/12/23 documented as of this encounter
--- OUTSIDE RECORDS SUMMARY | 2025-05-07 15:38 | XMS_ITS | Encounter Summary ---
Author Organization [employer] Address [address] [facility] 7t [place] [address] Care Team Providers Care Gyroscope Technician Name Role Phone Yvonne Landry Primary Care Provider Liyah Caroline Quesada NP Primary Care Provider [phone] Name, Vladimir CRISOSTOMO Primary Care Provider [phone] Name, Vladimir CRISOSTOMO Primary Care Provider [phone] Reason for Visit * Reason Comments Med Refill Encounter Details Date Type Department Care Team (Late st Contact Info) Description 05/09/2023 Refill [facility] [address] [place] [address] Yvonne Landry FNP Social History Tobacco Use [...] Description 06/06/2025 9:45 AM EST Office Visit [facility] MED[facility]INE [address] [place] [phone] Vladimir Gasca MD [address] [place] [phone] documented as of this encounter Visit Diagnoses Not on filedocumented in this encounter Care Teams Gyroscope Technician Relationship Specialty Start Date End Date Yvonne Landry FNP PCP - General Family Medicine 02/09/23 05/09/23 Caroline Huerta NP [address] [place] [phone] PCP - General Family Medicine 05/10/23 07/03/23 Vladimir Gasca MD [address] [place] [address] PCP - General Internal Medicine 07/04/23 07/11/23 Vladimir Gasca MD [address] [place] [address] PCP - General Internal Medicine 07/12/23 documented as of this encounter
--- OUTSIDE RECORDS SUMMARY | 2025-05-07 15:39 | XMS_ITS | Clinical Summary ---
Author Organization [facility] Address [address] [place] [phone] Phone Care Team Providers Care Slat Grader Name Role Phone Name, Vladimir CRISOSTOMO Primary Care Provider [phone] Allergies No known active allergies Medications empagliflozin [...] ears) (1 of 1 - PCV) 2017 RSV VACCINE (1 - Risk 50-74 years 1-dose series) 2017 ZOSTER VACCINES (1 of 2) 2017 INFLUENZA VACCINE (#1) 2025 COVID-19 VACCINE ( - 2024-2 6 season) 2025 LIPID PANEL 11/30/2027 11/29/2022 Adult [...] this topic Medical Devices Implanted Type Area Architect Intern Device Identifier Shelf Expiration Date Model / Serial / Lot Envelope Tyrx Cardiac Med Absorbable Antibacterial Sterile - [id number] Implanted:Qty: 1 on 10/03/2024 by Rohit Varela MD at [facility] Collagen Left: Chest [employer] [id number] 06/29/2025 [id number] 2 / / [id number] Defibrillator Cardioverter Is1 [id number] [place] Xt Dr Tyrese Mcclure Latex Free Titanium Polyurethane - [id number] Implanted:Qty: 1 on 10/03/2024 by Rohit Varela MD at [facility] ICD Left: Chest [employer] [facility] [id number] 11/26/2025 [id number] 4 / [id number] / Lead Cardioverter Defibrillator Sprint Quattro Securesilicone Endo Rv Active Screw [id number] - [id number] Implanted:Qty: 1 on 10/03/2024 by Rohit Varela MD at [facility] Lead Right: Right Ventricle [employer] [facility] [id number] 03/27/2026 [id number] / [id number] / Insurance MEDICARE REPLACEMENT [place] [id number] MEDICARE REPLACEMENT MEDICARE REPLACEMENT CARE MEDICARE REPLACEMENT [facility] ONE CARE MEDICARE REPLACEMENT Advance Directives For more information, please contact: [phone] (9AM - 5PM [facility], Tuesday-Tuesday) * Full Code (Latest Code Status on File) Date Activated Date Inactivated Comments 10/03/2024 12:56 PM Question Answer Comments Code Status Confirmed With: Patient Care Teams Slat Grader Relationship Specialty Start Date End Date Name, MD Vladimir [address] [place] [address] PCP - General Internal Medicine 09/20/24 Additional Source Comments The information contained in this document represents components of the legal health record. It is not the complete legal health record.[facility]
--- OUTSIDE RECORDS SUMMARY | 2025-05-07 15:39 | XMS_ITS | Encounter Summary ---
Author Organization [facility] Address [address] [place] [phone] Phone Care Team Providers Care Blow Torch Operator Name Role Phone Name, Vladimir CRISOSTOMO Primary Care Provider [phone] Encounter Details Date Type Department Care Team ([facility] st Contact Info) Description 10/03/2024 Procedure Pass [facility] [address] [place] [address] Social History Tobacco Use Types Packs/Day Years [...] on filedocumented in this encounter Care Teams Blow Torch Operator Relationship Specialty Start Date End Date Name, MD Vladimir [address] [place] [address] PCP - General Internal Medicine 09/20/24 documented as of this encounter Additional Source Comments The information contained in this document represents components of the legal health record. It is not the complete legal health record.[facility]
== END 2025-05-07 13:11 | disposition home or self-care (01) ==
LOC: HO.HGS 12:47
PROVIDERS: PCP Internal Medicine Geriatric Medicine; Visit Provider Surgery
DX: L03.818 Cellulitis of other sites (principal); Z87.2 Personal history of diseases of the skin and subcutaneous tissue; Z98.890 Other specified postprocedural states
CPT/HCPCS: 99024

== ENCOUNTER → 2025-05-07 12:47 | Outpatient (BNVA) | payer OTHER, SELFPAY | PROVIDERS: PCP Internal Medicine Geriatric Medicine; Visit Provider Surgery | DX: L03.818 Cellulitis of other sites (principal); Z98.890 Other specified postprocedural states; Z87.2 Personal history of diseases of the skin and subcutaneous tissue | CPT/HCPCS: 99212 ==

== ENCOUNTER 2025-05-14 13:24 | Outpatient (AMB) | payer OTHER, SELFPAY ==
--- NOTE | 2025-05-14 13:27 | MHC.OFFVIS ---
Vital Signs 05/14/25 13:32 Height 6 ft 2 in Weight 211 lb BMI 27.1 BP 131/76 Blood Pressure Location Rt brachial Position Sitting Pulse 90 Intake Visit Reasons: s/p middle back lump Intake Note: Patient here for follow up wound on Rt mid back. Patient c/o: reports site much improved. Has one more pill left of Doxycycline course. Denies oozing, bleeding, pain. WLE (GIACOMO): 04-30-2025 Supervisor Carbon Electrodes Required: No Accompanied by: Self / Same As Patient Allergies prednisone (PREDNISONE) Allergy (Intermediate, Verified 05/14/25 13:33) BLEEDING HPI HPI s/p middle back lump: Details: Reports he is doing much better. Denies pain now states that the incision site has become less swollen is no longer draining and overall looks better. Denies fevers at home. Has been taking the doxycycline as prescribed, has 1 day left, plans to take the rest of them as prescribed. [facility] Medical History (Updated 05/07/25 @ 13:19 by Anmol Todd PA-C) Pacemaker (~04/2023) ICD (implantable cardioverter-defibrillator) in place Aortic stenosis (~06/2022) Hyperlipidemia Hypertrophic obstructive cardiomyopathy (HOCM) (~2018) LBBB (left bundle branch block) (~2018) Surgical History (Updated 05/07/25 @ 13:19 by Anmol Todd PA-C) History of pacemaker (~04/2023) History of heart surgery (~12/2018) History of colonoscopy History of esophagogastroduodenoscopy (EGD) History of thumb surgery History of excision of epidermal inclusion cyst (~09/2021) Family History Father No problems noted. Mother No problems noted. Brother No problems noted. Sister No problems noted. Daughter Thyroid condition Son No problems noted. Social History Household Members: Spouse Housing: Apartment Do you presently have visiting nurse or other home services: No Alcohol intake: current Alcohol intake frequency: does not drink Comment: Indpendent Patient Tobacco Use Status: Current someday Tobacco user Tobacco use type: Cigarette Cigarettes Per Day: 5 service: No Review of Systems Const All systems reviewed & are unremarkable except as noted in HPI and below Physical Exam Vital Signs: Last Vital Signs Pulse 90 05/14/25 13:32 BP 131/76 05/14/25 13:32 BMI result Body Mass Index 27.1 Const General: comfortable and no acute distress Orientation/consciousness: patient oriented x3 Resp Effort & Inspection: normal respiratory effort and able to speak in complete sentences Skin Other: Excision site on right mid back: Nontender, no surrounding erythema, no discharge or pustules noted. Induration surrounding the incision site has resolved. Sutures remain in place Neuro General: patient oriented x3 Assessment & Plan Assessment & Plan (1) History of excision of epidermal inclusion cyst: Onset Date: ~09/2021 Comment: (Excision of epidermal inclusion cyst x2 from the back[place] [facility] [place] (Dr. Boykin April 2025) Code(s): Z98.890 - Other specified postprocedural states; Z87.2 - Personal history of diseases of the skin and subcutaneous tissue Category: Medical (2) Cellulitis: Code(s): L03.90 - Cellulitis, unspecified Category: Medical Qualifiers: Site of cellulitis: other site Qualified Code(s): L03.818 - Cellulitis of other sites Plan 60-year-old male SP excision of epidermal inclusion cyst in the right mid back returning to the office for follow-up and suture removal. Last visit patient was placed on one-week of doxycycline for cellulitis of the excision site. He reports he has been taking the antibiotics as prescribed, has Tuesday left. Notes significant improvement in the area, is no longer tender, no longer draining. States the area was less red and inflamed this week. Denies fevers at home. Overall doing much better on exam the site appears significantly improved, localized cellulitis has resolved. There were no further erythema or pustules noted. Sutures remain in place I removed them in office today there was 1 suture that was very deep in the skin with only a small amount showing, this was grabbed with a snap and elevated to the skin and the suture was able to be removed completely. There was a small amount of bleeding so this was covered with a Band-Aid. He can leave this on for today and then can be left open to air. He is to finish his last day of doxycycline as prescribed. At this point the patient does not need to follow-up, can follow up as needed with any concerns in the future. Coding Level of Care Code Est Pt Level 3 (36449) Diagnoses History of excision of epidermal inclusion cyst Z98.890; Z87.2 Cellulitis of other specified site L03.818 Site of cellulitis: other site
[2025-05-14 13:32] VITALS: BP 131/76; PULSE 90; BMI 27.1
--- OUTSIDE RECORDS SUMMARY | 2025-05-14 16:14 | XMS_ITS | Clinical Summary ---
Author Organization [facility] Address [address] [address] Care Team Providers Care Reefer Truck Driver Name Role Phone Manohar Moulton MD Primary Care Provider [phone] Social History Tobacco Use Types Packs/Day Years [...] of Treatment Not on file Care Teams Reefer Truck Driver Relationship Specialty Start Date End Date Manohar Moulton MD [address] [address] PCP - General 09/04/21
--- OUTSIDE RECORDS SUMMARY | 2025-05-14 16:14 | XMS_ITS | Encounter Summary ---
Author Organization [employer] Address [address] [facility] 7 [place] [address] Care Team Providers Care Nursing Tech Name Role Phone Name, Vladimir CRISOSTOMO Primary Care Provider [phone] Reason for Visit * Reason Onset Date Comments Med Refill 10/09/2024 Encounter Details Date Type Department Care Team ([facility] Contact Info) Description 10/09/2024 Telephone [facility] [address] [place], [place] [phone] Name, MD Vladimir [address] [place] [address] Med Refill Social History Tobacco Use Types [...] 3:51 PM EDT Medication was sent to [facility] #[id number] on 09/04/24 with 11 refills. * Telephone Encounter - Wayne Raya - 10/09/2024 3:44 PM EDT TC from pt requesting medication refill. Medications needing refill : empagliflozin (Jardiance) 10 MG To be sent to: [facility]/pharmacy #[id number] - [address] ] documented in this encounter Plan of Treatment Upcoming Encounters Date Type Department Care Team (Late st Contact Info) Description 06/06/2025 9:45 AM EST Office Visit [facility] [address] [place] [address] Name, MD Vladimir [address] [place] [address] documented as of this encounter Visit Diagnoses Not on filedocumented in this encounter Additional Health Concerns Assessment Noted Time PHQ-9 Depression Total Score: 19 024 2:48 PM EST documented as of this encounter Care Teams Nursing Tech Relationship Specialty Start Date End Date Name, MD Vladimir [address] [place] [address] PCP - General Internal Medicine 07/12/23 documented as of this encounter
--- OUTSIDE RECORDS SUMMARY | 2025-05-14 16:14 | XMS_ITS | Encounter Summary ---
Author Organization [employer] Address [address] [place] [address] 7 [place] [address] Care Team Providers Care Cook Pickled Meat Name Role Phone Yvonne Landry Primary Care Provider Liyah Caroline Quesada UNDER WATER ASSISTANT Primary Care Provider [phone] NameVladimir MD Primary Care Provider [phone] Name, Vladimir CRISOSTOMO Primary Care Provider [phone] Encounter Details Date Type Department Care Team (Late st Contact Info) Description 04/29/2023 Abstract [facility] MEDICINE [address] [place] [phone] Yvonne Landry FNP Social History Tobacco Use [...] Description 06/06/2025 9:45 AM EST Office Visit [facility] MEDICINE [address] [place] [address] [phone] Name, MD Vladimir [address] [place] [address] documented as of this encounter Visit Diagnoses Not on filedocumented in this encounter Care Teams Cook Pickled Meat Relationship Specialty Start Date End Date Yvonne Landry FNP PCP - General Family Medicine 02/09/23 05/09/23 Caroline Huerta NP [address] [place] [address] PCP - General Family Medicine 05/10/23 07/03/23 Vladimir Gasca MD [address] [place] [address] PCP - General Internal Medicine 07/04/23 07/11/23 Vladimir Gasca MD [address] [place] [address] PCP - General Internal Medicine 07/12/23 documented as of this encounter
--- OUTSIDE RECORDS SUMMARY | 2025-05-14 16:14 | XMS_ITS | Encounter Summary ---
Author Organization [employer] Address [address] [facility] 7t [place] [address] Care Team Providers Care Clinical Asst Name Role Phone Yvonne Landry Primary Care Provider Liyah Caroline Quesada NP Primary Care Provider [phone] Name, Vladimir CRISOSTOMO Primary Care Provider [phone] Name, Vladimir CRISOSTOMO Primary Care Provider [phone] Reason for Visit * Reason Comments Med Refill Encounter Details Date Type Department Care Team (Late st Contact Info) Description 05/09/2023 Refill [facility] [address] [place] [address] Yvonne Landry FNP Social History Tobacco Use [...] EST Office Visit [facility] [address] [place] [phone] Vladimir Gasca MD [address] [place] [phone] documented as of this encounter Visit Diagnoses Not on filedocumented in this encounter Care Teams Clinical Asst Relationship Specialty Start Date End Date Yvonne Landry FNP PCP - General Family Medicine 02/09/23 05/09/23 Caroline Huerta NP [address] [place] [address] PCP - General Family Medicine 05/10/23 07/03/23 Vladimir Gasca MD [address] [place] [address] PCP - General Internal Medicine 07/04/23 07/11/23 Vladimir Gasca MD [address] [place] [address] PCP - General Internal Medicine 07/12/23 documented as of this encounter
--- OUTSIDE RECORDS SUMMARY | 2025-05-14 16:14 | XMS_ITS | Clinical Summary ---
Author Organization [employer] Address [address] [place] [address] 7t [place] [address] Care Team Providers Care Assistant General Manager Name Role Phone Name, Vladimir CRISOSTOMO Primary Care Provider [phone] Allergies Active Allergy Reactions Criticality Noted Date Comments Metformin 07/04/2024 Constipation, GI distress Prednisone 07/10/2019 Medications Lancets (OneTouch Delica Plus [id number]) [facility] TEST BLOOD SUGAR ONCE DAILY 100 each [...] cardiomyopathy status post septal myectomy 2018 at [facility] with improved symptoms. 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 Follows at [facility] cardi Nicotine dependence 06/19/2018 Tobacco dependence syndrome 05/18/2018 Overweight 05/18/2018 Resolved Problems Problem Noted Date Diagnosed Date Resolved Date Rectal hemorrhage 09/19/2018 05/13/2023 Alcohol abuse 05/18/2018 05/13/2023 Encounters Date Type Department Care Team Description 04/13/2025 Refill [facility] MEDICINE [address] [place] [phone] NameVladimir MD Gastroesophageal reflux disease without esophagitis 03/29/2025 Refill [facility] MEDICINE [address] [place] [address] NameVladimir MD Seasonal allergies 03/19/2025 Telephone [facility] MEDICINE [address] [place] [address] Marisol Rod MA oct recalls 02/23/2025 Refill [facility] MEDICINE [address] [place] [address] NameVladimir MD Hypertrophic cardiomyopathy ([facility]) 02/19/2025 9:00 AM EDT Office Visit [facility] MEDICINE [address] [place] [address] Vladimir Gasca MD Type 2 diabetes mellitus treated without insulin ([facility]) (Primary Dx); History of colonoscopy; Skin cyst 02/19/2025 Telephone [facility] MEDICINE [address] [place] [address] Marisol Rod MA [facility] called to GI 02/19/2025 Travel 02/12/2025 Travel from Last 3 Months Immunizations Immunization [...] Description 06/06/2025 9:45 AM EST Office Visit [facility] MEDICINE [address] [place] [address] Name, MD Vladimir [address] [facility] [place] [address] Health Maintenance Due Date Last Done Comments [...] 2 diabetes mellitus treated without insulin (CMS/HCC) POCT GLUCOSE Routine 02/19/2025 9:03 AM EDT [...] 3:28 PM EDT 05/01/2025 8:33 AM EDT [facility] - 05/02/2025 12:31 PM EDT ----- ------- Name: Bang Jarvis Age/Sex: 60/M : 1965 Unit#: [id number] Attend Dr: Rell Boykin MD Re04/30/25 Status: DEP REF Location: [facility] Disch: ----- ------- SPEC : [id number] RECD: 05/01/25 STATUS: KATHY ANDUJAR NUM: [id number] NANCY: 04/30/[address] [facility] DR: Rell Boykin MD ENTERED: 05/01/25 SP TYPE: Surgical OTHR DR: Vladimir Gacsa MD ORDERED: Gross Micro L3 Diagnosis Skin, [...] inner lining is smooth and unremarkable. A sales representative jewelry cross- section is submitted for microscopic examination, 1 piece in cassette A1. ([facility]) IHC S/NG Disclaimer NOTE: Unless otherwise stated, all tissue is formalin-fixed and paraffin-embedded. Some or all of the immunohistochemical tests reported herein may have been developed and their performance characteristics determined by [facility]. They have not been cleared or approved by the U.S. Food and Drug Administration (FDA). However, the FDA has determined that such clearance or approval is not necessary. This laboratory is certified under the Clinical Laboratory Improvement Amendments of 1988 (CLIA) as qualified to perform high complexity clinical laboratory testing. Copies To: Rell Boykin MD [facility] General Surgeons [address] [place] [address] [phone] CONTINUED ON NEXT PAGE ----- ------- Name: Bang Jarvis Age/Sex: 60/M : 1965 Unit#: [id number] Attend Dr: Rell Boykin MD Re04/30/25 Status: DEP REF Location: [facility] Disch: ----- ------- SPEC : [id number] RECD: 05/01/25 STATUS: KATHY ANDUJAR NUM: [id number] NANCY: 04/30/2515[address] [facility] DR: Rell Boykin MD ENTERED: 05/01/25 SP TYPE: Surgical OTHR DR: Vladimir Gasca MD ORDERED: Gross Micro L3 Copies To: (Continued) Vladimir Gasca MD [address] [phone] ----- ------- Signed (signature on file) Shelly Conesus 05/02/25 1231 ----- ------- END OF REPORT Generic External Data Provider LAB CYTOLOGY ORDE RABLES Final Result [facility] [address] [place] [address] [phone] * (ABNORMAL) POCT HGB A1C (02/19/2025 9:04 AM EDT) Pathologist [facility] Hemoglobin A1C 6.7(A) 4.0 - 5.7 % QC Media Lot # [id number] Lot# Expiration Date Blood 02/19/2025 9:04 AM EDT Vladimir Gasca MD POINT OF CARE TEST ENTER/EDIT OR DERABLES Final Result * POCT Glucose (02/19/2025 9:03 AM EDT) Pathologist [facility] Glucose Blood, POC 103 60 - 200 mg/dL QC Media Lot # [id number] Lot# Expiration Date 103,025 Blood Capillary blood specimen / Unknown 02/19/2025 9:03 AM EDT us Vladimir Gasca MD POINT OF CARE TEST ENTER/EDIT OR DERABLES Final Result * Albumin, Random Urine W/Creatinine (07/04/2024 2:38 PM EST) Creatinine, Urine 124.58 mg/dL [facility] Microalbumin Urine 16.0 mg/L [facility] Microalbum Creatinine Ratio Ur 12.8 <30 ug/mg cr [facility] Comment:Albumin/Creatinine R atio Reference Ranges: Normal: < 30 ug/mg creatinine Microalbuminuria: 30 - 300 ug/mg creatinineClinical Albuminuria: > 300 ug/mg creatinine Urine (Urine, Random) 07/04/2024 2:38 PM EST 07/04/2024 4:14 PM EST us Vladimir Gasca MD LAB URINE ORDERABLES Final Resul t Performing Organization Address City/State/[facility] Co de Phone Number [facility] [address] [place] [phone] * Lipid Panel, Standard (11/29/2022 7:20 AM EDT) Triglycerides 528 mg/dL [facility] Comment:Desirable Triglyceri de: less than 150 mg/dLBorderline High Triglyceride 150-199 mg/dLHigh Triglyceride: 200-499 mg/dLVery High Triglyceride: greater than or equal to 5OO mg/dL Cholesterol 224 mg/dL [facility] Comment:Desirable Cholestero l: less than 200 mg/dLBorderline High Cholesterol: 200-239 mg/dLHigh Cholesterol: greater than 239 mg/dL LDL Cholesterol Calculated TNP mg/dl [facility] Comment:Unable to calculate the LDL. The formula of Friedwald,Justin, and Elio is only valid if the triglycerides areless than 400 mg/dl. HDL Cholesterol 36 mg/dL [facility] Comment:Desirable HDL: great er than 40 mg/dL Note: This HDL assay may give artificially low results in patients with liver disease. 11/29/2022 7:20 AM EDT 11/29/2022 7:20 AM EDT [facility] External Provider LAB BLO OD ORDERABLES Final Result [facility] [address] [place] [address] [phone] from Last 3 Months or Most Recently Relevant to Health Maintenance Insurance [facility] < 65 [place] [id number] Care Teams Assistant General Manager Relationship Specialty Start Date End Date Name, MD Vladimir [address] [place] [address] PCP - General Internal Medicine 07/12/23
--- OUTSIDE RECORDS SUMMARY | 2025-05-14 16:14 | XMS_ITS | Encounter Summary ---
Author Organization [employer] Address [address] [facility] 7t [place] [address] Care Team Providers Care Shirrer Name Role Phone Name, Vladimir CRISOSTOMO Primary Care Provider [phone] Reason for Visit * Reason Comments Med Refill Encounter Details Date Type Department Care Team ([facility] Contact Info) Description 02/23/2025 Refill [facility] MEDICINE [address] [place], [place] [phone] Name, MD Vladimir [address] [place] [address] Hypertrophic cardiomyopathy (CMS/HCC) Social History Tobacco Use [...] Description 06/06/2025 9:45 AM EST Office Visit [facility] MEDICINE [address] [place] [phone] NameVladimir MD [address] [place] [address] documented as of this encounter Visit Diagnoses Diagnosis Hypertrophic cardiomyopathy (CMS/HCC) (HCC) Other primary cardiomyopathies documented in this encounter Additional Health Concerns Assessment Noted Time PHQ-9 Depression Total Score: 19 024 2:48 PM EST documented as of this encounter Care Teams Shirrer Relationship Specialty Start Date End Date NameVladimir MD [address] [place] [phone] PCP - General Internal Medicine 07/12/23 documented as of this encounter
--- OUTSIDE RECORDS SUMMARY | 2025-05-14 16:14 | XMS_ITS | Clinical Summary ---
Author Organization [facility] Address [address] [place] [phone] Phone Care Team Providers Care Mold Maker Apprentice Name Role Phone Name, Vladimir CRISOSTOMO Primary Care Provider [phone] Allergies No known active allergies Medications empagliflozin [...] this topic Medical Devices Implanted Type Area Coffee Shop Attendant Device Identifier Shelf Expiration Date Model / Serial / Lot Envelope Tyrx Cardiac Med Absorbable Antibacterial Sterile - [id number] Implanted:Qty: 1 on 10/03/2024 by Rohit Varela MD at [facility] Collagen Left: Chest [employer] [place] [id number] 06/29/2025 [id number] 2 / / [id number] Defibrillator Cardioverter Is1 Df4 [id number] Niles Xt Dr Tyrese Mcclure Latex Free Titanium Polyurethane - [id number] Implanted:Qty: 1 on 10/03/2024 by Rohit Varela MD at [facility] ICD Left: Chest [employer] [facility] [id number] 11/26/2025 [id number] / [id number] / Lead Cardioverter Defibrillator Sprint Quattro Securesilicone Endo Rv Active Screw [id number] - [id number] Implanted:Qty: 1 on 10/03/2024 by Rohit Varela MD at [facility] Lead Right: Right Ventricle [employer] [facility] [id number] 03/27/2026 [id number] / [id number] / Insurance MEDICARE REPLACEMENT [place] [id number] MEDICARE REPLACEMENT MEDICARE REPLACEMENT CARE MEDICARE REPLACEMENT [facility] ONE CARE MEDICARE REPLACEMENT Advance Directives For more information, please contact: [phone] (9AM - 5PM [facility], Tuesday-Tuesday) * Full Code (Latest Code Status on File) Date Activated Date Inactivated Comments 10/03/2024 12:56 PM Question Answer Comments Code Status Confirmed With: Patient Care Teams Mold Maker Apprentice Relationship Specialty Start Date End Date Name, MD Vladimir [address] [place] [address] PCP - General Internal Medicine 09/20/24 Additional Source Comments The information contained in this document represents components of the legal health record. It is not the complete legal health record.[facility]
--- OUTSIDE RECORDS SUMMARY | 2025-05-14 16:14 | XMS_ITS | Encounter Summary ---
Author Organization [facility] Address [address] [place] [phone] Phone Care Team Providers Care Disability Specialist Name Role Phone Name, Vladimir CRISOSTOMO Primary Care Provider [phone] Encounter Details Date Type Department Care Team ([facility] st Contact Info) Description 10/03/2024 Procedure Pass [facility] [address] [place] [address] Social History Tobacco Use Types Packs/Day Years [...] on filedocumented in this encounter Care Teams Disability Specialist Relationship Specialty Start Date End Date Name, MD Vladimir [address] [place] [address] PCP - General Internal Medicine 09/20/24 documented as of this encounter Additional Source Comments The information contained in this document represents components of the legal health record. It is not the complete legal health record.[facility]
--- OUTSIDE RECORDS SUMMARY | 2025-05-14 16:14 | XMS_ITS | Encounter Summary ---
Author Organization [employer] Address [address] [facility] 7t [place] [address] Care Team Providers Care Car Park Attendant Name Role Phone Name, Vladimir CRISOSTOMO Primary Care Provider [phone] Reason for Visit * Reason Comments Med Refill Encounter Details Date Type Department Care Team ([facility] Contact Info) Description 08/07/2023 Refill [facility] MEDICINE [address] [place], [place] [phone] Name, MD Vladimir [address] [place] [address] Social History Tobacco Use Types Packs/Day Years [...] Office Visit [facility] MEDICINE [address] [place] [address] Name, MD Vladimir [address] [place] [address] documented as of this encounter Visit Diagnoses Not on filedocumented in this encounter Additional Health Concerns Assessment Noted Time PHQ-9 Depression Total Score: 0 05/13/20 9:43 AM EDT documented as of this encounter Care Teams Car Park Attendant Relationship Specialty Start Date End Date Name, MD Vladimir [address] [place] [address] PCP - General Internal Medicine 07/12/23 documented as of this encounter
== END 2025-05-14 13:40 | disposition home or self-care (01) ==
LOC: HO.HGS 13:25
PROVIDERS: PCP Internal Medicine Geriatric Medicine
DX: Z98.890 Other specified postprocedural states (principal); Z87.2 Personal history of diseases of the skin and subcutaneous tissue; L03.818 Cellulitis of other sites
CPT/HCPCS: 99213

== ENCOUNTER → 2025-05-14 13:24 | Outpatient (BNVA) | payer OTHER, SELFPAY | PROVIDERS: PCP Internal Medicine Geriatric Medicine | DX: Z48.02 Encounter for removal of sutures (principal); L03.818 Cellulitis of other sites; Z87.2 Personal history of diseases of the skin and subcutaneous tissue | CPT/HCPCS: 99212 ==

== ENCOUNTER → 2025-05-15 23:59 | Outpatient (BNV) | payer OTHER, SELFPAY ==
--- NOTE | 2025-05-20 15:14 | MHC.OFFVIS ---
Intake Visit Reasons: Remote HF monitoring- Medtronic Allergies prednisone (PREDNISONE) Allergy (Intermediate, Verified 05/14/25 13:33) BLEEDING PFSH Medical History (Updated 05/07/25 @ 13:19 by Anmol Todd PA-C) Pacemaker (~04/2023) ICD (implantable cardioverter-defibrillator) in place Aortic stenosis (~06/2022) Hyperlipidemia Hypertrophic obstructive cardiomyopathy (HOCM) (~2018) LBBB (left bundle branch block) (~2018) Surgical History (Updated 05/07/25 @ 13:19 by Anmol Todd PA-C) History of pacemaker (~04/2023) History of heart surgery (~12/2018) History of colonoscopy History of esophagogastroduodenoscopy (EGD) History of thumb surgery History of excision of epidermal inclusion cyst (~09/2021) Family History Father No problems noted. Mother No problems noted. Brother No problems noted. Sister No problems noted. Daughter Thyroid condition Son No problems noted. Social History Household Members: Spouse Housing: Apartment Do you presently have visiting nurse or other home services: No Alcohol intake: current Alcohol intake frequency: does not drink Comment: Indpendent Patient Tobacco Use Status: Current someday Tobacco user Tobacco use type: Cigarette Cigarettes Per Day: 5 service: No Office Procedures Cardiac Device Check Cardiac Device Check Details: Remote heart failure report generated 05/15/2025. Heart failure parameters are within normal limits [id number] Cardiac Device Interrogation, cardio physiologic monitor Procedure code (CPT) selection complete Assessment & Plan Assessment & Plan (1) ICD (implantable cardioverter-defibrillator) in place: Comment: Dual-chamber Medtronic ICD in place in September 2024 for ventricular arrhythmias with prior history of hypertrophic cardiomyopathy with increased scar burden Code(s): Z95.810 - Presence of automatic (implantable) cardiac defibrillator Category: Medical Plan: See above Coding Level of Care Code Procedure Only Diagnoses ICD (implantable cardioverter-defibrillator) in place Z95.810 CPT Codes Cardiac Device Check - Cardiac Device 15: [id number]-[id number] Cardiac Device Interrogation, cardio physiologic monitor ([id number])
== END ==
PROVIDERS: PCP Internal Medicine Geriatric Medicine; Visit Provider Internal Medicine Cardiovascular Disease
DX: I50.9 Heart failure, unspecified (principal); Z95.810 Presence of automatic (implantable) cardiac defibrillator
CPT/HCPCS: 93297

== ENCOUNTER → 2025-07-26 16:10 | Outpatient (BNV) | payer OTHER, SELFPAY | PROVIDERS: PCP Internal Medicine Geriatric Medicine; Visit Provider Internal Medicine Cardiovascular Disease | DX: Z45.02 Encounter for adjustment and management of automatic implantable cardiac defibrillator (principal) | CPT/HCPCS: 93297 ==